=== PATIENT | female | born 1985 | race Caucasian/White ===

== ENCOUNTER → 2016-09-15 | Outpatient (REF) | payer OTHER ==
[~2016-09-15] MED LIST: ADV250INH INH; ALBU17IN2 INH; AMIT10TA2 PO; CARB20TAXR PO; DIVA50TAEC PO; MEDR4PAK PO; MIREIUD IU; PERCOCET PO; SENO8.6T2 PO; TYLE325T5 PO; VIMP100T PO
== END ==
LOC: M LAB REF 09:57
PROVIDERS: ATTEND Physician Assistant
DX: J02.9 Acute pharyngitis, unspecified (principal)

== ENCOUNTER 2016-10-26 18:26 | Emergency (ER) | payer OTHER ==
[2016-10-26] MEDS ORDERED: ALPRAZolam 0.25 MG TAB As Ordered ONE (19:56)
--- NOTE | 2016-10-26 20:10 | EDDOCDS ---
Physician Documentation [facility] Name: Leigh Candelaria Age: 30 yrs Sex: Female : 1985 Arrival Date: 10/26/2016 Time: 18:26 Bed 30 Private MD: Emerson Dow Abdul Disposition: 10/26/16 19:11 Discharged to Home/Self Care. Impression: Encounter for issue of repeat prescription. - Condition is Stable. - Prescriptions for Amitriptyline 50 mg Oral Tablet - take 1 tablet by ORAL route At bedtime As needed; 10 tablet. Xanax 0.5 mg Oral Tablet - take 1 tablet by ORAL route 1-2 times daily As needed MDD: 3 tabs; 10 tablet. - Medication Reconciliation, Local Pharmacy Hours form. - Follow up: Emerson Dow; When: Call to arrange an appointment; Reason: Recheck today's complaints, Continuance of care. - Problem is new. - Symptoms are unchanged. Historical: - Allergies: Blue Dye (Hives, itching); Depakote (Pancreatitis); Keppra (Vomit, Rash); Lamictal (Anaphylaxis); Morphine (Anaphylaxis); Paxil (chest pain, rash and dyspnea); - Home Meds: 1. amitriptyline 50 mg Oral tab PRN at HS needs refill 2. Xanax 0.5 mg Oral tab 1 tab twice a day ran out last week- need refill 3. Benadryl 50 mg Oral cap 2 cap as needed 4. Depo-Provera IM Q-3 months 5. gabapentin 300 mg Oral cap 1 cap twice a day 6. carbamazepine 200 mg Oral tab every 12 hours - PMHx: Anxiety; Pancreatitis; Seizure Disorder; - PSHx: Cholecystectomy; - Social history: Smoking status: Patient states was never smoker of tobacco. No barriers to communication noted, The patient speaks fluent Comoran, Speaks appropriately for age. - Family history: Not pertinent. - : The pt / caregiver states he / she is not on anticoagulants. Home medication list is obtained from the patient. - Exposure Risk Screening:: None identified. COMMUNITY HEALTH NAVIGATOR: 10/26 18:47 LMP N/A - control method srm Vital Signs: 18:28 BP 178 / 95; Pulse 100; Resp 18 S; Temp 98.8(O); Pulse Ox 99% on R/A; Weight 68.04 kg / gr2 150 lbs (R); Height 5 ft. 3 in. (160.02 cm) (R); Pain 4/10; 20:07 BP 142 / 99; Pulse 89; Resp 16; Temp 99.1(O); Pulse Ox 99% on R/A; Pain 0/10; rw1 18:28 Body Mass Index 26.57 (68.04 kg, 160.02 cm) gr2 MDM: 19:29 Financial registration complete. gjb 19:55 ALPRAZolam Tablet 0.5 mg PO once ordered. cs11 Administered Medications: 20:01 Drug: ALPRAZolam 0.5 mg [alprazolam 0.25 mg tablet (2 tabs)] Route: PO; rw1 20:02 Follow up: Response: Pt left department before re-evaluation is appropriate rw1 Signatures: Gabriela Ho, RN RN Davi Cote LPN LPN rw1 Pramod Burciaga DO DO cs11 Nehal Roblero isabel LACHO
--- NOTE | 2016-10-26 20:10 | EDDOCDS ---
Nurse's Notes [facility] Name: Leigh Candelaria Age: 30 yrs Sex: Female : 1985 Arrival Date: 10/26/2016 Time: 18:26 Bed 30 Private MD: Emerson Dow Abdul Diagnosis: Encounter for issue of repeat prescription Presentation: 10/26 18:44 Presenting complaint: Patient states: last week my doctor was suppsoed to renew my [facility] anxiety meds and called and cancelled appt and is now out of town. asiya been having the worse anxiety attacks. Asiya had 10 today. Adult Sepsis Screening: The patient does not have new or worsening altered mentation. Patient's respiratory rate is less than 22. Systolic blood pressure is greater than 100. Patient has a qSOFA score of 0- Negative Sepsis Screen. Suicide/Homicide risk assessment- Patient denies SI and HI but presents with another emotional, behavioral or other mental health complaint. The patient reports that he/she has not been admitted to an inpatient mental health facility in the last 30 days. 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 Transition of care: patient was not received from another setting of care. 18:44 Acuity: DAVID Level 3 srm 18:44 Method Of Arrival: Walkin/Carried/Asstd [facility] Triage Assessment: 18:47 General: Appears in no apparent distress, Behavior is appropriate for age, cooperative. srm Pain: Location: headache Pain currently is 4 out of 10 on a pain scale. HIV screening NA for this visit Offered previously. TESTS SUPERINTENDENT: 18:47 LMP N/A - control method srm Historical: - Allergies: Blue Dye (Hives, itching); Depakote (Pancreatitis); Keppra (Vomit, Rash); Lamictal (Anaphylaxis); Morphine (Anaphylaxis); Paxil (chest pain, rash and dyspnea); - Home Meds: 1. amitriptyline 50 mg Oral tab PRN at HS needs refill 2. Xanax 0.5 mg Oral tab 1 tab twice a day ran out last week- need refill 3. Benadryl 50 mg Oral cap 2 cap as needed 4. Depo-Provera IM Q-3 months 5. gabapentin 300 mg Oral cap 1 cap twice a day 6. carbamazepine 200 mg Oral tab every 12 hours - PMHx: Anxiety; Pancreatitis; Seizure Disorder; - PSHx: Cholecystectomy; - Social history: Smoking status: Patient states was never smoker of tobacco. No barriers to communication noted, The patient speaks fluent Hebrew, Speaks appropriately for age. - Family history: Not pertinent. - : The pt / caregiver states he / she is not on anticoagulants. Home medication list is obtained from the patient. - Exposure Risk Screening:: None identified. Screenin:07 Screening information is obtained from the patient. Fall risk: No risks identified. rw1 Assistance ADL's: requires no assistance with activities of daily living. Abuse/DV Screen: The patient / caregiver reports he/she is: not in a situation that causes fear, pain or injury. Nutritional screening: No deficits noted. Advance Directives: Currently, there is no health care proxy. home support is adequate. Assessment: 20:03 Reassessment: Patient appears in no apparent distress at this time. Patient denies pain rw1 at this time. Patient states feeling better. Vital Signs: 18:28 BP 178 / 95; Pulse 100; Resp 18 S; Temp 98.8(O); Pulse Ox 99% on R/A; Weight 68.04 kg gr2 (R); Height 5 ft. 3 in. (160.02 cm) (R); Pain 4/10; 20:07 BP 142 / 99; Pulse 89; Resp 16; Temp 99.1(O); Pulse Ox 99% on R/A; Pain 0/10; rw1 18:28 Body Mass Index 26.57 (68.04 kg, 160.02 cm) gr2 Vitals: 18:28 Log In Time: October 26, 2016 at 18:28. gr2 ED Course: 18:28 Patient visited by Mamadou Vogel. gr2 18:28 Emerson Dow is Private Physician. gr2 18:28 Patient moved to Waiting gr2 18:29 Patient visited by Mamadou Vogel. gr2 18:29 Patient moved to Pre RCE gr2 18:45 Triage Initiated srm 18:57 Patient moved to 30 ar3 18:59 Pramod Burciaga DO is Attending Physician. cs11 18:59 Patient visited by Pramod Burciaga DO. cs11 19:10 Emersno Dow is Referral Physician. cs11 20:07 The patient / caregiver is instructed regarding the plan of care and ED course. rw1 20:07 No IV's were initiated during this patient's visit. No procedures done that require rw1 assistance. Administered Medications: 20:01 Drug: ALPRAZolam 0.5 mg [alprazolam 0.25 mg tablet (2 tabs)] Route: PO; rw1 20:02 Follow up: Response: Pt left department before re-evaluation is appropriate rw1 Order Results: There are currently no results for this order. Outcome: 19:11 Discharge ordered by Provider. cs11 20:07 Discharge Assessment: Patient awake, alert and oriented x 3. No cognitive and/or rw1 functional deficits noted. Patient verbalized understanding of disposition instructions. patient administered narcotics - yes. Pt provided with safe discharge. The following High Risk Discharge criteria are identified: None. Discharged to home ambulatory, in cab. Condition: stable. Discharge instructions given to patient, Instructed on discharge instructions, follow up and referral plans. medication usage, no driving heavy equipment, Demonstrated understanding of instructions, medications, Pt was receptive of discharge instructions/ teaching. Prescriptions given X 2. No special radiology studies were completed. Property sent home with patient. 20:09 Patient left the ED. rw1 Signatures: Gabriela Ho, RN RN Davi Cote,ALBER ENVIRONMENTAL EMERGENCIES ASSISTANT rw1 Germaine Ferreira, LETTY LOOPER FIXER ar3 Pramod Burciaga DO DO 11 Mamadou Vogel gr2 Corrections: (The following items were deleted from the chart) 20:03 20:03 General: Appears rw1 rw1 MTDD
--- NOTE | 2016-10-28 21:10 | EDDOCDS ---
Physician Documentation [facility] Name: Leigh Candelaria Age: 30 yrs Sex: Female : 1985 Arrival Date: 10/26/2016 Time: 18:26 Bed 30 Private MD: Emerson Dow Abdul Disposition: 10/26/16 19:11 Discharged to Home/Self Care. Impression: Encounter for issue of repeat prescription. - Condition is Stable. - Prescriptions for Amitriptyline 50 mg Oral Tablet - take 1 tablet by ORAL route At bedtime As needed; 10 tablet. Xanax 0.5 mg Oral Tablet - take 1 tablet by ORAL route 1-2 times daily As needed MDD: 3 tabs; 10 tablet. - Medication Reconciliation, Local Pharmacy Hours form. - Follow up: Emerson Dow; When: Call to arrange an appointment; Reason: Recheck today's complaints, Continuance of care. - Problem is new. - Symptoms are unchanged. Historical: - Allergies: Blue Dye (Hives, itching); Depakote (Pancreatitis); Keppra (Vomit, Rash); Lamictal (Anaphylaxis); Morphine (Anaphylaxis); Paxil (chest pain, rash and dyspnea); - Home Meds: 1. amitriptyline 50 mg Oral tab PRN at HS needs refill 2. Xanax 0.5 mg Oral tab 1 tab twice a day ran out last week- need refill 3. Benadryl 50 mg Oral cap 2 cap as needed 4. Depo-Provera IM Q-3 months 5. gabapentin 300 mg Oral cap 1 cap twice a day 6. carbamazepine 200 mg Oral tab every 12 hours - PMHx: Anxiety; Pancreatitis; Seizure Disorder; - PSHx: Cholecystectomy; - Social history: Smoking status: Patient states was never smoker of tobacco. No barriers to communication noted, The patient speaks fluent Maldivian, Speaks appropriately for age. - Family history: Not pertinent. - : The pt / caregiver states he / she is not on anticoagulants. Home medication list is obtained from the patient. - Exposure Risk Screening:: None identified. 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 3 in. (160.02 cm) (R); Pain 4/10; 20:07 BP 142 / 99; Pulse 89; Resp 16; Temp 99.1(O); Pulse Ox 99% on R/A; Pain 0/10; rw1 18:28 Body Mass Index 26.57 (68.04 kg, 160.02 cm) gr2 MDM: 19:29 Financial registration complete. gjb 19:55 ALPRAZolam Tablet 0.5 mg PO once ordered. cs11 20:30 [facility] Payment Agreement was scanned into [employer] and attached to record. b 10/27 11:04 T-Sheet-- Draft Copy was scanned into [employer] and attached to record. gb Administered Medications: 10/26 20:01 Drug: ALPRAZolam 0.5 mg [alprazolam 0.25 mg tablet (2 tabs)] Route: PO; rw1 20:02 Follow up: Response: Pt left department before re-evaluation is appropriate rw1 Signatures: Gabriela Ho, RN RN srm Betsy, Shaila, Reg Reg gb Davi Braxton,COMMUNICATION ELECTRONIC TECHNICIAN COMMUNICATION ELECTRONIC TECHNICIAN rw1 Pramod Burciaga DO DO [facility] Nehal Roblero [facility] The chart was reviewed and I authenticate all verbal orders and agree with the evaluation and treatment provided.Attachments: 20:30 [facility] Payment Agreement [facility] 10/27 11:04 T-Sheet-- Draft Copy Chart Complete MTDD
--- NOTE | 2016-10-28 21:10 | EDDOCDS ---
Physician Documentation [facility] Name: Leigh Candelaria Age: 30 yrs Sex: Female : 1985 Arrival Date: 10/26/2016 Time: 18:26 Bed 30 Private MD: Emerson Dow Abdul Disposition: 10/26/16 19:11 Discharged to Home/Self Care. Impression: Encounter for issue of repeat prescription. - Condition is Stable. - Prescriptions for Amitriptyline 50 mg Oral Tablet - take 1 tablet by ORAL route At bedtime As needed; 10 tablet. Xanax 0.5 mg Oral Tablet - take 1 tablet by ORAL route 1-2 times daily As needed MDD: 3 tabs; 10 tablet. - Medication Reconciliation, Local Pharmacy Hours form. - Follow up: Emerson Dow; When: Call to arrange an appointment; Reason: Recheck today's complaints, Continuance of care. - Problem is new. - Symptoms are unchanged. Historical: - Allergies: Blue Dye (Hives, itching); Depakote (Pancreatitis); Keppra (Vomit, Rash); Lamictal (Anaphylaxis); Morphine (Anaphylaxis); Paxil (chest pain, rash and dyspnea); - Home Meds: 1. amitriptyline 50 mg Oral tab PRN at HS needs refill 2. Xanax 0.5 mg Oral tab 1 tab twice a day ran out last week- need refill 3. Benadryl 50 mg Oral cap 2 cap as needed 4. Depo-Provera IM Q-3 months 5. gabapentin 300 mg Oral cap 1 cap twice a day 6. carbamazepine 200 mg Oral tab every 12 hours - PMHx: Anxiety; Pancreatitis; Seizure Disorder; - PSHx: Cholecystectomy; - Social history: Smoking status: Patient states was never smoker of tobacco. No barriers to communication noted, The patient speaks fluent Burkinan, Speaks appropriately for age. - Family history: Not pertinent. - : The pt / caregiver states he / she is not on anticoagulants. Home medication list is obtained from the patient. - Exposure Risk Screening:: None identified. 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 3 in. (160.02 cm) (R); Pain 4/10; 20:07 BP 142 / 99; Pulse 89; Resp 16; Temp 99.1(O); Pulse Ox 99% on R/A; Pain 0/10; rw1 18:28 Body Mass Index 26.57 (68.04 kg, 160.02 cm) gr2 MDM: 19:29 Financial registration complete. gjb 19:55 ALPRAZolam Tablet 0.5 mg PO once ordered. cs11 20:30 [facility] [place] Agreement was scanned into [employer] and attached to record. b 10/27 11:04 T-Sheet-- Draft Copy was scanned into [employer] and attached to record. gb Administered Medications: 10/26 20:01 Drug: ALPRAZolam 0.5 mg [alprazolam 0.25 mg tablet (2 tabs)] Route: PO; rw1 20:02 Follow up: Response: Pt left department before re-evaluation is appropriate rw1 Signatures: Gabriela Ho, RN RN srm Betsy, Shaila, Reg Reg gb Davi Braxton,TOPSTITCHER ZIGZAG TOPSTITCHER ZIGZAG rw1 Pramod Burciaga DO DO [facility] Nehal Roblero [facility] The chart was reviewed and I authenticate all verbal orders and agree with the evaluation and treatment provided.Attachments: 20:30 [facility] Payment Agreement [facility] 10/27 11:04 T-Sheet-- Draft Copy Chart Complete MTDD
--- NOTE | 2016-10-28 21:10 | EDDOCDS ---
Nurse's Notes [facility] Name: Leigh Candelaria Age: 30 yrs Sex: Female : 1985 Arrival Date: 10/26/2016 Time: 18:26 Bed 30 Private MD: Emerson Dow Abdul Diagnosis: Encounter for issue of repeat prescription Presentation: 10/26 18:44 Presenting complaint: Patient states: last week my doctor was suppsoed to renew my [facility] anxiety meds and called and cancelled appt and is now out of town. asiya been having the worse anxiety attacks. Asiya had 10 today. Adult Sepsis Screening: The patient does not have new or worsening altered mentation. Patient's respiratory rate is less than 22. Systolic blood pressure is greater than 100. Patient has a qSOFA score of 0- Negative Sepsis Screen. Suicide/Homicide risk assessment- Patient denies SI and HI but presents with another emotional, behavioral or other mental health complaint. The patient reports that he/she has not been admitted to an inpatient mental health facility in the last 30 days. 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 Transition of care: patient was not received from another setting of care. 18:44 Acuity: DAVID Level 3 srm 18:44 Method Of Arrival: Walkin/Carried/Asstd [facility] Triage Assessment: 18:47 General: Appears in no apparent distress, Behavior is appropriate for age, cooperative. srm Pain: Location: headache Pain currently is 4 out of 10 on a pain scale. HIV screening NA for this visit Offered previously. ATTENUATOR: 18:47 LMP N/A - control method srm Historical: - Allergies: Blue Dye (Hives, itching); Depakote (Pancreatitis); Keppra (Vomit, Rash); Lamictal (Anaphylaxis); Morphine (Anaphylaxis); Paxil (chest pain, rash and dyspnea); - Home Meds: 1. amitriptyline 50 mg Oral tab PRN at HS needs refill 2. Xanax 0.5 mg Oral tab 1 tab twice a day ran out last week- need refill 3. Benadryl 50 mg Oral cap 2 cap as needed 4. Depo-Provera IM Q-3 months 5. gabapentin 300 mg Oral cap 1 cap twice a day 6. carbamazepine 200 mg Oral tab every 12 hours - PMHx: Anxiety; Pancreatitis; Seizure Disorder; - PSHx: Cholecystectomy; - Social history: Smoking status: Patient states was never smoker of tobacco. No barriers to communication noted, The patient speaks fluent Spanish, Speaks appropriately for age. - Family history: Not pertinent. - : The pt / caregiver states he / she is not on anticoagulants. Home medication list is obtained from the patient. - Exposure Risk Screening:: None identified. Screenin:07 Screening information is obtained from the patient. Fall risk: No risks identified. rw1 Assistance ADL's: requires no assistance with activities of daily living. Abuse/DV Screen: The patient / caregiver reports he/she is: not in a situation that causes fear, pain or injury. Nutritional screening: No deficits noted. Advance Directives: Currently, there is no health care proxy. home support is adequate. Assessment: 20:03 Reassessment: Patient appears in no apparent distress at this time. Patient denies pain rw1 at this time. Patient states feeling better. Vital Signs: 18:28 BP 178 / 95; Pulse 100; Resp 18 S; Temp 98.8(O); Pulse Ox 99% on R/A; Weight 68.04 kg gr2 (R); Height 5 ft. 3 in. (160.02 cm) (R); Pain 4/10; 20:07 BP 142 / 99; Pulse 89; Resp 16; Temp 99.1(O); Pulse Ox 99% on R/A; Pain 0/10; rw1 18:28 Body Mass Index 26.57 (68.04 kg, 160.02 cm) gr2 Vitals: 18:28 Log In Time: October 26, 2016 at 18:28. gr2 ED Course: 18:28 Patient visited by Mamadou Vogel. gr2 18:28 Emerson Dow is Private Physician. gr2 18:28 Patient moved to Waiting gr2 18:29 Patient visited by Mamadou Vogel. gr2 18:29 Patient moved to Pre RCE gr2 18:45 Triage Initiated srm 18:57 Patient moved to 30 ar3 18:59 Pramod Burciaga DO is Attending Physician. cs11 18:59 Patient visited by Pramod Burciaga DO. cs11 19:10 Emerson Dow is Referral Physician. cs11 20:07 The patient / caregiver is instructed regarding the plan of care and ED course. rw1 20:07 No IV's were initiated during this patient's visit. No procedures done that require rw1 assistance. 20:30 [facility] Payment Agreement was scanned into [employer] and attached to record. torey 10/27 11:04 T-Sheet-- Draft Copy was scanned into [email or web address] and attached to record. gb Administered Medications: 10/26 20:01 Drug: ALPRAZolam 0.5 mg [alprazolam 0.25 mg tablet (2 tabs)] Route: PO; rw1 20:02 Follow up: Response: Pt left department before re-evaluation is appropriate rw1 Order Results: There are currently no results for this order. Outcome: 19:11 Discharge ordered by Provider. cs11 20:07 Discharge Assessment: Patient awake, alert and oriented x 3. No cognitive and/or rw1 functional deficits noted. Patient verbalized understanding of disposition instructions. patient administered narcotics - yes. Pt provided with safe discharge. The following High Risk Discharge criteria are identified: None. Discharged to home ambulatory, in cab. Condition: stable. Discharge instructions given to patient, Instructed on discharge instructions, follow up and referral plans. medication usage, no driving heavy equipment, Demonstrated understanding of instructions, medications, Pt was receptive of discharge instructions/ teaching. Prescriptions given X 2. No special radiology studies were completed. Property sent home with patient. 20:09 Patient left the ED. rw1 Signatures: Gabriela Ho, RN RN [facility] Betsy, Shaila, Reg Reg gb Davi Braxton,ALBER CAMPO rw1 Germaine Ferreira, LETTY DIVINE HEALER ar3 Pramod Burciaga DO DO cs11 Mamadou Vogel 2 Nehal Roblero Corrections: (The following items were deleted from the chart) 20:03 20:03 General: Appears rw1 rw1 Chart Complete MTDD
== END 2016-10-26 20:09 | disposition home or self-care (01) ==
LOC: M ED 18:26
DX: Z76.0 Encounter for issue of repeat prescription (principal); F41.9 Anxiety disorder, unspecified; G40.909 Epilepsy, unspecified, not intractable, without status epilepticus; Z79.899 Other long term (current) drug therapy; Z88.8 Allergy status to other drugs, medicaments and biological substances; Z88.5 Allergy status to narcotic agent; Z91.02 Food additives allergy status

== ENCOUNTER → 2017-03-19 | Outpatient (CLI) | payer OTHER ==
[~2017-03-19] MED LIST changes: +AMIT50TA PO; +FLUO20CA8 PO; +GABA-282 PO; +KLON0.5T PO; +MEDR1VL IM; -SENO8.6T2 PO; +SENO8.6T5 PO; +XANA0.5T PO; +ZOFR4TAB3 PO
--- NOTE | 2017-03-19 14:59 | REP ---
Clinical: Epigastric and abdominal pain. Technique: Upright view of the chest with supine and upright views of the abdomen and pelvis. Findings: Frontal upright view of the chest demonstrates no acute cardiopulmonary process or free air below the diaphragm to suspect pneumoperitoneum. Supine and upright views of the abdomen and pelvis demonstrate nonspecific bowel gas pattern without obstruction or perforation. No organomegaly. No abnormal calcifications. Skeletal structures normal for age. Evidence of prior cholecystectomy and IUD placement. Impression: Nonspecific bowel gas pattern. Signed by Albert Heard MD 03/19/2017 02:50 P
[2017-03-19 18:27] LABS: BASO % 0.3 % (0.0-1.0); EOS # 0.1 K/mm3 (0.0-0.50); EOS % 0.7 % (0.0-3.0); LARGE UNSTAINED CELL # 0.1 K/mm3 (0.0-0.4); LARGE UNSTAINED CELL % 0.8 % (0.0-4.0); LYMPH % 24.2 % (24.0-44.0); MEAN CORPUSCULAR HEMOGLOBIN 31.3 pg (27.0-33.0); MEAN CORPUSCULAR HGB CONC 34.1 g/dl (32.0-36.5); MEAN CORPUSCULAR VOLUME 91.7 fl (80.0-96.0); MONO # 0.7 K/mm3 (0.0-0.8); MONO % 5.5 % (0.0-5.0); NEUTROPHILS # 8.2 K/mm3 (1.8-7.7); NEUTROPHILS % 68.4 % (36.0-66.0); PLATELET COUNT, AUTOMATED 325 k/mm3 (150-450); RED CELL DISTRIBUTION WIDTH 12.1 % (11.5-14.5)
[2017-03-19 18:43] LABS: ANION GAP 8 MEQ/L (8-16); BLOOD UREA NITROGEN 16 MG/DL (7-18); CALCIUM LEVEL 9.4 MG/DL (8.5-10.1); CARBON DIOXIDE LEVEL 30 MEQ/L (21-32); CHLORIDE LEVEL 102 MEQ/L (98-107); CREATININE FOR GFR 0.72 MG/DL (0.55-1.02); GLOMERULAR FILTRATION RATE > 60.0 (>60); GLUCOSE, FASTING 74 MG/DL (70-105); POTASSIUM SERUM 3.9 MEQ/L (3.5-5.1); SODIUM LEVEL 140 MEQ/L (136-145)
== END ==
LOC: M WUC 14:21
PROVIDERS: ATTEND Physician Assistant
DX: R10.816 Epigastric abdominal tenderness (principal)

== ENCOUNTER 2017-03-20 00:02 | Emergency (ER) | payer OTHER ==
[~2017-03-20] VITALS: Ht 160 cm; Wt 72.7 kg
[~2017-03-20 00:02] MED LIST changes: -AMIT50TA PO; -FLUO20CA8 PO; -GABA-282 PO; -KLON0.5T PO; -MEDR1VL IM; -XANA0.5T PO; -ZOFR4TAB3 PO
[2017-03-20] MEDS ORDERED: GABA-282 PO (00:20)
[2017-03-20] MEDS ORDERED: AMIT50TA PO (00:20)
[2017-03-20] MEDS ORDERED: XANA0.5T PO (00:20)
[2017-03-20] MEDS ORDERED: LORazepam 1 MG TAB PO STA (00:59)
[2017-03-20 02:39] VITALS: BP 138/64
== END 2017-03-20 02:42 | disposition home or self-care (01) ==
LOC: EDBD 00:02 → M ED 00:02
DX: F41.9 Anxiety disorder, unspecified (principal); F13.20 Sedative, hypnotic or anxiolytic dependence, uncomplicated

== ENCOUNTER 2017-05-07 19:22 | Emergency (ER) | payer OTHER ==
[~2017-05-07] VITALS: Ht 160 cm; Wt 63.6 kg
[~2017-05-07 19:22] MED LIST changes: +AMIT50TA PO; +GABA-282 PO; +XANA0.5T PO
[2017-05-07] MEDS ORDERED: FLUO20CA8 PO (19:38)
[2017-05-07] MEDS ORDERED: KLON0.5T PO (20:41)
[2017-05-07] MEDS ORDERED: clonazePAM 0.5 MG TAB PO ONE (20:45)
[2017-05-07 21:04] VITALS: BP 132/84
== END 2017-05-07 21:07 | disposition home or self-care (01) ==
LOC: M ED 19:22 → EDBD 19:22 → M ED 21:07
DX: F13.20 Sedative, hypnotic or anxiolytic dependence, uncomplicated (principal); F41.9 Anxiety disorder, unspecified

== ENCOUNTER 2017-05-08 05:46 | Emergency (ER) | payer OTHER ==
[~2017-05-08 05:46] MED LIST changes: +FLUO20CA8 PO; +KLON0.5T PO
[2017-05-08 07:14] LABS: MEAN CORPUSCULAR HEMOGLOBIN 31.8 pg (27.0-33.0); MEAN CORPUSCULAR HGB CONC 34.9 g/dl (32.0-36.5); MEAN CORPUSCULAR VOLUME 91.1 fl (80.0-96.0); RED CELL DISTRIBUTION WIDTH 11.9 % (11.5-14.5); WHITE BLOOD COUNT 9.2 K/mm3 (4.0-10.0)
[2017-05-08] MEDS ORDERED: ALPRAZolam 0.25 MG TAB PO ONE ×2 (07:45→08:15)
[2017-05-08 07:58] LABS: ALBUMIN 4.1 GM/DL (3.2-5.2); ALBUMIN/GLOBULIN RATIO 1.17 (1.00-1.93); ALKALINE PHOSPHATASE 66 U/L (45-117); ALT/SGPT 16 U/L (12-78); ANION GAP 10 MEQ/L (8-16); AST/SGOT 13 U/L (15-37); BILIRUBIN,DIRECT < 0.1 MG/DL (0.0-0.2); BILIRUBIN,TOTAL 0.3 MG/DL (0.2-1.0); BLOOD UREA NITROGEN 9 MG/DL (7-18); CALCIUM LEVEL 8.7 MG/DL (8.5-10.1); CARBAMAZEPINE (TEGRETOL) LEVEL 9.3 UG/ML (4.0-10.0); CARBON DIOXIDE LEVEL 27 MEQ/L (21-32); CHLORIDE LEVEL 107 MEQ/L (98-107); CREATININE FOR GFR 0.73 MG/DL (0.55-1.02); GLOMERULAR FILTRATION RATE > 60.0 (>60); GLUCOSE, FASTING 98 MG/DL (70-105); POTASSIUM SERUM 4.2 MEQ/L (3.5-5.1); SODIUM LEVEL 144 MEQ/L (136-145); TOTAL PROTEIN 7.6 GM/DL (6.4-8.2)
[2017-05-08 08:20] VITALS: BP 141/72
[2017-05-08 08:41] LABS: METHADONE URINE NEGATIVE (NEGATIVE)
== END 2017-05-08 08:28 | disposition home or self-care (01) ==
LOC: EDBD 05:46 → M ED 05:46 → EDSEX 05:46 → M ED 08:28
DX: F41.9 Anxiety disorder, unspecified (principal); F13.10 Sedative, hypnotic or anxiolytic abuse, uncomplicated

== ENCOUNTER 2017-06-04 19:48 | Emergency (ER) | payer OTHER ==
[~2017-06-04] VITALS: Ht 160 cm; Wt 61.4 kg
[2017-06-04 20:40] LABS: MEAN CORPUSCULAR HEMOGLOBIN 31.9 pg (27.0-33.0); MEAN CORPUSCULAR HGB CONC 35.5 g/dl (32.0-36.5); MEAN CORPUSCULAR VOLUME 89.8 fl (80.0-96.0); RED CELL DISTRIBUTION WIDTH 11.8 % (11.5-14.5)
[2017-06-04 21:14] LABS: ALBUMIN 4.2 GM/DL (3.2-5.2); ALBUMIN/GLOBULIN RATIO 1.27 (1.00-1.93); ALKALINE PHOSPHATASE 70 U/L (45-117); ALT/SGPT 26 U/L (12-78); ANION GAP 8 MEQ/L (8-16); AST/SGOT 15 U/L (15-37); BILIRUBIN,DIRECT 0.1 MG/DL (0.0-0.2); BILIRUBIN,TOTAL 0.3 MG/DL (0.2-1.0); BLOOD UREA NITROGEN 13 MG/DL (7-18); CALCIUM LEVEL 8.4 MG/DL (8.5-10.1); CARBON DIOXIDE LEVEL 25 MEQ/L (21-32); CHLORIDE LEVEL 108 MEQ/L (98-107); CREATININE FOR GFR 0.64 MG/DL (0.55-1.02); GLOMERULAR FILTRATION RATE > 60.0 (>60); GLUCOSE, FASTING 95 MG/DL (70-105); POTASSIUM SERUM 3.7 MEQ/L (3.5-5.1); SODIUM LEVEL 141 MEQ/L (136-145); TOTAL PROTEIN 7.5 GM/DL (6.4-8.2)
[2017-06-04] MEDS ORDERED: ZOFR4TAB3 PO (21:31)
[2017-06-04 21:47] VITALS: BP 139/80
[2017-06-04 21:51] LABS: METHADONE URINE NEGATIVE (NEGATIVE)
[2017-06-05] MEDS ORDERED: MEDR1VL IM (14:19)
== END 2017-06-04 22:09 | disposition home or self-care (01) ==
LOC: M ED 19:48 → EDBD 19:48 → M ED 22:09
DX: F43.9 Reaction to severe stress, unspecified (principal); F15.20 Other stimulant dependence, uncomplicated

== ENCOUNTER 2017-06-05 14:09 | Emergency (ER) | payer OTHER ==
[~2017-06-05] VITALS: Ht 160 cm; Wt 65.9 kg
[~2017-06-05 14:09] MED LIST changes: +ZOFR4TAB3 PO
[2017-06-05] MEDS ORDERED: MEDR1VL IM (14:19)
[2017-06-05 16:41] VITALS: BP 138/80
== END 2017-06-05 16:42 | disposition home or self-care (01) ==
LOC: M ED 14:09
DX: F41.9 Anxiety disorder, unspecified (principal); G40.909 Epilepsy, unspecified, not intractable, without status epilepticus; Z79.899 Other long term (current) drug therapy; Z88.5 Allergy status to narcotic agent; Z88.8 Allergy status to other drugs, medicaments and biological substances; J30.0 Vasomotor rhinitis; J30.81 Allergic rhinitis due to animal (cat) (dog) hair and dander; L23.1 Allergic contact dermatitis due to adhesives

== ENCOUNTER → 2017-07-26 | Outpatient (CLI) | payer OTHER ==
[~2017-07-26] MED LIST changes: +MEDR1VL IM
[2017-07-26 18:45] LABS: ALBUMIN 4.2 GM/DL (3.2-5.2); ALBUMIN/GLOBULIN RATIO 1.31 (1.00-1.93); ALKALINE PHOSPHATASE 72 U/L (45-117); ALT/SGPT 23 U/L (12-78); ANION GAP 5 MEQ/L (8-16); AST/SGOT 15 U/L (7-37); BILIRUBIN,TOTAL 0.3 MG/DL (0.2-1.0); BLOOD UREA NITROGEN 16 MG/DL (7-18); CARBON DIOXIDE LEVEL 29 MEQ/L (21-32); CHLORIDE LEVEL 104 MEQ/L (98-107); CHOLESTEROL LEVEL 211 MG/DL (<200); CREATININE FOR GFR 0.69 MG/DL (0.55-1.02); FERRITIN 65 NG/ML (8-252); GLOMERULAR FILTRATION RATE > 60.0 (>60); GLUCOSE, FASTING 110 MG/DL (70-105); PERCENT SATURATION 37.5 % (13.2-45.0); POTASSIUM SERUM 4.3 MEQ/L (3.5-5.1); SODIUM LEVEL 138 MEQ/L (136-145); TOTAL IRON BINDING CAPACITY 333 UG/DL (250-450); TOTAL PROTEIN 7.4 GM/DL (6.4-8.2); TRIGLYCERIDES LEVEL 102 MG/DL (<150)
[2017-07-26 19:05] LABS: BASO % 0.4 % (0.0-1.0); EOS # 0.3 10^3/uL (0.0-0.50); EOS % 3.9 % (0.0-3.0); IMMATURE GRANULOCYTE % 0.3 % (0-0); LYMPH # 2.4 10^3/uL (1.5-4.5); LYMPH % 33.5 % (24.0-44.0); MEAN CORPUSCULAR HEMOGLOBIN 31.3 pg (27.0-33.0); MEAN CORPUSCULAR HGB CONC 33.7 g/dl (32.0-36.5); MEAN CORPUSCULAR VOLUME 92.9 fl (80.0-96.0); MONO # 0.5 10^3/uL (0.0-0.8); MONO % 6.9 % (0.0-5.0); PLATELET COUNT, AUTOMATED 287 10^3/uL (150-450); RED CELL DISTRIBUTION WIDTH 11.7 % (11.5-14.5); RETIC HEMOGLOBIN EQUIVALENT 37.9 pg (24-36); RETICULOCYTE % 1.5 % (0.5-1.5); WHITE BLOOD COUNT 7.2 10^3/uL (4.0-10.0)
== END ==
LOC: M LRY 11:19
PROVIDERS: ATTEND Family Medicine
DX: G40.919 Epilepsy, unspecified, intractable, without status epilepticus (principal)

== ENCOUNTER → 2017-07-26 | Outpatient (REF) | payer OTHER | LOC: M SFHCLERA 10:45 | PROVIDERS: ATTEND Family Medicine | DX: G40.919 Epilepsy, unspecified, intractable, without status epilepticus (principal); Z53.9 Procedure and treatment not carried out, unspecified reason ==

== ENCOUNTER → 2017-09-26 | Outpatient (REF) | payer OTHER ==
[2017-09-26 17:53] LABS: AMPHETAMINES URINE REFLEX NEGATIVE (NEGATIVE); BARBITURATES URINE REFLEX NEGATIVE (NEGATIVE); BENZODIAZEPINES URINE REFLEX NEGATIVE (NEGATIVE); COCAINE METABOLITE URINE REFLE NEGATIVE (NEGATIVE); METHADONE URINE REFLEX NEGATIVE (NEGATIVE); OPIATES URINE REFLEX NEGATIVE (NEGATIVE); PHENCYCLIDINE URINE REFLEX NEGATIVE (NEGATIVE)
[2017-09-26 17:56] LABS: CANNABINOIDS URINE REFLEX POSITIVE (NEGATIVE)
[2017-09-26 18:06] LABS: CARBAMAZEPINE (TEGRETOL) LEVEL 8.9 UG/ML (4.0-10.0)
[2017-09-30 10:14] LABS: Cannabinoid Negative (Cutoff=10)
== END ==
LOC: M SFHCLERA 11:55
DX: G40.919 Epilepsy, unspecified, intractable, without status epilepticus (principal); Z79.899 Other long term (current) drug therapy

== ENCOUNTER → 2018-05-25 | Outpatient (REF) | payer OTHER | LOC: M LAB REF 16:21 | DX: H66.91 Otitis media, unspecified, right ear (principal); J02.9 Acute pharyngitis, unspecified ==

== ENCOUNTER → 2018-07-21 | Outpatient (REF) | payer OTHER | LOC: M LAB REF 16:12 | DX: N39.0 Urinary tract infection, site not specified (principal) ==

== ENCOUNTER → 2018-07-26 | Outpatient (REF) | payer OTHER | LOC: M LAB REF 16:25 | DX: N39.0 Urinary tract infection, site not specified (principal) ==

== ENCOUNTER 2018-08-30 20:36 | Emergency (ER) | payer OTHER ==
[~2018-08-30] VITALS: Ht 160 cm; Wt 72.7 kg
[~2018-08-30 20:36] MED LIST changes: -GABA-282 PO; +GABA-843 PO; +MIRE1IUD IU; -MIREIUD IU; +ZOFR4TAB14 PO; -ZOFR4TAB3 PO
[2018-08-30] MEDS ORDERED: AMIT50TA PO (20:50)
[2018-08-30] MEDS ORDERED: ATIV2TAB PO (20:50)
[2018-08-30 21:02] LABS: URINE PREG TEST NEGATIVE (NEGATIVE)
[2018-08-30] MEDS ORDERED: KETOROLAC 30 MG/ML VIAL (J1885) IV ONE (21:45)
[2018-08-30 21:47] LABS: BASO % 0.4 % (0.0-1.0); EOS # 0.3 10^3/uL (0.0-0.50); EOS % 3.6 % (0.0-3.0); HEMATOCRIT 39.4 % (36.0-47.0); HEMOGLOBIN 13.8 g/dl (12.0-15.5); LYMPH # 3.1 10^3/uL (1.5-4.5); LYMPH % 37.3 % (24.0-44.0); MEAN CORPUSCULAR HEMOGLOBIN 31.8 pg (27.0-33.0); MEAN CORPUSCULAR VOLUME 90.8 fl (80.0-96.0); MONO # 0.6 10^3/uL (0.0-0.8); MONO % 7.4 % (0.0-5.0); NEUTROPHILS # 4.2 10^3/uL (1.8-7.7); NEUTROPHILS % 51.1 % (36.0-66.0); PLATELET COUNT, AUTOMATED 274 10^3/uL (150-450); RED BLOOD COUNT 4.34 10^6/uL (4.00-5.40); WHITE BLOOD COUNT 8.2 10^3/uL (4.0-10.0)
[2018-08-30 21:59] LABS: BLOOD UREA NITROGEN 17 MG/DL (7-18); CALCIUM LEVEL 9.1 MG/DL (8.5-10.1); CARBON DIOXIDE LEVEL 30 MEQ/L (21-32); CHLORIDE LEVEL 105 MEQ/L (98-107); GLOMERULAR FILTRATION RATE > 60.0 (>60); GLUCOSE, FASTING 88 MG/DL (70-100); POTASSIUM SERUM 3.6 MEQ/L (3.5-5.1); SODIUM LEVEL 140 MEQ/L (136-145)
--- NOTE | 2018-08-30 23:14 | REPVR ---
EXAM: CT Abdomen and Pelvis Without Contrast EXAM DATE/TIME: 08/30/2018 10:20 PM CLINICAL HISTORY: 32 years old, female; Pain; Abdominal pain; Generalized; Additional info: Pelvic pain w/ urinary symptoms TECHNIQUE: Axial computed tomography images of the abdomen and pelvis without contrast. All CT scans at this facility use at least one of these dose optimization techniques: automated exposure control; mA and/or kV adjustment per patient size (includes targeted exams where dose is matched to clinical indication); or iterative reconstruction. Coronal and sagittal reformatted images were created and reviewed. COMPARISON: CT ABD PELVIS W/O CONTRAST 05/01/2014 9:44 AM FINDINGS: Lower thorax: No acute findings. ABDOMEN: Liver: Normal. No mass. Gallbladder and bile ducts: There has been a cholecystectomy. Pancreas: Normal. No ductal dilation. Spleen: Normal. No splenomegaly. Adrenals: Normal. No mass. Kidneys and ureters: Multiple bilateral non obstructing renal calculi are demonstrated.There is increased feces throughout the colon consistent with constipation. Stomach and bowel: Normal. No obstruction. No mucosal thickening. Appendix: Normal appendix. PELVIS: Bladder: Bladder wall minimally thickened although the bladder not fully distended. Clinical correlation to exclude cystitis suggested. Reproductive: Unremarkable as visualized. ABDOMEN and PELVIS: Intraperitoneal space: Normal. No free air. No significant fluid collection. Bones/joints: No acute fracture. No dislocation. Soft tissues: Unremarkable. Vasculature: Normal. No abdominal aortic aneurysm. Lymph nodes: Normal. No enlarged lymph nodes. IMPRESSION: 1. There has been a cholecystectomy. 2. Multiple bilateral non obstructing renal calculi are demonstrated.There is increased feces throughout the colon consistent with constipation. 3. Bladder wall minimally thickened although the bladder not fully distended. Clinical correlation to exclude cystitis suggested. Electronically signed by: Juan M Fiore On 08/30/2018 23:13:37 PM
[2018-08-30] MEDS ORDERED: HYDROMORPHONE HCL 0.5 MG/ 0.5 ML SYRINGE (J1170 PER 1) IV ONE (23:15)
[2018-08-30] MEDS ORDERED: DICYCLOMINE 10 MG CAP PO ONE (23:15)
[2018-08-30] MEDS ORDERED: ONDANSETRON 4MG/2ML VIAL (J2405) IV ONE (23:15)
[2018-08-31] MEDS ORDERED: DICY20TA PO
[2018-08-31 00:21] VITALS: BP 138/76
[2018-08-31] MEDS ORDERED: ONDANSETRON 4 MG ORAL DISINTEGRATING TAB (Q0162 PER 1MG) PO ONE (00:30)
== END 2018-08-31 00:31 | disposition home or self-care (01) ==
LOC: M ED 20:36
DX: N20.0 Calculus of kidney (principal); K59.00 Constipation, unspecified; R30.0 Dysuria; J45.909 Unspecified asthma, uncomplicated; F98.8 Other specified behavioral and emotional disorders with onset usually occurring in childhood and adolescence; F41.9 Anxiety disorder, unspecified; Z87.19 Personal history of other diseases of the digestive system; G40.409 Other generalized epilepsy and epileptic syndromes, not intractable, without status epilepticus; Z88.5 Allergy status to narcotic agent; Z88.8 Allergy status to other drugs, medicaments and biological substances; Z91.048 Other nonmedicinal substance allergy status; Z79.899 Other long term (current) drug therapy; Z79.3 Long term (current) use of hormonal contraceptives
CPT/HCPCS: 36415; 74176; 80048; 81001; 84703; 85025; 96374; 96375; 99284; J1170; J1885; J2405; Q0162

== ENCOUNTER → 2019-05-15 | Outpatient (REF) | payer OTHER ==
[~2019-05-15] MED LIST changes: +ATIV2TAB PO; +DICY20TA PO
== END ==
LOC: M LAB REF 16:34
PROVIDERS: ATTEND Nurse Practitioner Family
DX: R30.0 Dysuria (principal)

== ENCOUNTER 2020-01-25 11:06 | Emergency (ER) | payer OTHER ==
[~2020-01-25] VITALS: Ht 160 cm; Wt 75.0 kg
[~2020-01-25 11:06] MED LIST changes: +FLUO20CA20 PO; -FLUO20CA8 PO
[2020-01-25] MEDS ORDERED: NS 1,000 ML IV ONE (11:30)
[2020-01-25] MEDS ORDERED: SERT50TA29 PO (11:38)
[2020-01-25] MEDS ORDERED: PROMETHAZINE INJ 25 MG/ML VIAL (J2550) IV ONE (12:00)
[2020-01-25 12:11] LABS: BASO % 0.4 % (0.0-1.0); EOS % 0.4 % (0.0-3.0); HEMATOCRIT 39.1 % (36.0-47.0); HEMOGLOBIN 13.3 g/dl (12.0-15.5); LYMPH # 1.5 10^3/uL (1.5-5.0); LYMPH % 18.8 % (24.0-44.0); MEAN CORPUSCULAR HEMOGLOBIN 30.7 pg (27.0-33.0); MEAN CORPUSCULAR VOLUME 90.3 fl (80.0-96.0); MONO # 0.4 10^3/uL (0.0-0.8); MONO % 5.6 % (0.0-5.0); NEUTROPHILS # 5.8 10^3/uL (1.5-8.5); NEUTROPHILS % 74.3 % (36.0-66.0); PLATELET COUNT, AUTOMATED 276 10^3/uL (150-450); RED BLOOD COUNT 4.33 10^6/uL (4.00-5.40); WHITE BLOOD COUNT 7.9 10^3/uL (4.0-10.0)
[2020-01-25 12:30] LABS: ALBUMIN 3.8 GM/DL (3.2-5.2); ALT/SGPT 50 U/L (12-78); BILIRUBIN,DIRECT 0.1 MG/DL (0.0-0.2); BILIRUBIN,TOTAL 0.3 MG/DL (0.2-1.0); LIPASE 162 U/L (73-393); TOTAL PROTEIN 7.3 GM/DL (6.4-8.2)
[2020-01-25 12:31] LABS: HCG, SERUM QUALITATIVE NEGATIVE (NEGATIVE)
[2020-01-25] MEDS ORDERED: GI COCKTAIL 50ML BTL(HYOSCYAMINE/MAALOX/LIDOCAINE VISCOUS)(1:3:1) PO ONE (13:15)
[2020-01-25] MEDS ORDERED: SUCR1SS PO (13:22)
[2020-01-25] MEDS ORDERED: PEPC1TAB5 PO (13:23)
[2020-01-25] MEDS ORDERED: SUCRALFATE SUSP 1GM/10ML UD PO ONE (13:30)
[2020-01-25] MEDS ORDERED: ONDANSETRON 4MG/2ML VIAL IV ONE (14:00)
[2020-01-25] MEDS ORDERED: ONDA4TAB6 PO (14:48)
[2020-01-25 15:09] VITALS: BP 151/79
== END 2020-01-25 15:22 | disposition home or self-care (01) ==
LOC: M ED 11:06
DX: R11.2 Nausea with vomiting, unspecified (principal); R19.7 Diarrhea, unspecified; F41.9 Anxiety disorder, unspecified; R56.9 Unspecified convulsions; Z88.5 Allergy status to narcotic agent; Z88.8 Allergy status to other drugs, medicaments and biological substances; Z91.048 Other nonmedicinal substance allergy status; J30.89 Other allergic rhinitis; Z79.899 Other long term (current) drug therapy; Z79.3 Long term (current) use of hormonal contraceptives
CPT/HCPCS: 80047; 80076; 83690; 84703; 85025; 96361; 96374; 96375; 99284; J2405

== ENCOUNTER → 2020-09-30 | Outpatient (CLI) | payer OTHER ==
[~2020-09-30] MED LIST changes: -DICY20TA PO; +DICY20TA3 PO; +GABA-282 PO; -GABA-843 PO; +ONDA4TAB6 PO; +PEPC1TAB5 PO; +SERT50TA29 PO; +SUCR1SS PO
== END ==
LOC: M LAB 11:28
PROVIDERS: ATTEND Family Medicine
DX: Z51.81 Encounter for therapeutic drug level monitoring (principal); Z79.899 Other long term (current) drug therapy

== ENCOUNTER → 2020-10-30 | Outpatient (CLI) | payer OTHER ==
[~2020-10-30] MED LIST changes: +ATIV1TAB7 PO; +HYDR50CA2 PO
[2020-10-30 14:59] LABS: HEMATOCRIT 44.6 % (36.0-47.0); HEMOGLOBIN 14.9 g/dl (12.0-15.5); MEAN CORPUSCULAR HEMOGLOBIN 30.7 pg (27.0-33.0); MEAN CORPUSCULAR HGB CONC 33.4 g/dl (32.0-36.5); PLATELET COUNT, AUTOMATED 318 10^3/uL (150-450); RED BLOOD COUNT 4.85 10^6/uL (4.00-5.40); WHITE BLOOD COUNT 8.7 10^3/uL (4.0-10.0)
[2020-10-30 15:16] LABS: HEMOGLOBIN A1c 5.1 %
[2020-10-30 15:22] LABS: ALBUMIN 4.7 GM/DL (3.2-5.2); ALT/SGPT 21 U/L (12-78); BILIRUBIN,TOTAL 0.3 MG/DL (0.2-1.0); BLOOD UREA NITROGEN 11 MG/DL (7-18); CALCIUM LEVEL 10.1 MG/DL (8.5-10.1); CARBON DIOXIDE LEVEL 24 MEQ/L (21-32); CHLORIDE LEVEL 104 MEQ/L (98-107); CREATININE FOR GFR 0.89 MG/DL (0.55-1.30); GLOMERULAR FILTRATION RATE > 60.0 (>60); GLUCOSE, FASTING 110 MG/DL (70-100); POTASSIUM SERUM 3.7 MEQ/L (3.5-5.1); SODIUM LEVEL 140 MEQ/L (136-145); TOTAL PROTEIN 8.6 GM/DL (6.4-8.2)
[2020-10-30 16:34] LABS: TOTAL 25(OH) VITAMIN D 10.4 NG/ML (30.0-100.0)
== END ==
LOC: M LAB 14:27
PROVIDERS: ATTEND Family Medicine
DX: E03.9 Hypothyroidism, unspecified (principal); D64.9 Anemia, unspecified; R53.83 Other fatigue

== ENCOUNTER 2020-10-31 10:01 | Emergency (ER) | payer OTHER ==
[~2020-10-31] VITALS: Ht 160 cm; Wt 75.0 kg
[~2020-10-31 10:01] MED LIST changes: -ATIV1TAB7 PO; -HYDR50CA2 PO
[2020-10-31] MEDS ORDERED: HYDR50CA2 PO (10:30)
[2020-10-31] MEDS ORDERED: NS 1,000 ML IV ONE (10:30)
[2020-10-31] MEDS ORDERED: ONDANSETRON 4MG/2ML VIAL IV ONE (10:30)
--- OUTSIDE RECORDS SUMMARY | 2020-10-31 10:54 | CCD | Continuity of Care Document ---
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 Name Role Phone Dwello Harriet IRWIN Unavailable Unavailable Allergies, Adverse Reactions, Alerts Substance Reaction Status Criticality POTASSIUM CLAVULANATE Active No Informa tion AMOXICILLIN TRIHYDRATE Active No Inform ation Penicillins Active No Information PAROXETINE HCL Active No Information divalproex sodium Active No Information morphine Active No Information blue dye (severe) Active No Information lamotrigine Anaphylaxis (severe) Active No Information Medications Medication Instructions Dosage Effective Dates (start - stop) Sta tus Comments medroxyprogesterone 150 mg/mL intramuscular suspension IM every 10-13 weeks - Active gabapentin 300 mg capsule take 3 capsule by oral route 4 times e very day 900 MG - Active Ativan 1 mg tablet take 1 tablet by oral route 3 times every day as needed 1 MG - Active AMITRIPTYLINE HCL (unknown strength) Not Available - Active Tegretol 200 mg tablet - Active Problems Condition Effective Dates (start - stop) Clinical Status C omments Body mass index (BMI) 30.0-30.9, adult - Body mass index (BMI) 29.0-29.9, adult - Body mass index (BMI) 29.0-29.9, adult - Encounter for surveillance of injectable contraceptive Encounter for test, result negative Human immunodeficiency virus [HIV] counseling Encounter for test, result negative Other sex counseling Encounter for initial prescription of injectable contracep 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 Encounter for oth general cnsl and advice on contraception Encounter for surveillance of injectable contraceptive Herpesviral vulvovaginitis Human immunodeficiency virus [HIV] counseling Other sex counseling Encounter for oth general cnsl and advice on contraception Encounter for initial prescription of injectable contracep Encounter for test, result negative Encounter for test, result negative Other sex counseling Encounter for oth general cnsl and advice on contraception Encounter for initial prescription of injectable contracep Encounter for prescription of emergency contraception Encounter for test, result negative Other sex counseling Encounter for ot general cnsl and advice on contraception Encounter for initial prescription of injectable contracep Encounter for test, result negative Other sex counseling Encounter for oth general cnsl and advice on contraception Encounter for initial prescription of injectable contracep High risk heterosexual behavior Human immunodeficiency virus [HIV] counseling Encounter for test, result negative 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 Other sex counseling Encounter for ot general cnsl and advice on contraception Encounter for initial prescription of injectable contracep 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 vulvovaginitis Encounter for test, result negative Encounter for ot general cnsl and advice on contraception Encounter for initial prescription of injectable contracep Encounter for surveillance of injectable contraceptive Encounter for surveillance of injectable contraceptive Other specified noninflammatory disorders of vagina Acute vaginitis Encntr screen for infections w sexl mode of transmiss High risk heterosexual behavior Acute vaginitis Abscess of vulva Pelvic and perineal pain Herpesviral vulvovaginitis Encounter for ot general cnsl and advice on contraception Encounter for surveillance of injectable contraceptive High risk heterosexual behavior Ulceration of vulva Moderate cervical dysplasia Carcinoma in situ of exocervix Encounter for test, result negative Encntr screen for infections w sexl mode of transmiss High risk heterosexual behavior Encounter for ot general cnsl and advice on contraception Encounter for surveillance of injectable contraceptive Candidiasis of vulva and vagina Encounter for test, result negative Atyp squam cell not excl hi grd intrepith lesn cyto smr crvx Encounter for surveillance of injectable contraceptive 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 Encounter for screening for malignant neoplasm of cervix Encounter for ot general cnsl and advice on contraception Encounter for initial prescription of injectable contracep High risk heterosexual behavior Encounter for ot screening for malignant neoplasm of breast Encounter for test, result negative Human immunodeficiency virus [HIV] counseling Inappropriate diet and eating habits Overweight Lack of physical exercise Encounter for surveillance of injectable contraceptive Encounter for test, result negative Encounter for surveillance of injectable contraceptive Human immunodeficiency virus [HIV] counseling Encounter for test, result negative Encounter for removal of intrauterine contraceptive device Encntr screen for infections w sexl mode of transmiss High risk heterosexual behavior Encounter for initial prescription of injectable contracep 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 3 MOS Depo/Medroxyprogesterone Inj. 150 Mg Nurse/CA 021 NURSE ONLY DEPO INJ. RN/SUBSTATION OPERATOR AUTOMATIC Only URINE TEST CVR Blood Pressure CVR Med.Svc. Height/Weight CVR Mobile Sales Expert.Svc. Contraceptive CVR Mobile Sales Expert.Svc. Nutrition CVR Mobile Sales Expert.Svc. Other Results Test Name Date and Time Measure Units Reference Range Abnormal Flag St atus Comments Panel Description: High Sensitivity Urine Test Fi nal High Sensitivity Urine Test 13:07:14 N egativeLot: [id number]: 05/12/2022 Final Advance Directives Directive Yes / No Effective Date File Name No Information Encounters Encounter Description Practice Location Reason(s) For Visit Diagnose s Date Provider Providers Copied on Encounter [facility], [address] [place] [address], [id number], tel:[phone] [facility] Encounter for surve illance of injectable contraceptiveEncounter for test, result negative Sena Larios. [address] [place] [address], [id number], [place]. tel:[phone] Referring Provider: Harriet Abraham, [address] [place] [address], [id number]. tel:[phone] [facility] [address], [id number], [place] tel:[phone] [facility] Human immunodeficie ncy virus [HIV] counselingEncounter for test, result negativeOther sex counselingEncounter for initial prescription of injectable contracep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Body mass index (BMI) 30.0-30.9, adult Donna Myles. [address] [place], [place], [id number], [place]. tel:[phone] Referring Provider: Shameka Thompson, [address] [place], [place], [id number]. tel:[phone] [facility], [address] [place] [address], [id number], [place] tel:[phone] ALIA Chen Encounter for oth g eneral cnsl and advice on contraceptionEncounter for surveillance of injectable contraceptiveHerpesviral vulvovaginitis Chacorta Hernandez. [address] [place], [place], [id number], [place]. tel:[phone] Referring Provider: Mary Whatley, [address] [place] [address], [id number]. tel:[phone] [facility], [address] [place] [address], [id number], [place] tel:[phone] [facility] Human immunodeficie ncy virus [HIV] counselingOther sex counselingEncounter for oth general cnsl and advice on contraceptionEncounter for initial prescription of injectable contracepEncounter for test, result negative Donna Myles. [address], [place], [id number], [place]. tel:[phone] Referring Provider: Shameka Thompson, [address] [place] [address], [id number]. tel:[phone] [facility], [address] [place] [address], [id number], [place] tel:[phone] PPSHANICE [facility] Encounter for pregn deedee test, result negativeOther sex counselingEncounter for oth general cnsl and advice on contraceptionEncounter for initial prescription of injectable contracepEncounter for prescription of emergency contraception Donna black. [address] [place] [address], [id number], [place]. tel:[phone] Referring Provider: Shameka Thompson, [address] [place] [address], [id number]. tel:[phone] [facility], [address] [place] [address], [id number], [place] tel:[phone] [facility] Encounter for pregn deedee test, result negativeOther sex counselingEncounter for oth general cnsl and advice on contraceptionEncounter for initial prescription of injectable contracep Rene García. [address] [place] [address], [id number], [place]. tel:[phone] Referring Provider: Raquel López, [address] [place] [address], [id number]. tel:[phone] [facility], [address] [place] [address], [id number], [place] tel:[phone] [facility] Encounter for pregn deedee test, result negativeOther sex counselingEncounter for oth general cnsl and advice on contraceptionEncounter for initial prescription of injectable contracepHigh risk heterosexual behavior [facility]. [address] [place] [address], [id number], [place]. tel:[phone] Referring Provider: Bowen Eola, [address] [place] [address], [id number]. tel:[phone] [facility], [address] [place] [address], [id number], [place] tel:[phone] [facility] Human immunodeficie ncy virus [HIV] counselingEncounter for test, result negativeBody mass index (BMI) 29.0-29.9, adult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Other sex counselingEncounter for oth general cnsl and advice on contraceptionEncounter for initial prescription of injectable contracepCarcinoma in situ of exocervix Alireza Hernandez. [address] [place], [place], [id number]. tel:[phone] Referring Provider: Mary Lay, [address], [place], [id number]. tel:[phone] [facility], [address] [place] [address], [id number], [place] tel:[phone] [facility] Herpesviral vulvovaginitis No v Geetha Rowland. [address] [place] [address], [id number]. tel:[phone] [facility], [address] [place] [address], [id number], [place] tel:[phone] [facility] Herpesviral vulvovaginitis Oc Geetha Rowland. [address] [place] [address], [id number]. tel:[phone] [facility], [address] [place] [address], [id number], [place] tel:[phone] [facility] Encounter for pregn deedee test, result negativeEncounter for oth general cnsl and advice on contraceptionEncounter for initial prescription of injectable contracep Geetha Schererl. [address] [place] [address], [id number]. tel:[phone] Referring Provider: Janett Iniguez, [address] [place] [address], [id number]. tel:[phone] [facility], [address] [place] [address], [id number], [place] tel:[phone] [facility] Encounter for surve illance of injectable contraceptive Tobi Leone. [address] [place] [address], [id number], [place]. tel:[phone] Referring Provider: Sulema Goss , [address] [place] [address], [id number]. tel:[phone] [facility], [address] [place] [address], [id number], [place] tel:[phone] [facility] Encounter for surve illance of injectable contraceptiveOther specified noninflammatory disorders of vaginaAcute vaginitisEncntr screen for infections w sexl mode of transmissHigh risk heterosexual behavior Geetha Rowland. [address] [place], [place], [id number]. tel:[phone] Referring Provider: Janett Iniguez, [address] [place], [place], [id number]. tel:[phone] [facility], [address] [place] [address], [id number], [place] tel:[phone] [facility] Acute vaginitisAbsc ess of vulvaPelvic and perineal pain King Belinda. [address] [place], [place], [id number]. tel:[phone] Referring Provider: Belinda Aleman, [address] [place], [place], [id number]. tel:[phone] [facility], [address] [place] [address], [id number], [place] tel:[phone] [facility] Herpesviral vulvovaginitis Jul Bianca Wright. [address] [place] [address], [id number], [place]. tel:[phone] [facility], [address] [place] [address], [id number], [place] tel:[phone] [facility] Encounter for oth g eneral cnsl and advice on contraceptionEncounter for surveillance of injectable contraceptiveHigh risk heterosexual behaviorUlceration of vulva Bianca Wright. [address] [place] [address], [id number], [place]. tel:[phone] Referring Provider: Adriana Valenzuela, [address] [place] [address], [id number]. tel:[phone] [facility], [address] [place] [address], [id number], [place] tel:[phone] [facility] Moderate cervical dysplasia [facility] Watson. [address] [place] [address], [id number]. tel:[phone] Referring Provider: Shirley Narayan, [address] [place] [address], [id number]. tel:[phone] [facility], [address] [place] [address], [id number], [place] tel:[phone] [facility] Carcinoma in situ o f exocervixEncounter for test, result negative Sylvain Watson. [address] [place] [address], [id number]. tel:[phone] Referring Provider: Shirley Narayan, [address] [place] [address], [id number]. tel:[phone] [facility], [address] [place] [address], [id number], [place] tel:[phone] [facility] Encntr screen for i nfections w sexl mode of transmissHigh risk heterosexual behaviorEncounter for oth general cnsl and advice on contraceptionEncounter for surveillance of injectable contraceptiveCan didiasis of vulva and vaginaEncounter for test, result negative Bianca Wright. [address] [place] [address], [id number], [place]. tel:[phone] Referring Provider: Adriana Valenzuela, [address] [place] [address], [id number]. tel:[phone] [facility], [address] [place] [address], [id number], [place] tel:[phone] [facility] Atyp squam cell not excl hi grd intrepith lesn cyto smr crvxEncounter for surveillance of injectable contraceptive Timmons. [address] [place] [address], [id number], [place]. tel:[phone] Referring Provider: Neelam BenjaminSarai T, [address] [place] [address], [id number]. tel:[phone] [facility], [address] [place] [address], [id number], [place] tel:[phone] [facility] 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Encounter for screening for malignant neoplasm of cervixEncounter for oth general cnsl and advice on contraceptionEncounter for initial prescription of injectable contracepHigh risk heterosexual behaviorEncounter for oth screening for malignant neoplasm of breastEncounter for test, result negativeHuman immunodeficiency virus [HIV] counselingBody mass index (BMI) 29.0-29.9, adultInappropriate diet and eating habitsOverweightLack of physical exerciseEncounter for surveillance of injectable contraceptive King Belinda. [address] [place] [address], [id number]. tel:[phone] Referring Provider: Belinda Aleman, [address] [place], [place], [id number]. tel:[phone] [facility], [address] [place] [address], [id number], [place] tel:[phone] [facility] Encounter for pregn deedee test, result negativeEncounter for surveillance of injectable contraceptive Jase Ledezma. [address] [place] [address], [id number]. tel:[phone] Referring Provider: Brisa Laguna, [address] [place] [address], [id number]. tel:[phone] [facility], [address] [place], [place], [id number], tel:[phone] [facility] Human immunodeficie ncy virus [HIV] counselingEncounter for test, result negativeEncounter for removal of intrauterine contraceptive deviceEncntr screen for infections w sexl mode of transmissHigh risk heterosexual behaviorEncounter for initial prescription of injectable contracep Jase Ledezma. [address] [place], [place], [id number]. tel:[phone] Referring Provider: Brisa Laguna, [address] [place] [address], [id number]. tel:[phone] Family History Family Member Diagnosis Age At Onset Mother No history of Stroke Brother No history of Myocardial infarction Family history of ADD/ADHD Father No history of Stroke Family history of Seizure disorder Mother No history of Myocardial infarction Family history of Depression Family history of Autism 1st degree relative No hx of coronary heart disease (female <65, male <55) Brother No history of Stroke Sister No history of Stroke Father No history of Myocardial infarction Sister No history of Myocardial infarction 1st degree relative No hx of venous thromboembolism 1st degree relative No hx of osteoporosis 1st degree relative No hx of cancer of breast, colon, endome trium or ovary Immunizations Vaccine Date Status Comments varicella virus vaccine administered Source: Parents Written Record tetanus toxoid, adsorbed administered Source: Parents Written Record measles, mumps and rubella virus vaccine adminis tered Source: Parents Written Record human papilloma virus vaccine administered So urce: Parents Written Record hepatitis A and hepatitis B vaccine administered Source: Parents Written Record Payers Payer name Insurance type Covered constitution party ID Authorization(s ) [facility] CI [id number] Social History Type Description Quantity Date Captured Comments Alcohol Use Details Unknown Caffeine Use Details Unknown Tobacco Use Status Never smoked tobacco Smoking Status Never smoker Non-Smoking Tobacco Use Details : No Details Available : No Details Available Sex Female Vital Signs Date / Time: Height Weight BMI Pulse Rate Blood Pressure Temperatu re Respiratory Rate Body Surface Area Head Circumference BMI percentile Pulse Ox In haled Ox 1:03 PM 63.00 in 177.00 lbs 31.35 kg/meter(2) 100/60 m m[Hg] Chief Complaint And Reason For Visit No Information Reason For Referral Reason For Referral No Information Plan Of Treatment Date Type Action Status Goal Dietary management education, gu idance, and counseling completed Goal Dietary management education, gu idance, and counseling completed Goal Lifestyle education regarding di et completed Appointment Leigh Candelaria BOOKED History Of Present Illness Encounter Date Complaint History Of Present I llness No Information Functional Status Date Functional Assessment No Information Medications Administered Medication Instructions Dosage Effective Dates (start - stop) Sta tus Comments No Information Instructions Date Instruction Additional Informati on Dietary management education, guidance, and counseling Related to Body mass index (BMI) 30.0-30.9, adult Dietary management education, guidance, and counseling Related to Body mass index (BMI) 29.0-29.9, adult Giving encouragement to exercise Related to Body mass index (BMI) 29.0-29.9, adult Lifestyle education regarding diet Relat ed to Body mass index (BMI) 29.0-29.9, adult Assessments Type Assessment Date assessment Encounter for surveillance of injectable contraceptive assessment Encounter for test, result neg ative Goals Health Concern Goal Type Priority Status Date No Information Medical Equipment Description Device [place] Device Identifier Effective Matt es (start - stop) Status No Information Mental Status Date Cognitive Assessment No Information Health Concerns Observation Date No Information Concern Status Date No Information Physical Examination Exam Findings Details No Information
--- OUTSIDE RECORDS SUMMARY | 2020-10-31 10:55 | CCD ---
Author Author [facility] Organization [facility] Address Unknown Phone Unavailable Care Team Providers Care Dressing Room Attendant Name Role Phone Andrés Whyte MD Unavailable Unavailable Andrés Whyte MD Unavailable Unavailable Andrés Whyte MD Unavailable Unavailable Andrés Whyte MD Unavailable Unavailable Andrés Whyte MD Unavailable Unavailable Andrés Whyte MD Unavailable Unavailable Andrés Whyte MD Unavailable Unavailable Andrés Whyte MD Unavailable Unavailable Andrés Whyte MD Unavailable Unavailable Andrés Whyte MD Unavailable Unavailable Andrés Whyte MD Unavailable Unavailable Andrés Whyte MD Unavailable Unavailable Andrés Whyte MD Unavailable Unavailable Andrés Whyte MD Unavailable Unavailable Andrés Whyte MD Unavailable Unavailable Andrés Whyte MD Unavailable Unavailable Andrés Whyte MD Unavailable Unavailable Andrés Whyte MD Unavailable Unavailable Pato, A Anneliese ACUNA Unavailable Unavailable Pato, Andrés Coy MD Unavailable Unavailable Pato, A Anneliese ACUNA Unavailable Unavailable Pato, A Anneliese ACUNA Unavailable Unavailable Pato, A Anneliese ACUNA Unavailable Unavailable Pato, A Anneliese ACUNA Unavailable Unavailable Pato, A Anneliese ACUNA Unavailable Unavailable Pato, A Anneliese ACUNA Unavailable Unavailable Pato, A Anneliese ACUNA Unavailable Unavailable Pato, Andrés Coy MD Unavailable Unavailable Pato, A Anneliese ACUNA Unavailable Unavailable Pato, A Anneliese ACUNA Unavailable Unavailable Pato, A Anneliese ACUNA Unavailable Unavailable Pato, A Anneliese ACUNA Unavailable Unavailable Pato, A Anneliese ACUNA Unavailable Unavailable Pato, A Anneliese ACUNA Unavailable Unavailable Pato, A Anneliese ACUNA Unavailable Unavailable Pato, A Anneliese ACUNA Unavailable Unavailable Pato, A Anneliese ACUNA Unavailable Unavailable Pato, A Anneliese ACUNA Unavailable Unavailable Pato, A Anneliese ACUNA Unavailable Unavailable Pato, A Anneliese ACUNA Unavailable Unavailable Pato, A Anneliese ACUNA Unavailable Unavailable Pato, A Anneliese ACUNA Unavailable Unavailable Pato, A Anneliese ACUNA Unavailable Unavailable Pato, A Anneliese ACUNA Unavailable Unavailable Pato, A Anneliese ACUNA Unavailable Unavailable Pato, A Anneliese ACUNA Unavailable Unavailable Pato, A Anneliese ACUNA Unavailable Unavailable Pato, A Anneliese ACUNA Unavailable Unavailable Pato, A Anneliese ACUNA Unavailable Unavailable Pato, A Anneliese ACUNA Unavailable Unavailable Pato, A Anneliese ACUNA Unavailable Unavailable Pato, A Anneliese ACUNA Unavailable Unavailable Pato, A Anneliese ACUNA Unavailable Unavailable Pato, A Anneliese ACUNA Unavailable Unavailable Pato, A Anneliese ACUNA Unavailable Unavailable Pato, A Anneliese ACUNA Unavailable Unavailable Pato, A Anneliese ACUNA Unavailable Unavailable Pato, A Anneliese ACUNA Unavailable Unavailable Pato, Andrés Coy MD Unavailable Unavailable Pato, Andrés Coy MD Unavailable Unavailable Pato, Andrés Coy MD Unavailable Unavailable Pato, A Anneliese ACUNA Unavailable Unavailable Pato, A Anneliese ACUNA Unavailable Unavailable Pato, Andrés Coy MD Unavailable Unavailable Pato, Andrés Coy MD Unavailable Unavailable Pato, Andrés Coy MD Unavailable Unavailable Pato, Andrés Coy MD Unavailable Unavailable Pato, Andrés Coy MD Unavailable Unavailable Pato, A Anneliese ACUNA Unavailable Unavailable Pato, A Anneliese ACUNA Unavailable Unavailable Pato, A Anneliese ACUNA Unavailable Unavailable Pato, A Anneliese ACUNA Unavailable Unavailable Pato, A Anneliese ACUNA Unavailable Unavailable Pato, Andrés Coy MD Unavailable Unavailable Pato, Andrés Coy MD Unavailable Unavailable TAB, E VALERY THERAPY SITE COORDINATOR Unavailable Unavailable TAB, E VALERY THERAPY SITE COORDINATOR Unavailable Unavailable TAB, E VALERY THERAPY SITE COORDINATOR Unavailable Unavailable TAB, E VALERY THERAPY SITE COORDINATOR Unavailable Unavailable TAB, E VALERY THERAPY SITE COORDINATOR Unavailable Unavailable TAB, E VALERY THERAPY SITE COORDINATOR Unavailable Unavailable TAB, E VALERY THERAPY SITE COORDINATOR Unavailable Unavailable TAB, E VALERY THERAPY SITE COORDINATOR Unavailable Unavailable TAB, E VALERY THERAPY SITE COORDINATOR Unavailable Unavailable TAB, E VALERY THERAPY SITE COORDINATOR Unavailable Unavailable TAB, E VALERY THERAPY SITE COORDINATOR Unavailable Unavailable TAB, E VALERY THERAPY SITE COORDINATOR Unavailable Unavailable TAB, E VALERY THERAPY SITE COORDINATOR Unavailable Unavailable [place], KRISTOFER PA Unavailable Unavailable [place], KRISTOFER PA Unavailable Unavailable [place], KRISTOFER PA Unavailable Unavailable [place], KRISTOFER PA Unavailable Unavailable [place], KRISTOFER PA Unavailable Unavailable [place], KRISTOFER PA Unavailable Unavailable [place], KRISTOFER PA Unavailable Unavailable [place], KRISTOFER PA Unavailable Unavailable [place], KRISTOFER PA Unavailable Unavailable [place], KRISTOFER PA Unavailable Unavailable CHINA, KRISTOFER PA Unavailable Unavailable CHINA, KRISTOFER PA Unavailable Unavailable CHINA, KRISTOFER PA Unavailable Unavailable CHINA, KRISTOFER PA Unavailable Unavailable CHINA, KRISTOFER PA Unavailable Unavailable CHINA, KRISTOFER PA Unavailable Unavailable CHINA, KRISTOFER PA Unavailable Unavailable CHINA, KRISTOFER PA Unavailable Unavailable CHINA, KRISTOFER PA Unavailable Unavailable CHINA, KRISTOFER PA Unavailable Unavailable CHINA, KRISTOFER PA Unavailable Unavailable CHINA, KRISTOFER PA Unavailable Unavailable CHINA, KRISTOFER PA Unavailable Unavailable CHINA, KRISTOFER PA Unavailable Unavailable [place]INA, KRISTOFER PA Unavailable Unavailable CHINA, KRISTOFER PA Unavailable Unavailable [place]INA, KRISTOFER PA Unavailable Unavailable [place], KRISTOFER PA Unavailable Unavailable [place], KRISTOFER PA Unavailable Unavailable [place], KRISTOFER PA Unavailable Unavailable [place], KRISTOFER PA Unavailable Unavailable [place]INA, KRISTOFER PA Unavailable Unavailable [place]INA, KRISTOFER PA Unavailable Unavailable [place], KRISTOFER PA Unavailable Unavailable [place], KRISTOFER PA Unavailable Unavailable [place], KRISTOFER PA Unavailable Unavailable [place], KRISTOFER PA Unavailable Unavailable [place], KRISTOFER PA Unavailable Unavailable [place], KRISTOFER PA Unavailable Unavailable Whatley, Mary Unavailable Unavailable Whatley, Mary Unavailable Unavailable Whatley, Mary Unavailable Unavailable Patel, Deb THERAPY SITE COORDINATOR Unavailable Unavailable Patel, Deb THERAPY SITE COORDINATOR Unavailable Unavailable Patel, Deb THERAPY SITE COORDINATOR Unavailable Unavailable Patel, Deb THERAPY SITE COORDINATOR Unavailable Unavailable Patel, Deb THERAPY SITE COORDINATOR Unavailable Unavailable Patel, Deb THERAPY SITE COORDINATOR Unavailable Unavailable Patel, Deb THERAPY SITE COORDINATOR Unavailable Unavailable Patel, Deb THERAPY SITE COORDINATOR Unavailable Unavailable Patel, Deb THERAPY SITE COORDINATOR Unavailable Unavailable Patel, Deb THERAPY SITE COORDINATOR Unavailable Unavailable Patel, Deb THERAPY SITE COORDINATOR Unavailable Unavailable [place], J Shameka PA Unavailable Unavailable [place], J Shameka PA Unavailable Unavailable [place], J Shameka PA Unavailable Unavailable [place], J Shameka PA Unavailable Unavailable [place], J Shameka PA Unavailable Unavailable [place], J Shameka PA Unavailable Unavailable [place], J Shameka PA Unavailable Unavailable [place], J Shameka PA Unavailable Unavailable [place], J Shameka PA Unavailable Unavailable [place], J Shameka PA Unavailable Unavailable [place], J Shameka PA Unavailable Unavailable [place], J Shameka PA Unavailable Unavailable [place], J Shameka PA Unavailable Unavailable [place], J Shameka PA Unavailable Unavailable [place], J Shameka PA Unavailable Unavailable [place], J Shameka PA Unavailable Unavailable [place], J Shameka PA Unavailable Unavailable [place], J Shameka PA Unavailable Unavailable [place], J Shameka PA Unavailable Unavailable [place], J Shameka PA Unavailable Unavailable [place], J Shameka PA Unavailable Unavailable [place], J Shameka PA Unavailable Unavailable Talavera, Shani Josselin PA Unavailable Unavailable [place], Shani Josselin PA Unavailable Unavailable [place], Shani Josselin PA Unavailable Unavailable [place], Shani Josselin PA Unavailable Unavailable [place], Shani Josselin PA Unavailable Unavailable Tala[place]a, Shani Josselin PA Unavailable Unavailable Talavera, Shani Josselin PA Unavailable Unavailable [place], Shani Josselin PA Unavailable Unavailable [place], Shani Josselin PA Unavailable Unavailable [place], Shani Josselin PA Unavailable Unavailable Dwello PA PA, Harriet Unavailable Unavailable Dwello PA PA, Harriet Unavailable Unavailable LETTIERE, A LOGAN PA Unavailable Unavailable LETTIERE, A LOGAN PA Unavailable Unavailable LETTIERE, A LOGAN PA Unavailable Unavailable LETTIERE, A LOGAN PA Unavailable Unavailable LETTIERE, A LOGAN PA Unavailable Unavailable LETTIERE, A LOGAN PA Unavailable Unavailable LETTIERE, A LOGAN PA Unavailable Unavailable LETTIERE, A LOGAN PA Unavailable Unavailable LETTIERE, A LOGAN PA Unavailable Unavailable LETTIERE, A LOGAN PA Unavailable Unavailable LETTIERE, A LOGAN PA Unavailable Unavailable LETTIERE, A LOGAN PA Unavailable Unavailable LETTIERE, A LOGAN PA Unavailable Unavailable LETTIERE, A LOGAN PA Unavailable Unavailable LETTIERE, A LOGAN PA Unavailable Unavailable LETTIERE, A LOGAN PA Unavailable Unavailable LETTIERE, A LOGAN PA Unavailable Unavailable LETTIERE, A LOGAN PA Unavailable Unavailable LETTIERE, A LOGAN PA Unavailable Unavailable LETTIERE, A LOGAN PA Unavailable Unavailable LETTIERE, A LOGAN PA Unavailable Unavailable LETTIERE, A LOGAN PA Unavailable Unavailable LETTIERE, A LOGAN PA Unavailable Unavailable LETTIERE, A LOGAN PA Unavailable Unavailable LETTIERE, A LOGAN PA Unavailable Unavailable LETTIERE, A LOGAN PA Unavailable Unavailable LETTIERE, A LOGAN PA Unavailable Unavailable LETTIERE, A LOGAN PA Unavailable Unavailable LETTIERE, A LOGAN PA Unavailable Unavailable Re-disclosure Warning The records that you are about to access may contain information from federally-assisted alcohol or drug abuse programs. If such information is present, then the following federally mandated warning applies: This information has been disclosed to you from records protected by federal confidentiality rules (42 CFR part 2). The federal rules prohibit you from making any further disclosure of this information unless further disclosure is expressly permitted by the written consent of the person to whom it pertains or as otherwise permitted by 42 CFR part 2. A general authorization for the release of medical or other information is NOT sufficient for this purpose. The Federal rules restrict any use of the information to criminally investigate or prosecute any alcohol or drug abuse patient.The records that you are about to access may contain highly sensitive health information, the redisclosure of which is protected by Article 27-F of the [facility] Public Health law. If you continue you may have access to information: Regarding HIV / AIDS; Provided by facilities licensed or operated by the [facility] Office of Mental Health; or Provided by the [facility] Office for People With Developmental Disabilities. If such information is present, then the following [facility] mandated warning applies: This information has been disclosed to you from confidential records which are protected by state law. State law prohibits you from making any further disclosure of this information without the specific written consent of the person to whom it pertains, or as otherwise permitted by law. Any unauthorized further disclosure in violation of state law may result in a fine or care home sentence or both. A general authorization for the release of medical or other information is NOT sufficient authorization for further disc losure. Family History Family Member Name Family Member Gender Family Member Status Date o f Status Description Data Source(s) Unknown Female Diagnosis 02/23/2016 12:00:00 AM EDT [facility] ([facility]) Unknown Female Diagnosis 02/23/2016 12:00:00 AM EDT [facility] ([facility]) Unknown Unknown Problem [facility] ([facility]) Unknown Unknown Problem [facility] ([facility]) Encounters Encounter Providers Location Date Indications Data Source(s ) Attender: Harriet ROJO [place] 01:10:00 PM EST - 10/28/2020 01:10:00 PM EST Encounter for test, result negativeEncounter for surveillance of injectable contraceptive [facility] ([facility]) Encounter for test, result neg ative Encounter for surveillance of injectable contraceptive Unknown [address] [facility] [place] [address] 10/20/2020 12:00:[address] [facility] ([facility]) OutpatientPREV VISIT, EST, AGE 18-39 Attender: Shameka ROJO [place] 07/19/2020 08:45:00 AM EST - 07/19/2020 08:45:00 AM ES T Body mass index (BMI) 30.0-30.9, adultEncntr for rehab manager exam (general) (routine) w/o abn findingsEncounter for initial prescription of injectable contracepOther sex counselingEncounter for test, result negativeHuman immunodeficiency virus [HIV] counseling [facility] ([facility]) Body mass index (BMI) 30.0-30.9, adult Encntr for rehab manager exam (general) (routine) w/o abn findings Encounter for initial prescription of in jectable contracep Other sex counseling Encounter for test, result neg ative Human immunodeficiency virus [HIV] couns eling Outpatient Attender: KRISTOFER aragon 07/06/2020 04:25:00 PM EDT [facility] ([facility]) Attender: Anneliese ROJO [place] 11:10:00 AM EDT - 06/10/2020 11:10:00 AM EDT [facility] ([facility]) Outpatient Attender: Deb harper 06/03/2020 02:15:00 PM EDT [facility] ([facility]) OutpatientOFFICE VISIT, EST Attender: Mary ROJO [facility] 06/02/2020 10:20:00 AM EDT - 06/02/2020 10:20:00 AM EDT Herpesviral vulvovaginitisEncounter for surveillance of injectable contraceptiveEncounter for oth general cnsl and advice on contraception [facility] ([facility]) Herpesviral vulvovaginitis Encounter for surveillance of injectable contraceptive Encounter for oth general cnsl and advic e on contraception Attender: VALERY ROJO [place] 05/21 12:09:00 PM EDT - 05/21/2020 12:09:00 PM EDT [facility] ([facility]) Outpatient Attender: Josselin remy 03/08/2020 02:30:00 PM EDT [facility] OutpatientOFFICE VISIT, EST Attender: Shameka rainey 02/22/2020 01:30:00 PM EDT - 02/22/2020 01:30:00 PM EDT Encounter for test, result negativeEncounter for initial prescription of injectable contracepEncounter for oth general cnsl and advice on contraceptionOther sex counselingHuman immunodeficiency virus [HIV] counseling [facility] ([facility]) Encounter for test, result neg ative Encounter for initial prescription of in jectable contracep Encounter for oth general cnsl and advic e on contraception Other sex counseling Human immunodeficiency virus [HIV] couns naif [facility] [place] [address] [facility] [place] [address] 01/21/2020 12:00:00 AM EDT eCW1 ([facility]) [facility] [place] [address] [facility] [place] [address] 11/29/2019 12:00:00 AM EDT eCW1 ([facility]) [facility] [address] [place] [phone] 11/28/2019 12:00:00 AM EDT eCW1 ([facility]) [facility] [address] [place] [phone] 11/23/2019 12:00:00 AM EDT eCW1 ([facility]) [facility] [address] [place] [phone] 10/23/2019 12:00:00 AM EST eCW1 ([facility]) Outpatient Attender: LOGAN remy 10/16/2019 02:00:00 PM EST [facility] ([facility]) [facility] [address] [place] [phone] 09/27/2019 12:00:00 AM EST eCW1 ([facility]) [address] [address] 09/19/2019 12:00:00 AM EST eCW1 ([facility]) Medications Medication Brand Name Start Date Product Form Dose Route Admi nistrative Instructions Pharmacy Instructions Status Indications Reaction Description Data Source(s) medroxyprogesterone acetate 150 MG/ML In jectable Suspension medroxyprogesterone 150 mg/mL intramuscular suspension medroxyprogesterone 150 mg/mL intramuscu lar suspension 07/19/2020 12:00:00 AM EST active IM every 10-13 weeks [facility] ([facility]) Ibuprofen 800 MG Oral Tablet Ibuprofen 07/06/2020 12:00:00 AM EDT ORAL active [facility] ([facility]) Fluconazole 150 MG Oral Tablet Fluconazole 06/10/2020 12:00:00 AM EDT completed [facility] ([facility]) Mupirocin 0.02 MG/MG Topical Ointment Mupirocin 06/03/2020 12:00:00 AM EDT completed [facility] ([facility]) Doxycycline Monohydrate 100 MG Oral Tablet Doxycycline Monoh ydrate 06/03/2020 12:00:00 AM EDT ORAL completed [facility] ([facility], [facility]) Acyclovir 400 MG Oral Tablet acyclovir 400 mg tablet acyclov ir 400 mg tablet 06/02/2020 12:00:00 AM EDT active 1 po BID for viral suppression (#180) [facility] Acyclovir 400 MG Oral Tablet acyclovir 400 mg tablet acyclov ir 400 mg tablet 05/21/2020 12:00:00 AM EDT completed 1 po tid x 5d prn outbreak (#45) [facility] Fluconazole 150 MG Oral Tablet [Diflucan] Diflucan 03/08/2020 1 2:00:00 AM EDT completed [facility] ([facility]) Oseltamivir 75 MG Oral Capsule Oseltamivir Phosphate 10/16/2019 12:00:00 AM EST ORAL completed [facility] ([facility], [facility]) medroxyprogesterone acetate 150 MG/ML In jectable Suspension medroxyprogesterone 150 mg/mL intramuscular suspension medroxyprogesterone 150 mg/mL intramuscu lar suspension 08/23/2019 12:00:00 AM EST complet ed IM every 10-13 weeks [facility] ([facility]) Loperamide Hydrochloride 2 MG Oral Capsule Loperamide HCL 05/15/2019 12:00:00 AM EDT completed [facility] ([facility], [facility]) NITROFURANTOIN, MACROCRYSTALS 25 MG / Ni trofurantoin, Monohydrate 75 MG Oral Capsule [Macrobid] Macrobid 05/15/2019 12:00:00 AM EDT ORAL completed [facility] ([facility]) Phenazopyridine hydrochloride 200 MG Oral Tablet Phenazopyri dine HCL 05/15/2019 12:00:00 AM EDT ORAL completed [facility] ([facility], [facility]) Ondansetron 4 MG Oral Tablet [Zofran] Zofran 05/15/2019 12:00:00 AM EDT ORAL completed [facility] ([facility], [facility]) Ibuprofen 800 MG Oral Tablet Ibuprofen 05/04/2019 12:00:00 AM EDT completed [facility] ([facility]) medroxyprogesterone acetate 150 MG/ML In jectable Suspension medroxyprogesterone 150 mg/mL intramuscular suspension medroxyprogesterone 150 mg/mL intramuscu lar suspension 12/12/2018 12:00:00 AM EDT complet ed IM every 10-13 weeks [facility] ([facility]) GABAPENTIN (unknown strength) gabapentin comp leted [facility] ([facility]) Lorazepam 0.5 MG Oral Tablet [Ativan] ATIVAN (unknown strength) ATIVAN (unknown strength) completed lorazepam 0. 5 MG Oral Tablet [Ativan] [facility] ([facility]) Insurance Providers Payer name Policy type / Coverage type Policy ID Covered green party ID Covered green party's relationship to [place] Policy [place] Plan Information [facility] COMMUNITY PLAN MCDO [id number] SP [id number] [facility] NYCDP self [facility] COMMUN[facility] PLAN [facility] [id number] SP [id number] [facility] Health Maintenance Organization (HMO) [id number] Self [id number] [facility] Health Maintenance Organization (HMO) [id number] Self [id number] [facility] Health Maintenance Organization (HMO) [id number] Self [id number] ANSI-Medicaid [id number] [facility] Health Maintenance Organization (HMO) [id number] Self [id number] [facility] O [id number] S [id number] ANSI-Medicaid [id number] [facility] Health Maintenance Organization (HMO) [id number] Self [id number] [facility] Health Maintenance Organization (HMO) [id number] Self [id number] ANSI-Medicaid [id number] [facility] Health Maintenance Organization (HMO) [id number] Self [id number] [facility] Health Maintenance Organization (HMO) [id number] Self [id number] [facility] Health Maintenance Organization (HMO) [id number] Self [id number] [facility] Health Maintenance Organization (HMO) [id number] Self [id number] [facility] Health Maintenance Organization (HMO) [id number] Self [id number] [facility] Health Maintenance Organization (HMO) [id number] Self [id number] [facility] Health Maintenance Organization (HMO) [id number] Self [id number] [facility] Health Maintenance Organization (HMO) [id number] Self [id number] [facility] Health Maintenance Organization (HMO) [id number] Self [id number] [facility] Health Maintenance Organization (HMO) Self MEDICAID [id number] SP [id number] SELF PAY UNAVAILABLE SP UNAVAILA BLE BLUE CROSS NIÑO PLAN [id number] SP [id number] [facility] [id number] [facility] [id number] Surgeries/Procedures Procedure Description Date Indications Data Source(s) CVR Local Area Network Administrator.Svc. Other 10/28/2020 12:00:00 AM EST - 2020 12:00:00 AM EST [facility] ([facility]) CVR Local Area Network Administrator.Svc. Nutrition 10/28/2020 12:00: 00 AM EST - 10/28/2020 12:00:00 AM EST [facility] ([facility]) CVR Local Area Network Administrator.Svc. Contraceptive 10/28/2020 12 :00:00 AM EST - 10/28/2020 12:00:00 AM EST [facility] ([facility]) CVR Med.Svc. Height/Weight 10/28/2020 12 :00:00 AM EST - 10/28/2020 12:00:00 AM EST [facility] ([facility]) CVR Blood Pressure 10/28/2020 12:00:00 AM EST - 2020 12:00:00 AM EST [facility] ([facility] [place] [facility]) URINE TEST 10/28/2020 12:00:00 AM EST - 10/28/2020 12:00:00 AM EST [facility] ([facility]) NURSE ONLY DEPO INJ. RN/NAILING MACHINE OPERATOR Only 021 12:00:00 AM EST - 10/28/2020 12:00:00 AM EST [facility] ([facility]) Depo/Medroxyprogesterone Inj. 150 Mg Nurse/CA 10/28/2020 12:00:00 AM EST - 10/28/2020 12:00:00 AM EST [facility] ([facility]) CVR BC Ending Method HORM.INJ. 3 MOS 12:00:00 AM EST - 10/28/2020 12:00:00 AM EST [facility] ([facility]) MED SERV, EUSEBIO/WKEND/HOLIDAY 07/19/2020 1 2:00:00 AM EST - 07/19/2020 12:00:00 AM EST [facility] ([facility]) THER/PROPH/DIAG INJ, SC/IM 07/19/2020 12 :00:00 AM EST - 07/19/2020 12:00:00 AM EST [facility] ([facility]) Male Condom Polyurethane 07/19/2020 12:0 0:00 AM EST - 07/19/2020 12:00:00 AM EST [facility] ([facility]) CVR Local Area Network Administrator.Svc. STI / H 07/19/2020 12:00:00 AM EST - 07/19/2020 12:00:00 AM EST [facility] ([facility]) CVR Local Area Network Administrator.Svc. Contraceptive 07/19/2020 12 :00:00 AM EST - 07/19/2020 12:00:00 AM EST [facility] ([facility]) CVR Med.Svc. Breast Exam 07/19/2020 12:0 0:00 AM EST - 07/19/2020 12:00:00 AM EST [facility] ([facility]) CVR Med.Svc. Height/Weight 07/19/2020 12 :00:00 AM EST - 07/19/2020 12:00:00 AM EST [facility] ([facility]) CVR Blood Pressure 07/19/2020 12:00:00 AM EST - 2019 12:00:00 AM EST [facility] ([facility]) CVR Med.Svc. Other 07/19/2020 12:00:00 AM EST - 2019 12:00:00 AM EST [facility] ([facility]) HCS Without Test 07/19/2020 12:00:00 AM EST - 07/19/20 20 12:00:00 AM EST [facility] ([facility]) Depo/Medroxyprogesterone Inj. 150 Mg Nurse/CA 07/19/2020 12:00:00 AM EST - 07/19/2020 12:00:00 AM EST [facility] ([facility]) CVR BC Ending Method HORM.INJ. 3 MOS 03/2020 12:00:00 AM EST - 07/19/2020 12:00:00 AM EST [facility] ([facility]) CYTOPATH, C/V, THIN LAYER 07/19/2020 12: 00:00 AM EST - 07/19/2020 12:00:00 AM EST [facility] ([facility]) PREV VISIT, EST, AGE 18-39 07/19/2020 12 :00:00 AM EST - 07/19/2020 12:00:00 AM EST [facility] ([facility]) URINE TEST 07/19/2020 12:00:00 AM EST - 07/19/2020 12:00:00 AM EST [facility] ([facility]) CVR STI TX Herpes 06/02/2020 12:00:00 AM EDT - 020 12:00:00 AM EDT [facility] ([facility]) CVR Local Area Network Administrator.Svc. STI / H 06/02/2020 12:00:00 AM EDT - 06/02/2020 12:00:00 AM EDT [facility] ([facility]) CVR Local Area Network Administrator.Svc. Other 06/02/2020 12:00:00 AM EDT - 2019 12:00:00 AM EDT [facility] ([facility]) CVR Local Area Network Administrator.Svc. Contraceptive 06/02/2020 12 :00:00 AM EDT - 06/02/2020 12:00:00 AM EDT [facility] ([facility]) OFFICE VISIT, EST 06/02/2020 12:00:00 AM EDT - 020 12:00:00 AM EDT [facility] ([facility]) CVR Local Area Network Administrator.Svc. STI / H 02/22/2020 12:00:00 AM EDT - 02/22/2020 12:00:00 AM EDT [facility] ([facility]) CVR Local Area Network Administrator.Svc. Other 02/22/2020 12:00:00 AM EDT - 2019 12:00:00 AM EDT [facility] ([facility]) CVR Local Area Network Administrator.Svc. Nutrition 02/22/2020 12:00: 00 AM EDT - 02/22/2020 12:00:00 AM EDT [facility] ([facility]) CVR Local Area Network Administrator.Svc. Contraceptive 02/22/2020 12 :00:00 AM EDT - 02/22/2020 12:00:00 AM EDT [facility] ([facility]) CVR Med.Svc. Method Initiation 0 12:00:00 AM EDT - 02/22/2020 12:00:00 AM EDT [facility] ([facility]) CVR Med.Svc. Height/Weight 02/22/2020 12 :00:00 AM EDT - 02/22/2020 12:00:00 AM EDT [facility] ([facility]) CVR Blood Pressure 02/22/2020 12:00:00 AM EDT - 2019 12:00:00 AM EDT [facility] ([facility]) HCS Without Test 02/22/2020 12:00:00 AM EDT - 02/22/20 20 12:00:00 AM EDT [facility] ([facility]) OFFICE VISIT, EST 02/22/2020 12:00:00 AM EDT - 020 12:00:00 AM EDT [facility] ([facility]) Male Condom Polyurethane 02/22/2020 12:0 0:00 AM EDT - 02/22/2020 12:00:00 AM EDT [facility] ([facility]) URINE TEST 02/22/2020 12:00:00 AM EDT - 02/22/2020 12:00:00 AM EDT [facility] ([facility]) Results ID Date Data Source [id number] 10/28/2020 01:07:14 PM EST [facility] ([facility]) Name Value Range Interpretation Code Description Data Krystle rce(s) Supporting Document(s) NegativeLot: [id number]: 05/12/2022 High Sensitivity Urine Test [facility] ([facility]) ID Date Data Source [id number] 07/19/2020 09:05:36 AM EST [facility] ([facility]) Name Value Range Interpretation Code Description Data Krystle rce(s) Supporting Document(s) NegativeLot: [id number]: 09/11/2021 High Sensitivity Urine Test [facility] ([facility]) ID Date Data Source [id number] 02/22/2020 01:37:31 PM EDT [facility] ([facility]) Name Value Range Interpretation Code Description Data Krystle rce(s) Supporting Document(s) NegativeLot: [id number]: 07/12/2021 High Sensitivity Urine Test [facility] ([facility]) Procedure Social History Code Duration Value Status Description Data Source(s ) Smoking 10/28/2020 12:00:00 AM EST Never smoker completed Never s moker [facility] ([facility]) Smoking 07/06/2020 12:00:00 AM EDT Patient has never smoked co mpleted Patient has never smoked [facility] ([facility]) Vital Signs ID Date Data Source UNK Name Value Range Interpretation Code Description Data Source(s) Body mass index (BMI) [Ratio] 31.35 kg/m2 Overweight 31.35 kg/m2 [facility] ([facility]) Diastolic blood pressure 60 mm[Hg] 60 mm[Hg] [facility] ([facility]) Systolic blood pressure 100 mm[Hg] 100 mm[Hg] N [facility] ([facility]) Body weight 80.286 kg 80.286 kg [facility] ([facility]) Body height 160.02 cm 160.02 cm [facility] Body mass index (BMI) [Ratio] 30.89 kg/m2 Overweight 30.89 kg/m2 [facility] ([facility]) Diastolic blood pressure 85 mm[Hg] 85 mm[Hg] [facility] ([facility]) Systolic blood pressure 126 mm[Hg] 126 mm[Hg] N [facility] ([facility]) Body weight 79.107 kg 79.107 kg [facility] ([facility]) Body height 160.02 cm 160.02 cm [facility] ([facility]) Body mass index (BMI) [Ratio] 29.3 kg/m2 29.3 k g/m2 [facility] ([facility], [facility]) Body height 62 [in_i] 62 [in_i] [facility] ([facility]) 5'2" Body weight 160.00 [lb_av] 160.00 [lb_av] [facility] ([facility], [facility]) Body temperature 98.3 [degF] 98.3 [degF] [facility] ([facility], [facility]) Oxygen saturation in Arterial blood by Pulse oximetry 99 % 99 % [facility] ([facility], [facility]) Respiratory rate 16 /min 16 /min [facility] ( [facility], [facility]) Heart rate 108 /min 108 /min [facility] ([facility], [facility]) Diastolic blood pressure 89 mm[Hg] 89 mm[Hg] [facility] ([facility], [facility]) Systolic blood pressure 134 mm[Hg] 134 mm[Hg] M EDENT ([facility], [facility]) Body mass index (BMI) [Ratio] 29.2 kg/m2 29.2 k g/m2 [facility] ([facility], [facility]) Body height 63 [in_i] 63 [in_i] [facility] ([facility]) 5'3" Body weight 165.00 [lb_av] 165.00 [lb_av] [facility] ([facility], [facility]) Body temperature 98.3 [degF] 98.3 [degF] [facility] ([facility], [facility]) Oxygen saturation in Arterial blood by Pulse oximetry 98 % 98 % [facility] ([facility], [facility]) Heart rate 103 /min 103 /min [facility] ([facility], [facility]) Diastolic blood pressure 91 mm[Hg] 91 mm[Hg] [facility] ([facility], [facility]) Systolic blood pressure 130 mm[Hg] 130 mm[Hg] [facility] ([facility], [facility]) Body mass index (BMI) [Ratio] 28.3 kg/m2 28.3 k g/m2 [facility] ([facility], [facility]) Body height 63 [in_i] 63 [in_i] [facility] ([facility]) 5'3" Body weight 160.00 [lb_av] 160.00 [lb_av] [facility] ([facility], [facility]) Body temperature 98.6 [degF] 98.6 [degF] [facility] ([facility], [facility]) Oxygen saturation in Arterial blood by Pulse oximetry 98 % 98 % [facility] ([facility], [facility]) Respiratory rate 17 /min 17 /min [facility] ( [facility], [facility]) Heart rate 93 /min 93 /min [facility] ([facility], [facility]) Diastolic blood pressure 87 mm[Hg] 87 mm[Hg] [facility] ([facility], [facility]) Systolic blood pressure 119 mm[Hg] 119 mm[Hg] [facility] ([facility], [facility]) Body mass index (BMI) [Ratio] 30.47 kg/m2 Overweight 30.47 kg/m2 [facility] ([facility]) Body weight 78.018 kg 78.018 kg [facility] ([facility]) Body height 160.02 cm 160.02 cm [facility] ([facility]) Body mass index (BMI) [Ratio] 29.2 kg/m2 29.2 k g/m2 [facility] ([facility], [facility]) Body height 63 [in_i] 63 [in_i] [facility] ([facility], [facility]) 5'3" Body weight 165.00 [lb_av] 165.00 [lb_av] [facility] ([facility], [facility]) Body temperature 99.1 [degF] 99.1 [degF] [facility] ([facility], [facility]) Oxygen saturation in Arterial blood by Pulse oximetry 98 % 98 % [facility] ([facility], [facility]) Respiratory rate 17 /min 17 /min [facility] ( [facility], [facility]) Heart rate 135 /min 135 /min [facility] ([facility]) Diastolic blood pressure 89 mm[Hg] 89 mm[Hg] [facility] ([facility], [facility]) Systolic blood pressure 134 mm[Hg] 134 mm[Hg] [facility] Patient Treatment Plan of Care Planned Activity Planned Date Details Description Data Source (s) medroxyprogesterone acetate 150 MG/ML Injectable Suspe nsion 07/19/2020 12:00:00 AM EST [facility] Acyclovir 400 MG Oral Tablet 06/02/2020 12:00:00 AM EDT [facility] ([facility]) Acyclovir 400 MG Oral Tablet 05/21/2020 12:00:00 AM EDT [facility] ([facility]) medroxyprogesterone acetate 150 MG/ML Injectable Suspe nsion 08/23/2019 12:00:00 AM EST [facility] medroxyprogesterone acetate 150 MG/ML Injectable Suspe nsion 12/12/2018 12:00:00 AM EDT [facility] GABAPENTIN (unknown strength) [facility] ([facility]) Lorazepam 0.5 MG Oral Tablet [Ativan] [facility] ([facility])
--- OUTSIDE RECORDS SUMMARY | 2020-10-31 10:55 | CCD ---
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 Active confirmed 636876386 Problem Nephrolithiasis N20.0 Active confirmed 9557 0007 Problem Anxiety F41.9 Active confirmed [id number] ALLERGIES Allergen (clinical drug ingredient) Drug/Non Drug Allergy do cumented on EMR Reaction Allergy Type Onset Date Status clonazepam Klonopin([facility] Code:[address]-56) Hives Drug Allergy Active paxil feels like she is having a seizure Non Drug All ergy Active lamotrigine Lamictal([facility] Code:[address]-01) Anaphylaxis, [facility] Akhil Drug Allergy Active antihistamines feels like seizure will happen Non Drug All ergy Active blue dye skin turns red, fever Non Drug Allergy Active ENCOUNTERS from 1985 to 2020-10-20 Encounter Location Date Provider Diagnosis [facility] [address] [place] [address], Arden Akers Anxiety F41.9 IMMUNIZATIONS Vaccine Route Administration Date Status Influenza (6mo & up) Fluzone IM 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 November 13, 2018 Ad ministered Influenza (6mo & up) Fluzone IM 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 Jul 07, 2017 Ad ministered Influenza (6mo & up) Fluzone Unknown Jul 22, 2016 Oth ers SOCIAL HISTORY Tobacco Use: Social History Observation Description Date Details (start date - stop date) Never Smoker Sex Assigned At : Social History Observation Description Sex Assigned At Unknown Education: Question Answer Notes Level of Education: High School Audit Question Answer Notes Total Score: 0 Interpretation: Alcohol Education Language: Question Answer Notes Languages spoken: Lithuanian Muslim: Question Answer Notes Muslim [employer] Drug and Alcohol Question Answer Notes Total Score: 0 Interpretation: No problems reported Alcohol Screening: Question Answer Notes Did you have a drink containing alcohol in the past year? 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 Gabapentin 300 MG 1 capsule Orally Three times a day for 90 days Active Tegretol 100 MG 2 tablets Orally Twice a day Active Amitriptyline HCl 50 MG 1 tablet Orally Once a day at bedtime for 3 0 day(s) Active Ativan 1 mg 1 tablet at bedtime as needed Orally Daily Active PROCEDURES No Information RESULTS No Results REASON FOR VISIT refill MEDICAL (GENERAL) HISTORY Type Description Date Surgical History gallbladder removed Hospitalization History above Goals Section No Information Health Concerns No Information MEDICAL EQUIPMENT No Information MENTAL STATUS No Information FUNCTIONAL STATUS No Information ASSESSMENTS Encounter Date Diagnosis Assessment Notes Treatment Notes Treatm ent Clinical Notes Oct, Anxiety (ICD-10 - F41.9) PLAN OF TREATMENT Medication Medication Name Sig Start Date Stop Date Sertraline HCl 50 MG 1.5 tablet Orally Once a day for 90 days Sep, Next Appt Details Provider Name:Arden Akers, 2020-11-03 11:30:00 AM, [address] [place], [address], Insurance Providers Payer Name Payer Address Payer Phone Insured Name Patient Relati onship to Insured Coverage Start Date Coverage End Date [facility] [facility] [address] [facility] [phone] VALERY AMES self
[2020-10-31] MEDS ORDERED: PROMETHAZINE INJ 25 MG/ML VIAL (J2550) IV ONE (12:45)
[2020-10-31] MEDS ORDERED: ACETAMINOPHEN 500 MG TAB PO ONE (14:15)
[2020-10-31 14:29] VITALS: BP 159/98
[2020-10-31] MEDS ORDERED: ONDA4TAB6 PO (15:14)
== END 2020-10-31 15:25 | disposition home or self-care (01) ==
LOC: EDBD 10:01 → M ED 10:01
DX: R11.2 Nausea with vomiting, unspecified (principal); R19.7 Diarrhea, unspecified; J45.909 Unspecified asthma, uncomplicated; F41.9 Anxiety disorder, unspecified; R56.9 Unspecified convulsions; Z79.899 Other long term (current) drug therapy; Z88.5 Allergy status to narcotic agent; Z88.8 Allergy status to other drugs, medicaments and biological substances; Z91.048 Other nonmedicinal substance allergy status
CPT/HCPCS: 80047; 84702; 96361; 96374; 96375; 99285; J2405

== ENCOUNTER 2020-11-02 16:40 | Emergency (ER) | payer OTHER ==
[~2020-11-02] VITALS: Ht 160 cm; Wt 75.0 kg
[~2020-11-02 16:40] MED LIST changes: +HYDR50CA2 PO
[2020-11-02 17:14] LABS: BASO % 0.4 % (0.0-1.0); EOS # 0.1 10^3/uL (0.0-0.5); EOS % 1.1 % (0.0-3.0); HEMATOCRIT 43.5 % (36.0-47.0); HEMOGLOBIN 14.8 g/dl (12.0-15.5); LYMPH # 1.8 10^3/uL (1.5-5.0); LYMPH % 22.9 % (24.0-44.0); MEAN CORPUSCULAR HEMOGLOBIN 30.8 pg (27.0-33.0); MEAN CORPUSCULAR VOLUME 90.4 fl (80.0-96.0); MONO # 0.5 10^3/uL (0.0-0.8); MONO % 6.6 % (2.0-8.0); NEUTROPHILS # 5.4 10^3/uL (1.5-8.5); NEUTROPHILS % 68.6 % (36.0-66.0); PLATELET COUNT, AUTOMATED 322 10^3/uL (150-450); RED BLOOD COUNT 4.81 10^6/uL (4.00-5.40); WHITE BLOOD COUNT 7.9 10^3/uL (4.0-10.0)
[2020-11-02] MEDS ORDERED: LORazepam 1 MG TAB PO STA (17:31)
[2020-11-02] MEDS ORDERED: NS 500 ML IV ONE (17:45)
[2020-11-02] MEDS ORDERED: ONDANSETRON 4MG/2ML VIAL IV ONE (17:45)
[2020-11-02] MEDS ORDERED: ATIV1TAB7 PO (18:57)
[2020-11-02] MEDS ORDERED: LORazepam 1 MG TAB PO ONE (19:15)
[2020-11-02 19:26] VITALS: BP 152/94
--- OUTSIDE RECORDS SUMMARY | 2020-11-02 19:30 | CCD ---
Author Author [facility] Organization [facility] Address Unknown Phone Unavailable Care Team Providers Care Cap Coverer Name Role Phone Andrés Whyte MD Unavailable [...] Unavailable Pato, A Anneliese ACUNA Unavailable Unavailable Ptao, A Anneliese ACUNA Unavailable Unavailable Pato, A [...] A Anneliese ACUNA Unavailable Unavailable Pato, A Anneleise ACUNA Unavailable Unavailable Pato, A Anneliese ACUNA [...] Coy MD Unavailable Unavailable TAB, E VALERY BINDERY LEADPERSON Unavailable Unavailable TAB, E VALERY BINDERY LEADPERSON Unavailable Unavailable TAB, E VALERY BINDERY LEADPERSON Unavailable Unavailable TAB, E VALERY BINDERY LEADPERSON Unavailable Unavailable TAB, E VALERY BINDERY LEADPERSON Unavailable Unavailable TAB, E VALERY BINDERY LEADPERSON Unavailable Unavailable TAB, E VALERY BINDERY LEADPERSON Unavailable Unavailable TAB, E VALERY BINDERY LEADPERSON Unavailable Unavailable TAB, E VALERY BINDERY LEADPERSON Unavailable Unavailable TAB, E VALERY BINDERY LEADPERSON Unavailable Unavailable TAB, E VALERY BINDERY LEADPERSON Unavailable Unavailable TAB, E VALERY BINDERY LEADPERSON Unavailable Unavailable TAB, E VALERY BINDERY LEADPERSON Unavailable Unavailable CHINA, KRISTOFER PA Unavailable Unavailable [...] Unavailable [place], KRISTOFER PA Unavailable Unavailable [place], KIRSTOFER PA Unavailable Unavailable [place], KRISTOFER PA Unavailable [...] Unavailable Whatley, Mary Unavailable Unavailable Patel, Deb BINDERY LEADPERSON Unavailable Unavailable Patel, Deb BINDERY LEADPERSON Unavailable Unavailable Patel, Deb BINDERY LEADPERSON Unavailable Unavailable Patel, Deb BINDERY LEADPERSON Unavailable Unavailable Patel, Deb BINDERY LEADPERSON Unavailable Unavailable Patel, Deb BINDERY LEADPERSON Unavailable Unavailable Patel, Deb BINDERY LEADPERSON Unavailable Unavailable Patel, Deb BINDERY LEADPERSON Unavailable Unavailable Patel, Deb BINDERY LEADPERSON Unavailable Unavailable Patel, Deb BINDERY LEADPERSON Unavailable Unavailable Patel, Deb BINDERY LEADPERSON Unavailable Unavailable Montgomery, J Shameka PA Unavailable Unavailable Montgomery, J Shameka PA Unavailable Unavailable Montgomery, J Shameka PA Unavailable Unavailable Montgomery, J Shameka PA Unavailable Unavailable Montgomery, J Shameka PA Unavailable Unavailable Montgomery, J Shameka PA Unavailable Unavailable Montgomery, J Shameka PA Unavailable Unavailable Montgomery, J Shameka PA Unavailable Unavailable Montgomery, J Shameka PA Unavailable Unavailable Montgomery, J Shameka PA Unavailable Unavailable Montgomery, J Shameka PA Unavailable Unavailable Montgomery, J Shameka PA Unavailable Unavailable Montgomery, J Shameka PA Unavailable Unavailable Montgomery, J Shameka PA Unavailable Unavailable Montgomery, J Shameka PA Unavailable Unavailable Montgomery, J Shameka PA Unavailable Unavailable Montgomery, J Shameka PA Unavailable Unavailable Montgomery, J Shameka PA Unavailable Unavailable Montgomery, J Shameka PA Unavailable Unavailable Montgomery, J Shameka PA Unavailable Unavailable Montgomery, J Shameka PA Unavailable Unavailable Montgomery, J Shameka PA Unavailable Unavailable Talavera, Shani [...] is protected by Article 27-F of the [facility] Public Health law. If you continue you may have access to information: Regarding HIV / AIDS; Provided by facilities licensed or operated by the [facility] Office of Mental Health; or Provided by the [facility] Office for People With Developmental Disabilities. If such information is present, then the following [facility] mandated warning applies: This information has been [...] law may result in a fine or prison sentence or both. A general authorization for [...] 12:00:00 AM EDT [facility] ([facility]) Unknown Unknown Problem [facility] ([facility]) Unknown Unknown Problem [facility] ([facility]) Encounters Encounter Providers Location Date Indications Data Source(s ) Attender: Harriet ROJO Dix 01:10:00 PM EST - 10/28/2020 01:10:00 PM EST Encounter for test, result negativeEncounter for surveillance of injectable contraceptive [facility] ([facility]) Encounter for test, result neg ative Encounter for surveillance of injectable contraceptive [place] [address] [facility] [address] 10/20/2020 12:00:00 AM EST [facility] ([facility]) OutpatientPREV VISIT, EST, AGE 18-39 Attender: Shameka ROJO Dix 07/19/2020 08:45:00 AM EST - 07/19/2020 08:45:00 AM ES T Body mass index (BMI) 30.0-30.9, adultEncntr for senior technical writer exam (general) (routine) w/o abn findingsEncounter for initial prescription of injectable contracepOther sex counselingEncounter for test, result negativeHuman immunodeficiency virus [HIV] counseling [facility] ([facility]) Body mass index (BMI) 30.0-30.9, adult Encntr for senior technical writer exam (general) (routine) w/o abn findings Encounter for initial prescription of in jectable contracep Other sex counseling Encounter for test, result neg ative Human immunodeficiency virus [HIV] couns eling Outpatient Attender: KRISTOFER aragon 07/06/2020 04:25:00 PM EDT [facility] ([facility]) Attender: Anneliese ROJO Dix 11:10:00 AM EDT - 06/10/2020 11:10:00 AM EDT [facility] ([facility]) Outpatient Attender: Deb harper 06/03/2020 02:15:00 PM EDT [facility] ([facility]) OutpatientOFFICE VISIT, EST Attender: Mary ROJO Lynette [facility] 06/02/2020 10:20:00 AM EDT - 06/02/2020 10:20:00 AM EDT Herpesviral vulvovaginitisEncounter for surveillance of injectable contraceptiveEncounter for oth general cnsl and advice on contraception [facility] ([facility]) Herpesviral vulvovaginitis Encounter for surveillance of injectable contraceptive Encounter for oth general cnsl and advic e on contraception Attender: VALERY ROJO Dix 05/21 12:09:00 PM EDT - 05/21/2020 12:09:00 PM EDT [facility] ([facility]) Outpatient Attender: Josselin remy 03/08/2020 02:30:00 PM EDT [facility] OutpatientOFFICE VISIT, EST Attender: Shameka rainey [...] counseling Human immunodeficiency virus [HIV] couns naif [facility] Morena [address] [facility] [facility] [address] 01/21/2020 12:00:00 AM EDT eCW1 ([facility]) [facility] Amol [address] [facility] [address] 11/29/2019 12:00:00 AM EDT eCW1 ([facility]) [facility] [address] [place] [phone] 11/28/2019 12:00:00 AM EDT eCW1 ([facility]) [facility] [address] [place] [phone] 11/23/2019 12:00:00 AM EDT eCW1 ([facility]) [facility] [address] [place] [phone] 10/23/2019 12:00:00 AM EST eCW1 ([facility]) Outpatient Attender: LOGAN remy 10/16/2019 02:00:00 PM EST MED[facility] ([facility]) [facility] [address] [place] [phone] 09/27/2019 12:00:00 AM EST eCW1 ([facility]) [address] [address] 09/19/2019 12:00:00 AM EST eCW1 ([facility]) Medications Medication Brand Name Start Date [...] 07/06/2020 12:00:00 AM EDT ORAL active [facility] ([facility], [facility]) Fluconazole 150 MG Oral Tablet Fluconazole 06/10/2020 12:00:00 AM EDT completed [facility] ([facility]) Mupirocin 0.02 MG/MG Topical Ointment Mupirocin 06/03/2020 12:00:00 AM EDT completed MED[facility] ([facility], [facility]) Doxycycline Monohydrate 100 MG Oral Tablet Doxycycline Monoh ydrate 06/03/2020 12:00:00 AM EDT ORAL completed [facility] ([facility], [facility]) Acyclovir 400 MG Oral Tablet acyclovir 400 mg tablet acyclov ir 400 mg tablet 06/02/2020 12:00:00 AM EDT active 1 po BID for viral suppression (#180) [facility] ([facility]) Acyclovir 400 MG Oral Tablet acyclovir 400 mg tablet acyclov ir 400 mg tablet 05/21/2020 12:00:00 AM EDT completed 1 po tid x 5d prn outbreak (#45) [facility] Fluconazole 150 MG Oral Tablet [Diflucan] Diflucan 03/08/2020 1 2:00:00 AM EDT completed MED[facility] ([facility], [facility]) Oseltamivir 75 MG Oral Capsule Oseltamivir Phosphate 10/16/2019 12:00:00 AM EST ORAL completed [facility] ([facility], [facility]) medroxyprogesterone acetate 150 MG/ML In jectable Suspension medroxyprogesterone 150 mg/mL intramuscular suspension medroxyprogesterone 150 mg/mL intramuscu lar suspension 08/23/2019 12:00:00 AM EST complet ed IM every 10-13 weeks Next[facility] ([facility]) Loperamide Hydrochloride 2 MG Oral Capsule Loperamide HCL 05/15/2019 12:00:00 AM EDT completed [facility] ([facility], [facility]) NITROFURANTOIN, MACROCRYSTALS 25 MG / Ni trofurantoin, Monohydrate 75 MG Oral Capsule [Macrobid] Macrobid 05/15/2019 12:00:00 AM EDT ORAL completed [facility] ([facility], [facility]) Phenazopyridine hydrochloride 200 MG Oral Tablet Phenazopyri dine HCL 05/15/2019 12:00:00 AM EDT ORAL completed [facility] ([facility], [facility]) Ondansetron 4 MG Oral Tablet [Zofran] Zofran 05/15/2019 12:00:00 AM EDT ORAL completed [facility] ([facility], [facility]) Ibuprofen 800 MG Oral Tablet Ibuprofen 05/04/2019 12:00:00 AM EDT completed MED[facility] ([facility], [facility]) medroxyprogesterone acetate 150 MG/ML In jectable Suspension [...] type / Coverage type Policy ID Covered republican ID Covered republican's relationship to villela Policy Villela Plan Information [facility] COMMUN[facility] PLAN MCDO [id number] SP [id number] [facility] NYCDP self [id number] COMMUNITY PLAN [facility] [id number] SP [id number] [facility] Health Maintenance Organization (HMO) [id number] [facility] Health Maintenance Organization (HMO) [id number] [facility] Health Maintenance Organization (HMO) [id number] Self [id number] ANSI-Medicaid [id number] [facility] Health Maintenance Organization (HMO) [id number] Self [id number] [facility] O [id number] S [id number] ANSI-Medicaid [id number] [facility] Health Maintenance Organization (HMO) [id number] [facility] Health Maintenance Organization (HMO) [id number] Self [id number] ANSI-Medicaid [id number] [facility] Health Maintenance Organization (HMO) [id number] [facility] Health Maintenance Organization (HMO) [id number] [facility] Health Maintenance Organization (HMO) [id number] [facility] Health Maintenance Organization (HMO) [id number] [facility] Health Maintenance Organization (HMO) [id number] [facility] Health Maintenance Organization (HMO) [id number] [facility] Health Maintenance Organization (HMO) [id number] [facility] Health Maintenance Organization (HMO) [id number] [facility] Health Maintenance Organization (HMO) [id number] [facility] Health Maintenance Organization (HMO) Self MEDICAID [id number] SP [id number] SELF PAY UNAVAILABLE SP UNAVAILA BLE BLUE CROSS NIÑO PLAN [id number] SP [id number] [facility] [id number] [facility] [id number] Surgeries/Procedures Procedure Description Date Indications Data Source(s) CVR It Programmer.Svc. Other 10/28/2020 12:00:00 AM EST - 2020 12:00:00 AM EST [facility] ([facility]) CVR It Programmer.Svc. Nutrition 10/28/2020 12:00: 00 AM EST - 10/28/2020 12:00:00 AM EST [facility] ([facility]) CVR It Programmer.Svc. Contraceptive 10/28/2020 12 :00:00 AM EST - 10/28/2020 12:00:00 AM EST [facility] ([facility]) CVR Med.Svc. Height/Weight 10/28/2020 12 :00:00 AM EST - 10/28/2020 12:00:00 AM EST [facility] ([facility]) CVR Blood Pressure 10/28/2020 12:00:00 AM EST - 2020 12:00:00 AM EST [facility] ([facility]) URINE TEST 10/28/2020 12:00:00 AM EST - 10/28/2020 12:00:00 AM EST [facility] ([facility]) NURSE ONLY DEPO INJ. RN/TELEVISION INSTALLER HELPER Only 021 12:00:00 AM EST - 10/28/2020 12:00:00 AM EST [facility] ([facility]) Depo/Medroxyprogesterone Inj. 150 Mg Nurse/CA 10/28/2020 12:00:00 AM EST - 10/28/2020 12:00:00 AM EST [facility] ([facility]) CVR BC Ending Method HORM.INJ. 3 MOS 12:00:00 AM EST - 10/28/2020 12:00:00 AM EST [facility] ([facility]) MED SERV, EUSEBIO/WKEND/HOLIDAY 07/19/2020 1 2:00:00 AM EST - 07/19/2020 12:00:00 AM EST [facility] ([facility]) THER/PROPH/DIAG INJ, SC/IM 07/19/2020 12 :00:00 AM EST - 07/19/2020 12:00:00 AM EST [facility] ([facility]) Male Condom Polyurethane 07/19/2020 12:0 0:00 AM EST - 07/19/2020 12:00:00 AM EST [facility] ([facility]) CVR It Programmer.Svc. STI / H 07/19/2020 12:00:00 AM EST - 07/19/2020 12:00:00 AM EST [facility] ([facility]) CVR It Programmer.Svc. Contraceptive 07/19/2020 12 :00:00 AM EST - 07/19/2020 12:00:00 AM EST [facility] ([facility]) CVR Med.Svc. Breast Exam 07/19/2020 12:0 0:00 AM EST - 07/19/2020 12:00:00 AM EST [facility] ([facility]) CVR Med.Svc. Height/Weight 07/19/2020 12 :00:00 AM EST - 07/19/2020 12:00:00 AM EST [facility] ([facility]) CVR Blood Pressure 07/19/2020 12:00:00 AM EST - 2019 12:00:00 AM EST [facility] ([facility]) CVR Med.Svc. Other 07/19/2020 12:00:00 AM EST - 2019 12:00:00 AM EST [facility] ([facility]) HCS Without Test 07/19/2020 12:00:00 AM [...] [facility]) CVR It Programmer.Svc. STI / H 06/02/2020 12:00:00 AM EDT - 06/02/2020 12:00:00 AM EDT [facility] ([facility]) CVR It Programmer.Svc. Other 06/02/2020 12:00:00 AM EDT - 2019 12:00:00 AM EDT [facility] ([facility]) CVR It Programmer.Svc. Contraceptive 06/02/2020 12 :00:00 AM EDT - 06/02/2020 12:00:00 AM EDT [facility] ([facility]) OFFICE VISIT, EST 06/02/2020 12:00:00 AM EDT - 020 12:00:00 AM EDT [facility] ([facility]) CVR It Programmer.Svc. STI / H 02/22/2020 12:00:00 AM EDT - 02/22/2020 12:00:00 AM EDT [facility] ([facility]) CVR It Programmer.Svc. Other 02/22/2020 12:00:00 AM EDT - 2019 12:00:00 AM EDT [facility] ([facility]) CVR It Programmer.Svc. Nutrition 02/22/2020 12:00: 00 AM EDT - 02/22/2020 12:00:00 AM EDT [facility] ([facility]) CVR It Programmer.Svc. Contraceptive 02/22/2020 12 :00:00 AM EDT - [...] [facility]) Results ID Date Data Source [id number] 10/28/2020 01:07:14 PM EST [facility] ([facility]) Name Value Range Interpretation Code Description Data Krystle rce(s) Supporting Document(s) NegativeLot: [id number]: 05/12/2022 High Sensitivity Urine Test [facility] ([facility]) ID Date Data Source [id number] 07/19/2020 09:05:36 AM EST [facility] ([facility]) Name Value Range Interpretation Code Description Data Krystle rce(s) Supporting Document(s) NegativeLot: [id number]: 09/11/2021 High Sensitivity Urine Test [facility] ([facility]) ID Date Data Source [id number] 02/22/2020 01:37:31 PM EDT [facility] ([facility]) Name Value Range Interpretation Code Description Data Krystle rce(s) Supporting Document(s) NegativeLot: [id number]: 07/12/2021 High Sensitivity Urine Test [facility] ([facility]) Procedure Social History Code Duration Value Status Description Data Source(s ) Smoking 10/28/2020 12:00:00 AM EST Never smoker completed Never s moker [facility] ([facility]) Smoking 07/06/2020 12:00:00 AM EDT Patient has never smoked co mpleted Patient has never smoked [facility] ([facility], [facility]) Vital Signs ID Date Data Source UNK Name Value Range Interpretation Code Description Data Source(s) Body mass index (BMI) [Ratio] 31.35 kg/m2 Overweight 31.35 kg/m2 [facility] ([facility]) Diastolic blood pressure 60 mm[Hg] 60 mm[Hg] [facility] ([facility]) Systolic blood pressure 100 mm[Hg] 100 mm[Hg] N extGen ([facility]) Body weight 80.286 kg 80.286 kg [facility] ([facility]) Body height 160.02 cm 160.02 cm [facility] Body mass index (BMI) [Ratio] 30.89 kg/m2 Overweight 30.89 kg/m2 [facility] ([facility]) Diastolic blood pressure 85 mm[Hg] 85 mm[Hg] [facility] ([facility]) Systolic blood pressure 126 mm[Hg] 126 mm[Hg] N extGen ([facility]) Body weight 79.107 kg 79.107 kg [facility] ([facility]) Body height 160.02 cm 160.02 cm NextGen ([facility]) Body mass index (BMI) [Ratio] 29.3 kg/m2 29.3 k g/m2 [facility] ([facility]) Body height 62 [in_i] 62 [in_i] [facility] ([facility]) 5'2" Body weight 160.00 [lb_av] 160.00 [lb_av] MEDEN T ([facility], [facility]) Body temperature 98.3 [degF] 98.3 [degF] [facility] ([facility], [facility]) Oxygen saturation in Arterial blood by Pulse oximetry 99 % 99 % [facility] ([facility], [facility]) Respiratory rate 16 /min 16 /min [facility] ( [facility], [facility]) Heart rate 108 /min 108 /min [facility] ([facility], [facility]) Diastolic blood pressure 89 mm[Hg] 89 mm[Hg] [facility] ([facility], [facility]) Systolic blood pressure 134 mm[Hg] 134 mm[Hg] M EDENT ([facility], [facility]) Body mass index (BMI) [Ratio] 29.2 kg/m2 29.2 k g/m2 [facility] ([facility], [facility]) Body height 63 [in_i] 63 [in_i] [facility] ([facility]) 5'3" Body weight 165.00 [lb_av] 165.00 [lb_av] MEDEN T ([facility], [facility]) Body temperature 98.3 [degF] 98.3 [degF] MEDENT ([facility], [facility]) Oxygen saturation in Arterial blood by Pulse oximetry 98 % 98 % [facility] ([facility], [facility]) Heart rate 103 /min 103 /min [facility] ([facility], [facility]) Diastolic blood pressure 91 mm[Hg] 91 mm[Hg] [facility] ([facility], [facility]) Systolic blood pressure 130 mm[Hg] 130 mm[Hg] [facility] ([facility], [facility]) Body mass index (BMI) [Ratio] 28.3 kg/m2 28.3 k g/m2 [facility] ([facility], [facility]) Body height 63 [in_i] 63 [in_i] [facility] ([facility]) 5'3" Body weight 160.00 [lb_av] 160.00 [lb_av] MEDEN T ([facility], [facility]) Body temperature 98.6 [degF] 98.6 [degF] [facility] ([facility], [facility]) Oxygen saturation in Arterial blood by Pulse oximetry 98 % 98 % [facility] ([facility], [facility]) Respiratory rate 17 /min 17 /min [facility] ( [facility]) Heart rate 93 /min 93 /min [facility] ([facility], [facility]) Diastolic blood pressure 87 mm[Hg] 87 mm[Hg] [facility] ([facility], [facility]) Systolic blood pressure 119 mm[Hg] 119 mm[Hg] [facility] ([facility], [facility]) Body mass index (BMI) [Ratio] 30.47 kg/m2 Overweight 30.47 kg/m2 [facility] ([facility]) Body weight 78.018 kg 78.018 kg [facility] ([facility]) Body height 160.02 cm 160.02 cm [facility] ([facility]) Body mass index (BMI) [Ratio] 29.2 kg/m2 29.2 k g/m2 [facility] ([facility], [facility]) Body height 63 [in_i] 63 [in_i] MED[facility] ([facility], [facility]) 5'3" Body weight 165.00 [lb_av] 165.00 [lb_av] MEDEN T ([facility], [facility]) Body temperature 99.1 [degF] 99.1 [degF] [facility] ([facility], [facility]) Oxygen saturation in Arterial blood by Pulse oximetry 98 % 98 % [facility] ([facility], [facility]) Respiratory rate 17 /min 17 /min [facility] [facility], [facility]) Heart rate 135 /min 135 /min [facility] ([facility], [facility]) Diastolic blood pressure 89 mm[Hg] 89 mm[Hg] [facility] ([facility], [facility]) Systolic blood pressure 134 mm[Hg] 134 mm[Hg] [facility] ([facility], [facility]) Patient Treatment Plan of Care Planned Activity [...] AM EDT [facility] ([facility] GABAPENTIN (unknown strength) [facility] ([facility]) Lorazepam 0.5 MG Oral Tablet [Ativan] [facility] ([facility])
== END 2020-11-02 20:15 | disposition home or self-care (01) ==
LOC: M ED 16:40 → EDBD 16:40 → M ED 20:15
DX: R09.89 Other specified symptoms and signs involving the circulatory and respiratory systems (principal); F15.20 Other stimulant dependence, uncomplicated; Z79.899 Other long term (current) drug therapy; Z88.5 Allergy status to narcotic agent; Z88.8 Allergy status to other drugs, medicaments and biological substances; J30.89 Other allergic rhinitis
CPT/HCPCS: 80047; 85025; 96374; 99284; J2405

== ENCOUNTER → 2020-12-01 | Outpatient (REF) | payer OTHER ==
[~2020-12-01] MED LIST changes: +ATIV1TAB7 PO
[2020-12-01 16:13] LABS: ALBUMIN 4.1 GM/DL (3.2-5.2); ALT/SGPT 20 U/L (12-78); BILIRUBIN,TOTAL < 0.1 MG/DL (0.2-1.0); BLOOD UREA NITROGEN 9 MG/DL (7-18); CALCIUM LEVEL 8.9 MG/DL (8.5-10.1); CARBAMAZEPINE (TEGRETOL) LEVEL 7.1 UG/ML (4.0-10.0); CARBON DIOXIDE LEVEL 28 MEQ/L (21-32); CHLORIDE LEVEL 108 MEQ/L (98-107); CREATININE FOR GFR 0.63 MG/DL (0.55-1.30); GLOMERULAR FILTRATION RATE > 60.0 (>60); GLUCOSE, FASTING 107 MG/DL (70-100); POTASSIUM SERUM 3.6 MEQ/L (3.5-5.1); SODIUM LEVEL 142 MEQ/L (136-145); TOTAL PROTEIN 7.8 GM/DL (6.4-8.2)
== END ==
LOC: M SFHCPLAZ 10:39
PROVIDERS: ATTEND Nurse Practitioner Adult Health
DX: Z13.29 Encounter for screening for other suspected endocrine disorder (principal); Z13.1 Encounter for screening for diabetes mellitus; G40.919 Epilepsy, unspecified, intractable, without status epilepticus

== ENCOUNTER → 2021-01-03 | Outpatient (REF) | payer OTHER | LOC: M LAB REF 17:24 | PROVIDERS: ATTEND Physician Assistant | DX: J02.9 Acute pharyngitis, unspecified (principal) ==

== ENCOUNTER 2021-07-27 22:45 | Emergency (ER) | payer OTHER ==
[~2021-07-27] VITALS: Ht 160 cm; Wt 75.0 kg
--- OUTSIDE RECORDS SUMMARY | 2021-07-27 22:51 | CCD | Continuity of Care Document ---
Author Author Leigh PETIT Organization Unknown Address [address] [place] [address] [place] [address] Phone [phone] Care Team Providers Care Car Dispatcher Name Role Phone Viktor Dow MD [facility] [phone] Problems Description No Information Available Social History Type Date Description Comments Sex Unknown ETOH Use Denies alcohol use Tobacco Use Start: Unknown Patient has never smoked Smoking Status Reviewed: 07/06/20 Patient has never smoked Allergies and adverse reactions Active Allergies Criticality Reaction | Severity Comments Date Lamictal Unable to assess criticality 01/04/2013 Morphine Unable to assess criticality 12/26/2014 Augmentin Unable to assess criticality Contact dermatitis 07/10/2015 Paxil Unable to assess criticality near syncope 08/17/2017 Medications Active Medications SIG Qnty Indications Ordering Provide r Date Tegretol 200mg Tablets bid Unknown Depo-Subq Provera 104 104mg/0.65ML Suspension 01/29 Unknown Ativan 1mg Tablets hs Unknown Amitriptyline HCL Unknown 000 Zoloft Unknown Xopenex HFA 45mcg/Act Aerosol 2 puffs q4-6 Unknown Immunizations CPT Code Status Date Vaccine Reaction Lot # [id number] Given 03/30/2017 PPD- TB Intradermal Test ppd read on -0-mm induration negative results, Read by DC Villegas [id number] Given 01/04/2013 PPD- TB Intradermal Test neg ative 0 mm of induration CassidymonRLuc 01/06/13 [id number] Vital Signs Date Vital Result Comment 07/17/2021 12:14pm BP Systolic 111 mmHg BP Diastolic 79 mmHg Heart Rate 95 /min Respiratory Rate 16 /min O2 % BldC Oximetry 99 % Body Temperature 97.8 F Weight 160.00 lb Height 63 inches 5'3" BMI (Body Mass Index) 28.3 kg/m2 Pain Level 9 01/03/2021 10:08am BP Systolic 150 mmHg BP Diastolic 99 mmHg Heart Rate 125 /min Respiratory Rate 15 /min O2 % BldC Oximetry 98 % Body Temperature 97.5 F Weight 160.00 lb Height 63 inches 5'3" BMI (Body Mass Index) 28.3 kg/m2 Pain Level 9 Results Description No Information Available Procedures Date Code Description Status 07/17/2021 92626 Office/Outpatient Established Lo w MDM 20-29 Min Completed 07/17/2021 45341 Repair Superfic Wound < 2.6CM Sc alp/Neck/Axil/Genit/Trunk/Extr Completed Medical Devices Description No Information Available Encounters Type Date Location Provider Dx Diagnosis Office Visit 07/17/2021 10:30a Main Office DC Fernandez S61 .200A Unsp open wound of r idx fngr w/o damage to nail, init Assessments Date Code Description Provider 07/17/2021 S61.200A Unspecified open wou nd of right index finger without damage to nail, initial encounter DC Fernandez Plan of Treatment No Information Available Functional Status Description No Information Available Mental Status Description No Information Available Referrals Description No Information Available
--- OUTSIDE RECORDS SUMMARY | 2021-07-27 22:51 | CCD | Continuity of Care Document ---
Author Author Leigh PETIT Organization Unknown Address [address] [place] [address] [place] [address] Phone [phone] Care Team Providers Care Blade Aligner Name Role Phone Viktor Dow MD [facility] [phone] Problems Description No Information Available Social History [...] Code Status Date Vaccine Reaction Lot # [id number] Given 03/30/2017 PPD- TB Intradermal Test ppd read on -0-mm induration negative results, Read by DC Villegas [id number] Given 01/04/2013 PPD- TB Intradermal Test neg ative 0 mm of induration CassidymonRLuc 01/06/13 [id number] Vital Signs Date Vital Result Comment 07/17/2021 [...] Available Procedures Date Code Description Status 07/17/2021 11422 Office/Outpatient Established Lo w MDM 20-29 Min Completed 07/17/2021 82407 Repair Superfic Wound < 2.6CM Sc alp/Neck/Axil/Genit/Trunk/Extr [...]
--- OUTSIDE RECORDS SUMMARY | 2021-07-27 22:51 | CCD ---
Author Author [facility] Organization [facility] Address Unknown Phone Unavailable Care Team Providers Care Scoop Driver Name Role Phone Ruchi Bruce Unavailable PROBLEMS Type Condition ICD9-CM Code [id number] Code Onset Dates Condition S tatus W/U Status Risk SNOMED Code Notes Problem Anxiety F41.9 Active confirmed 14008407 Problem Mild intermittent asthma without complication J45. 20 Active confirmed 333946401 Problem Essential hypertension I10 Active confirmed 98145670 Problem Intractable epilepsy without status epilepticus, unspecified epilepsy type G40.919 Active confirmed 762977053 Problem Nephrolithiasis N20.0 Active confirmed 9557 0007 Problem Vitamin D deficiency E55.9 Active confirmed 15985772 Problem Irritable bowel syndrome with diarrhea K58.0 A ctive confirmed 253434913 ALLERGIES Allergen (clinical drug ingredient) Drug/Non Drug Allergy do cumented on EMR Reaction Allergy Type Onset Date Status arielil feels like she is having a seizure Non Drug All ergy Active valproate Depakote pancreatitis Drug Allergy Active lamotrigine Lamictal(ND Code:[address]-90) Anaphylaxis, [facility] Akhil Drug Allergy Active hydroxyzine HydrOXYzine HCl(ND Code:[address]-92) vomit Drug A llergy Active clonazepam Klonopin(ND Code:[address]-63) Hives Drug Allergy Active phenytoin Dilantin Rash Drug Allergy Active levetiracetam Keppra(ND Code:[address]-39) Rash Drug Allergy Active antihistamines feels like seizure will happen Non Drug All ergy Active blue dye skin turns red, fever Non Drug Allergy Active ENCOUNTERS from 1985 to 2021-06-24 Encounter Location Date Provider Diagnosis [address] [phone] [place] [address] Jun, Ruchi Vargasage Intractable epilepsy without status epilepticus, unspecified epilepsy type G40.919 ; Mild intermittent asthma without complication J45.20 ; Anxiety F41.9 ; Essential hypertension I10 ; Irritable bowel syndrome with diarrhea K58.0 ; History of headache Z87.898 ; Vitamin D deficiency E55.9 ; Encounter for immunization Z23 ; History of COVID-19 Z86.16 and Costochondritis M94.0 IMMUNIZATIONS Vaccine Route Administration Date Status Influenza 18 yrs & older Flublok IM 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 Jun 23, 2021 Administered Influenza 18 yrs & older Flublok IM 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 December 01, 2020 Administered Influenza 6mo & up Fluzone IM 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 November 13, 2018 Admi nistered Influenza 6mo & up Fluzone IM 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 Jul 07, 2017 Admi nistered Influenza 6mo & up Fluzone Unknown Jul 22, 2016 Other s SOCIAL HISTORY Tobacco Use: Social History Observation Description Date Details (start date - stop date) Never Smoker Sex Assigned At : Social History Observation Description Sex Assigned At Unknown Education: Question Answer Notes Level of Education: General Brown Audit Question Answer Notes Total Score: 0 Interpretation: Alcohol Education Language: Question Answer Notes Languages spoken: Danish Moravian: Question Answer Notes Moravian 21 Druze Sexual Hx: Question Answer Notes Had sex in the last 12 months (vaginal, oral, or anal)? No LMP: depo Have you ever had an STD? No Drug and Alcohol Question Answer Notes Total Score: 0 Interpretation: No problems reported Alcohol Screening: Question Answer Notes Did you have a drink containing alcohol in the past year? No Points 0 Interpretation Negative BMI Care Goal Follow-Up Question Answer Notes Above Normal BMI Follow-Up Dietary management educatio n, guidance, and counseling Tobacco Use: Question Answer Notes Are you a: never smoker never smoker REASON FOR REFERRAL No Information VITAL SIGNS Weight 177 lbs Jun, Weight-kg 80.29 kg Jun, Height 63 in Jun, BMI 31.35 kg/m2 Jun, Heart Rate 114 /min Jun, Respiratory Rate 18 /min Jun, Temperature 97.8 degrees Fahrenheit Jun, Oximetry 98 Jun, Blood pressure systolic 136 mm Hg Jun, Blood pressure diastolic 78 mm Hg Jun, MEDICATIONS Medication SIG (Take, Route, Frequency, Duration) Notes Start Da te End Date Status Depo-Provera 150 MG/ML 1 ml 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-passenger service agent every 3 months Active Epitol 200 MG 1 tablet Orally Twice a day takes with no issues Active busPIRone HCl 10 MG 1 tablet Orally three times per day prn anxiety for 30 days Active Lisinopril 10 MG 1 tab orally Daily for 30 days Active Sertraline HCl 50 MG 1.5 tablet Orally Once a day Active Albuterol Sulfate 1.25 MG/3ML 3 ml as needed Inhalation ever y 8 hrs for 30 days May, Active busPIRone HCl 10 MG TAKE 1 TABLET BY MOUTH THREE TIMES DAILY NEEDED FOR ANXIETY for 20 Active Nebulizer/Tubing/Mouthpiece - as directed J45.20 Daily for 99 da ys May, Not-Taking Xopenex HFA 45 MCG/ACT 1 puff as needed Inhalation every 4 hrs for 30 days Active Vitamin D (Ergocalciferol) 1.25 MG (41647 UT) 1 capsul e Orally weekly for 30 day(s) Active Albuterol Sulfate (2.5 MG/3ML) 0.083% 1.5 ml Inhalatio n J45.20 every 8 hrs as needed for all for 30 days May, Activ e Amitriptyline HCl 50 MG 1 tablet Orally Once a day at bedtime Active Gabapentin 300 MG 1 capsule Orally Three times a day for 30 days Active PROCEDURES from 1985 to 2021-06-24 Procedure Date Ordered Result Body Site Imm: Flublok Quadrivalent 18 years & older 0.5mL IM Influenza 20 02-07-12 N/A RESULTS No Results REASON FOR VISIT 3 Months follow up medical issues MEDICAL (GENERAL) HISTORY Type Description Date Medical History Intractable epilepsy Medical History Anxiety Medical History Nephrolithiasis- passed stones Medical History Asthma as a Child Medical History Covid April 2021 Surgical History Cholecystectomy Hospitalization History above Goals Section No Information Health Concerns No Information MEDICAL EQUIPMENT No Information MENTAL STATUS No Information FUNCTIONAL STATUS No Information ASSESSMENTS Encounter Date Diagnosis Assessment Notes Treatment Notes Treatm ent Clinical Notes Jun, Mild intermittent asthma without complication (I CD-10 - J45.20) has had albuteral before, causes increased heart rate and shakes, this makes her anxiety worse, so does not use it, requeating xopenex to address asthma symptoms and increase compliance of pt 03/02/21 states asthma is under control 06/23/21 controlled today Jun, Intractable epilepsy without status epilepticus, unspecified epilepsy type (ICD-10 - G40.919) currently on epitol states she has been on it for years, cannot take any other seizure medications- had reactions to them will check level and refer to JUAN LUIS Andrews states she has enough epitol 01/30 gabapentin renewed, refaxed referral to [place] 03/02/21 received paper work from [place] encouraged to fill out. 06/23/21 suppose to have appt in [place] 07/02/21 Jun, Anxiety (ICD-10 - F41.9) Dr. Akers just ordered Zoloft October for 90 days will continue this have referred to [facility] Choe medical record specialist to work with patient regarding issues of her long-standing anxiety needs to Counseling and proper medications to address underlying issues not resolved. aware she will not reveive lorazepam script. will order prn maddy discussed with pt how to use medication 03/02/21 farhadpar working using prn does not always need 3 pills per day. wants to continue with it. 06/23/21 states she feels does not need to see Davie Choe. Jun, Essential hypertension (ICD-10 - I10) Bp in the ER [id number]/64,-154/74 ? if it is reactive to anxiety called for records from [facility] have not received, will start low dose lisinopril. will start 1 week after buspar to avoid any issues 03/02/21 tolerating lisinopril 10 mg po q day, bp acceptable today, will continue medication 07/02 meets goal today Jun, Irritable bowel syndrome with diarrhea (ICD-10 - K58.0) no issues today Jun, History of headache (ICD-10 - Z87.898) will monitor, 03/02/21 improved today ? related to bp 07/02denies headaches Jun, Vitamin D deficiency (ICD-10 - E55.9) history of 10.4 10/30/20 will discuss when she returns, ? if she was started on anything by prior provider 03/02/21 never started on vitamin D will order weekly vitamin d 07/02 taking weekly vitamin d Jun, Encounter for immunization (ICD-10 - Z23) flu vaccine today Jun, History of COVID-19 (ICD-10 - Z86.16) may 2021 no complaints today Jun, Costochondritis (ICD-10 - M94.0) suggested tylenol prn Jun, Other sp burn left fo rarm suggest benadryl ointment PLAN OF TREATMENT Medication Medication Name Sig Start Date Stop Date Sertraline HCl 50 MG 1.5 tablet Orally Once a day Amitriptyline HCl 50 MG 1 tablet Orally Once a day at bedtime Lisinopril 10 MG 1 tab orally Daily for 30 days busPIRone HCl 10 MG 1 tablet Orally three times per day prn anxiety for 30 days Gabapentin 300 MG 1 capsule Orally Three times a day for 30 days Epitol 200 MG 1 tablet Orally Twice a day Xopenex HFA 45 MCG/ACT 1 puff as needed Inhalation every 4 hrs f or 30 days Vitamin D (Ergocalciferol) 1.25 MG (96639 UT) 1 capsul e Orally weekly for 30 day(s) Treatment Notes Assessment Notes Clinical Notes Mild intermittent asthma without complication has had albuteral before, causes increased heart rate and shakes, this makes her anxiety worse, so does not use it, requeating xopenex to address asthma symptoms and increase compliance of pt03/02/21 states asthma is under dijvjkw92/12/21 controlled today Intractable epilepsy without status epilepticus, unspecified epilepsy type currently on epitol states she has been on it for years, cannot take any other seizure medications- had reactions to them will check level and refer to JUAN LUIS Andrews states she has enough epitol01/30 gabapentin renewed, refaxed referral to [place]03/02/21 received paper work from [facility] encouraged to fill out.06/23/21 suppose to have appt in [place] 07/02/[address] Delphine huffman or yenni Carey October for 90 dayswill continue this have referred to [facility]ie Choe medical record specialist to work with patient regarding issues of her long-standing anxiety needs to Counseling and proper medications to address underlying issues not resolved.aware she will not reveive lorazepam script.will order prn maddy discussed with pt how to use medication03/02/21 buspar working using prn does not always need 3 pills per day. wants to continue with it.06/23/21 states she feels does not need to see Davie Choe. Essential hypertension Bp in the ER revi eghb370/64,-154/74 ? if it is reactive to anxietycalled for records from [facility] have not received,will start low dose lisinopril. will start 1 week after buspar to avoid any issues03/02/21 tolerating lisinopril 10 mg po q day, bp acceptable today, will continue ymwpekkfmq17/21 meets goal today Irritable bowel syndrome with diarrhea n o issues today History of headache will monitor,03/02/21 improved today ? related to bp1denies headaches Vitamin D deficiency history of 10.4 10/13 05/02 will discuss when she returns, ? if she was started on anything by prior provider03/02/21 never started on vitamin D will order weekly vitamin d1 taking weekly vitamin d Encounter for immunization flu vaccine t oneal History of COVID-31 may 2021 no co mplaints today Costochondritis suggested tylenol pr n Next Appt Details October follow up Reason: Provider Name:Ruchi Bruce, 10:30:00 AM, [address] [facility], , [place], [address], Insurance Providers Payer Name Payer Address Payer Phone Insured Name Patient Relati onship to Insured Coverage Start Date Coverage End Date [facility] [employer] [facility] [address] [facility] [id number] VALERY AMES self
--- OUTSIDE RECORDS SUMMARY | 2021-07-27 22:52 | CCD ---
Author Author [facility] Organization [facility] Address Unknown Phone Unavailable Care Team Providers Care Senior Sas Developer Name Role Phone Ruchi Bruce Unavailable PROBLEMS Type Condition ICD9-CM Code QJG29-FX Code Onset Dates Condition S tatus W/U Status Risk SNOMED Code Notes Problem Anxiety F41.9 Active confirmed 70762429 Problem Mild intermittent asthma without complication J45. 20 Active confirmed 642698516 Problem Essential hypertension I10 Active confirmed 74812933 Problem Intractable epilepsy without status epilepticus, unspecified epilepsy type G40.919 Active confirmed 618428616 Problem Nephrolithiasis N20.0 Active confirmed 9557 0007 Problem Vitamin D deficiency E55.9 Active confirmed 13168940 Problem Irritable bowel syndrome with diarrhea K58.0 A ctive confirmed 331140539 ALLERGIES Allergen (clinical drug ingredient) Drug/Non Drug Allergy do cumented on EMR Reaction Allergy Type Onset Date Status arielil feels like she is having a seizure Non Drug All ergy Active valproate Depakote pancreatitis Drug Allergy Active lamotrigine Lamictal(ND Code:[address]-70) Anaphylaxis, [facility] Akhil Drug Allergy Active hydroxyzine HydrOXYzine HCl(NDC Code:[address]-65) vomit Drug A llergy Active clonazepam Klonopin(NDC Code:[address]-70) Hives Drug Allergy Active phenytoin Dilantin Rash Drug Allergy Active levetiracetam Keppra(ND Code:[address]-59) Rash Drug Allergy Active antihistamines feels like seizure will happen Non Drug All ergy Active blue dye skin turns red, fever Non Drug Allergy Active ENCOUNTERS from 1985 to 2021-06-14 Encounter Location Date Provider Diagnosis [address] [phone] [place] [address] May, Ruchi Aliciaage IMMUNIZATIONS Vaccine Route Administration Date Status Influenza [...] Education Language: Question Answer Notes Languages spoken: Yoruba Catholic: Question Answer Notes Catholic 21 Methodist Sexual Hx: Question Answer Notes Had sex [...] Notes Start Da te End Date Status Xopenex HFA 45 MCG/ACT 1 puff as needed Inhalation every 4 hrs for 30 days Active Epitol 200 MG 1 tablet Orally Twice a day for 90 Active Vitamin D (Ergocalciferol) 1.25 MG (66005 UT) 1 capsul e Orally weekly for 30 day(s) Feb, Active Gabapentin 300 MG 1 capsule Orally Three times a day for 30 days Active predniSONE 10 MG 1 tablet Orally as directed 3 tabs x 3 days 2 tabs x 3 days 1 tab x 3 days for 9 days Feb, Active Albuterol Sulfate 1.25 MG/3ML 3 ml as needed Inhalation ever y 8 hrs for 30 days May, Active Depo-Provera 150 MG/ML 1 ml 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-scheduling analyst every 3 months Active Sertraline HCl 50 MG 1.5 tablet Orally Once a day for 30 Active Nebulizer/Tubing/Mouthpiece - as directed J45.20 Daily for 99 da ys May, Active Amitriptyline HCl 50 MG 1 tablet Orally Once a day at bedtime for 9 0 day(s) Active Lisinopril 10 MG Take 1 tablet by mouth once daily for 30 Active Diflucan 150 MG 1 tablet Orally take now; re peat in 72 hours if your symptoms persist for 4 days Mar, Active Albuterol Sulfate (2.5 MG/3ML) 0.083% 1.5 ml Inhalatio n J45.20 every 8 hrs as needed for all for 30 days May, Activ e busPIRone HCl 10 MG TAKE 1 TABLET BY MOUTH THREE TIMES DAILY NEEDED FOR ANXIETY for 20 Active PROCEDURES No Information RESULTS No Results REASON FOR VISIT lisinopril MEDICAL (GENERAL) HISTORY Type Description Date Medical History Intractable epilepsy Medical History Anxiety Medical History Nephrolithiasis- passed stones Medical History Asthma as a Child Surgical History Cholecystectomy Hospitalization History above Goals Section No Information Health Concerns No Information MEDICAL EQUIPMENT No Information MENTAL STATUS No Information FUNCTIONAL STATUS No Information ASSESSMENTS No Information PLAN OF TREATMENT Medication Medication Name Sig Start Date Stop Date Albuterol Sulfate (2.5 MG/3ML) 0.083% 1.5 ml Inhalatio n J45.20 every 8 hrs as needed for all for 30 days May, Diflucan 150 MG 1 tablet Orally take now; re peat in 72 hours if your symptoms persist for 4 days Mar, Albuterol Sulfate 1.25 MG/3ML 3 ml as needed Inhalation ever y 8 hrs for 30 days May, Amitriptyline HCl 50 MG 1 tablet Orally Once a day at bedtime fo r 90 day(s) Nebulizer/Tubing/Mouthpiece - as directed J45.20 Daily for 99 da ys May, Lisinopril 10 MG Take 1 tablet by mouth once daily for 30 busPIRone HCl 10 MG TAKE 1 TABLET BY MOUTH THREE TIMES DAILY NEEDED FOR ANXIETY for 20 Next Appt Details Provider Name:Ruchi Bruce, 01:00:00 PM, [address] [facility], , [place], [address], Insurance Providers Payer Name Payer Address Payer Phone Insured Name Patient Relati onship to Insured Coverage Start Date Coverage End Date [facility] [employer] [facility] [address] [facility] [phone] VALERY AMES self
--- OUTSIDE RECORDS SUMMARY | 2021-07-27 22:52 | CCD | Continuity of Care Document ---
Author Author [facility] Organization [facility] Address [address] [place] [address] Phone Care Team Providers Care Admission Discharge Rn Name Role Phone Dwello Harriet IRWIN Unavailable [...] Dates (start - stop) Sta tus Comments acyclovir 400 mg tablet 1 po tid x 5d prn outbreak (#15) - Active lidocaine 4 % topical cream apply to affected area q2-4 hrs prn - Active medroxyprogesterone 150 mg/mL intramuscular suspension IM every 10-13 weeks - Active medroxyprogesterone 150 mg/mL intramuscular suspension IM every [...] Body mass index (BMI) 29.0-29.9, adult - Other sex counseling Encounter for ot general cnsl and advice on contraception Encounter for initial prescription of injectable contracep Herpesviral vulvovaginitis Encounter for test, result negative Encounter for surveillance of injectable contraceptive Encounter for test, result negative Human immunodeficiency virus [HIV] counseling Encounter for test, result negative Other sex counseling Encounter for initial prescription of injectable contracep Encntr for early childhood services coordinator exam (general) (routine) w/o abn findings Encounter [...] Encounter for test, result negative Encntr for early childhood services coordinator exam (general) (routine) w/o abn findings Other [...] for surveillance of injectable contraceptive Encntr for early childhood services coordinator exam (general) (routine) w/o abn findings Encounter for screening for malignant neoplasm of cervix Encounter for oth general cnsl and advice on contraception Encounter for initial prescription of injectable contracep High risk heterosexual behavior Encounter for oth screening for malignant neoplasm of breast Encounter [...] Active HPV pos itive Procedures Procedure Date No Information Results Test Name Date and Time Measure Units Reference Range Abnormal Flag St atus Comments No Information Advance Directives Directive Yes / No Effective Date File Name No Information Encounters Encounter Description Practice Location Reason(s) For Visit Diagnose s Date Provider Providers Copied on Encounter [facility], [address] [place] [address], [id number], tel:[phone] [facility] [place] No Information D dami Abraham. [address] [place] [address], [id number], [place]. tel:[phone] [facility], [address] [place] [address], [id number], tel:[phone] [facility] [place] No Information D dami Abraham. [address] [place] [address], [id number], [place]. tel:[phone] [facility], [address] [place] [address], [id number], [place] tel:[phone] ALIA Chen No Information Pato Coy. [address] [place] [address], [id number], [place]. tel:[phone] [facility], [address] [place] [address], [id number], [place] tel:[phone] [facility] [place] Other sex counselin gEncounter for oth general cnsl and advice on contraceptionEncounter for initial prescription of injectable contracepHerpesviral vulvovaginitisEncounter for test, result negative Sena Abraham. [address] [place] [address], [id number], [place]. tel:[phone] Referring Provider: Harriet Shetty, [address] [place] [address], [address] [place] [address]. tel:[phone] [facility], [address] [place] [address], [id number], [place] tel:[phone] [facility] [place] Encounter for surve illance of injectable contraceptiveEncounter for test, result negative Sena Abraham. [address] [place] [address], [id number], [place]. tel:[phone] Referring Provider: Harriet Shetty, [address] [place] [address], [id number]. tel:[phone] [facility], [address] [place] [address], [id number], [place] tel:[phone] ALIA [place] Human immunodeficie ncy virus [HIV] counselingEncounter for test, result negativeOther sex counselingEncounter for initial prescription of injectable contracepEncntr for early childhood services coordinator exam (general) (routine) w/o abn findingsBody mass index (BMI) 30.0-30.9, adult Donna Myles. [address] [place] [address], [id number], [place]. tel:[phone] Referring Provider: Shameka Thompson, [address] [place], [place], [id number]. tel:[phone] [facility], [address] [place] [address], [id number], [place] tel:[phone] [facility]JANDRON[facility] [place] Encounter for oth g eneral cnsl and advice on contraceptionEncounter for surveillance of injectable contraceptiveHerpesviral vulvovaginitis Chacorta Hernandez. [address] [place] [address], [id number], [place]. tel:[phone] Referring Provider: Mary Whatley, [address] [place] [address], [id number]. tel:[phone] [facility], [address] [place] [address], [id number], [place] tel:[phone] [facility] Human immunodeficie ncy virus [HIV] counselingOther sex counselingEncounter for oth general cnsl and advice on contraceptionEncounter for initial prescription of injectable contracepEncounter for test, result negative Donna Myles. [address] [place], [place], [id number], [place]. tel:[phone] Referring Provider: Shameka Thompson, [address] [place] [address], [id number]. tel:[phone] [facility], [address] [place] [address], [id number], [place] tel:[phone] [facility] [place] Encounter for pregn deedee test, result negativeOther sex counselingEncounter for oth general cnsl and advice on contraceptionEncounter for initial prescription of injectable contracepEncounter for prescription of emergency contraception Donna black. [address] [place] [address], [id number], [place]. tel:[phone] Referring Provider: Shameka Thompson, [address] [place] [address], [id number]. tel:[phone] [facility], [address] [place] [address], [id number], [place] tel:[phone] [facility] Encounter for pregn deedee test, result negativeOther sex counselingEncounter for oth general cnsl and advice on contraceptionEncounter for initial prescription of injectable contracep Rene García. [address] [place] [address], [id number], [place]. tel:[phone] Referring Provider: Raquel López, [address] [place] [address], [id number]. tel:[phone] [facility], [address] [place] [address], [id number], [place] tel:[phone] [facility] Encounter for pregn deedee test, result negativeOther sex counselingEncounter for oth general cnsl and advice on contraceptionEncounter for initial prescription of injectable contracepHigh risk heterosexual behavior Austin Bowen. [address] [place], [place], [id number], [place]. tel:[phone] Referring Provider: Bowen Austin, [address] [place] [address], [id number]. tel:[phone] [facility], [address] [place] [address], [id number], [place] tel:[phone] [facility] Human immunodeficie ncy virus [HIV] counselingEncounter for test, result negativeBody mass index (BMI) 29.0-29.9, adultEncntr for early childhood services coordinator exam (general) (routine) w/o abn findingsOther sex counselingEncounter for oth general cnsl and advice on contraceptionEncounter for initial prescription of injectable contracepCarcinoma in situ of exocervix Alireza Hernandez. [address] [place], [place], [id number]. tel:[phone] Referring Provider: Mary Lay, [address] [place] [address], [id number]. tel:[phone] [facility], [address] [place] [address], [id number], [place] tel:[phone] [facility] Herpesviral vulvovaginitis No v Geetha Rowland. [address] [place] [address], [id number]. tel:[phone] [facility], [address] [place] [address], [id number], [place] tel:[phone] [facility] Herpesviral vulvovaginitis Oc t Geetha Rowland. [address] [place], [place], [id number]. tel:[phone] [facility], [address] [place] [address], [id number], [place] tel:[phone] [facility] Encounter for pregn deedee test, result negativeEncounter for oth general cnsl and advice on contraceptionEncounter for initial prescription of injectable contracep Geetha Toribio. [address] [place] [address], [id number]. tel:[phone] Referring Provider: Janett Iniguez, [address] [place] [address], [id number]. tel:[phone] [facility], [address] [place] [address], [id number], [place] tel:[phone] [facility] Encounter for surve illance of injectable contraceptive Tobi Leone. [address] [place] [address], [id number], [place]. tel:[phone] Referring Provider: Sulema Goss , [address] [place] [address], [id number]. tel:[phone] [facility], [address] [place] [address], [id number], [place] tel:[phone] [facility] Encounter for surve illance of injectable contraceptiveOther specified noninflammatory disorders of vaginaAcute vaginitisEncntr screen for infections w sexl mode of transmissHigh risk heterosexual behavior Geetha Rowland. [address] [place], [place], [id number]. tel:[phone] Referring Provider: Janett Iniguez, [address] [place], [place], [id number]. tel:[phone] [facility], [address] [place], [place], [id number], [place] tel:[phone] [facility] Acute vaginitisAbsc ess of vulvaPelvic and perineal pain King Belinda. [address] [place], [place], [id number]. tel:[phone] Referring Provider: Belinda Aleman, [address] [place], [place], [id number]. tel:[phone] [facility], [address] [place], [place], [id number], [place] tel:[phone] [facility]ENUB[facility] [place] Herpesviral vulvovaginitis Jul Bianca Wright. [address] [place] [address], [id number], [place]. tel:[phone] [facility], [address] [place], [place], [id number], [place] tel:[phone] [facility] [place] Encounter for oth g eneral cnsl and advice on contraceptionEncounter for surveillance of injectable contraceptiveHigh risk heterosexual behaviorUlceration of vulva Bianca Wright. [address] [place] [address], [id number], [place]. tel:[phone] Referring Provider: Adriana Valenzuela, [address] [place], [place], [id number]. tel:[phone] [facility], [address] [place], [place], [id number], [place] tel:[phone] PPNCNY [place] Moderate cervical dysplasia O ct- Jakobjermaine Shirley. [address] [place] [address], [id number]. tel:[phone] Referring Provider: Shirley Narayan, [address] [place] [address], [id number]. tel:[phone] [facility], [address] [place] [address], [id number], [place] tel:[phone] PPNCNY [place] Carcinoma in situ o f exocervixEncounter for test, result negative Jakobjermaine Shirley. [address] [place] [address], [id number]. tel:[phone] Referring Provider: Shirley Narayan, [address] [place] [address], [id number]. tel:[phone] [facility], [address] [place] [address], [id number], [place] tel:[phone] [facility]NC[facility] [place] Encntr screen for i nfections w sexl mode of transmissHigh risk heterosexual behaviorEncounter for oth general cnsl and advice on contraceptionEncounter for surveillance of injectable contraceptiveCan didiasis of vulva and vaginaEncounter for test, result negative Bianca Wright. [address] [place] [address], [id number], [place]. tel:[phone] Referring Provider: Adriana Valenzuela, [address] [place], [place], [id number]. tel:[phone] [facility], [address] [place] [address], [id number], [place] tel:[phone] [facility] [place] Atyp squam cell not excl hi grd intrepith lesn cyto smr crvxEncounter for surveillance of injectable contraceptive Saraiaddie Richter. [address] [place] [address], [id number], [place]. tel:[phone] Referring Provider: Neelam Rodriguez, [address] [place] [address], [id number]. tel:[phone] [facility], [address] [place] [address], [id number], tel:[phone] [facility] Encntr for early childhood services coordinator exam (general) (routine) w/o abn findingsEncounter for [...] for surveillance of injectable contraceptive King Belinda. [address] [place] [address], [id number]. tel:[phone] Referring Provider: Belinda Aleman, [address] [place] [address], [id number]. tel:[phone] [facility], [address] [place] [address], [id number], tel:[phone] [facility] Encounter for pregn deedee test, result negativeEncounter for surveillance of injectable contraceptive Jase Ledezma. [address] [place] [address], [id number]. tel:[phone] Referring Provider: Brisa Laguna, [address] [place] [address], [id number]. tel:[phone] [facility], [address] [place] [address], [id number], tel:[phone] [facility] Human immunodeficie ncy virus [HIV] counselingEncounter for test, result negativeEncounter for removal of intrauterine contraceptive deviceEncntr screen for infections w sexl mode of transmissHigh risk heterosexual behaviorEncounter for initial prescription of injectable contracep Jase Ledezma. [address] [place], [place], [id number]. tel:[phone] Referring Provider: Brisa Laguna, [address] [place], [place], [id number]. tel:[phone] Family History Family Member Diagnosis Age At [...] type Covered constitution party ID Authorization(s ) [facility] CI [id number] Social History Type Description Quantity Date Captured Comments Sex Female Smoking Status No Information Vital Signs Date / Time: Height Weight BMI Pulse Rate Blood Pressure Temperatu re Respiratory Rate Body Surface Area Head Circumference BMI percentile Pulse Ox In haled Ox No Information Chief Complaint And Reason For Visit No [...] (BMI) 29.0-29.9, adult Assessments Type Assessment Date No Information Goals Health Concern Goal Type Priority Status Date No Information Medical Equipment Description Device [place] Device Identifier Effective Matt es (start - stop) Status No Information Mental Status Date Cognitive Assessment No Information Health Concerns Observation Date No Information Concern Status Date No Information Physical Examination Exam Findings Details No Information
--- OUTSIDE RECORDS SUMMARY | 2021-07-27 22:52 | CCD ---
Author Author [facility] Organization [facility] Address Unknown Phone Unavailable Care Team Providers Care Lens Gauger Name Role Phone Ruchi Bruce Unavailable PROBLEMS Type Condition ICD9-CM Code UWV52-CE Code Onset Dates Condition S tatus W/U Status Risk SNOMED Code Notes Problem Anxiety F41.9 Active confirmed 33440452 Problem Mild intermittent asthma without complication J45. 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 Active confirmed 999280189 Problem Nephrolithiasis N20.0 Active confirmed 9557 0007 Problem Vitamin D deficiency E55.9 Active confirmed 74470207 Problem Irritable bowel syndrome with diarrhea K58.0 A ctive confirmed 933134711 ALLERGIES Allergen (clinical drug ingredient) Drug/Non Drug Allergy do cumented on EMR Reaction Allergy Type Onset Date Status chris feels like she is having a seizure Non Drug All ergy Active valproate Depakote pancreatitis Drug Allergy Active lamotrigine Lamictal(ND Code:[address]-89) Anaphylaxis, [facility] Drug Allergy Active hydroxyzine HydrOXYzine HCl(NDC Code:[address]-53) vomit Drug A llergy Active clonazepam Klonopin(NDC Code:[address]-00) Hives Drug Allergy Active phenytoin Dilantin Rash Drug Allergy Active levetiracetam Keppra(ND Code:[address]-68) Rash Drug Allergy Active antihistamines feels like seizure will happen Non Drug All ergy Active blue dye skin turns red, fever Non Drug Allergy Active ENCOUNTERS from 1985 to 2021-06-11 Encounter Location Date Provider Diagnosis [address] [phone] [place] [address] 29 May, [facility] Vaccine Route Administration Date Status Influenza [...] Education Language: Question Answer Notes Languages spoken: Korean Yazidism: Question Answer Notes Yazidism 21 Muslim Sexual Hx: Question Answer Notes Had sex [...] 90 Active Vitamin D (Ergocalciferol) 1.25 MG (42438 UT) 1 capsul e Orally weekly for 30 day(s) Feb, Active Gabapentin 300 MG 1 capsule Orally Three times a day for 30 days Active predniSONE 10 MG 1 tablet Orally as directed 3 tabs x 3 days 2 tabs x 3 days 1 tab x 3 days for 9 days Feb, Active Lisinopril 10 MG 1 tablet Orally Once a day for 30 day(s) Active Depo-Provera 150 MG/ML 1 ml 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-sanitation associate every 3 months Active Sertraline HCl 50 MG 1.5 tablet Orally Once a day for 30 Active Nebulizer/Tubing/Mouthpiece - as directed J45.20 Daily for 99 da ys May, Active Amitriptyline HCl 50 MG 1 tablet Orally Once a day at bedtime for 9 0 day(s) Active Albuterol Sulfate 1.25 MG/3ML 3 ml as needed Inhalation ever y 8 hrs for 30 days May, Active Diflucan 150 MG 1 tablet Orally [...] refill MEDICAL (GENERAL) HISTORY Type Description Date Medical [...] your symptoms persist for 4 days Mar, Lisinopril 10 MG 1 tablet Orally Once a day for 30 day(s) Amitriptyline HCl 50 MG 1 tablet Orally Once a day at bedtime fo r 90 day(s) Nebulizer/Tubing/Mouthpiece - as directed J45.20 Daily for 99 da ys May, Albuterol Sulfate 1.25 MG/3ML 3 ml as needed Inhalation ever y 8 hrs for 30 days May, busPIRone HCl 10 MG TAKE 1 TABLET BY MOUTH THREE TIMES DAILY NEEDED FOR ANXIETY for 20 Next Appt Details Provider Name:Ruchi Andreia Bruce, 2021-06- 01:00:00 PM, [address] [facility], , [place], [address], Insurance Providers Payer Name Payer Address Payer Phone Insured Name Patient Relati onship to Insured Coverage Start Date Coverage End Date [facility] [employer] [facility] [address] [facility] [id number] VALERY AMES self
--- OUTSIDE RECORDS SUMMARY | 2021-07-27 22:52 | CCD | Continuity of Care Document ---
Author Author [facility] Organization [facility] Address Unknown Phone Unavailable Care Team Providers Care White Kid Buffer Name Role Phone Anneliese Whyte MD Unavailable Unavailable Allergies, Adverse Reactions, Alerts Substance [...] Active Tegretol 200 mg tablet - Active acyclovir 400 mg tablet 1 po tid x 5d prn outbreak (#15) - No Longer Active Problems Condition Effective Dates (start - stop) Clinical Status C omments Body mass index (BMI) 30.0-30.9, adult - Body mass index (BMI) 29.0-29.9, adult - Body mass index (BMI) 29.0-29.9, adult - Other sex counseling Encounter for oth general cnsl and advice on contraception Encounter for initial prescription of injectable contracep Herpesviral vulvovaginitis Encounter for test, result negative Encounter for surveillance of injectable contraceptive Encounter for test, result negative Human immunodeficiency virus [HIV] counseling Encounter for test, result negative Other sex counseling Encounter for initial prescription of injectable contracep 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 Encounter [...] Encounter for test, result negative 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 Other [...] transmiss High risk heterosexual behavior Encounter for oth general cnsl and advice on contraception Encounter for surveillance of injectable contraceptive Candidiasis of vulva and vagina Encounter for test, result negative Atyp squam cell not excl hi grd intrepith lesn cyto smr crvx Encounter for surveillance of injectable contraceptive 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 [address] [place] [address], [id number], [place]. tel:[phone] [facility], [address] [place] [address], [id number], [place] tel:[phone] [facility] [place] No Information D dami Abraham. [address] [place] [address], [id number], [place]. tel:[phone] [facility], [address] [place] [address], [id number], [place] tel:[phone] ALIA Chen No Information Pato Coy. [address] [place], [place], [id number], . tel:[phone] [facility], [address] [place] [address], [id number], [place] tel:[phone] [facility] [place] Other sex counselin gEncounter for oth general cnsl and advice on contraceptionEncounter for initial prescription of injectable contracepHerpesviral vulvovaginitisEncounter for test, result negative Sena Abraham. [address] [place], [place], [id number], [place]. tel:[phone] Referring Provider: Harriet Shetty, [address] [place] [address], [address] [place] [address]. tel:[phone] [facility], [address] [place] [address], [id number], [place] tel:[phone] [facility] [place] Encounter for surve illance of injectable contraceptiveEncounter for test, result negative Sena Abraham. [address] [place] [address], [id number], . tel:[phone] Referring Provider: Harriet Shetty, [address] [place] [address], [id number]. tel:[phone] [facility], [address] [place] [address], [id number], [place] tel:[phone] [facility] [place] Human immunodeficie ncy virus [HIV] counselingEncounter for test, result negativeOther sex counselingEncounter for initial prescription of injectable contracep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Body mass index (BMI) 30.0-30.9, adult Donna Myles. [address] [place], [place], [id number], [place]. tel:[phone] Referring Provider: Shameka Thompson, [address] [place], [place], [id number]. tel:[phone] [facility], [address] [place] [address], [id number], [place] tel:[phone] [facility] [place] Encounter for oth g eneral cnsl and advice on contraceptionEncounter for surveillance of injectable contraceptiveHerpesviral vulvovaginitis Chacorta Hernandez. [address] [place] [address], [id number], [place]. tel:[phone] Referring Provider: Mary Whatley, [address] [place] [address], [id number]. tel:[phone] [facility], [address] [place] [address], [id number], [place] tel:[phone] [facility] Human immunodeficie ncy virus [HIV] counselingOther sex counselingEncounter for oth general cnsl and advice on contraceptionEncounter for initial prescription of injectable contracepEncounter for test, result negative Donna Myles. [address], [place], [id number], [place]. tel:[phone] Referring Provider: Shameka Thompson, [address] [place] [address], [id number]. tel:[phone] [facility], [address] [place] [address], [id number], [place] tel:[phone] [facility] [place] Encounter for pregn deedee test, result negativeOther sex counselingEncounter for oth general cnsl and advice on contraceptionEncounter for initial prescription of injectable contracepEncounter for prescription of emergency contraception Donna black. [address] [place] [address], [id number], [place]. tel:[phone] Referring Provider: Shameka Thompson, [address] [place] [address], [id number]. tel:[phone] [facility], [address] [place] [address], [id number], [place] tel:[phone] [facility] Encounter for pregn deedee test, result negativeOther sex counselingEncounter for oth general cnsl and advice on contraceptionEncounter for initial prescription of injectable contracep Rene García. [address] [place], [place], [id number], [place]. tel:[phone] Referring Provider: Raquel López, [address] [place] [address], [id number]. tel:[phone] [facility], [address] [place] [address], [id number], [place] tel:[phone] [facility] Encounter for pregn deedee test, result negativeOther sex counselingEncounter for oth general cnsl and advice on contraceptionEncounter for initial prescription of injectable contracepHigh risk heterosexual behavior Babbitt Bowen. [address] [place], [place], [id number], [place]. tel:[phone] Referring Provider: Bowen Babbitt, [address] [place] [address], [id number]. tel:[phone] [facility], [address] [place] [address], [id number], [place] tel:[phone] [facility] Human immunodeficie ncy virus [HIV] counselingEncounter for test, result negativeBody mass index (BMI) 29.0-29.9, adult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Other sex counselingEncounter for oth general cnsl and advice on contraceptionEncounter for initial prescription of injectable contracepCarcinoma in situ of exocervix Alireza Hernandez. [address] [place], [place], [id number]. tel:[phone] Referring Provider: Mary Lay, [address] [place], [place], [id number]. tel:[phone] [facility], [address] [place] [address], [id number], [place] tel:[phone] [facility] [place] Herpesviral vulvovaginitis No v Geetha Rowland. [address] [place] [address], [id number]. tel:[phone] [facility], [address] [place] [address], [id number], [place] tel:[phone] [facility] [place] Herpesviral vulvovaginitis Oc t Geetha Rowland. [address] [place] [address], [id number]. tel:[phone] [facility], [address] [place] [address], [address] [place] [address], [place] tel:[phone] [facility] [place] Encounter for pregn deedee test, result negativeEncounter for oth general cnsl and advice on contraceptionEncounter for initial prescription of injectable contracep Geetha Toribio. [address] [place] [address], [id number]. tel:[phone] Referring Provider: Janett Iniguez, [address] [place] [address], [id number]. tel:[phone] [facility], [address] [place] [address], [id number], [place] tel:[phone] [facility] [place] Encounter for surve illance of injectable contraceptive Tobi Leone. [address] [place] [address], [id number], [place]. tel:[phone] Referring Provider: Sulema Goss , [address] [place] [address], [id number]. tel:[phone] [facility], [address] [place] [address], [id number], [place] tel:[phone] [facility] [place] Encounter for surve illance of injectable contraceptiveOther specified noninflammatory disorders of vaginaAcute vaginitisEncntr screen for infections w sexl mode of transmissHigh risk heterosexual behavior Geetha Rowland. [address] [place], [place], [id number]. tel:[phone] Referring Provider: Janett Iniguez, [address] [place], [place], [id number]. tel:[phone] [facility], [address] [place], [place], [id number], [place] tel:[phone] [facility] [place] Acute vaginitisAbsc ess of vulvaPelvic and perineal pain King Belinda. [address] [place], [place], [id number]. tel:[phone] Referring Provider: Belinda Aleman, [address] [place], [place], [id number]. tel:[phone] [facility], [address] [place], [place], [id number], [place] tel:[phone] PP[facility] [place] Herpesviral vulvovaginitis Jul Bianca Wright. [address] [place] [address], [id number], [place]. tel:[phone] [facility], [address] [place], [place], [id number], [place] tel:[phone] [facility] [place] Encounter for oth g eneral cnsl and advice on contraceptionEncounter for surveillance of injectable contraceptiveHigh risk heterosexual behaviorUlceration of vulva Bianca Wright. [address] [place] [address], [id number], [place]. tel:[phone] Referring Provider: Adriana Valenzuela, [address] [place], [place], [id number]. tel:[phone] [facility], [address] [place] [address], [id number], [place] tel:[phone] [facility] [place] Moderate cervical dysplasia O ct- Sylvain Watson. [address] [place] [address], [id number]. tel:[phone] Referring Provider: Shirley Narayan, [address] [place] [address], [id number]. tel:[phone] [facility], [address] [place] [address], [id number], [place] tel:[phone] [facility] [place] Carcinoma in situ o f exocervixEncounter for test, result negative Sylvain Watson. [address] [place] [address], [id number]. tel:[phone] Referring Provider: Shirley Narayan, [address] [place] [address], [id number]. tel:[phone] [facility], [address] [place] [address], [id number], [place] tel:[phone] [facility] [place] Encntr screen for i nfections w sexl mode of transmissHigh risk heterosexual behaviorEncounter for oth general cnsl and advice on contraceptionEncounter for surveillance of injectable contraceptiveCan didiasis of vulva and vaginaEncounter for test, result negative Bianca Wright. [address] [place] [address], [id number], [place]. tel:[phone] Referring Provider: Adriana Valenzuela, [address] [place] [address], [id number]. tel:[phone] [facility], [address] [place] [address], [id number], [place] tel:[phone] [facility] [place] Atyp squam cell not excl hi grd intrepith lesn cyto smr crvxEncounter for surveillance of injectable contraceptive Saraiaddie Richter. [address] [place] [address], [id number], . tel:[phone] Referring Provider: Neelam Rodriguez, [address] [place] [address], [id number]. tel:[phone] [facility], [address] [place] [address], [id number], [place] tel:[phone] [facility] 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Encounter for [...] for surveillance of injectable contraceptive King Belinda. [address] [place] [address], [id number]. tel:[phone] Referring Provider: Belinda Aleman, [address] [place] [address], [id number]. tel:[phone] [facility], [address] [place] [address], [id number], [place] tel:[phone] [facility] Encounter for pregn deedee test, result negativeEncounter for surveillance of injectable contraceptive Jase Ledezma. [address] [place] [address], [id number]. tel:[phone] Referring Provider: Brisa Laguna, [address] [place] [address], [id number]. tel:[phone] [facility], [address] [place] [address], [id number], [place] tel:[phone] [facility] Human immunodeficie ncy virus [HIV] counselingEncounter for test, result negativeEncounter for removal of intrauterine contraceptive deviceEncntr screen for infections w sexl mode of transmissHigh risk heterosexual behaviorEncounter for initial prescription of injectable contracep Jase Ledezma. [address] [place], [place], [id number]. tel:[phone] Referring Provider: Brisa Laguna, [address] [place], [place], [id number]. tel:[phone] Family History Family Member Diagnosis Age At [...] Record Payers Payer name Insurance type Covered alliance party ID Authorization(s ) [facility] CI [id number] Social History Type Description Quantity Date Captured Comments Alcohol Use Details Unknown Caffeine Use Details Unknown Tobacco Use Status No Information Smoking Status Never smoker Sex Female Vital Signs Date / Time: [...] regarding di et completed Appointment Leigh Candelaria Suppression Ther apy BOOKED Appointment Leigh Candelaria -Depo BOOKED Appointment Leigh Candelaria BOOKED History Of Present [...] Date No Information Medical Equipment Description Device [place] Device Identifier Effective Matt es (start - stop) Status No Information Mental Status Date Cognitive Assessment No Information Health Concerns Observation Date No Information Concern Status Date No Information Physical Examination Exam Findings Details No Information
--- OUTSIDE RECORDS SUMMARY | 2021-07-27 22:52 | CCD | Continuity of Care Document ---
Author Author [facility] Organization [facility] Address [address] [place] [address] Phone Care Team Providers Care Helminthologist Name Role Phone Dwello Harriet IRWIN Unavailable [...] initial prescription of injectable contracep Encntr for obstetrics gyn exam (general) (routine) w/o abn findings Encounter [...] Encounter for test, result negative Encntr for obstetrics gyn exam (general) (routine) w/o abn findings Other [...] for surveillance of injectable contraceptive Encntr for obstetrics gyn exam (general) (routine) w/o abn findings Encounter [...] Provider Providers Copied on Encounter [facility], [address] [place] [address], [id number], tel:[phone] [employer] [place] No Information D dami Abraham. [address] [place] [address], [id number], [place]. tel:[phone] [facility], [address] [place] [address], [id number], tel:[phone] [facility] No Information D dami Abraham. [address] [place] [address], [id number], [place]. tel:[phone] [facility], [address] [place] [address], [id number], [place] tel:[phone] ALIA Chen No Information Pato Coy. [address] [place] [address], [id number], [place]. tel:[phone] [facility], [address] [place] [address], [id number], [place] tel:[phone] PPSHANICE Ewing Other sex counselin gEncounter for oth general cnsl and advice on contraceptionEncounter for initial prescription of injectable contracepHerpesviral vulvovaginitisEncounter for test, result negative Sena Abraham. [address] [place] [address], [id number], [place]. tel:[phone] Referring Provider: Harriet Shetty, [address] [place] [address], [address] [place] [address]. tel:[phone] [facility], [address] [place] [address], [id number], [place] tel:[phone] ALIA Ewing Encounter for surve illance of injectable contraceptiveEncounter for test, result negative Sena Abraham. [address] [place] [address], [id number], [place]. tel:[phone] Referring Provider: Harriet Shetty, [address] [place] [address], [id number]. tel:[phone] [facility], [address] [place] [address], [id number], [place] tel:[phone] ALIA [place] Human immunodeficie ncy virus [HIV] counselingEncounter for test, result negativeOther sex counselingEncounter for initial prescription of injectable contracepEncntr for obstetrics gyn exam (general) (routine) w/o abn findingsBody mass index (BMI) 30.0-30.9, adult Donna Myles. [address] [place] [address], [id number], [place]. tel:[phone] Referring Provider: Shameka Thompson, [address] [place], [place], [id number]. tel:[phone] [facility], [address] [place] [address], [id number], [place] tel:[phone] PPALEJANDRONY [place] Encounter for oth g eneral cnsl and advice on contraceptionEncounter for surveillance of injectable contraceptiveHerpesviral vulvovaginitis Chacorta Hernandez. [address] [place] [address], [id number], [place]. tel:[phone] Referring Provider: Mary Whatley, [address] [place] [address], [id number]. tel:[phone] [facility], [address] [place] [address], [id number], [place] tel:[phone] [facility] Human immunodeficie ncy virus [HIV] counselingOther sex counselingEncounter for oth general cnsl and advice on contraceptionEncounter for initial prescription of injectable contracepEncounter for test, result negative Donna Myles. [address] [place], [place], [id number], [place]. tel:[phone] Referring Provider: Shameka Thompson, [address] [place] [address], [id number]. tel:[phone] [facility], [address] [place] [address], [id number], [place] tel:[phone] [facility] Encounter for pregn deedee test, result negativeOther sex counselingEncounter for oth general cnsl and advice on contraceptionEncounter for initial prescription of injectable contracepEncounter for prescription of emergency contraception Donna black. [address] [place] [address], [id number], [place]. tel:[phone] Referring Provider: Shameka Thompson, [address] [place] [address], [id number]. tel:[phone] [facility], [address] [place] [address], [id number], [place] tel:[phone] [facility] Encounter for pregn deedee test, result negativeOther sex counselingEncounter for oth general cnsl and advice on contraceptionEncounter for initial prescription of injectable contracep Rene García. [address] [place] [address], [id number], [place]. tel:[phone] Referring Provider: Raquel López, [address] [place] [address], [id number]. tel:[phone] [facility], [address] [place] [address], [id number], [place] tel:[phone] [facility] Encounter for pregn deedee test, result negativeOther sex counselingEncounter for oth general cnsl and advice on contraceptionEncounter for initial prescription of injectable contracepHigh risk heterosexual behavior [place] Bowen. [address] [place], [place], [id number], [place]. tel:[phone] Referring Provider: Bowen [place], [address] [place] [address], [id number]. tel:[phone] [facility], [address] [place] [address], [id number], [place] tel:[phone] [facility] Human immunodeficie ncy virus [HIV] counselingEncounter for test, result negativeBody mass index (BMI) 29.0-29.9, adultEncntr for obstetrics gyn exam (general) (routine) w/o abn findingsOther sex counselingEncounter for oth general cnsl and advice on contraceptionEncounter for initial prescription of injectable contracepCarcinoma in situ of exocervix Alireza Hernandez. [address] [place], [place], [id number]. tel:[phone] Referring Provider: Mary Lay, [address] [place] [address], [id number]. tel:[phone] [facility], [address] [place] [address], [id number], [place] tel:[phone] [facility] Herpesviral vulvovaginitis No v Geetha Rowland. [address] [place] [address], [id number]. tel:[phone] [facility], [address] [place] [address], [id number], [place] tel:[phone] [facility] Herpesviral vulvovaginitis Oc t Geetha Rowland. [address] [place], [place], [id number]. tel:[phone] [facility], [address] [place] [address], [id number], [place] tel:[phone] [facility] Encounter for pregn deedee test, result negativeEncounter for oth general cnsl and advice on contraceptionEncounter for initial prescription of injectable contracep Geetha Toribio. [address] [place] [address], [id number]. tel:[phone] Referring Provider: Janett Iniguez, [address] [place] [address], [id number]. tel:[phone] [facility], [address] [place] [address], [id number], [place] tel:[phone] [facility] Encounter for surve illance of injectable contraceptive Tobi Leone. [address] [place] [address], [id number], [place]. tel:[phone] Referring Provider: Sulema Goss , [address] [place] [address], [id number]. tel:[phone] [facility], [address] [place] [address], [id number], [place] tel:[phone] [facility] Encounter for surve illance of injectable contraceptiveOther specified noninflammatory disorders of vaginaAcute vaginitisEncntr screen for infections w sexl mode of transmissHigh risk heterosexual behavior Geetha Rowland. [address] [place], [place], [id number]. tel:[phone] Referring Provider: Janett Iniguez, [address] [place], [place], [id number]. tel:[phone] [facility], [address] [place], [place], [id number], [place] tel:[phone] [facility] Acute vaginitisAbsc ess of vulvaPelvic and perineal pain King Belinda. [address] [place], [place], [id number]. tel:[phone] Referring Provider: Belinda Aleman, [address] [place], [place], [id number]. tel:[phone] [facility], [address] [place], [place], [id number], [place] tel:[phone] CHANDNIMSNUBIA [place] Herpesviral vulvovaginitis Jul Bianca Wright. [address] [place] [address], [id number], [place]. tel:[phone] [facility], [address] [place], [place], [id number], [place] tel:[phone] [facility] [place] Encounter for oth g eneral cnsl and advice on contraceptionEncounter for surveillance of injectable contraceptiveHigh risk heterosexual behaviorUlceration of vulva Bianca Wright. [address] [place] [address], [id number], [place]. tel:[phone] Referring Provider: Adriana Valenzuela, [address] [place], [place], [id number]. tel:[phone] [facility], [address] [place], [place], [id number], [place] tel:[phone] PPNC[facility] [place] Moderate cervical dysplasia O ct- Jakobjermaine Shirley. [address] [place] [address], [id number]. tel:[phone] Referring Provider: Shirley Narayan, [address] [place] [address], [id number]. tel:[phone] [facility], [address] [place] [address], [id number], [place] tel:[phone] [facility] Carcinoma in situ o f exocervixEncounter for test, result negative Jakobjermaine Shirley. [address] [place] [address], [id number]. tel:[phone] Referring Provider: Shirley Narayan, [address] [place] [address], [id number]. tel:[phone] [facility], [address] [place] [address], [id number], [place] tel:[phone] PPNCNY [place] Encntr screen for i nfections w sexl mode of transmissHigh risk heterosexual behaviorEncounter for oth general cnsl and advice on contraceptionEncounter for surveillance of injectable contraceptiveCan didiasis of vulva and vaginaEncounter for test, result negative Bianca Wright. [address] [place] [address], [id number], [place]. tel:[phone] Referring Provider: Adriana Valenzuela, [address] [place], [place], [id number]. tel:[phone] [facility], [address] [place] [address], [id number], [place] tel:[phone] [facility] Atyp squam cell not excl hi grd intrepith lesn cyto smr crvxEncounter for surveillance of injectable contraceptive Saraiaddie Richter. [address] [place] [address], [id number], [place]. tel:[phone] Referring Provider: Neelam Rodriguez, [address] [place] [address], [id number]. tel:[phone] [facility], [address] [place] [address], [id number], tel:[phone] [facility] Encntr for obstetrics gyn exam (general) (routine) w/o abn findingsEncounter for [...] for surveillance of injectable contraceptive King Belinda. [address] [place] [address], [id number]. tel:[phone] Referring Provider: Belinda Aleman, [address] [place] [address], [id number]. tel:[phone] [facility], [address] [place] [address], [id number], tel:[phone] [facility] Encounter for pregn deedee test, result negativeEncounter for surveillance of injectable contraceptive Jase Ledezma. [address] [place] [address], [id number]. tel:[phone] Referring Provider: Brisa Laguna, [address] [place] [address], [id number]. tel:[phone] [facility], [address] [place] [address], [id number], tel:[phone] [facility] Human immunodeficie ncy virus [HIV] counselingEncounter for test, result negativeEncounter for removal of intrauterine contraceptive deviceEncntr screen for infections w sexl mode of transmissHigh risk heterosexual behaviorEncounter for initial prescription of injectable contracep Jase Ledezma. [address] [place], [place], [id number]. tel:[phone] Referring Provider: Brisa Laguna, [address], [place], [id number]. tel:[phone] Family History Family Member Diagnosis Age At [...] Record Payers Payer name Insurance type Covered green party ID Authorization(s ) [facility] CI [id number] Social History Type Description Quantity Date Captured [...] Lifestyle education regarding di et completed Appointment Kudlack, Leigh -Depo BOOKED History Of Present Illness Encounter Date [...] Date No Information Medical Equipment Description Device Huntington Device Identifier Effective Matt es (start - stop) Status No Information Mental Status Date Cognitive Assessment No Information Health Concerns Observation Date No Information Concern Status Date No Information Physical Examination Exam Findings Details No Information
--- OUTSIDE RECORDS SUMMARY | 2021-07-27 22:52 | CCD ---
Author Author [facility] Organization [facility] Address Unknown Phone Unavailable Care Team Providers Care Air Conditioning Manager Name Role Phone Ruchi Bruce Unavailable PROBLEMS Type Condition ICD9-CM Code [id number] Code Onset Dates Condition S tatus W/U Status Risk SNOMED Code Notes Problem Anxiety F41.9 Active confirmed 80839789 Problem Mild intermittent asthma without complication J45. 20 Active confirmed 686724767 Problem Essential hypertension I10 Active confirmed 35038561 Problem Intractable epilepsy without status epilepticus, unspecified epilepsy type G40.919 Active confirmed 428918114 Problem Nephrolithiasis N20.0 Active confirmed 9557 0007 Problem Vitamin D deficiency E55.9 Active confirmed 53473146 Problem Irritable bowel syndrome with diarrhea K58.0 A ctive confirmed 647718736 ALLERGIES Allergen (clinical drug ingredient) Drug/Non Drug Allergy do cumented on EMR Reaction Allergy Type Onset Date Status chris feels like she is having a seizure Non Drug All ergy Active valproate Depakote pancreatitis Drug Allergy Active lamotrigine Lamictal(ND Code:[address]-90) Anaphylaxis, [facility]hil Drug Allergy Active hydroxyzine HydrOXYzine HCl(NDC Code:[address]-46) vomit Drug A llergy Active clonazepam Klonopin(NDC Code:[address]-34) Hives Drug Allergy Active phenytoin Dilantin Rash Drug Allergy Active levetiracetam Keppra(ND Code:[address]-13) Rash Drug Allergy Active antihistamines feels like seizure will happen Non Drug All ergy Active blue dye skin turns red, fever Non Drug Allergy Active ENCOUNTERS from 1985 to 2021-05-15 Encounter Location Date Provider Diagnosis [address] [phone] [place] [address] [facility] Vaccine Route Administration Date Status [...] Education Language: Question Answer Notes Languages spoken: Chinese Confucianism: Question Answer Notes Confucianism 21 Hindu Sexual Hx: Question Answer Notes Had sex [...] Notes Start Da te End Date Status predniSONE 10 MG 1 tablet Orally as directed 3 tabs x 3 days 2 tabs x 3 days 1 tab x 3 days for 9 days Feb, Active busPIRone HCl 10 MG 1 tablet Orally three times per day prn anxiety for 30 days Active Xopenex HFA 45 MCG/ACT 1 puff as needed Inhalation every 4 hrs for 30 days Active Nebulizer/Tubing/Mouthpiece - as directed J45.20 Daily for 99 da ys May, Active Amitriptyline HCl 50 MG 1 tablet Orally Once a day at bedtime for 9 0 day(s) Active Gabapentin 300 MG 1 capsule Orally Three times a day for 30 days Active Sertraline HCl 50 MG 1.5 tablet Orally Once a day for 30 Active Vitamin D (Ergocalciferol) 1.25 MG (58655 UT) 1 capsul e Orally weekly for 30 day(s) Feb, Active Depo-Provera 150 MG/ML 1 ml 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-product safety coordinator every 3 months Active Diflucan 150 MG 1 tablet Orally take now; re peat in 72 hours if your symptoms persist for 4 days Mar, Active Lisinopril 10 MG 1 tablet Orally Once a day for 30 day(s) Active Epitol 200 MG 1 tablet Orally Twice a day for 90 Active PROCEDURES No Information RESULTS No Results REASON FOR VISIT Tubing for nebulizer MEDICAL (GENERAL) HISTORY Type Description Date Medical [...] Medication Name Sig Start Date Stop Date Nebulizer/Tubing/Mouthpiece - as directed J45.20 Daily for 99 da ys May, Diflucan 150 MG 1 tablet Orally take now; re peat in 72 hours if your symptoms persist for 4 days Mar, Next Appt Details Provider Name:Ruchi Bruce, 10:30:00 AM, [address] [facility], , [place], [address], Insurance Providers Payer Name Payer Address Payer Phone Insured Name Patient Relati onship to Insured Coverage Start Date Coverage End Date [facility] [address] [facility] [phone] VALERY AMES self
--- OUTSIDE RECORDS SUMMARY | 2021-07-27 22:52 | CCD ---
Author Author [facility] Organization [facility] Address Unknown Phone Unavailable Care Team Providers Care Compliance Investigator Name Role Phone Ruchi Bruce Unavailable PROBLEMS Type Condition ICD9-CM Code [id number] Code Onset Dates Condition S tatus W/U Status Risk SNOMED Code Notes Problem Anxiety F41.9 Active confirmed 53561059 Problem Mild intermittent asthma without complication J45. 20 Active confirmed 668471900 Problem Essential hypertension I10 Active confirmed 08104154 Problem Intractable epilepsy without status epilepticus, unspecified epilepsy type G40.919 Active confirmed 573262282 Problem Nephrolithiasis N20.0 Active confirmed 9557 0007 Problem Vitamin D deficiency E55.9 Active confirmed 96652652 Problem Irritable bowel syndrome with diarrhea K58.0 A ctive confirmed 582294509 ALLERGIES Allergen (clinical drug ingredient) Drug/Non Drug Allergy do cumented on EMR Reaction Allergy Type Onset Date Status chris feels like she is having a seizure Non Drug All ergy Active valproate Depakote pancreatitis Drug Allergy Active lamotrigine Lamictal(ND Code:[address]-17) Anaphylaxis, [facility] Akhil Drug Allergy Active hydroxyzine HydrOXYzine HCl(NDC Code:[address]-20) vomit Drug A llergy Active clonazepam Klonopin(NDC Code:[address]-00) Hives Drug Allergy Active phenytoin Dilantin Rash Drug Allergy Active levetiracetam Keppra(ND Code:[address]-75) Rash Drug Allergy Active antihistamines feels like seizure will happen Non Drug All ergy Active blue dye skin turns red, fever Non Drug Allergy Active ENCOUNTERS from 1985 to 2021-05-27 Encounter Location Date Provider Diagnosis [address] [phone] [place] [address] 15 May, 2021 Ruchi Bruce Mild intermittent asthma wit hout complication J45.20 IMMUNIZATIONS Vaccine Route Administration Date Status Influenza [...] Education Language: Question Answer Notes Languages spoken: Somali Samaritan: Question Answer Notes Samaritan 21 Islam Sexual Hx: Question Answer Notes Had sex [...] Notes Start Da te End Date Status busPIRone HCl 10 MG 1 tablet Orally three times per day prn anxiety for 30 days Active Gabapentin 300 MG 1 capsule Orally Three times a day for 30 days Active Vitamin D (Ergocalciferol) 1.25 MG (95697 UT) 1 capsul e Orally weekly for 30 day(s) Feb, Active Lisinopril 10 MG 1 tablet Orally Once a day for 30 day(s) Active predniSONE 10 MG 1 tablet Orally as directed 3 tabs x 3 days 2 tabs x 3 days 1 tab x 3 days for 9 days Feb, Active Xopenex HFA 45 MCG/ACT 1 puff as needed Inhalation every 4 hrs for 30 days Active Albuterol Sulfate (2.5 MG/3ML) 0.083% 1.5 ml Inhalatio n J45.20 every 8 hrs as needed for all for 30 days May, Activ e Amitriptyline HCl 50 MG 1 tablet Orally Once a day at bedtime for 9 0 day(s) Active Albuterol Sulfate 1.25 MG/3ML 3 ml as needed Inhalation ever y 8 hrs for 30 days May, Active Sertraline HCl 50 MG 1.5 tablet Orally Once a day for 30 Active Depo-Provera 150 MG/ML 1 ml 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-ob/gyn every 3 months Active Diflucan 150 MG 1 tablet Orally take now; re peat in 72 hours if your symptoms persist for 4 days Mar, Active Epitol 200 MG 1 tablet Orally Twice a day for 90 Active Nebulizer/Tubing/Mouthpiece - as directed J45.20 Daily for 99 da ys May, Active PROCEDURES No Information RESULTS No Results REASON FOR VISIT PA albuterol sulfate 1.25mg/3mL neb rico MEDICAL (GENERAL) HISTORY Type Description Date Medical History Intractable epilepsy Medical History Anxiety Medical History Nephrolithiasis- passed stones Medical History Asthma as a Child Surgical History Cholecystectomy Hospitalization History above Goals Section No Information Health Concerns No Information MEDICAL EQUIPMENT No Information MENTAL STATUS No Information FUNCTIONAL STATUS No Information ASSESSMENTS Encounter Date Diagnosis Assessment Notes Treatment Notes Treatm ent Clinical Notes May, Mild intermittent asthma without complication (I CD-10 - J45.20) PLAN OF TREATMENT Medication Medication Name Sig Start Date Stop Date Albuterol Sulfate (2.5 MG/3ML) 0.083% 1.5 ml Inhalatio n J45.20 every 8 hrs as needed for all for 30 days May, Diflucan 150 MG 1 tablet Orally take now; re peat in 72 hours if your symptoms persist for 4 days Mar, Nebulizer/Tubing/Mouthpiece - as directed J45.20 Daily for 99 da ys May, Albuterol Sulfate 1.25 MG/3ML 3 ml as needed Inhalation ever y 8 hrs for 30 days May, Next Appt Details Provider Name:Ruchi Bruce, 2021-06- 01:00:00 PM, [address] [facility], , [place], [address], Insurance Providers Payer Name Payer Address Payer Phone Insured Name Patient Relati onship to Insured Coverage Start Date Coverage End Date [facility] [place] [facility] [address] [facility] [phone] VALERY AMES self
--- OUTSIDE RECORDS SUMMARY | 2021-07-27 22:52 | CCD ---
Author Author [facility] Organization [facility] Address Unknown Phone Unavailable Care Team Providers Care Architecture Manager Name Role Phone Ruchi Bruce Unavailable PROBLEMS Type Condition ICD9-CM Code OPA77-SS Code Onset Dates Condition S tatus W/U Status Risk SNOMED Code Notes Problem Anxiety F41.9 Active confirmed 31253596 Problem Mild intermittent asthma without complication J45. 20 Active confirmed 312205638 Problem Essential hypertension I10 Active confirmed 60182936 Problem Intractable epilepsy without status epilepticus, unspecified epilepsy type G40.919 Active confirmed 621480305 Problem Nephrolithiasis N20.0 Active confirmed 9557 0007 Problem Vitamin D deficiency E55.9 Active confirmed 02908851 Problem Irritable bowel syndrome with diarrhea K58.0 A ctive confirmed 263118558 ALLERGIES Allergen (clinical drug ingredient) Drug/Non Drug Allergy do cumented on EMR Reaction Allergy Type Onset Date Status arielil feels like she is having a seizure Non Drug All ergy Active valproate Depakote pancreatitis Drug Allergy Active lamotrigine Lamictal(ND Code:[address]-14) Anaphylaxis, [facility] Drug Allergy Active hydroxyzine HydrOXYzine HCl(NDC Code:[address]-62) vomit Drug A llergy Active clonazepam Klonopin(NDC Code:[address]-56) Hives Drug Allergy Active phenytoin Dilantin Rash Drug Allergy Active levetiracetam Keppra(ND Code:[address]-45) Rash Drug Allergy Active antihistamines feels like seizure will happen Non Drug All ergy Active blue dye skin turns red, fever Non Drug Allergy Active ENCOUNTERS from 1985 to 2021-06-14 Encounter Location Date Provider Diagnosis [address] [phone] [place] [address] May, Ruchi Bruce Anxiety F41.9 IMMUNIZATIONS Vaccine Route Administration Date [...] Education Language: Question Answer Notes Languages spoken: Azeri Mormon: Question Answer Notes Mormon 21 Zoroastrianism Sexual Hx: Question Answer Notes Had sex [...] 90 Active Vitamin D (Ergocalciferol) 1.25 MG (81646 UT) 1 capsul e Orally weekly for [...] May, Active Depo-Provera 150 MG/ML 1 ml 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-fuel buyer every 3 months Active Sertraline HCl 50 [...] Treatment Notes Treatm ent Clinical Notes May, Anxiety (ICD-10 - F41.9) PLAN OF TREATMENT [...] 20 Next Appt Details Provider Name:Ruchi Bruce, 2020-10- 12 01:00:00 PM, [address] [facility], , [place], [address], Insurance Providers Payer Name Payer Address Payer Phone Insured Name Patient Relati onship to Insured Coverage Start Date Coverage End Date [facility] COMMUNITY PLAN [facility] [address] [facility] [address] VALERY AMES self
--- OUTSIDE RECORDS SUMMARY | 2021-07-27 22:52 | CCD | Continuity of Care Document ---
Author Author [facility] Organization [facility] Address [address] [place] [address] Phone Care Team Providers Care Electrical Prospector Name Role Phone Dwello Harriet IRWIN Unavailable [...] initial prescription of injectable contracep Encntr for sole stitcher hand exam (general) (routine) w/o abn findings Encounter [...] Encounter for test, result negative Encntr for sole stitcher hand exam (general) (routine) w/o abn findings Other [...] for surveillance of injectable contraceptive Encntr for sole stitcher hand exam (general) (routine) w/o abn findings Encounter [...] Provider Providers Copied on Encounter [facility], [address] [place] [address], [id number], tel:[phone] PPALEJANDRONY Mchen[place] No Information Jermaine Abraham. [address] [place] [address], [id number], [place]. tel:[phone] [facility], [address] [place] [address], [id number], [place] tel:[phone] PPSHANICE [place] No Information Pato Coy. [address] [place], [place], [id number], [place]. tel:[phone] [facility], [address] [place] [address], [id number], [place] tel:[phone] PPNCNY Mchenry Other sex counselin gEncounter for oth general cnsl and advice on contraceptionEncounter for initial prescription of injectable contracepHerpesviral vulvovaginitisEncounter for test, result negative Dwello Harrietyeyo Abraham. [address] [place], [place], [id number], [place]. tel:[phone] Referring Provider: Harriet Shetty, [address] [place] [address], [id number]. tel:[phone] [facility], [address] [place] [address], [id number], [place] tel:[phone] PPNCNY Mchenry Encounter for surve illance of injectable contraceptiveEncounter for test, result negative Dwello Harriet Abraham. [address] [place] [address], [id number], [place]. tel:[phone] Referring Provider: Harriet Shetty, [address] [place] [address], [id number]. tel:[phone] [facility], [address] [place] [address], [id number], [place] tel:[phone] PPNCNY Mchenry Human immunodeficie ncy virus [HIV] counselingEncounter for test, result negativeOther sex counselingEncounter for initial prescription of injectable contracepEncntr for sole stitcher hand exam (general) (routine) w/o abn findingsBody mass index (BMI) 30.0-30.9, adult Donna Myles. [address] [place], [place], [id number], [place]. tel:[phone] Referring Provider: Shameka Thompson, [address] [place], [place], [id number]. tel:[phone] [facility], [address] [place] [address], [id number], [place] tel:[phone] [facility] Encounter for oth g eneral cnsl and advice on contraceptionEncounter for surveillance of injectable contraceptiveHerpesviral vulvovaginitis Chacorta Hernandez. [address] [place] [address], [id number], . tel:[phone] Referring Provider: Mary Whatley, [address] [place] [address], [id number]. tel:[phone] [facility], [address] [place] [address], [id number], [place] tel:[phone] [facility] Human immunodeficie ncy virus [HIV] counselingOther sex counselingEncounter for oth general cnsl and advice on contraceptionEncounter for initial prescription of injectable contracepEncounter for test, result negative Donna Myles. [address] [place], [place], [id number], [place]. tel:[phone] Referring Provider: Shameka Thompson, [address] [place] [address], [id number]. tel:[phone] [facility], [address] [place] [address], [id number], [place] tel:[phone] [facility] Encounter for pregn deedee test, result negativeOther sex counselingEncounter for oth general cnsl and advice on contraceptionEncounter for initial prescription of injectable contracepEncounter for prescription of emergency contraception Donna black. [address] [place] [address], [id number], [place]. tel:[phone] Referring Provider: Shameka Thompson, [address] [place] [address], [id number]. tel:[phone] [facility], [address] [place] [address], [id number], [place] tel:[phone] [facility] Encounter for pregn deedee test, result negativeOther sex counselingEncounter for oth general cnsl and advice on contraceptionEncounter for initial prescription of injectable contracep Apr-02-2019 Rene García. [address] [place], [place], [id number], [place]. tel:[phone] Referring Provider: Raquel López, [address] [place], [place], [id number]. tel:[phone] [facility], [address] [place] [address], [id number], [place] tel:[phone] [facility] Encounter for pregn deedee test, result negativeOther sex counselingEncounter for oth general cnsl and advice on contraceptionEncounter for initial prescription of injectable contracepHigh risk heterosexual behavior [facility]. [address] [place], [place], [id number], [place]. tel:[phone] Referring Provider: Bowen [place]ka [place], [address] [place] [address], [id number]. tel:[phone] [facility], [address] [place] [address], [id number], [place] tel:[phone] [facility] Human immunodeficie ncy virus [HIV] counselingEncounter for test, result negativeBody mass index (BMI) 29.0-29.9, adultEncntr for sole stitcher hand exam (general) (routine) w/o abn findingsOther sex counselingEncounter for oth general cnsl and advice on contraceptionEncounter for initial prescription of injectable contracepCarcinoma in situ of exocervix Alireza Hernandez. [address] [place], [place], [id number]. tel:[phone] Referring Provider: Mary Lay, [address] [place], [place], [id number]. tel:[phone] [facility], [address] [place] [address], [id number], [place] tel:[phone] [facility] Herpesviral vulvovaginitis No v- Geetha Rowlnad. [address] [place], [place], [id number]. tel:[phone] [facility], [address] [place] [address], [id number], [place] tel:[phone] [facility] Herpesviral vulvovaginitis Oc Geetha Rowland. [address] [place] [address], [id number]. tel:[phone] [facility], [address] [place] [address], [id number], [place] tel:[phone] [facility] Encounter for pregn deedee test, result negativeEncounter for oth general cnsl and advice on contraceptionEncounter for initial prescription of injectable contracep Geetha Toribio. [address] [place] [address], [id number]. tel:[phone] Referring Provider: Janett Iniguez, [address] [place] [address], [id number]. tel:[phone] [facility], [address] [place] [address], [id number], [place] tel:[phone] [facility] Encounter for surve illance of injectable contraceptive Tobi Leone. [address] [place] [address], [id number], [place]. tel:[phone] Referring Provider: Sulema Goss , [address] [place] [address], [id number]. tel:[phone] [facility], [address] [place] [address], [id number], [place] tel:[phone] [facility] Encounter for surve illance of injectable contraceptiveOther specified noninflammatory disorders of vaginaAcute vaginitisEncntr screen for infections w sexl mode of transmissHigh risk heterosexual behavior Geetha Rowland. [address] [place], [place], [id number]. tel:[phone] Referring Provider: Janett Iniguez, [address] [place], [place], [id number]. tel:[phone] [facility], [address] [place], [place], [id number], [place] tel:[phone] ALIA Mchenry Acute vaginitisAbsc ess of vulvaPelvic and perineal pain King Belinda. [address] [place], [place], [id number]. tel:[phone] Referring Provider: Belinda Aleman, [address] [place], [place], [id number]. tel:[phone] [facility], [address] [place] [address], [id number], [place] tel:[phone] CH[facility]INCN[facility] [place] Herpesviral vulvovaginitis Jul Bianca Wright. [address] [place] [address], [id number], [place]. tel:[phone] [facility], [address] [place] [address], [id number], [place] tel:[phone] ALIA Mchenry Encounter for oth g eneral cnsl and advice on contraceptionEncounter for surveillance of injectable contraceptiveHigh risk heterosexual behaviorUlceration of vulva Bianca Wright. [address] [place] [address], [id number], [place]. tel:[phone] Referring Provider: Adriana Valenzuela, [address] [place], [place], [id number]. tel:[phone] [facility], [address] [place] [address], [id number], [place] tel:[phone] ALIA Mchenry Moderate cervical dysplasia O Sylvain Watson. [address] [place] [address], [id number]. tel:[phone] Referring Provider: Shirley Narayan, [address] [place] [address], [id number]. tel:[phone] [facility], [address] [place] [address], [id number], [place] tel:[phone] PPNCNY Mchenry Carcinoma in situ o f exocervixEncounter for test, result negative Sylvain Watson. [address] [place] [address], [id number]. tel:[phone] Referring Provider: Shirley Jakobjermaine, [address] [place] [address], [id number]. tel:[phone] [facility], [address] [place] [address], [id number], [place] tel:[phone] PPMINY Mchenry Encntr screen for i nfections w sexl mode of transmissHigh risk heterosexual behaviorEncounter for oth general cnsl and advice on contraceptionEncounter for surveillance of injectable contraceptiveCan didiasis of vulva and vaginaEncounter for test, result negative Bianca Wright. [address] [place] [address], [id number], [place]. tel:[phone] Referring Provider: Adriana Valenzuela, [address] [place] [address], [id number]. tel:[phone] [facility], [address] [place] [address], [id number], [place] tel:[phone] PPNCNY Mchenry Atyp squam cell not excl hi grd intrepith lesn cyto smr crvxEncounter for surveillance of injectable contraceptive Timmons. [address] [place] [address], [id number], [place]. tel:[phone] Referring Provider: Neelam Rodriguez, [address] [place] [address], [id number]. tel:[phone] [facility], [address] [place] [address], [id number], [place] tel:[phone] [facility] Encntr for sole stitcher hand exam (general) (routine) w/o abn findingsEncounter for [...] for surveillance of injectable contraceptive King Belinda. [address] [place] [address], [id number]. tel:[phone] Referring Provider: Belinda Aleman, [address] [place] [address], [id number]. tel:[phone] [facility], [address] [place] [address], [id number], tel:[phone] [facility] Encounter for pregn deedee test, result negativeEncounter for surveillance of injectable contraceptive Jase Ledezma. [address] [place] [address], [id number]. tel:[phone] Referring Provider: Brisa Laguna, [address] [place] [address], [id number]. tel:[phone] [facility], [address] [place] [address], [id number], tel:[phone] [facility] Human immunodeficie ncy virus [HIV] counselingEncounter for test, result negativeEncounter for removal of intrauterine contraceptive deviceEncntr screen for infections w sexl mode of transmissHigh risk heterosexual behaviorEncounter for initial prescription of injectable contracep Jase Ledezma. [address] [place] [address], [id number]. tel:[phone] Referring Provider: Brisa Laguna, [address] [place] [address], [id number]. tel:[phone] Family History Family Member Diagnosis Age At [...] Record Payers Payer name Insurance type Covered libertarian ID Authorization(s ) [facility] CI [id number] Social History Type Description Quantity Date Captured [...] regarding di et completed Appointment Leigh Candelaria -[place] BOOKED History Of Present Illness Encounter Date Complaint History Of Present I llness No Information Functional Status Date Functional Assessment No Information Medications Administered Medication Instructions Dosage Effective Dates (start - stop) Sta tus Comments No Information Instructions Date Instruction Additional Informati on Dietary management education, guidance, and counseling Related to Body mass index (BMI) 30.0-30.9, adult Apr-17-2018 Dietary management education, guidance, and counseling Related to Body mass index (BMI) 29.0-29.9, adult Giving encouragement to exercise Related to Body mass index (BMI) 29.0-29.9, adult Lifestyle education regarding diet Relat ed to Body mass index (BMI) 29.0-29.9, adult Assessments Type Assessment Date No Information Goals Health Concern Goal Type Priority Status Date No Information Medical Equipment Description Device [place] Device Identifier Effective Matt es (start - stop) Status No Information Mental Status Date Cognitive Assessment No Information Health Concerns Observation Date No Information Concern Status Date No Information Physical Examination Exam Findings Details No Information
--- OUTSIDE RECORDS SUMMARY | 2021-07-27 22:52 | CCD ---
Author Author [facility] Organization [facility] Address Unknown Phone Unavailable Care Team Providers Care Endless Bed Drum Sander Name Role Phone Ruchi Bruce Unavailable PROBLEMS Type Condition ICD9-CM Code [id number] Code Onset Dates Condition S tatus W/U Status Risk SNOMED Code Notes Problem Anxiety F41.9 Active confirmed 75720083 Problem Mild intermittent asthma without complication J45. 20 Active confirmed 095743371 Problem Essential hypertension I10 Active confirmed 88056685 Problem Intractable epilepsy without status epilepticus, unspecified epilepsy type G40.919 Active confirmed 666303417 Problem Nephrolithiasis N20.0 Active confirmed 9557 0007 Problem Vitamin D deficiency E55.9 Active confirmed 80166710 Problem Irritable bowel syndrome with diarrhea K58.0 A ctive confirmed 141754460 ALLERGIES Allergen (clinical drug ingredient) Drug/Non Drug Allergy do cumented on EMR Reaction Allergy Type Onset Date Status chris feels like she is having a seizure Non Drug All ergy Active valproate Depakote pancreatitis Drug Allergy Active lamotrigine Lamictal(ND Code:[address]-29) Anaphylaxis, [facility] Drug Allergy Active hydroxyzine HydrOXYzine HCl(NDC Code:[address]-83) vomit Drug A llergy Active clonazepam Klonopin(NDC Code:[address]-55) Hives Drug Allergy Active phenytoin Dilantin Rash Drug Allergy Active levetiracetam Keppra(ND Code:[address]-16) Rash Drug Allergy Active antihistamines feels like seizure will happen Non Drug All ergy Active blue dye skin turns red, fever Non Drug Allergy Active ENCOUNTERS from 1985 to 2021-06-02 Encounter Location Date Provider Diagnosis [address] [phone] [place] [address] May, Ruchi Bruce Anxiety F41.9 IMMUNIZATIONS Vaccine [...] Education Language: Question Answer Notes Languages spoken: Greenlandic Catholic: Question Answer Notes Catholic 21 Yazidism Sexual Hx: Question Answer Notes Had sex [...] Notes Start Da te End Date Status Albuterol Sulfate (2.5 MG/3ML) 0.083% 1.5 ml Inhalatio n J45.20 every 8 hrs as needed for all for 30 days May, Activ e Gabapentin 300 MG 1 capsule Orally Three times a day for 30 days Active Vitamin D (Ergocalciferol) 1.25 MG (03970 UT) 1 capsul e Orally weekly for 30 day(s) Feb, Active Lisinopril 10 MG 1 tablet Orally Once a day for 30 day(s) Active predniSONE 10 MG 1 tablet Orally as directed 3 tabs x 3 days 2 tabs x 3 days 1 tab x 3 days for 9 days Feb, Active Depo-Provera 150 MG/ML 1 ml 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-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 rubbing 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 every 3 months Active Xopenex HFA 45 MCG/ACT 1 puff as needed Inhalation every 4 hrs for 30 days Active Amitriptyline HCl 50 MG 1 tablet Orally Once a day at bedtime for 9 0 day(s) Active Nebulizer/Tubing/Mouthpiece - as directed J45.20 Daily for 99 da ys May, Active Sertraline HCl 50 MG 1.5 tablet Orally Once a day for 30 Active Albuterol Sulfate 1.25 MG/3ML 3 ml as needed Inhalation ever y 8 hrs for 30 days May, Active Diflucan 150 MG 1 tablet Orally take now; re peat in 72 hours if your symptoms persist for 4 days Mar, Active Epitol 200 MG 1 tablet Orally Twice a day for 90 Active busPIRone HCl 10 MG 1 tablet Orally three times per day prn anxiety for 30 days Active PROCEDURES No Information RESULTS No Results [...] 30 days May, busPIRone HCl 10 MG 1 tablet Orally three times per day prn anxiety for 30 days Next Appt Details Provider Name:Ruchi Bruce, 01:00:00 PM, [address] [facility], , [place], [address], Insurance Providers Payer Name Payer Address Payer Phone Insured Name Patient Relati onship to Insured Coverage Start Date Coverage End Date [facility] COMMUNITY PLAN [facility] [address] [facility] [address] [phone] VALERY AMES self
--- OUTSIDE RECORDS SUMMARY | 2021-07-27 22:52 | CCD ---
Author Author [facility] Organization [facility] Address Unknown Phone Unavailable Care Team Providers Care Senior Strategy Manager Name Role Phone Ruchi Bruce Unavailable PROBLEMS Type Condition ICD9-CM Code [id number] Code Onset Dates Condition S tatus W/U Status Risk SNOMED Code Notes Problem Anxiety F41.9 Active confirmed 98657046 Problem Mild intermittent asthma without complication J45. 20 Active confirmed 224939605 Problem Essential hypertension I10 Active confirmed 86354089 Problem Intractable epilepsy without status epilepticus, unspecified epilepsy type G40.919 Active confirmed 029469829 Problem Nephrolithiasis N20.0 Active confirmed 9557 0007 Problem Vitamin D deficiency E55.9 Active confirmed 49208833 Problem Irritable bowel syndrome with diarrhea K58.0 A ctive confirmed 785427531 ALLERGIES Allergen (clinical drug ingredient) Drug/Non Drug Allergy do cumented on EMR Reaction Allergy Type Onset Date Status chris feels like she is having a seizure Non Drug All ergy Active valproate Depakote pancreatitis Drug Allergy Active lamotrigine Lamictal(ND Code:[address]-54) Anaphylaxis, [facility]il Drug Allergy Active hydroxyzine HydrOXYzine HCl(NDC Code:[address]-42) vomit Drug A llergy Active clonazepam Klonopin(NDC Code:[address]-20) Hives Drug Allergy Active phenytoin Dilantin Rash Drug Allergy Active levetiracetam Keppra(ND Code:[address]-51) Rash Drug Allergy Active antihistamines feels like seizure will happen Non Drug All ergy Active blue dye skin turns red, fever Non Drug Allergy Active ENCOUNTERS from 1985 to 2021-05-27 Encounter Location Date Provider Diagnosis [address] [phone] [place] [address] 14 May, 2021 Ruchi Aliciaage IMMUNIZATIONS Vaccine Route Administration Date [...] Education Language: Question Answer Notes Languages spoken: Mongolian Restoration: Question Answer Notes Restoration 21 Advent Sexual Hx: Question Answer Notes Had sex [...] days Active Vitamin D (Ergocalciferol) 1.25 MG (76290 UT) 1 capsul e Orally weekly for 30 day(s) Feb, Active Lisinopril 10 MG 1 tablet Orally Once a day for 30 day(s) Active predniSONE 10 MG 1 tablet Orally as directed 3 tabs x 3 days 2 tabs x 3 days 1 tab x 3 days for 9 days Feb, Active Depo-Provera 150 MG/ML 1 ml 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-package dyer every 3 months Active Xopenex HFA 45 [...] Information RESULTS No Results REASON FOR VISIT COVID- nebulizer solution MEDICAL (GENERAL) HISTORY Type Description Date Medical [...] Sig Start Date Stop Date Albuterol Sulfate 1.25 MG/3ML 3 ml as needed Inhalation ever y 8 hrs for 30 days May, Diflucan 150 MG 1 tablet Orally take now; re peat in 72 hours if your symptoms persist for 4 days Mar, Nebulizer/Tubing/Mouthpiece - as directed J45.20 Daily for 99 da ys May, Next Appt Details Provider Name:Ruchi Bruce, 01:00:00 PM, [address] [facility], , [place], [address], Insurance Providers Payer Name Payer Address Payer Phone Insured Name Patient Relati onship to Insured Coverage Start Date Coverage End Date [facility] COMMUNITY PLAN [facility] [address] [facility] [phone] VALERY AMES
--- OUTSIDE RECORDS SUMMARY | 2021-07-27 22:53 | CCD ---
Author Author [facility] Organization [facility] Address Unknown Phone Unavailable Care Team Providers Care Energy And Sustainability Manager Name Role Phone Rocky Thompson Unavailable Unavailable Rocky Thompson Unavailable Unavailable Rocky Thompson Unavailable Unavailable Rocky Thompson Unavailable Unavailable Rocky Thompson Unavailable Unavailable Rocky Thompson Unavailable Unavailable Rocky Thompson Unavailable Unavailable Rocky Thompson Unavailable Unavailable Rocyk Thompson Unavailable Unavailable Rocky Thompson Unavailable Unavailable Rocky Thompson Unavailable Unavailable Rocky Thompson Unavailable Unavailable Rocky Thompson Unavailable Unavailable Walkerton, J Shameka PA Unavailable Unavailable Walkerton, J Shameka PA Unavailable Unavailable Walkerton, J Shameka PA Unavailable Unavailable Walkerton, J Shameka PA Unavailable Unavailable Walkerton, J Shameka PA Unavailable Unavailable Walkerton, J Shameka PA Unavailable Unavailable Walkerton, J Shameka PA Unavailable Unavailable Walkerton, J Shameka PA Unavailable Unavailable Walkerton, J Shameka PA Unavailable Unavailable Whatley, Mary Unavailable Unavailable Whatley, Mary Unavailable Unavailable Whatley, Mary Unavailable Unavailable Whatley, Mary Unavailable Unavailable Whatley, Mary Unavailable Unavailable Whatley, Mary Unavailable Unavailable Pato, A Anneliese ACUNA Unavailable [...] Coy MD Unavailable Unavailable Pato, A Anneliese MD Unavailable Unavailable Pato, A Anneliese ACUNA [...] Unavailable Pato, A Anneliese ACUNA Unavailable Unavailable CHINA, KRISTOFER PA Unavailable Unavailable [...] Unavailable Unavailable CHINA, KRISTOFER PA Unavailable Unavailable RING, K JULIA PA Unavailable Unavailable RING, K JULIA PA Unavailable Unavailable RING, K JULIA PA Unavailable Unavailable RING, K JULIA PA Unavailable Unavailable RING, K JULIA PA Unavailable Unavailable RING, K JULIA PA Unavailable Unavailable RING, K JULIA PA Unavailable Unavailable RING, K JULIA PA Unavailable Unavailable RING, K JULIA PA Unavailable Unavailable RING, K JULIA PA Unavailable Unavailable RING, K JULIA PA Unavailable Unavailable RING, K JULIA PA Unavailable Unavailable RING, K JULIA PA Unavailable Unavailable RING, K JULIA PA Unavailable Unavailable RING, K JULIA PA Unavailable Unavailable RING, K JULIA PA Unavailable Unavailable RING, K JULIA PA Unavailable Unavailable RING, K JULIA PA Unavailable Unavailable RING, K JULIA PA Unavailable Unavailable RING, K JULIA PA Unavailable Unavailable RING, K JULIA PA Unavailable Unavailable Patel, Deb MULTIPLE PRESSURE RIVETER OPERATOR Unavailable Unavailable Patel, Deb MULTIPLE PRESSURE RIVETER OPERATOR Unavailable Unavailable Patel, Deb MULTIPLE PRESSURE RIVETER OPERATOR Unavailable Unavailable Patel, Deb MULTIPLE PRESSURE RIVETER OPERATOR Unavailable Unavailable Paetl, Deb MULTIPLE PRESSURE RIVETER OPERATOR Unavailable Unavailable Patel, Deb MULTIPLE PRESSURE RIVETER OPERATOR Unavailable Unavailable Patel, Deb MULTIPLE PRESSURE RIVETER OPERATOR Unavailable Unavailable Patel, Deb MULTIPLE PRESSURE RIVETER OPERATOR Unavailable Unavailable Patel, Deb MULTIPLE PRESSURE RIVETER OPERATOR Unavailable Unavailable Patel, Deb MULTIPLE PRESSURE RIVETER OPERATOR Unavailable Unavailable Patel, Deb MULTIPLE PRESSURE RIVETER OPERATOR Unavailable Unavailable Patel, Deb MULTIPLE PRESSURE RIVETER OPERATOR Unavailable Unavailable Patel, Deb MULTIPLE PRESSURE RIVETER OPERATOR Unavailable Unavailable Cynthia Hernandez PA Unavailable Unavailable LETTIERE, A LOGAN PA [...] Unavailable LETTIERE, A LOGAN PA Unavailable Unavailable Thabet, Nagib RPA-C Unavailable Unavailable Thabet, Nagib RPA-C Unavailable Unavailable Thabet, Nagib RPA-C Unavailable Unavailable Thabet, Nagib RPA-C Unavailable Unavailable Thabet, Nagib RPA-C Unavailable Unavailable Thabet, Nagib RPA-C Unavailable Unavailable Thabet, Nagib RPA-C Unavailable Unavailable Thabet, Nagib RPA-C Unavailable Unavailable Thabet, Nagib RPA-C Unavailable Unavailable Thabet, Nagib RPA-C Unavailable Unavailable Thabet, Nagib RPA-C Unavailable Unavailable Thabet, Nagib RPA-C Unavailable Unavailable Thabet, Nagib RPA-C Unavailable Unavailable Thabet, Nagib RPA-C Unavailable Unavailable Thabet, Nagib RPA-C Unavailable Unavailable Thabet, Nagib RPA-C Unavailable Unavailable Thabet, Nagib RPA-C Unavailable Unavailable Thabet, Nagib RPA-C Unavailable Unavailable Thabet, Nagib RPA-C Unavailable Unavailable Thabet, Nagib RPA-C Unavailable Unavailable Thabet, Nagib RPA-C Unavailable Unavailable Thabet, Nagib RPA-C Unavailable Unavailable Thabet, Nagib RPA-C Unavailable Unavailable Thabet, Nagib RPA-C Unavailable Unavailable Thabet, Nagib RPA-C Unavailable Unavailable Thabet, Nagib RPA-C Unavailable Unavailable Thabet, Nagib RPA-C Unavailable Unavailable Feola, T Isi PA Unavailable Unavailable Feola, T Isi PA Unavailable Unavailable Feola, T Isi PA Unavailable Unavailable Feola, T Isi PA Unavailable Unavailable Feola, T Isi PA Unavailable Unavailable Feola, T Isi PA Unavailable Unavailable Feola, T Isi PA Unavailable Unavailable Feola, T Isi PA Unavailable Unavailable Feola, T Iis PA Unavailable Unavailable Feola, T Isi PA Unavailable Unavailable Feola, T Isi PA Unavailable Unavailable Feola, T Isi PA Unavailable Unavailable Feola, T Isi PA Unavailable Unavailable Feola, T Isi PA Unavailable Unavailable Feola, T Isi PA Unavailable Unavailable Feola, T Isi PA Unavailable Unavailable Feola, T Isi PA Unavailable Unavailable Feola, T Isi PA Unavailable Unavailable Feola, T Isi PA Unavailable Unavailable Feola, T Isi PA Unavailable Unavailable Feola, T Isi PA Unavailable Unavailable Feola, T Isi PA Unavailable Unavailable Feola, T Isi PA Unavailable Unavailable Feola, T Isi PA Unavailable Unavailable Feola, T Isi PA Unavailable Unavailable Feola, T Isi PA Unavailable Unavailable Feola, T Isi PA Unavailable Unavailable Feola, T Isi PA Unavailable Unavailable Feola, T Isi PA Unavailable Unavailable Feola, T Isi PA Unavailable Unavailable Feola, T Isi PA Unavailable Unavailable Feola, T Isi PA Unavailable Unavailable Feola, T Isi PA Unavailable Unavailable Feola, T Isi PA Unavailable Unavailable Feola, T Isi PA Unavailable Unavailable Feola, T Isi PA Unavailable Unavailable Feola, T Isi PA Unavailable Unavailable Feola, T Isi PA Unavailable Unavailable Feola, T Isi PA Unavailable Unavailable Feola, T Isi PA Unavailable Unavailable Feola, T Isi PA Unavailable Unavailable Dwello PA PA, Harriet Unavailable Unavailable Dwello PA PA, Harriet Unavailable Unavailable Dwello PA PA, Harriet Unavailable Unavailable Dwello PA PA, Harriet Unavailable Unavailable Dwello PA PA, Harriet Unavailable Unavailable Dwello PA PA, Harriet Unavailable Unavailable Dwello PA PA, Harriet Unavailable Unavailable CHUNG, G EDWARD RPA Unavailable Unavailable CHUNG, G EDWARD RPA Unavailable Unavailable CHUNG, G EDWARD RPA Unavailable Unavailable CHUNG, G EDWARD RPA Unavailable Unavailable CHUNG, G EDWARD RPA Unavailable Unavailable CHUNG, G EDWARD RPA Unavailable Unavailable CHUNG, G EDWARD RPA Unavailable Unavailable CHUNG, G EDWARD RPA Unavailable Unavailable CHUNG, G EDWARD RPA Unavailable Unavailable CHUNG, G EDWARD RPA Unavailable Unavailable CHUNG, G EDWARD RPA Unavailable Unavailable CHUNG, G EDWARD RPA Unavailable Unavailable CHUNG, G EDWARD RPA Unavailable Unavailable CHUNG, G EDWARD RPA Unavailable Unavailable CHUNG, G EDWARD RPA Unavailable Unavailable CHUNG, G EDWARD RPA Unavailable Unavailable CHUNG, G EDWARD RPA Unavailable Unavailable CHUNG, G EDWARD RPA Unavailable Unavailable CHUNG, G EDWARD RPA Unavailable Unavailable CHUNG, G EDWARD RPA Unavailable Unavailable CHUNG, G EDWARD RPA Unavailable Unavailable CHUNG, G EDWARD RPA Unavailable Unavailable CHUNG, G EDWARD RPA Unavailable Unavailable CHUNG, G EDWARD RPA Unavailable Unavailable CHUNG, G EDWARD RPA Unavailable Unavailable CHUNG, G EDWARD RPA Unavailable Unavailable CHUNG, G EDWARD RPA Unavailable Unavailable CHUNG, G EDWARD RPA Unavailable Unavailable CHUNG, G EDWARD RPA Unavailable Unavailable CHUNG, G EDWARD RPA Unavailable Unavailable CHUNG, G EDWARD RPA Unavailable Unavailable CHUNG, G EDWARD RPA Unavailable Unavailable CHUNG, G EDWARD RPA Unavailable Unavailable CHUNG, G EDWARD RPA Unavailable Unavailable CHUNG, G EDWARD RPA Unavailable Unavailable CHUNG, G EDWARD RPA Unavailable Unavailable CHUNG, G EDWARD RPA Unavailable Unavailable Sienkiewycz, L Germaine MULTIPLE PRESSURE RIVETER OPERATOR Unavailable Unavailable Sienkiewycz, L Germaine MULTIPLE PRESSURE RIVETER OPERATOR Unavailable Unavailable Sienkiewycz, L Germaine MULTIPLE PRESSURE RIVETER OPERATOR Unavailable Unavailable Sienkiewycz, L Germaine MULTIPLE PRESSURE RIVETER OPERATOR Unavailable Unavailable Sienkiewycz, L Germaine MULTIPLE PRESSURE RIVETER OPERATOR Unavailable Unavailable Sienkiewycz, L Germaine MULTIPLE PRESSURE RIVETER OPERATOR Unavailable Unavailable Sienkiewycz, L Germaine MULTIPLE PRESSURE RIVETER OPERATOR Unavailable Unavailable Re-disclosure Warning The records that [...] is protected by Article 27-F of the [facility] Public Health law. If you continue you may have access to information: Regarding HIV / AIDS; Provided by facilities licensed or operated by the [facility] Office of Mental Health; or Provided by the [facility] Office for People With Developmental Disabilities. If such information is present, then the following [facility] mandated warning applies: This information has been [...] law may result in a fine or alf sentence or both. A general authorization for the release of medical or other information is NOT sufficient authorization for further disc losure. Family History Family Member Name Family Member Gender Family Member Status Date o f Status Description Data Source(s) Unknown Female Diagnosis 02/23/2016 12:00:00 AM EDT [facility] ([facility]) Unknown Female Diagnosis 02/23/2016 12:00:00 AM EDT NextGen ([facility]) Unknown Unknown Problem [facility] ([facility]) Unknown Unknown Problem [facility] Encounters Encounter Providers Location Date Indications Data Source(s ) Outpatient Attender: LOGAN remy 07/17/2021 10:30:00 AM EDT [facility] ([facility]) Outpatient [address] [place] [address] 06/23/2021 12:00:00 AM EDT eCW1 ([facility]) Attender: Anneliese Whyte MD [facility] 12/2020 09:35:00 AM EDT - 06/15/2021 09:35:00 AM EDT [facility] ([facility]) Unknown [address] [place] [address] 06/10/2021 12:00:00 AM EDT [facility] Unknown [address] [place] [address] 06/08/2021 12:00:00 AM EDT [facility]CW1 ([facility]) Unknown [address] [place] [address] 06/08/2021 12:00:00 AM EDT eCW1 ([facility]) Unknown [address] [place] [address] 06/01/2021 12:00:00 AM EDT eCW1 ([facility]) Unknown [address] [place] [address] 05/27/2021 12:00:00 AM EDT eCW1 ([facility]) Unknown [address] [place] [address] 05/26/2021 12:00:00 AM EDT eCW1 ([facility]) Outpatient Attender: Isi Alvarezender: Cynthia IRWIN 05/25/2021 03:20:21 PM EDT - 05/25/2021 04:11:07 PM EDT DocuTap ( [facility]) Attender: Harriet IRWIN [facility] 11/2020 12:13:00 PM EDT - 05/15/2021 12:13:00 PM EDT [facility] ([facility]) Attender: Harriet RJOO [place] 11/2020 09:12:00 AM EDT - 05/15/2021 09:12:00 AM EDT [facility] ([facility]) Unknown [address] [place] [address] 05/15/2021 12:00:00 AM EDT eCW1 ([facility]) Outpatient Attender: Radha STEINERC 10/2020 02:43:58 PM EDT - 05/14/2021 03:11:03 PM EDT [facility] ([facility]) Attender: Harriet ROJO [place] 12:38:00 PM EDT - 05/07/2021 12:38:00 PM EDT [facility] ([facility]) Attender: Anneliese ROJO [place] 0 04/09/2021 09:13:00 AM EDT - 04/09/2021 09:13:00 AM EDT [facility] ([facility]) OutpatientOFFICE VISIT, EST Attender: Harriet ROJO [place] 04/08/2021 12:30:00 PM EDT - 04/08/2021 12:30:00 PM EDT Encounter for test, result negativeHerpesviral vulvovaginitisEncounter for initial prescription of injectable contracepEncounter for oth general cnsl and advice on contraceptionOther sex counseling NextGen ([facility]) Encounter for test, result neg ative Herpesviral vulvovaginitis Encounter for initial prescription of in jectable contracep Encounter for oth general cnsl and advic e on contraception Other sex counseling Outpatient [address] [place] [address] 04/07/2021 12:00:00 AM EDT eCW1 ([facility]) Unknown [address] [place] [address] 04/07/2021 12:00:00 AM EDT eCW1 ([facility]) Unknown [address] [place] [address] 04/07/2021 12:00:00 AM EDT eCW1 ([facility]) Unknown [address] [place] [address] 04/03/2021 12:00:00 AM EDT eCW1 ([facility]) Unknown [address] [place] [address] 03/11/2021 12:00:00 AM EDT eCW1 ([facility]) Outpatient [address] [place] [address] 03/02/2021 12:00:00 AM EDT [facility] Unknown [address] [place] [address] 02/19/2021 12:00:00 AM EDT eCW1 ([facility]) Outpatient Attender: Germaine Ricks MULTIPLE PRESSURE RIVETER OPERATOR SURG-NPLAB 02/12/2021 01:14:00 AM EDT [facility]. Unknown [address] [place] [address] 02/06/2021 12:00:00 AM EDT eCW1 ([facility]) Outpatient [address], [place] [address] 01/26/2021 12:00:00 AM EDT eCW1 ([facility]) Unknown [address] [place] [address] 01/15/2021 12:00:00 AM EDT eCW1 ([facility]) Unknown [address] [place] [address] 01/13/2021 12:00:00 AM EDT eCW1 ([facility]) Outpatient Attender: JENSEN CHUNG RPA 01/10 01:07:42 PM EDT - 01/10/2021 02:09:40 PM EDT [facility] ([facility] ) [place] [address] [facility] [place] [address] 01/08/2021 12:00:00 AM EDT [facility]CW1 [facility]) Outpatient Attender: JULIA Avila Primary 01/03/2021 10:00:00 AM EDT [facility] ([facility]) Unknown [address] [place] [address] 12/11/2020 12:00:00 AM EDT [facility]CW1 ([facility]) Unknown [address] [place] [address] 12/03/2020 12:00:00 AM EDT eCW1 ([facility]) Outpatient [address] [place] [address] 12/01/2020 12:00:00 AM EDT eCW1 ([facility]) Unknown [address] [place] [address] 12/01/2020 12:00:00 AM EDT eCW1 ([facility]) Unknown [address] [place] [address] 11/03/2020 12:00:00 AM EST eCW1 ([facility]) [facility]: [facility] [place] 01:10:00 PM EST - 10/28/2020 01:10:00 PM EST Encounter for test, result negativeEncounter for surveillance of injectable contraceptive NextGen ([facility]) Encounter for test, result neg ative Encounter for surveillance of injectable contraceptive Unknown [address] [place] [address] 10/20/2020 12:00:00 AM EST eCW1 ([facility]) OutpatientPREV VISIT, EST, AGE 18-39 Attender: Shameka [facility]WIN [facility] [place] 07/19/2020 08:45:00 AM EST - 07/19/2020 08:45:00 AM ES T Body mass index (BMI) 30.0-30.9, adultEncntr for card cleaner exam (general) (routine) w/o abn findingsEncounter for initial prescription of injectable contracepOther sex counselingEncounter for test, result negativeHuman immunodeficiency virus [HIV] counseling NextGen ([facility]) Body mass index (BMI) 30.0-30.9, adult Encntr for card cleaner exam (general) (routine) w/o abn findings Encounter for initial prescription of in jectable contracep Other sex counseling Encounter for test, result neg ative Human immunodeficiency virus [HIV] couns eling Outpatient Attender: KRISTOFER [place] ry 07/06/2020 04:25:00 PM EDT [facility] ([facility]) Attender: Anneliese ROJO [place] 11:10:00 AM EDT - 06/10/2020 11:10:00 AM EDT [facility] ([facility]) Outpatient Attender: Deb harper 06/03/2020 02:15:00 PM EDT [facility] ([facility]) OFFICE VISIT, ESTOutpatient Attender: Mary ROJO Lynette urg 06/02/2020 10:20:00 AM EDT - 06/02/2020 10:20:00 AM EDT Herpesviral vulvovaginitisEncounter for surveillance of injectable contraceptiveEncounter for oth general cnsl and advice on contraception NextGen ([facility]) Herpesviral vulvovaginitis Encounter for surveillance of injectable contraceptive Encounter for oth general cnsl and advic e on contraception Immunizations Vaccine Date Status Description Data Source(s) COVID-19 VACCINE Moderna 07/05/2021 12:00:00 AM EDT completed [facility] Vaccine Series Complete: NOThis Data was Submitted to [facility] Via [employer]. influenza, recombinant, quadrIvalent,injectable, prese rvative free 06/23/2021 01:06:00 PM EDT completed eCW1 ([facility]) influenza, recombinant, quadrIvalent,injectable, prese rvative free 12/01/2020 10:44:00 AM EDT completed eCW1 ([facility]) influenza, recombinant, quadrIvalent,injectable, prese rvative free 12/01/2020 10:44:00 AM EDT completed eCW1 ([facility]) influenza, recombinant, quadrIvalent,injectable, prese rvative free 12/01/2020 10:44:00 AM EDT completed eCW1 ([facility]) influenza, recombinant, quadrIvalent,injectable, prese rvative free 12/01/2020 10:44:00 AM EDT completed eCW1 ([facility]) influenza, recombinant, quadrIvalent,injectable, prese rvative free 12/01/2020 10:44:00 AM EDT completed eCW1 ([facility]) influenza, recombinant, quadrIvalent,injectable, prese rvative free 12/01/2020 10:44:00 AM EDT completed eCW1 ([facility]) influenza, recombinant, quadrIvalent,injectable, prese rvative free 12/01/2020 10:44:00 AM EDT completed eCW1 ([facility]) influenza, recombinant, quadrIvalent,injectable, prese rvative free 12/01/2020 10:44:00 AM EDT completed eCW1 ([facility]) influenza, recombinant, quadrIvalent,injectable, prese rvative free 12/01/2020 10:44:00 AM EDT completed eCW1 ([facility]) influenza, recombinant, quadrIvalent,injectable, prese rvative free 12/01/2020 10:44:00 AM EDT completed eCW1 ([facility]) influenza, recombinant, quadrIvalent,injectable, prese rvative free 12/01/2020 10:44:00 AM EDT completed eCW1 ([facility]) influenza, recombinant, quadrIvalent,injectable, prese rvative free 12/01/2020 10:44:00 AM EDT completed eCW1 ([facility]) influenza, recombinant, quadrIvalent,injectable, prese rvative free 12/01/2020 10:44:00 AM EDT completed eCW1 ([facility]) influenza, recombinant, quadrIvalent,injectable, prese rvative free 12/01/2020 10:44:00 AM EDT completed eCW1 ([facility]) influenza, recombinant, quadrIvalent,injectable, prese rvative free 12/01/2020 10:44:00 AM EDT completed eCW1 ([facility]) influenza, recombinant, quadrIvalent,injectable, prese rvative free 12/01/2020 10:44:00 AM EDT completed eCW1 ([facility]) influenza, recombinant, quadrIvalent,injectable, prese rvative free 12/01/2020 10:44:00 AM EDT completed eCW1 ([facility]) influenza, recombinant, quadrIvalent,injectable, prese rvative free 12/01/2020 10:44:00 AM EDT completed eCW1 ([facility]) influenza, recombinant, quadrIvalent,injectable, prese rvative free 12/01/2020 10:44:00 AM EDT completed eCW1 ([facility]) influenza, recombinant, quadrIvalent,injectable, prese rvative free 12/01/2020 10:44:00 AM EDT completed eCW1 ([facility]) influenza, recombinant, quadrIvalent,injectable, prese rvative free 12/01/2020 10:44:00 AM EDT completed eCW1 ([facility]) influenza, recombinant, quadrIvalent,injectable, prese rvative free 12/01/2020 10:44:00 AM EDT completed eCW1 ([facility]) influenza, recombinant, quadrIvalent,injectable, prese rvative free 12/01/2020 10:44:00 AM EDT completed eCW1 ([facility]) influenza, recombinant, quadrIvalent,injectable, prese rvative free 12/01/2020 10:44:00 AM EDT completed eCW1 ([facility]) Medications Medication Brand Name Start Date Product Form Dose Route Admi nistrative Instructions Pharmacy Instructions Status Indications Reaction Description Data Source(s) Acyclovir 400 MG Oral Tablet acyclovir 400 mg tablet acyclov ir 400 mg tablet 06/15/2021 12:00:00 AM EDT active 1 po tid x 5d prn outbreak (#15) NextGen ([facility]) Albuterol 0.83 MG/ML Inhalant Solution Albuterol Sulfa te (2.5 MG/3ML) 0.083% Albuterol Sulfate (2.5 MG/3ML) 0.083% 05/27/2021 12:00:00 AM EDT 1.5 {ml} active Albuterol Sulfate (2.5 MG/3M L) 0.083% eCW1 ([facility]) Albuterol 0.83 MG/ML Inhalant Solution Albuterol Sulfa te (2.5 MG/3ML) 0.083% Albuterol Sulfate (2.5 MG/3ML) 0.083% 05/27/2021 12:00:00 AM EDT 1.5 {ml} active Albuterol Sulfate (2.5 MG/3M L) 0.083% eCW1 ([facility]) Albuterol 0.83 MG/ML Inhalant Solution Albuterol Sulfa te (2.5 MG/3ML) 0.083% Albuterol Sulfate (2.5 MG/3ML) 0.083% 05/27/2021 12:00:00 AM EDT 1.5 {ml} active Albuterol Sulfate (2.5 MG/3M L) 0.083% eCW1 ([facility]) Albuterol 0.83 MG/ML Inhalant Solution Albuterol Sulfa te (2.5 MG/3ML) 0.083% Albuterol Sulfate (2.5 MG/3ML) 0.083% 05/27/2021 12:00:00 AM EDT 1.5 {ml} active Albuterol Sulfate (2.5 MG/3M L) 0.083% eCW1 ([facility]) Albuterol 0.83 MG/ML Inhalant Solution Albuterol Sulfa te (2.5 MG/3ML) 0.083% Albuterol Sulfate (2.5 MG/3ML) 0.083% 05/27/2021 12:00:00 AM EDT 1.5 {ml} active Albuterol Sulfate (2.5 MG/3M L) 0.083% eCW1 ([facility]) Albuterol 0.83 MG/ML Inhalant Solution Albuterol Sulfa te (2.5 MG/3ML) 0.083% Albuterol Sulfate (2.5 MG/3ML) 0.083% 05/27/2021 12:00:00 AM EDT 1.5 {ml} active Albuterol Sulfate (2.5 MG/3M L) 0.083% eCW1 ([facility]) Albuterol 0.417 MG/ML Inhalant Solution Albuterol Sulf ate 1.25 MG/3ML Albuterol Sulfate 1.25 MG/3ML 05/26/2021 12:00:00 AM EDT 3.0 {ml_as_needed} active Albuterol Sulfate 1.25 MG/3ML eC W1 ([facility]) Albuterol 0.417 MG/ML Inhalant Solution Albuterol Sulf ate 1.25 MG/3ML Albuterol Sulfate 1.25 MG/3ML 05/26/2021 12:00:00 AM EDT 3.0 {ml_as_needed} active Albuterol Sulfate 1.25 MG/3ML eC W1 ([facility]) Albuterol 0.417 MG/ML Inhalant Solution Albuterol Sulf ate 1.25 MG/3ML Albuterol Sulfate 1.25 MG/3ML 05/26/2021 12:00:00 AM EDT 3.0 {ml_as_needed} active Albuterol Sulfate 1.25 MG/3ML eC W1 ([facility]) Albuterol 0.417 MG/ML Inhalant Solution Albuterol Sulf ate 1.25 MG/3ML Albuterol Sulfate 1.25 MG/3ML 05/26/2021 12:00:00 AM EDT 3.0 {ml_as_needed} active Albuterol Sulfate 1.25 MG/3ML eC W1 ([facility]) Albuterol 0.417 MG/ML Inhalant Solution Albuterol Sulf ate 1.25 MG/3ML Albuterol Sulfate 1.25 MG/3ML 05/26/2021 12:00:00 AM EDT 3.0 {ml_as_needed} active Albuterol Sulfate 1.25 MG/3ML eC W1 ([facility]) Albuterol 0.417 MG/ML Inhalant Solution Albuterol Sulf ate 1.25 MG/3ML Albuterol Sulfate 1.25 MG/3ML 05/26/2021 12:00:00 AM EDT 3.0 {ml_as_needed} active Albuterol Sulfate 1.25 MG/3ML eC W1 ([facility]) Albuterol 0.417 MG/ML Inhalant Solution Albuterol Sulf ate 1.25 MG/3ML Albuterol Sulfate 1.25 MG/3ML 05/26/2021 12:00:00 AM EDT 3.0 {ml_as_needed} active Albuterol Sulfate 1.25 MG/3ML eC W1 ([facility]) Nebulizer/Tubing/Mouthpiece - Nebulizer/Tubing/Mouthpiece - 05/15/2021 12:00:00 AM EDT active Nebulizer/Tubing/ Mouthpiece - eCW1 ([facility]) Nebulizer/Tubing/Mouthpiece - Nebulizer/Tubing/Mouthpiece - 05/15/2021 12:00:00 AM EDT active Nebulizer/Tubing/ Mouthpiece - eCW1 ([facility]) Nebulizer/Tubing/Mouthpiece - Nebulizer/Tubing/Mouthpiece - 05/15/2021 12:00:00 AM EDT active Nebulizer/Tubing/ Mouthpiece - eCW1 ([facility]) Nebulizer/Tubing/Mouthpiece - Nebulizer/Tubing/Mouthpiece - 05/15/2021 12:00:00 AM EDT active Nebulizer/Tubing/ Mouthpiece - eCW1 ([facility]) Nebulizer/Tubing/Mouthpiece - Nebulizer/Tubing/Mouthpiece - 05/15/2021 12:00:00 AM EDT active Nebulizer/Tubing/ Mouthpiece - eCW1 ([facility]) Nebulizer/Tubing/Mouthpiece - Nebulizer/Tubing/Mouthpiece - 05/15/2021 12:00:00 AM EDT suspended Nebulizer/Tubi ng/Mouthpiece - eCW1 ([facility]) Acyclovir 400 MG Oral Tablet acyclovir 400 mg tablet acyclov ir 400 mg tablet 05/15/2021 12:00:00 AM EDT completed 1 po tid x 5d prn outbreak (#15) NextGen ([facility]) NEBULIZER AND COMPRESSOR 05/15/2021 12:00:00 AM EDT device 1 USE DIRECTED USE DIRECTED SOLD: 05/16/2021 [facility] Nebulizer/Tubing/Mouthpiece - Nebulizer/Tubing/Mouthpiece - 05/15/2021 12:00:00 AM EDT active Nebulizer/Tubing/ Mouthpiece - eCW1 ([facility]) Nebulizer/Tubing/Mouthpiece - Nebulizer/Tubing/Mouthpiece - 05/15/2021 12:00:00 AM EDT active Nebulizer/Tubing/ Mouthpiece - eCW1 ([facility]) Lidocaine 40 MG/ML Topical Cream lidocaine 4 % topical cream lidocaine 4 % topical cream 04/09/2021 12:00:00 AM EDT acti ve apply to affected area q2-4 hrs prn NextGen ([facility]) Lidocaine 0.05 MG/MG Topical Ointment lidocaine 5 % to pical ointment lidocaine 5 % topical ointment 04/08/2021 12:00:00 AM EDT completed apply ointment to lesions q 2 hrs prn discomfort NextGen ([facility]) medroxyprogesterone acetate 150 MG/ML In jectable Suspension medroxyprogesterone 150 mg/mL intramuscular suspension medroxyprogesterone 150 mg/mL intramuscu lar suspension 04/08/2021 12:00:00 AM EDT active IM every 10-13 weeks NextGen ([facility]) Acyclovir 400 MG Oral Tablet acyclovir 400 mg tablet acyclov ir 400 mg tablet 04/08/2021 12:00:00 AM EDT active 1 po tid x 5d prn outbreak (#15) NextGen ([facility]) Fluconazole 150 MG Oral Tablet [Diflucan] Diflucan 150 MG Di flucan 150 MG 04/07/2021 12:00:00 AM EDT 1.0 {tablet} active eCW1 ([facility]) Fluconazole 150 MG Oral Tablet [Diflucan] Diflucan 150 MG Di flucan 150 MG 04/07/2021 12:00:00 AM EDT 1.0 {tablet} active Diflucan 150 MG eCW1 ([facility]) Fluconazole 150 MG Oral Tablet [Diflucan] Diflucan 150 MG Di flucan 150 MG 04/07/2021 12:00:00 AM EDT 1.0 {tablet} active Diflucan 150 MG eCW1 ([facility]) Fluconazole 150 MG Oral Tablet [Diflucan] Diflucan 150 MG Di flucan 150 MG 04/07/2021 12:00:00 AM EDT 1.0 {tablet} active Diflucan 150 MG eCW1 ([facility]) Fluconazole 150 MG Oral Tablet [Diflucan] Diflucan 150 MG Di flucan 150 MG 04/07/2021 12:00:00 AM EDT 1.0 {tablet} active Diflucan 150 MG eCW1 ([facility]) Fluconazole 150 MG Oral Tablet [Diflucan] Diflucan 150 MG Di flucan 150 MG 04/07/2021 12:00:00 AM EDT 1.0 {tablet} active Diflucan 150 MG eCW1 ([facility]) Fluconazole 150 MG Oral Tablet [Diflucan] Diflucan 150 MG Di flucan 150 MG 04/07/2021 12:00:00 AM EDT 1.0 {tablet} active Diflucan 150 MG eCW1 ([facility]) Fluconazole 150 MG Oral Tablet [Diflucan] Diflucan 150 MG Di flucan 150 MG 04/07/2021 12:00:00 AM EDT 1.0 {tablet} active Diflucan 150 MG eCW1 ([facility]) Fluconazole 150 MG Oral Tablet [Diflucan] Diflucan 150 MG Di flucan 150 MG 04/07/2021 12:00:00 AM EDT 1.0 {tablet} active Diflucan 150 MG eCW1 ([facility]) Fluconazole 150 MG Oral Tablet [Diflucan] Diflucan 150 MG Di flucan 150 MG 04/07/2021 12:00:00 AM EDT 1.0 {tablet} active Diflucan 150 MG eCW1 ([facility]) Prednisone 10 MG Oral Tablet predniSONE 10 MG predniSONE 10 MG 03/02/2021 12:00:00 AM EDT 1.0 {tablet} active pr edniSONE 10 MG eCW1 ([facility]) Ergocalciferol 19943 UNT Oral Capsule Vi tamin D (Ergocalciferol) 1.25 MG (39142 UT) Vitamin D (Ergocalciferol) 1.25 MG (27843 UT) 03/02/2021 12:00:0 0 AM EDT 1.0 {capsule} active Vitamin D (Ergocal ciferol) 1.25 MG (68726 UT) eCW1 ([facility]) Prednisone 10 MG Oral Tablet predniSONE 10 MG predniSONE 10 MG 03/02/2021 12:00:00 AM EDT 1.0 {tablet} active pr edniSONE 10 MG eCW1 ([facility]) Ergocalciferol 32784 UNT Oral Capsule Vi tamin D (Ergocalciferol) 1.25 MG (71695 UT) Vitamin D (Ergocalciferol) 1.25 MG (26406 UT) 03/02/2021 12:00:0 0 AM EDT 1.0 {capsule} active Vitamin D (Ergocal ciferol) 1.25 MG (96889 UT) [facility] ([facility]) Ergocalciferol 04962 UNT Oral Capsule Vi tamin D (Ergocalciferol) 1.25 MG (76132 UT) Vitamin D (Ergocalciferol) 1.25 MG (90982 UT) 03/02/2021 12:00:0 0 AM EDT 1.0 {capsule} active Vitamin D (Ergocal ciferol) 1.25 MG (18230 UT) [facility] ([facility]) Prednisone 10 MG Oral Tablet predniSONE 10 MG predniSONE 10 MG 03/02/2021 12:00:00 AM EDT 1.0 {tablet} active pr edniSONE 10 MG eCW1 ([facility]) Prednisone 10 MG Oral Tablet predniSONE 10 MG predniSONE 10 MG 03/02/2021 12:00:00 AM EDT 1.0 {tablet} active pr edniSONE 10 MG eCW1 ([facility]) Ergocalciferol 88150 UNT Oral Capsule Vi tamin D (Ergocalciferol) 1.25 MG (99666 UT) Vitamin D (Ergocalciferol) 1.25 MG (00406 UT) 03/02/2021 12:00:0 0 AM EDT 1.0 {capsule} active Vitamin D (Ergocal ciferol) 1.25 MG (90880 UT) W1 ([facility]) Ergocalciferol 13572 UNT Oral Capsule Vi tamin D (Ergocalciferol) 1.25 MG (67675 UT) Vitamin D (Ergocalciferol) 1.25 MG (60270 UT) 03/02/2021 12:00:0 0 AM EDT 1.0 {capsule} active Vitamin D (Ergocal ciferol) 1.25 MG (28870 UT) [facility] ([facility]) Ergocalciferol 41299 UNT Oral Capsule Vi tamin D (Ergocalciferol) 1.25 MG (26384 UT) Vitamin D (Ergocalciferol) 1.25 MG (90811 UT) 03/02/2021 12:00:0 0 AM EDT 1.0 {capsule} active Vitamin D (Ergocal ciferol) 1.25 MG (14223 UT) [facility] ([facility]) Prednisone 10 MG Oral Tablet predniSONE 10 MG predniSONE 10 MG 03/02/2021 12:00:00 AM EDT 1.0 {tablet} active pr edniSONE 10 MG [facility] ([facility]) Ergocalciferol 62387 UNT Oral Capsule Vi tamin D (Ergocalciferol) 1.25 MG (38638 UT) Vitamin D (Ergocalciferol) 1.25 MG (92837 UT) 03/02/2021 12:00:0 0 AM EDT 1.0 {capsule} active Vitamin D (Ergocal ciferol) 1.25 MG (51598 UT) [facility] ([facility]) Prednisone 10 MG Oral Tablet predniSONE 10 MG predniSONE 10 MG 03/02/2021 12:00:00 AM EDT 1.0 {tablet} active [facility] ([facility]) Ergocalciferol 29733 UNT Oral Capsule Vi tamin D (Ergocalciferol) 1.25 MG (00083 UT) Vitamin D (Ergocalciferol) 1.25 MG (75795 UT) 03/02/2021 12:00:0 0 AM EDT 1.0 {capsule} active Vitamin D (Ergocal ciferol) 1.25 MG (17686 UT) [facility] ([facility]) Ergocalciferol 09841 UNT Oral Capsule Vi tamin D (Ergocalciferol) 1.25 MG (21362 UT) Vitamin D (Ergocalciferol) 1.25 MG (55921 UT) 03/02/2021 12:00:0 0 AM EDT 1.0 {capsule} active Vitamin D (Ergocal ciferol) 1.25 MG (24254 UT) eCW1 ([facility]) Ergocalciferol 05041 UNT Oral Capsule Vi tamin D (Ergocalciferol) 1.25 MG (58515 UT) Vitamin D (Ergocalciferol) 1.25 MG (19032 UT) 03/02/2021 12:00:0 0 AM EDT 1.0 {capsule} active eCW1 ([facility]) Prednisone 10 MG Oral Tablet predniSONE 10 MG predniSONE 10 MG 03/02/2021 12:00:00 AM EDT 1.0 {tablet} active pr edniSONE 10 MG eCW1 ([facility]) Ergocalciferol 48582 UNT Oral Capsule Vi tamin D (Ergocalciferol) 1.25 MG (13438 UT) Vitamin D (Ergocalciferol) 1.25 MG (02127 UT) 03/02/2021 12:00:0 0 AM EDT 1.0 {capsule} active Vitamin D (Ergocal ciferol) 1.25 MG (92645 UT) eCW1 ([facility]) Prednisone 10 MG Oral Tablet predniSONE 10 MG predniSONE 10 MG 03/02/2021 12:00:00 AM EDT 1.0 {tablet} active pr edniSONE 10 MG eCW1 ([facility]) Prednisone 10 MG Oral Tablet predniSONE 10 MG predniSONE 10 MG 03/02/2021 12:00:00 AM EDT 1.0 {tablet} active pr edniSONE 10 MG eCW1 ([facility]) Prednisone 10 MG Oral Tablet predniSONE 10 MG predniSONE 10 MG 03/02/2021 12:00:00 AM EDT 1.0 {tablet} active pr edniSONE 10 MG eCW1 ([facility]) Prednisone 10 MG Oral Tablet predniSONE 10 MG predniSONE 10 MG 03/02/2021 12:00:00 AM EDT 1.0 {tablet} active pr edniSONE 10 MG eCW1 ([facility]) Ergocalciferol 22924 UNT Oral Capsule Vi tamin D (Ergocalciferol) 1.25 MG (19690 UT) Vitamin D (Ergocalciferol) 1.25 MG (61253 UT) 03/02/2021 12:00:0 0 AM EDT 1.0 {capsule} active Vitamin D (Ergocal ciferol) 1.25 MG (44808 UT) eCW1 ([facility]) Ergocalciferol 05049 UNT Oral Capsule Vi tamin D (Ergocalciferol) 1.25 MG (85293 UT) Vitamin D (Ergocalciferol) 1.25 MG (21278 UT) 03/02/2021 12:00:0 0 AM EDT 1.0 {capsule} active Vitamin D (Ergocal ciferol) 1.25 MG (30973 UT) eCW1 ([facility]) Prednisone 10 MG Oral Tablet predniSONE 10 MG predniSONE 10 MG 03/02/2021 12:00:00 AM EDT 1.0 {tablet} active pr edniSONE 10 MG eCW1 ([facility]) Prednisone 10 MG Oral Tablet predniSONE 10 MG predniSONE 10 MG 03/02/2021 12:00:00 AM EDT 1.0 {tablet} active pr edniSONE 10 MG eCW1 ([facility]) Lisinopril 10 MG Oral Tablet Lisinopril 10 MG 01/26/2021 12:00:00 A M EDT 1.0 {tablet} active Lisinopril 10 MG eCW1 ( [facility]) buspirone hydrochloride 10 MG Oral Tablet BusPIRone HC l 10 MG BusPIRone HCl 10 MG 01/26/2021 12:00:00 AM EDT 1.0 {tablet} active eCW1 ([facility]) buspirone hydrochloride 10 MG Oral Tablet BusPIRone HC l 10 MG BusPIRone HCl 10 MG 01/26/2021 12:00:00 AM EDT 1.0 {tablet} activ e BusPIRone HCl 10 MG eCW1 ([facility]) buspirone hydrochloride 10 MG Oral Tablet BusPIRone HC l 10 MG BusPIRone HCl 10 MG 01/26/2021 12:00:00 AM EDT 1.0 {tablet} activ e BusPIRone HCl 10 MG eCW1 ([facility]) Lisinopril 10 MG Oral Tablet Lisinopril 10 MG 01/26/2021 12:00:00 A M EDT 1.0 {tablet} active Lisinopril 10 MG eCW1 ( [facility]) buspirone hydrochloride 10 MG Oral Tablet busPIRone HC l 10 MG busPIRone HCl 10 MG 01/26/2021 12:00:00 AM EDT 1.0 {tablet} activ e busPIRone HCl 10 MG eCW1 ([facility]) Lisinopril 10 MG Oral Tablet Lisinopril 10 MG 01/26/2021 12:00:00 A M EDT 1.0 {tablet} active eCW1 ([facility]) Lisinopril 10 MG Oral Tablet Lisinopril 10 MG 01/26/2021 12:00:00 A M EDT 1.0 {tablet} active Lisinopril 10 MG eCW1 ( [facility]) Doxycycline Monohydrate 100 MG Oral Tablet Doxycycline Monoh ydrate 01/03/2021 12:00:00 AM EDT ORAL active M EDENT ([facility], [facility]) Prednisone 20 MG Oral Tablet Prednisone 01/03/2021 12:00:00 AM EDT ORAL active MEDENT ([facility] [place], [facility]) 200 ACTUAT Levalbuterol 0.045 MG/ACTUAT Metered Dose Inhaler [Xopenex] Xopenex HFA 45 MCG/ACT Xopenex HFA 45 MCG/ACT 12/01/2020 12:00:00 AM EDT 1.0 {puff_as_needed} active Xopenex HFA 45 MCG/ACT eCW1 ([facility]) 200 ACTUAT Levalbuterol 0.045 MG/ACTUAT Metered Dose Inhaler [Xopenex] Xopenex HFA 45 MCG/ACT Xopenex HFA 45 MCG/ACT 12/01/2020 12:00:00 AM EDT 1.0 {puff_as_needed} active Xopenex HFA 45 MCG/ACT eCW1 ([facility]) 200 ACTUAT Levalbuterol 0.045 MG/ACTUAT Metered Dose Inhaler [Xopenex] Xopenex HFA 45 MCG/ACT Xopenex HFA 45 MCG/ACT 12/01/2020 12:00:00 AM EDT 1.0 {puff_as_needed} active Xopenex HFA 45 MCG/ACT eCW1 ([facility]) 200 ACTUAT Levalbuterol 0.045 MG/ACTUAT Metered Dose Inhaler [Xopenex] Xopenex HFA 45 MCG/ACT Xopenex HFA 45 MCG/ACT 12/01/2020 12:00:00 AM EDT 1.0 {puff_as_needed} active Xopenex HFA 45 MCG/ACT eCW1 ([facility]) 200 ACTUAT Levalbuterol 0.045 MG/ACTUAT Metered Dose Inhaler [Xopenex] Xopenex HFA 45 MCG/ACT Xopenex HFA 45 MCG/ACT 12/01/2020 12:00:00 AM EDT 1.0 {puff_as_needed} active Xopenex HFA 45 MCG/ACT eCW1 ([facility]) 200 ACTUAT Levalbuterol 0.045 MG/ACTUAT Metered Dose Inhaler [Xopenex] Xopenex HFA 45 MCG/ACT Xopenex HFA 45 MCG/ACT 12/01/2020 12:00:00 AM EDT 1.0 {puff_as_needed} active Xopenex HFA 45 MCG/ACT eCW1 ([facility]) medroxyprogesterone acetate 150 MG/ML In jectable Suspension medroxyprogesterone 150 mg/mL intramuscular suspension medroxyprogesterone 150 mg/mL intramuscu lar suspension 07/19/2020 12:00:00 AM EST active IM every 10-13 weeks [facility] ([facility]) Ibuprofen 800 MG Oral Tablet Ibuprofen 07/06/2020 12:00:00 AM EDT ORAL completed MEDENT ([facility] [place], [facility]) Fluconazole 150 MG Oral Tablet Fluconazole 06/10/2020 12:00:00 AM EDT completed MEDENT ([facility], [facility]) Mupirocin 0.02 MG/MG Topical Ointment Mupirocin 06/03/2020 12:00:00 AM EDT completed MEDENT ([facility], [facility]) Doxycycline Monohydrate 100 MG Oral Tablet Doxycycline Monoh ydrate 06/03/2020 12:00:00 AM EDT ORAL completed MEDENT ([facility], [facility]) Acyclovir 400 MG Oral Tablet acyclovir 400 mg tablet acyclov ir 400 mg tablet 06/02/2020 12:00:00 AM EDT active 1 po BID for viral suppression (#180) [facility] ([facility]) Acyclovir 400 MG Oral Tablet acyclovir 400 mg tablet acyclov ir 400 mg tablet 05/21/2020 12:00:00 AM EDT completed 1 po tid x 5d prn outbreak (#45) [facility] ([facility]) GABAPENTIN (unknown strength) gabapentin comp leted [facility] ([facility]) Lorazepam 0.5 MG Oral Tablet [Ativan] ATIVAN (unknown strength) ATIVAN (unknown strength) completed lorazepam 0. 5 MG Oral Tablet [Ativan] [facility] ([facility]) Insurance Providers Payer name Policy type / Coverage type Policy ID Covered constitution party ID Covered constitution party's relationship to villela Policy [place] Plan Information [employer] [id number] Self [id number] [employer] [id number] Self [id number] [facility] [id number] self [facility] [id number] [facility] Health Maintenance Organization (HMO) [id number] [facility] Health Maintenance Organization (HMO) [id number] [facility] Health Maintenance Organization (HMO) [id number] Self [id number] ANSI-Medicaid [id number] [facility] Health Maintenance Organization ([facility]) [id number] Self [id number] [facility] [id number] S [id number] ANSI-Medicaid [id number] [facility] Health Maintenance Organization ([facility]) [id number] [facility] Health Maintenance Organization ([facility]) [id number] Self [id number] ANSI-Medicaid [id number] [facility] Health Maintenance Organization ([facility]) [id number] [facility] Health Maintenance Organization ([facility]) [id number] [facility] Health Maintenance Organization ([facility]) [id number] Self [id number] [facility] Health Maintenance Organization (O) [id number] Self [id number] [facility] Health Maintenance Organization (O) [id number] Self [id number] [facility] Health Maintenance Organization (O) [id number] Self [id number] [facility] Health Maintenance Organization (O) [id number] Self [id number] [facility] Health Maintenance Organization (O) [id number] Self [id number] [facility] Health Maintenance Organization (O) [id number] Self [id number] [facility] Health Maintenance Organization (O) [id number] Self MEDICAID [id number] SP [id number] SELF PAY UNAVAILABLE SP UNAVAILA BLE BLUE CROSS NIÑO PLAN [id number] SP [id number] [facility] [id number] [facility] [id number] [place] [id number] [place] [id number] [facility] [id number] SP [id number] Problems, Conditions, and Diagnoses Code Display Name Description Problem Type Effective Dates Data Source(s) I10 [id number] Essential hypertension Problem 03/02/2021 12 :00:00 AM EDT eCW1 ([facility]) K58.0 [id number] Irritable bowel syndrome with diarrhea Pr oblem 12/01/2020 12:00:00 AM EDT eCW1 ([facility]) E55.9 [id number] Vitamin D deficiency Problem 12/01/2020 12:0 0:00 AM EDT eCW1 ([facility]) J45.20 [id number] Mild intermittent asthma without complica tion Problem 12/01/2020 12:00:00 AM EDT eCW1 ([facility]) Surgeries/Procedures Procedure Description Date Indications Data Source(s) SIMPLE REPAIR SCALP/NECK/AX/GENIT/TRUNK 2.5CM/< 2020 12:00:00 AM EDT MEDENT ([facility]) OFFICE OUTPATIENT VISIT 15 MINUTES 07/17/2021 12:00:00 AM EDT MEDENT ([facility]) Imm: Flublok Quadrivalent 18 years & older 0.5mL IM Influenz a 06/23/2021 12:00:00 AM EDT eCW1 ([facility]) CVR Resource Manager Forester.Svc. STI / H 04/08/2021 12:00:00 AM EDT - 04/08/2021 12:00:00 AM EDT [facility] ([facility]) CVR Resource Manager Forester.Svc. Other 04/08/2021 12:00:00 AM EDT - 2020 12:00:00 AM EDT [facility] ([facility]) CVR Resource Manager Forester.Svc. Nutrition 04/08/2021 12:00: 00 AM EDT - 04/08/2021 12:00:00 AM EDT [facility] ([facility]) CVR Resource Manager Forester.Svc. Contraceptive 04/08/2021 12 :00:00 AM EDT - 04/08/2021 12:00:00 AM EDT [facility] ([facility]) CVR Med.Svc. Height/Weight 04/08/2021 12 :00:00 AM EDT - 04/08/2021 12:00:00 AM EDT [facility] ([facility]) CVR Blood Pressure 04/08/2021 12:00:00 AM EDT - 2020 12:00:00 AM EDT [facility] ([facility]) NURSE ONLY INJ. RN/STOCK FITTER Only 04/08/2021 1 2:00:00 AM EDT - 04/08/2021 12:00:00 AM EDT [facility] ([facility]) Depo/Medroxyprogesterone Inj. 150 Mg Nurse/CA 04/08/2021 12:00:00 AM EDT - 04/08/2021 12:00:00 AM EDT [facility] ([facility]) URINE TEST 04/08/2021 12:00:00 AM EDT - 04/08/2021 12:00:00 AM EDT [facility] ([facility]) OFFICE VISIT, EST 04/08/2021 12:00:00 AM EDT - 021 12:00:00 AM EDT [facility] ([facility]) Imm: Flublok Quadrivalent 18 years & older 0.5mL IM Influenz a 12/01/2020 12:00:00 AM EDT eC1 ([facility]) CVR Resource Manager Forester.Svc. Other 10/28/2020 12:00:00 AM EST - 2020 12:00:00 AM EST [facility] ([facility]) CVR Resource Manager Forester.Svc. Nutrition 10/28/2020 12:00: 00 AM EST - 10/28/2020 12:00:00 AM EST [facility] ([facility]) CVR Resource Manager Forester.Svc. Contraceptive 10/28/2020 12 :00:00 AM EST - 10/28/2020 12:00:00 AM EST [facility] ([facility]) CVR Med.Svc. Height/Weight 10/28/2020 12 :00:00 AM EST - 10/28/2020 12:00:00 AM EST [facility] ([facility]) CVR Blood Pressure 10/28/2020 12:00:00 AM EST - 2020 12:00:00 AM EST [facility] ([facility]) URINE TEST 10/28/2020 12:00:00 AM EST - 10/28/2020 12:00:00 AM EST [facility] ([facility]) NURSE ONLY DEPO INJ. RN/STOCK FITTER Only 021 12:00:00 AM EST - 10/28/2020 12:00:00 AM EST [facility] ([facility]) Depo/Medroxyprogesterone Inj. 150 Mg Nurse/CA 10/28/2020 12:00:00 AM EST - 10/28/2020 12:00:00 AM EST [facility] ([facility]) CVR BC Ending Method HORM.INJ. 3 MOS 12:00:00 AM EST - 10/28/2020 12:00:00 AM EST [facility] ([facility]) MED SERV, EUSEBIO/WKEND/HOLIDAY 07/19/2020 1 2:00:00 AM EST - 07/19/2020 12:00:00 AM EST [facility] ([facility]) THER/PROPH/DIAG INJ, SC/IM 07/19/2020 12 :00:00 AM EST - 07/19/2020 12:00:00 AM EST [facility] ([facility]) Male Condom Polyurethane 07/19/2020 12:0 0:00 AM EST - 07/19/2020 12:00:00 AM EST [facility] ([facility]) CVR Resource Manager Forester.Svc. STI / H 07/19/2020 12:00:00 AM EST - 07/19/2020 12:00:00 AM EST [facility] ([facility]) CVR Resource Manager Forester.Svc. Contraceptive 07/19/2020 12 :00:00 AM EST - 07/19/2020 12:00:00 AM EST [facility] ([facility]) CVR Med.Svc. Breast Exam 07/19/2020 12:0 0:00 AM EST - 07/19/2020 12:00:00 AM EST [facility] ([facility]) CVR Med.Svc. Height/Weight 07/19/2020 12 :00:00 AM EST - 07/19/2020 12:00:00 AM EST [facility] ([facility]) CVR Blood Pressure 07/19/2020 12:00:00 AM EST - 2019 12:00:00 AM EST [facility] ([facility]) CVR Med.Svc. Other 07/19/2020 12:00:00 AM EST - 2019 12:00:00 AM EST [facility] ([facility]) HCS Without Test 07/19/2020 12:00:00 AM EST - 07/19/20 20 12:00:00 AM EST [facility] ([facility]) Depo/Medroxyprogesterone Inj. 150 Mg Nurse/CA 07/19/2020 12:00:00 AM EST - 07/19/2020 12:00:00 AM EST [facility] ([facility]) CVR BC Ending Method HORM.INJ. 3 MOS 03/2020 12:00:00 AM EST - 07/19/2020 12:00:00 AM EST [facility] ([facility]) CYTOPATH, C/V, THIN LAYER 07/19/2020 12: 00:00 AM EST - 07/19/2020 12:00:00 AM EST [facility] ([facility]) PREV VISIT, EST, AGE 18-39 07/19/2020 12 :00:00 AM EST - 07/19/2020 12:00:00 AM EST [facility] ([facility]) URINE TEST 07/19/2020 12:00:00 AM EST - 07/19/2020 12:00:00 AM EST [facility] ([facility]) CVR STI TX Herpes 06/02/2020 12:00:00 AM EDT - 020 12:00:00 AM EDT [facility] ([facility]) CVR Resource Manager Forester.Svc. STI / H 06/02/2020 12:00:00 AM EDT - 06/02/2020 12:00:00 AM EDT [facility] ([facility]) CVR Resource Manager Forester.Svc. Other 06/02/2020 12:00:00 AM EDT - 2019 12:00:00 AM EDT [facility] ([facility]) CVR Resource Manager Forester.Svc. Contraceptive 06/02/2020 12 :00:00 AM EDT - 06/02/2020 12:00:00 AM EDT [facility] ([facility]) OFFICE VISIT, EST 06/02/2020 12:00:00 AM EDT - 020 12:00:00 AM EDT [facility] ([facility]) Results ID Date Data Source [id number] 05/25/2021 03:45:00 PM EDT [facility] Name Value Range Interpretation Code Description Data Krystle rce(s) Supporting Document(s) SARS-CoV-2 RNA Resp Ql DONTRELL+probe NOT DETECTED [facility] This lab was ordered by NUBIA girard and reported by NUBIA Gonzalez. ID Date Data Source [id number] 05/14/2021 03:00:00 PM EDT [facility] Name Value Range Interpretation Code Description Data Krystle rce(s) Supporting Document(s) SARS-CoV-2 RNA Resp Ql DONTRELL+probe DETECTED [facility] This lab was ordered by NUBIA girard and reported by NUBIA Gonzalez. ID Date Data Source [id number] 04/08/2021 12:18:14 PM EDT [facility] ([facility]) Name Value Range Interpretation Code Description Data Krystle rce(s) Supporting Document(s) NegativeLot: [id number]: 09/11/2022 High Sensitivity Urine Test [facility] ([facility]) ID Date Data Source [id number] 01/14/2021 08:30:00 AM EDT [facility] Name Value Range Interpretation Code Description Data Krystle rce(s) Supporting Document(s) COVID-19 RT-PCR NASAL SWAB Not Detected Not Detected [facility] A not detected (negative) test result fo r this test means that SARS-CoV-2 RNA was not present in the specimen above the limit ofdetection. Laboratory test results should always be considered in thecontext of clinical observations and epidemiological data in making afinal diagnosis and patient management decisions. Results will bereported to government agencies as required.This test has received Emergency Use Authorization (EUA). We will continue to follow federal and state requirements for COVID-19 reporting. This test has been authorized only for the detection of RNAfrom SARS-CoV-2 virus and diagnosis of SARS-CoV-2 virus infection, notfor any other viruses or pathogens. This test is only authorized for the duration of the declaration that circumstances exist justifying the authorization of the emergency use of in vitro diagnostic tests for detection of SARS-CoV-2 virus and/or diagnosis of SARS-CoV-2 virusinfection under section 564(b)(1) of the Act, 21 U.S.C. section 360bbb-3(b)(1), unless the authorization is terminated or revoked sooner. We will continue to follow federal and state requirements for both notification of results and any confirmatory testing that is required by another agency. This test was developed and its performance characteristics determined by [employer] and verified at [employer]. It has not been cleared or approved by the U.S. Food and Drug Administration for diagnostic use. This test has been authorized by FDA under an EUA for use by authorized laboratories. Results should be used in conjunction with clinical findings, and should not form the sole basis for a diagnosis or treatment decision. Methods: SARS-CoV-2 Multiplex RT-PCR Assay ID Date Data Source [id number] 01/10/2021 01:15:00 PM EDT [facility] Name Value Range Interpretation Code Description Data Krystle rce(s) Supporting Document(s) SARS-CoV-2 (COVID-19) N gene [Presence] in Respiratory specimen by DONTRELL with probe detection NEGATIVE [facility] This lab was ordered by [facility] and reported by Malinta [facility]. ID Date Data Source [id number] 01/10/2021 12:00:00 AM EDT [facility] Name Value Range Interpretation Code Description Data Krystle rce(s) Supporting Document(s) Carestart Rapid COVID Antigen Test Negative [facility] This lab was reported by [facility]. ID Date Data Source [id number] 01/03/2021 10:50:00 AM EDT [facility] ([facility]) Name Value Range Interpretation Code Description Data Krystle rce(s) Supporting Document(s) Group A Strep Culture Laboratory test result [facility] ([facility]) FULL REPORT IN LAB NOTES (eCW and [facility] ). NEGATIVE FOR STREP PYOGENES (GROUP A) ID Date Data Source [id number] 01/03/2021 12:00:00 AM EDT [facility] Name Value Range Interpretation Code Description Data Krystle rce(s) Supporting Document(s) SARS-CoV2 Rapid Antigen Negative [facility] This [facility] was [facility] by [facility]. ID Date Data Source TSH 12/01/2020 12:00:00 AM EDT eCW1 ([facility]) Name Value Range Interpretation Code Description Data Krystle rce(s) Supporting Document(s) TSH ULTRASENSITIVE eCW1 ([facility]) 1.730 0.358-3.740 THYROID STIMULATING HORM ONE eCW1 ([facility]) ID Date Data Source CARBAMAZEPINE (TEGRETOL) LEVEL 12/01/2020 12:00:00 AM EDT eC W1 ([facility]) Name Value Range Interpretation Code Description Data Krystle rce(s) Supporting Document(s) 7.1 4.0-10.0 CARBAMAZEPINE (TEGRETOL) LEVEL eCW1 ([facility]) ID Date Data Source [id number] 12/01/2020 12:00:00 AM EDT eCW1 ([facility]) Name Value Range Interpretation Code Description Data Krystle rce(s) Supporting Document(s) Hemoglobin A1c/Hemoglobin.total in Blood 5.0 HEMOGLOBIN A1c eCW1 ([facility]) ID Date Data Source Comprehensive Metabolic Profile (CMP) 12/01/2020 12:00:00 AM EDT eCW1 ([facility]) Name Value Range Interpretation Code Description Data Krystle rce(s) Supporting Document(s) ELECTROLYTE PROFILE eCW1 ([facility]) SODIUM eCW1 ([facility]) COMPREHENSIVE METABOLIC PROFIL E eCW1 ([facility]) BUN eCW1 ([facility]) CREATININE WITH GFR eCW1 ([facility]) CREATININE eCW1 ([facility], 1928–1983) GLUCOSE eCW1 ([facility]) ALK PHOS eCW1 ([facility]) POTASSIUM eCW1 ([facility]) CALCIUM eCW1 ([facility]) CHLORIDE eCW1 ([facility]) CARBON DIOXIDE eCW1 ([facility]) ALB/GLOB RATIO eCW1 ([facility]) 9 7-18 BLOOD UREA NITROGEN eCW1 ([facility]) 107 70-100 GLUCOSE, FASTING eCW1 ([facility]) 3.6 3.5-5.1 POTASSIUM SERUM eCW1 ([facility]) 142 136-145 SODIUM LEVEL eCW1 ([facility]) 0.63 0.55-1.30 CREATININE FOR GFR eCW1 ([facility]) > 60.0 >60 GLOMERULAR FILTRATION RATE eCW 1 ([facility]) 8.9 8.5-10.1 CALCIUM LEVEL eCW1 ([facility]) 28 21-32 CARBON DIOXIDE LEVEL eCW1 ([facility]) 108 98-107 CHLORIDE LEVEL eCW1 ([facility]) 10 7-37 AST/SGOT eCW1 ([facility]) 98 45-117 ALKALINE PHOSPHATASE eCW1 ([facility]) 20 12-78 ALT/SGPT eCW1 ([facility]) 7.8 6.4-8.2 TOTAL PROTEIN eCW1 ([facility]) < 0.1 0.2-1.0 BILIRUBIN,TOTAL eCW1 ([facility]) 1.1 1.2-2.2 ALBUMIN/GLOBULIN RATIO eCW1 ([facility]) 4.1 3.2-5.2 ALBUMIN eCW1 ([facility]) ID Date Data Source [id number] 10/28/2020 01:07:14 PM EST [facility] ([facility]) Name Value Range Interpretation Code Description Data Krystle rce(s) Supporting Document(s) NegativeLot: [id number]: 05/12/2022 High [facility] ID Date Data Source [id number] 07/19/2020 09:05:36 AM EST [facility] ([facility]) Name Value Range Interpretation Code Description Data Krystle rce(s) Supporting Document(s) NegativeLot: [id number]: 09/11/2021 High Sensitivity Urine Test [facility] ([facility]) Procedure Social History Code Duration Value Status Description Data Source(s ) Smoking 06/23/2021 12:00:00 AM EDT Never Smoker completed Never S moker eCW1 ([facility]) Smoking 06/15/2021 12:00:00 AM EDT Never smoker completed Never s moker [facility] ([facility]) Smoking 04/07/2021 12:00:00 AM EDT Never Smoker completed Never S moker eCW1 ([facility]) Smoking 04/07/2021 12:00:00 AM EDT Never Smoker completed Never S moker eCW1 ([facility]) Smoking 04/07/2021 12:00:00 AM EDT Never Smoker completed Never S moker eCW1 ([facility]) Smoking 04/07/2021 12:00:00 AM EDT Never Smoker completed Never S moker eCW1 ([facility]) Smoking 04/07/2021 12:00:00 AM EDT Never Smoker completed Never S moker eCW1 ([facility]) Smoking 04/07/2021 12:00:00 AM EDT Never Smoker completed Never S moker eCW1 ([facility]) Smoking 04/07/2021 12:00:00 AM EDT Never Smoker completed Never S moker eCW1 ([facility]) Smoking 04/07/2021 12:00:00 AM EDT Never Smoker completed Never S moker eCW1 ([facility]) Smoking 04/07/2021 12:00:00 AM EDT Never Smoker completed Never S moker eCW1 ([facility]) Smoking 04/07/2021 12:00:00 AM EDT Never Smoker completed Never S moker eCW1 ([facility]) Smoking 03/02/2021 12:00:00 AM EDT Never Smoker completed Never S moker eCW1 ([facility]) Smoking 03/02/2021 12:00:00 AM EDT Never Smoker completed Never S moker eCW1 ([facility]) Smoking 03/02/2021 12:00:00 AM EDT Never Smoker completed Never S moker eCW1 ([facility]) Smoking 02/17/2021 12:00:00 AM EDT Never Smoker completed Never S moker eCW1 ([facility]) Smoking 01/26/2021 12:00:00 AM EDT Never Smoker completed Never S moker eCW1 ([facility]) Smoking 01/26/2021 12:00:00 AM EDT Never Smoker completed Never S moker eCW1 ([facility]) Smoking 01/26/2021 12:00:00 AM EDT Never Smoker completed Never S moker eCW1 ([facility]) Smoking 12/01/2020 12:00:00 AM EDT Never Smoker completed Never S moker eCW1 ([facility]) Smoking 12/01/2020 12:00:00 AM EDT Never Smoker completed Never S moker eCW1 ([facility]) Smoking 12/01/2020 12:00:00 AM EDT Never Smoker completed Never S moker eCW1 ([facility]) Smoking 12/01/2020 12:00:00 AM EDT Never Smoker completed Never S moker eCW1 ([facility]) Smoking 12/01/2020 12:00:00 AM EDT Never Smoker completed Never S moker eCW1 ([facility]) Smoking 12/01/2020 12:00:00 AM EDT Never Smoker completed Never S moker eCW1 ([facility]) Smoking 07/06/2020 12:00:00 AM EDT Patient has never smoked co mpleted Patient has never smoked [facility] ([facility]) Vital Signs ID Date Data Source UNK Name Value Range Interpretation Code Description Data Source(s) Diastolic blood pressure 79 mm[Hg] 79 mm[Hg] [facility] ([facility]) Systolic blood pressure 111 mm[Hg] 111 mm[Hg] M EDENT ([facility]) Heart rate 95 /min 95 /min MED[facility] ([facility]) Respiratory rate 16 /min 16 /min [facility] ( [facility]) Oxygen saturation in Arterial blood by Pulse oximetry 99 % 99 % [facility] ([facility]) Body temperature 97.8 [degF] 97.8 [degF] [facility] Body weight 160.00 [lb_av] 160.00 [lb_av] MEDEN T ([facility]) Body height 63 [in_i] 63 [in_i] MEDENT ([facility]) 5'3" Body mass index (BMI) [Ratio] 28.3 kg/m2 28.3 k g/m2 [facility] Body weight 177 [lb_av] 177 [lb_av] W1 ([facility]) Body weight 80.29 kg 80.29 kg W1 ([facility]) Body height 63 [in_i] 63 [in_i] eCW1 ([facility]) Body mass index (BMI) [Ratio] 31.35 kg/m2 31.35 kg/m2 W1 ([facility]) Heart rate 114 /min 114 /min W1 ([facility]) Respiratory rate 18 /min 18 /min W1 ([facility]) Body temperature 97.8 [degF] 97.8 [degF] eCW1 ( [facility]) Systolic blood pressure 136 mm[Hg] 136 mm[Hg] e CW1 ([facility]) Diastolic blood pressure 78 mm[Hg] 78 mm[Hg] eCW1 ([facility]) Body height 160.02 cm 160.02 cm [facility] Body weight 79.651 kg 79.651 kg [facility] ([facility]) Systolic blood pressure 110 mm[Hg] 110 mm[Hg] N extGen ([facility]) Diastolic blood pressure 70 mm[Hg] 70 mm[Hg] Next[facility] ([facility]) Body mass index (BMI) [Ratio] 31.11 kg/m2 Overweight 31.11 kg/m2 [facility] ([facility]) Body weight 175.4 [lb_av] 175.4 [lb_av] eCW1 ([facility]) Body height 63 [in_i] 63 [in_i] eCW1 ([facility]) Body mass index (BMI) [Ratio] 31.07 kg/m2 31.07 kg/m2 eCW1 ([facility]) Heart rate 107 /min 107 /min eCW1 ([facility]) Respiratory rate 18 /min 18 /min eCW1 ([facility]) Body temperature 97.1 [degF] 97.1 [degF] eCW1 ( [facility]) Systolic blood pressure 118 mm[Hg] 118 mm[Hg] e CW1 ([facility]) Diastolic blood pressure 78 mm[Hg] 78 mm[Hg] eCW1 ([facility]) Body weight 169.0 [lb_av] 169.0 [lb_av] eCW1 ([facility]) Body height 63 [in_i] 63 [in_i] eCW1 ([facility]) Body mass index (BMI) [Ratio] 29.93 kg/m2 29.93 kg/m2 eCW1 ([facility]) Heart rate 92 /min 92 /min eCW1 ([facility]) Respiratory rate 16 /min 16 /min eCW1 ([facility]) Body temperature 96.7 [degF] 96.7 [degF] eCW1 ( [facility]) Systolic blood pressure 110 mm[Hg] 110 mm[Hg] e CW1 ([facility]) Diastolic blood pressure 80 mm[Hg] 80 mm[Hg] eCW1 ([facility]) Diastolic blood pressure 114 mm[Hg] 114 mm[Hg] eCW1 ([facility]) Body weight 174.8 [lb_av] 174.8 [lb_av] eCW1 ([facility]) Body height 63 [in_i] 63 [in_i] eCW1 ([facility]) Body mass index (BMI) [Ratio] 30.96 kg/m2 30.96 kg/m2 eCW1 ([facility]) Heart rate 88 /min 88 /min eCW1 ([facility]) Respiratory rate 18 /min 18 /min eCW1 ([facility]) Body temperature 98 [degF] 98 [degF] eCW1 ([facility]) Systolic blood pressure 166 mm[Hg] 166 mm[Hg] e CW1 ([facility]) Systolic blood pressure 150 mm[Hg] 150 mm[Hg] M EDENT ([facility]) Diastolic blood pressure 99 mm[Hg] 99 mm[Hg] MEDENT ([facility], [facility]) Heart rate 125 /min 125 /min MEDENT ([facility] [place], [facility]) Respiratory rate 15 /min 15 /min MEDENT ( [facility], [facility]) Oxygen saturation in Arterial blood by Pulse oximetry 98 % 98 % [facility] ([facility], [facility]) Body temperature 97.5 [degF] 97.5 [degF] MEDENT ([facility], [facility]) Body weight 160.00 [lb_av] 160.00 [lb_av] MEDEN T ([facility], [facility]) Body height 63 [in_i] 63 [in_i] MEDENT ([facility], [facility]) 5'3" Body mass index (BMI) [Ratio] 28.3 kg/m2 28.3 k g/m2 MED[facility] ([facility], [facility]) Body weight 173.2 [lb_av] 173.2 [lb_av] eCW1 ([facility]) Heart rate 96 /min 96 /min eCW1 ([facility]) Respiratory rate 18 /min 18 /min eCW1 ([facility]) Body height 63 [in_i] 63 [in_i] eCW1 ([facility]) Body temperature 98 [degF] 98 [degF] eCW1 ([facility]) Systolic blood pressure 172 mm[Hg] 172 mm[Hg] e CW1 ([facility]) Body mass index (BMI) [Ratio] 30.68 kg/m2 30.68 kg/m2 eCW1 ([facility]) Diastolic blood pressure 110 mm[Hg] 110 mm[Hg] eCW1 ([facility]) Body height 160.02 cm 160.02 cm [facility] ([facility]) Diastolic blood pressure 60 mm[Hg] 60 mm[Hg] NextGen ([facility]) Body mass index (BMI) [Ratio] 31.35 kg/m2 Overweight 31.35 kg/m2 NextGen ([facility]) Body weight 80.286 kg 80.286 kg [facility] ([facility]) Systolic blood pressure 100 mm[Hg] 100 mm[Hg] N extGen ([facility]) Body height 160.02 cm 160.02 cm Next[facility] ([facility]) Body weight 79.107 kg 79.107 kg Next[facility] ([facility]) Systolic blood pressure 126 mm[Hg] 126 mm[Hg] N extGen ([facility]) Diastolic blood pressure 85 mm[Hg] 85 mm[Hg] NextGen ([facility]) Body mass index (BMI) [Ratio] 30.89 kg/m2 Overweight 30.89 kg/m2 NextGen ([facility]) Systolic blood pressure 134 mm[Hg] 134 mm[Hg] M EDENT ([facility], [facility]) Diastolic blood pressure 89 mm[Hg] 89 mm[Hg] MEDENT ([facility], [facility]) Body mass index (BMI) [Ratio] 29.3 kg/m2 29.3 k g/m2 MEDENT ([facility]) Body temperature 98.3 [degF] 98.3 [degF] MEDENT ([facility], [facility]) Body weight 160.00 [lb_av] 160.00 [lb_av] MEDEN T ([facility], [facility]) Body height 62 [in_i] 62 [in_i] MEDENT ([facility] [place]) 5'2" Heart rate 108 /min 108 /min MEDENT ([facility] [place]) Respiratory rate 16 /min 16 /min [facility] Oxygen saturation in Arterial blood by Pulse oximetry 99 % 99 % [facility] Heart rate 103 /min 103 /min MEDENT ([facility], [facility]) Body weight 165.00 [lb_av] 165.00 [lb_av] MEDEN T ([facility]) Systolic blood pressure 130 mm[Hg] 130 mm[Hg] M EDENT ([facility], [facility]) Body height 63 [in_i] 63 [in_i] [facility] 5'3" Body mass index (BMI) [Ratio] 29.2 kg/m2 29.2 k g/m2 [facility]) Diastolic blood pressure 91 mm[Hg] 91 mm[Hg] [facility] Oxygen saturation in Arterial blood by Pulse oximetry 98 % 98 % [facility] ([facility], [facility]) Body temperature 98.3 [degF] 98.3 [degF] [facility] Patient Treatment Plan of Care Planned Activity Planned Date Details Description Data Source (s) Acyclovir 400 MG Oral Tablet 06/15/2021 12:00:00 AM EDT NextGen ([facility]) Albuterol 0.83 MG/ML Inhalant Solution 05/27/2021 12:00:00 AM EDT eCW ([facility]) Albuterol 0.83 MG/ML Inhalant Solution 05/27/2021 12:00:00 AM EDT [facility] [facility]) Albuterol 0.83 MG/ML Inhalant Solution 05/27/2021 12:00:00 AM EDT eCW1 ([facility]) Albuterol 0.83 MG/ML Inhalant Solution 05/27/2021 12:00:00 AM EDT eCW1 ([facility]) Albuterol 0.83 MG/ML Inhalant Solution 05/27/2021 12:00:00 AM EDT eCW1 ([facility]) Albuterol 0.417 MG/ML Inhalant Solution 05/26/2021 12:00:00 AM EDT eCW1 ([facility]) Albuterol 0.417 MG/ML Inhalant Solution 05/26/2021 12:00:00 AM EDT eCW1 ([facility]) Albuterol 0.417 MG/ML Inhalant Solution 05/26/2021 12:00:00 AM EDT eCW1 ([facility]) Albuterol 0.417 MG/ML Inhalant Solution 05/26/2021 12:00:00 AM EDT eCW1 ([facility]) Albuterol 0.417 MG/ML Inhalant Solution 05/26/2021 12:00:00 AM EDT eCW1 ([facility]) Albuterol 0.417 MG/ML Inhalant Solution 05/26/2021 12:00:00 AM EDT eCW1 ([facility]) Acyclovir 400 MG Oral Tablet 05/15/2021 12:00:00 AM EDT [facility] ([facility]) Nebulizer/Tubing/Mouthpiece - 05/15/2021 12:00:00 AM EDT eCW1 ([facility]) Nebulizer/Tubing/Mouthpiece - 05/15/2021 12:00:00 AM EDT eCW1 ([facility]) Nebulizer/Tubing/Mouthpiece - 05/15/2021 12:00:00 AM EDT eCW1 ([facility]) Nebulizer/Tubing/Mouthpiece - 05/15/2021 12:00:00 AM EDT eCW1 ([facility]) Nebulizer/Tubing/Mouthpiece - 05/15/2021 12:00:00 AM EDT eCW1 ([facility]) Nebulizer/Tubing/Mouthpiece - 05/15/2021 12:00:00 AM EDT eCW1 ([facility]) Nebulizer/Tubing/Mouthpiece - 05/15/2021 12:00:00 AM EDT eCW1 ([facility]) Lidocaine 40 MG/ML Topical Cream 04/09/2021 12:00:00 AM EDT [facility] ([facility]) medroxyprogesterone acetate 150 MG/ML Injectable Suspe nsion 04/08/2021 12:00:00 AM EDT [facility] Lidocaine 0.05 MG/MG Topical Ointment 04/08/2021 12:00:00 AM EDT [facility] ([facility]) Acyclovir 400 MG Oral Tablet 04/08/2021 12:00:00 AM EDT [facility] ([facility]) Fluconazole 150 MG Oral Tablet [Diflucan] 04/07/2021 12:00:00 AM ED T eCW1 ([facility]) Fluconazole 150 MG Oral Tablet [Diflucan] 04/07/2021 12:00:00 AM ED T eCW1 ([facility]) Fluconazole 150 MG Oral Tablet [Diflucan] 04/07/2021 12:00:00 AM ED T eCW1 ([facility]) Fluconazole 150 MG Oral Tablet [Diflucan] 04/07/2021 12:00:00 AM ED T eCW1 ([facility]) Fluconazole 150 MG Oral Tablet [Diflucan] 04/07/2021 12:00:00 AM ED T eCW1 ([facility]) Fluconazole 150 MG Oral Tablet [Diflucan] 04/07/2021 12:00:00 AM ED T eCW1 ([facility]) Fluconazole 150 MG Oral Tablet [Diflucan] 04/07/2021 12:00:00 AM ED T eCW1 ([facility]) Fluconazole 150 MG Oral Tablet [Diflucan] 04/07/2021 12:00:00 AM ED T eCW1 ([facility]) Fluconazole 150 MG Oral Tablet [Diflucan] 04/07/2021 12:00:00 AM ED T eCW1 ([facility]) Fluconazole 150 MG Oral Tablet [Diflucan] 04/07/2021 12:00:00 AM ED T eCW1 ([facility]) Ergocalciferol 70641 UNT Oral Capsule 03/02/2021 12:00:00 AM EDT eCW1 ([facility]) Prednisone 10 MG Oral Tablet 03/02/2021 12:00:00 AM EDT eCW1 ([facility]) Prednisone 10 MG Oral Tablet 03/02/2021 12:00:00 AM EDT eCW1 ([facility]) Ergocalciferol [id number] UNT Oral Capsule 03/02/2021 12:00:00 AM EDT eCW1 ([facility]) Prednisone 10 MG Oral Tablet 03/02/2021 12:00:00 AM EDT eCW1 ([facility]) Ergocalciferol 14669 UNT Oral Capsule 03/02/2021 12:00:00 AM EDT eCW1 ([facility]) buspirone hydrochloride 10 MG Oral Tablet 01/26/2021 12:00:00 AM ED T eCW1 ([facility]) buspirone hydrochloride 10 MG Oral Tablet 01/26/2021 12:00:00 AM ED T eCW1 ([facility]) Lisinopril 10 MG Oral Tablet 01/26/2021 12:00:00 AM EDT eCW1 ([facility]) buspirone hydrochloride 10 MG Oral Tablet 01/26/2021 12:00:00 AM ED T eCW1 ([facility]) Lisinopril 10 MG Oral Tablet 01/26/2021 12:00:00 AM EDT eCW1 ([facility]) buspirone hydrochloride 10 MG Oral Tablet 01/26/2021 12:00:00 AM ED T eCW1 ([facility]) Lisinopril 10 MG Oral Tablet 01/26/2021 12:00:00 AM EDT eCW1 ([facility]) 200 ACTUAT Levalbuterol 0.045 MG/ACTUAT Metered Dose I nhaler [Xopenex] 12/01/2020 12:00:00 AM EDT eCW1 ([facility]) 200 ACTUAT Levalbuterol 0.045 MG/ACTUAT Metered Dose I nhaler [Xopenex] 12/01/2020 12:00:00 AM EDT eCW1 ([facility]) 200 ACTUAT Levalbuterol 0.045 MG/ACTUAT Metered Dose I nhaler [Xopenex] 12/01/2020 12:00:00 AM EDT eCW1 ([facility]) 200 ACTUAT Levalbuterol 0.045 MG/ACTUAT Metered Dose I nhaler [Xopenex] 12/01/2020 12:00:00 AM EDT eCW1 ([facility]) 200 ACTUAT Levalbuterol 0.045 MG/ACTUAT Metered Dose I nhaler [Xopenex] 12/01/2020 12:00:00 AM EDT eCW1 ([facility]) 200 ACTUAT Levalbuterol 0.045 MG/ACTUAT Metered Dose I nhaler [Xopenex] 12/01/2020 12:00:00 AM EDT eCW1 ([facility]) medroxyprogesterone acetate 150 MG/ML Injectable Suspe nsion 07/19/2020 12:00:00 AM EST [facility] ([facility] Acyclovir 400 MG Oral Tablet 06/02/2020 12:00:00 AM EDT [facility] ([facility]) Acyclovir 400 MG Oral Tablet 05/21/2020 12:00:00 AM EDT [employer] ([facility]) GABAPENTIN (unknown strength) [facility] ([facility]) Lorazepam 0.5 MG Oral Tablet [Ativan] [facility] ([facility])
[2021-07-28] MEDS ORDERED: BUSP10TA PO (00:39)
[2021-07-28] MEDS ORDERED: ONDANSETRON 4 MG ORAL DISINTEGRATING TAB PO ONE (07:25)
[2021-07-28] MEDS ORDERED: ACETAMINOPHEN 325 MG TAB PO ONE (07:25)
[2021-07-28] MEDS ORDERED: ALBUTEROL 90 MCG/ACT 8GM HFA INHALER INH ONE (07:25)
--- OUTSIDE RECORDS SUMMARY | 2021-07-28 07:30 | CCD ---
Author Author [facility] Address Unknown Phone Unavailable Care Team Providers Care Cad Design Engineer Name Role Phone Rocky Thompson Unavailable Unavailable Rocky Thompson Unavailable Unavailable Rocky Thompson Unavailable Unavailable Rocky Thompson Unavailable Unavailable Rocky Thompson Unavailable Unavailable Rocky Thompson Unavailable Unavailable Rocky Thompson Unavailable Unavailable Rocky Thompson Unavailable Unavailable Rocky Thompson Unavailable Unavailable Rocky Thompson Unavailable Unavailable Rocky Thompson Unavailable Unavailable Rocky Thompson Unavailable Unavailable Rocky Thompson Unavailable Unavailable [place], J Shameka PA Unavailable Unavailable [place], J Shameka PA Unavailable Unavailable [place], J Shameka PA Unavailable Unavailable [place], J Shameka PA Unavailable Unavailable [place], J Shameka PA Unavailable Unavailable [place], J Shameka PA Unavailable Unavailable [place], J Shameka PA Unavailable Unavailable [place], J Shameka PA Unavailable Unavailable [place], J Shameka PA Unavailable Unavailable Whatley, Mary [...] K JULIA PA Unavailable Unavailable Patel, Deb SHELTER ADVOCATE Unavailable Unavailable Patel, Deb SHELTER ADVOCATE Unavailable Unavailable Patel, Deb SHELTER ADVOCATE Unavailable Unavailable Patel, Deb SHELTER ADVOCATE Unavailable Unavailable Patel, Deb SHELTER ADVOCATE Unavailable Unavailable Patel, Deb SHELTER ADVOCATE Unavailable Unavailable Patel, Deb SHELTER ADVOCATE Unavailable Unavailable Patel, Deb SHELTER ADVOCATE Unavailable Unavailable Patel, Deb SHELTER ADVOCATE Unavailable Unavailable Patel, Deb SHELTER ADVOCATE Unavailable Unavailable Patel, Deb SHELTER ADVOCATE Unavailable Unavailable Patel, Deb SHELTER ADVOCATE Unavailable Unavailable Patel, Deb SHELTER ADVOCATE Unavailable Unavailable Cynthia Hernandez PA Unavailable Unavailable [...] EDWARD RPA Unavailable Unavailable Sienkiewycz, L Germaine SHELTER ADVOCATE Unavailable Unavailable Sienkiewycz, L Germaine SHELTER ADVOCATE Unavailable Unavailable Sienkiewycz, L Germaine SHELTER ADVOCATE Unavailable Unavailable Sienkiewycz, L Germaine SHELTER ADVOCATE Unavailable Unavailable Sienkiewycz, L Germaine SHELTER ADVOCATE Unavailable Unavailable Sienkiewycz, L Germaine SHELTER ADVOCATE Unavailable Unavailable Sienkiewycz, L Germaine SHELTER ADVOCATE Unavailable Unavailable Re-disclosure Warning The records that [...] is protected by Article 27-F of the [facility] Public Health law. If you continue you may have access to information: Regarding HIV / AIDS; Provided by facilities licensed or operated by the [facility] Office of Mental Health; or Provided by the [facility] Office for People With Developmental Disabilities. If such information is present, then the following [facility] mandated warning applies: This information has [...] law may result in a fine or fdc sentence or both. A general authorization for the release of medical or other information is NOT sufficient authorization for further disc losure. Family History Family Member Name Family Member Gender Family Member Status Date o f Status Description Data Source(s) Unknown Female Diagnosis 02/23/2016 12:00:00 AM EDT [facility] ([facility]) Unknown Female Diagnosis 02/23/2016 12:00:00 AM EDT NextGen ([facility]) Unknown Unknown Problem MEDENT ([facility]) Unknown Unknown Problem MEDENT ([facility]) Encounters Encounter Providers Location Date Indications Data Source(s ) Outpatient Attender: LOGAN remy 07/17/2021 10:30:00 AM EDT [facility] ([facility] [place] [address] [facility] [address] 06/23/2021 12:00:00 AM EDT eCW1 ([facility]) Attender: Anneliese Whyte MD [facility] 12/2020 09:35:00 AM EDT - 06/15/2021 09:35:00 AM EDT [facility] ([facility]) Unknown [address] [facility] [address] 06/10/2021 12:00:00 AM EDT [facility] [place] [address] [facility] [address] 06/08/2021 12:00:00 AM EDT eCW1 ([facility]) Unknown [address] [facility] [address] 06/08/2021 12:00:00 AM EDT eCW1 ([facility]) Unknown [address] [facility] [address] 06/01/2021 12:00:00 AM EDT eCW1 ([facility]) Unknown [address] [facility] [address] 05/27/2021 12:00:00 AM EDT eCW1 ([facility]) Unknown [address] [facility] [address] 05/26/2021 12:00:00 AM EDT eCW1 ([facility]) Outpatient Attender: sIi Alvarezender: Cynthia IRWIN 05/25/2021 03:20:21 PM EDT - 05/25/2021 04:11:07 PM EDT DocuTap ( [facility]) Attender: Harriet ROJO [place] 11/2020 12:13:00 PM EDT - 05/15/2021 12:13:00 PM EDT [facility] ([facility]) Attender: Harriet ROJO [place] 11/2020 09:12:00 AM EDT - 05/15/2021 09:12:00 AM EDT [facility] ([facility]) Unknown [address] [facility] [address] 05/15/2021 12:00:00 AM EDT eCW1 ([facility]) Outpatient Attender: Radha Cunningham RPA-C 10/2020 02:43:58 PM EDT - 05/14/2021 03:11:03 PM EDT [facility] ([facility]) Attender: Harriet ROJO [place] 12:38:00 PM EDT - 05/07/2021 12:38:00 PM EDT [facility] ([facility]) Attender: Anneliese Whyte MD, PPNCNUBIA [place] 0 04/09/2021 09:13:00 AM EDT - 04/09/2021 09:13:00 AM EDT [facility]Gen ([facility]) OFFICE VISIT, ESTOutpatient Attender: Harriet ROJO [place] 04/08/2021 12:30:00 PM EDT - 04/08/2021 12:30:00 PM EDT Encounter for test, result negativeHerpesviral vulvovaginitisEncounter for initial prescription of injectable contracepEncounter for oth general cnsl and advice on contraceptionOther sex counseling NextGen ([facility]) Encounter for test, result neg ative Herpesviral vulvovaginitis Encounter for initial prescription of in jectable contracep Encounter for oth general cnsl and advic e on contraception Other sex counseling Outpatient [address] [facility] [address] 04/07/2021 12:00:00 AM EDT eCW1 ([facility]) Unknown [address] [facility] [address] 04/07/2021 12:00:00 AM EDT eCW1 ([facility]) Unknown [address] [facility] [address] 04/07/2021 12:00:00 AM EDT eCW1 ([facility]) Unknown [address] [facility] [address] 04/03/2021 12:00:00 AM EDT eCW1 ([facility]) Unknown [address] [facility] [address] 03/11/2021 12:00:00 AM EDT eCW1 ([facility]) Outpatient [address] [facility] [address] 03/02/2021 12:00:00 AM EDT [facility] Unknown [address] [facility] [address] 02/19/2021 12:00:00 AM EDT [facility]CW[facility]) Outpatient Attender: Germaine Ricks SHELTER ADVOCATE SURG-NPLAB 02/12/2021 01:14:00 AM EDT [facility] Unknown [address] [facility] [address] 02/06/2021 12:00:00 AM EDT eCW1 ([facility]) Outpatient [address] [facility] [address] 01/26/2021 12:00:00 AM EDT eCW1 ([facility]) [place] [address] [facility] [place] [address] 01/15/2021 12:00:00 AM EDT eCW1 ([facility]) Unknown [address] [facility] [address] 01/13/2021 12:00:00 AM EDT eCW1 [facility]) Outpatient Attender: JENSEN CHUNG RPA 01/10 01:07:42 PM EDT - 01/10/2021 02:09:40 PM EDT Doc[facility]Tap ([facility] ) Unknown [address] [facility] [address] 01/08/2021 12:00:00 AM EDT eCW1 ([facility]) Outpatient Attender: JULIA [facility] 01/03/2021 10:00:00 AM EDT MEDENT ([facility]) Unknown [address] [facility] [address] 12/11/2020 12:00:00 AM EDT [facility]CW1 [facility] Unknown [address] [facility] [address] 12/03/2020 12:00:00 AM EDT eCW1 ([facility]) Outpatient [address] [facility] [address] 12/01/2020 12:00:00 AM EDT eCW1 ([facility]) Unknown [address] [facility] [address] 12/01/2020 12:00:00 AM EDT eCW1 ([facility]) Unknown [address] [facility] [address] 11/03/2020 12:00:00 AM EST eCW1 ([facility]) Attender: Harriet ROJO [place] 01:10:00 PM EST - 10/28/2020 01:10:00 PM EST Encounter for test, result negativeEncounter for surveillance of injectable contraceptive [facility] ([facility]) Encounter for test, result neg ative Encounter for surveillance of injectable contraceptive Unknown [address] [facility] [address] 10/20/2020 12:00:00 AM EST eCW1 ([facility]) PREV VISIT, EST, AGE 18-39Outpatient Attender: Shameka ROJO [place] 07/19/2020 08:45:00 AM EST - 07/19/2020 08:45:00 AM ES T Body mass index (BMI) 30.0-30.9, adultEncntr for obgyn hospitalist physician exam (general) (routine) w/o abn findingsEncounter for initial prescription of injectable contracepOther sex counselingEncounter for test, result negativeHuman immunodeficiency virus [HIV] counseling NextGen ([facility]) Body mass index (BMI) 30.0-30.9, adult Encntr for obgyn hospitalist physician exam (general) (routine) w/o abn findings Encounter for initial prescription of in jectable contracep Other sex counseling Encounter for test, result neg ative Human immunodeficiency virus [HIV] couns eling Outpatient Attender: KRISTOFER Hinton ry 07/06/2020 04:25:00 PM EDT MEDENT ([facility]) Attender: Anneliese ROJO [place] 11:10:00 AM EDT - 06/10/2020 11:10:00 AM EDT [facility] ([facility]) Outpatient Attender: Deb harper 06/03/2020 02:15:00 PM EDT MEDENT ([facility]) OFFICE VISIT, ESTOutpatient Attender: Mary ROJO [facility] 06/02/2020 10:20:00 AM EDT - 06/02/2020 10:20:00 AM EDT Herpesviral vulvovaginitisEncounter for surveillance of injectable contraceptiveEncounter for oth general cnsl and advice on contraception [facility] ([facility]) Herpesviral vulvovaginitis Encounter for surveillance of injectable contraceptive Encounter for oth general cnsl and advic e on contraception Immunizations Vaccine Date Status Description Data Source(s) COVID-19 VACCINE Moderna 07/05/2021 12:00:00 AM EDT completed [facility]IS Vaccine Series Complete: NOThis Data was Submitted to [facility] Via [employer]. influenza, recombinant, quadrIvalent,injectable, prese rvative free 06/23/2021 01:06:00 PM EDT completed eCW1 ([facility]) influenza, recombinant, quadrIvalent,injectable, prese rvative free 12/01/2020 10:44:00 AM EDT completed eCW1 ([facility]) influenza, recombinant, quadrIvalent,injectable, prese rvative free 12/01/2020 10:44:00 AM EDT completed eCW1 ([facility]) influenza, recombinant, quadrIvalent,injectable, prese rvative free 12/01/2020 10:44:00 AM EDT completed eCW1 ([facility]) influenza, recombinant, quadrIvalent,injectable, prese rvative free 12/01/2020 10:44:00 AM EDT completed eCW1 ([facility]) influenza, recombinant, quadrIvalent,injectable, prese rvative free 12/01/2020 10:44:00 AM EDT completed eCW1 ([facility]) influenza, recombinant, quadrIvalent,injectable, prese rvative free 12/01/2020 10:44:00 AM EDT completed eCW1 ([facility]) influenza, recombinant, quadrIvalent,injectable, prese rvative free 12/01/2020 10:44:00 AM EDT completed eCW1 ([facility]) influenza, recombinant, quadrIvalent,injectable, prese rvative free 12/01/2020 10:44:00 AM EDT completed eCW1 ([facility]) influenza, recombinant, quadrIvalent,injectable, prese rvative free 12/01/2020 10:44:00 AM EDT completed eCW1 ([facility]) influenza, recombinant, quadrIvalent,injectable, prese rvative free 12/01/2020 10:44:00 AM EDT completed eCW1 ([facility]) influenza, recombinant, quadrIvalent,injectable, prese rvative free 12/01/2020 10:44:00 AM EDT completed eCW1 ([facility]) influenza, recombinant, quadrIvalent,injectable, prese rvative free 12/01/2020 10:44:00 AM EDT completed eCW1 ([facility]) influenza, recombinant, quadrIvalent,injectable, prese rvative free 12/01/2020 10:44:00 AM EDT completed eCW1 ([facility]) influenza, recombinant, quadrIvalent,injectable, prese rvative free 12/01/2020 10:44:00 AM EDT completed eCW1 ([facility]) influenza, recombinant, quadrIvalent,injectable, prese rvative free 12/01/2020 10:44:00 AM EDT completed eCW1 ([facility]) influenza, recombinant, quadrIvalent,injectable, prese rvative free 12/01/2020 10:44:00 AM EDT completed eCW1 ([facility]) influenza, recombinant, quadrIvalent,injectable, prese rvative free 12/01/2020 10:44:00 AM EDT completed eCW1 ([facility]) influenza, recombinant, quadrIvalent,injectable, prese rvative free 12/01/2020 10:44:00 AM EDT completed eCW1 ([facility]) influenza, recombinant, quadrIvalent,injectable, prese rvative free 12/01/2020 10:44:00 AM EDT completed eCW1 ([facility]) influenza, recombinant, quadrIvalent,injectable, prese rvative free 12/01/2020 10:44:00 AM EDT completed eCW1 ([facility]) influenza, recombinant, quadrIvalent,injectable, prese rvative free 12/01/2020 10:44:00 AM EDT completed eCW1 ([facility]) influenza, recombinant, quadrIvalent,injectable, prese rvative free 12/01/2020 10:44:00 AM EDT completed eCW1 ([facility]) influenza, recombinant, quadrIvalent,injectable, prese rvative free 12/01/2020 10:44:00 AM EDT completed eCW1 ([facility]) influenza, recombinant, quadrIvalent,injectable, prese rvative free 12/01/2020 10:44:00 AM EDT completed eCW1 ([facility]) Medications Medication Brand Name Start Date Product Form Dose Route Admi nistrative Instructions Pharmacy Instructions Status Indications Reaction Description Data Source(s) Acyclovir 400 MG Oral Tablet acyclovir 400 mg tablet acyclov ir 400 mg tablet 06/15/2021 12:00:00 AM EDT active 1 po tid x 5d prn outbreak (#15) NextGen ([facility]) Albuterol 0.83 MG/ML Inhalant Solution Albuterol Sulfa te (2.5 MG/3ML) 0.083% Albuterol Sulfate (2.5 MG/3ML) 0.083% 05/27/2021 12:00:00 AM EDT 1.5 {ml} active Albuterol Sulfate (2.5 MG/3M L) 0.083% eCW1 ([facility]) Albuterol 0.83 MG/ML Inhalant Solution Albuterol Sulfa te (2.5 MG/3ML) 0.083% Albuterol Sulfate (2.5 MG/3ML) 0.083% 05/27/2021 12:00:00 AM EDT 1.5 {ml} active Albuterol Sulfate (2.5 MG/3M L) 0.083% eCW1 ([facility]) Albuterol 0.83 MG/ML Inhalant Solution Albuterol Sulfa te (2.5 MG/3ML) 0.083% Albuterol Sulfate (2.5 MG/3ML) 0.083% 05/27/2021 12:00:00 AM EDT 1.5 {ml} active Albuterol Sulfate (2.5 MG/3M L) 0.083% eCW1 ([facility]) Albuterol 0.83 MG/ML Inhalant Solution Albuterol Sulfa te (2.5 MG/3ML) 0.083% Albuterol Sulfate (2.5 MG/3ML) 0.083% 05/27/2021 12:00:00 AM EDT 1.5 {ml} active Albuterol Sulfate (2.5 MG/3M L) 0.083% eCW1 ([facility]) Albuterol 0.83 MG/ML Inhalant Solution Albuterol Sulfa te (2.5 MG/3ML) 0.083% Albuterol Sulfate (2.5 MG/3ML) 0.083% 05/27/2021 12:00:00 AM EDT 1.5 {ml} active Albuterol Sulfate (2.5 MG/3M L) 0.083% eCW1 ([facility]) Albuterol 0.83 MG/ML Inhalant Solution Albuterol Sulfa te (2.5 MG/3ML) 0.083% Albuterol Sulfate (2.5 MG/3ML) 0.083% 05/27/2021 12:00:00 AM EDT 1.5 {ml} active Albuterol Sulfate (2.5 MG/3M L) 0.083% eCW1 ([facility]) Albuterol 0.417 MG/ML Inhalant Solution Albuterol Sulf ate 1.25 MG/3ML Albuterol Sulfate 1.25 MG/3ML 05/26/2021 12:00:00 AM EDT 3.0 {ml_as_needed} active Albuterol Sulfate 1.25 MG/3ML eC W1 ([facility]) Albuterol 0.417 MG/ML Inhalant Solution Albuterol Sulf ate 1.25 MG/3ML Albuterol Sulfate 1.25 MG/3ML 05/26/2021 12:00:00 AM EDT 3.0 {ml_as_needed} active Albuterol Sulfate 1.25 MG/3ML eC W1 ([facility]) Albuterol 0.417 MG/ML Inhalant Solution Albuterol Sulf ate 1.25 MG/3ML Albuterol Sulfate 1.25 MG/3ML 05/26/2021 12:00:00 AM EDT 3.0 {ml_as_needed} active Albuterol Sulfate 1.25 MG/3ML eC W1 ([facility]) Albuterol 0.417 MG/ML Inhalant Solution Albuterol Sulf ate 1.25 MG/3ML Albuterol Sulfate 1.25 MG/3ML 05/26/2021 12:00:00 AM EDT 3.0 {ml_as_needed} active Albuterol Sulfate 1.25 MG/3ML eC W1 ([facility]) Albuterol 0.417 MG/ML Inhalant Solution Albuterol Sulf ate 1.25 MG/3ML Albuterol Sulfate 1.25 MG/3ML 05/26/2021 12:00:00 AM EDT 3.0 {ml_as_needed} active Albuterol Sulfate 1.25 MG/3ML eC W1 ([facility]) Albuterol 0.417 MG/ML Inhalant Solution Albuterol Sulf ate 1.25 MG/3ML Albuterol Sulfate 1.25 MG/3ML 05/26/2021 12:00:00 AM EDT 3.0 {ml_as_needed} active Albuterol Sulfate 1.25 MG/3ML eC W1 ([facility]) Albuterol 0.417 MG/ML Inhalant Solution Albuterol Sulf ate 1.25 MG/3ML Albuterol Sulfate 1.25 MG/3ML 05/26/2021 12:00:00 AM EDT 3.0 {ml_as_needed} active Albuterol Sulfate 1.25 MG/3ML eC W1 ([facility]) Nebulizer/Tubing/Mouthpiece - Nebulizer/Tubing/Mouthpiece - 05/15/2021 12:00:00 AM EDT active Nebulizer/Tubing/ Mouthpiece - eCW1 ([facility]) Nebulizer/Tubing/Mouthpiece - Nebulizer/Tubing/Mouthpiece - 05/15/2021 12:00:00 AM EDT active Nebulizer/Tubing/ Mouthpiece - eCW1 ([facility]) Nebulizer/Tubing/Mouthpiece - Nebulizer/Tubing/Mouthpiece - 05/15/2021 12:00:00 AM EDT active Nebulizer/Tubing/ Mouthpiece - eCW1 ([facility]) Nebulizer/Tubing/Mouthpiece - Nebulizer/Tubing/Mouthpiece - 05/15/2021 12:00:00 AM EDT active Nebulizer/Tubing/ Mouthpiece - eCW1 ([facility]) Nebulizer/Tubing/Mouthpiece - Nebulizer/Tubing/Mouthpiece - 05/15/2021 12:00:00 AM EDT active Nebulizer/Tubing/ Mouthpiece - eCW1 ([facility]) Nebulizer/Tubing/Mouthpiece - Nebulizer/Tubing/Mouthpiece - 05/15/2021 12:00:00 AM EDT suspended Nebulizer/Tubi ng/Mouthpiece - eCW1 ([facility]) Acyclovir 400 MG Oral Tablet acyclovir 400 mg tablet acyclov ir 400 mg tablet 05/15/2021 12:00:00 AM EDT completed 1 po tid x 5d prn outbreak (#15) [facility] ([facility]) NEBULIZER AND COMPRESSOR 05/15/2021 12:00:00 AM EDT device 1 USE DIRECTED USE DIRECTED SOLD: 05/16/2021 [facility] Nebulizer/Tubing/Mouthpiece - Nebulizer/Tubing/Mouthpiece - 05/15/2021 12:00:00 AM EDT active Nebulizer/Tubing/ Mouthpiece - eCW1 ([facility]) Nebulizer/Tubing/Mouthpiece - Nebulizer/Tubing/Mouthpiece - 05/15/2021 12:00:00 AM EDT active Nebulizer/Tubing/ Mouthpiece - eCW1 ([facility]) Lidocaine 40 MG/ML Topical Cream lidocaine 4 % topical cream lidocaine 4 % topical cream 04/09/2021 12:00:00 AM EDT acti ve apply to affected area q2-4 hrs prn Next[facility] ([facility]) Lidocaine 0.05 MG/MG Topical Ointment lidocaine 5 % to pical ointment lidocaine 5 % topical ointment 04/08/2021 12:00:00 AM EDT completed apply ointment to lesions q 2 hrs prn discomfort [facility] ([facility]) medroxyprogesterone acetate 150 MG/ML In jectable Suspension medroxyprogesterone 150 mg/mL intramuscular suspension medroxyprogesterone 150 mg/mL intramuscu lar suspension 04/08/2021 12:00:00 AM EDT active IM every 10-13 weeks [facility] ([facility]) Acyclovir 400 MG Oral Tablet acyclovir 400 mg tablet acyclov ir 400 mg tablet 04/08/2021 12:00:00 AM EDT active 1 po tid x 5d prn outbreak (#15) [facility] ([facility]) Fluconazole 150 MG Oral Tablet [Diflucan] Diflucan 150 MG Di flucan 150 MG 04/07/2021 12:00:00 AM EDT 1.0 {tablet} active eCW1 ([facility]) Fluconazole 150 MG Oral Tablet [Diflucan] Diflucan 150 MG Di flucan 150 MG 04/07/2021 12:00:00 AM EDT 1.0 {tablet} active Diflucan 150 MG eCW1 ([facility]) Fluconazole 150 MG Oral Tablet [Diflucan] Diflucan 150 MG Di flucan 150 MG 04/07/2021 12:00:00 AM EDT 1.0 {tablet} active Diflucan 150 MG eCW1 ([facility]) Fluconazole 150 MG Oral Tablet [Diflucan] Diflucan 150 MG Di flucan 150 MG 04/07/2021 12:00:00 AM EDT 1.0 {tablet} active Diflucan 150 MG eCW1 ([facility]) Fluconazole 150 MG Oral Tablet [Diflucan] Diflucan 150 MG Di flucan 150 MG 04/07/2021 12:00:00 AM EDT 1.0 {tablet} active Diflucan 150 MG eCW1 ([facility]) Fluconazole 150 MG Oral Tablet [Diflucan] Diflucan 150 MG Di flucan 150 MG 04/07/2021 12:00:00 AM EDT 1.0 {tablet} active Diflucan 150 MG eCW1 ([facility]) Fluconazole 150 MG Oral Tablet [Diflucan] Diflucan 150 MG Di flucan 150 MG 04/07/2021 12:00:00 AM EDT 1.0 {tablet} active Diflucan 150 MG eCW1 ([facility]) Fluconazole 150 MG Oral Tablet [Diflucan] Diflucan 150 MG Di flucan 150 MG 04/07/2021 12:00:00 AM EDT 1.0 {tablet} active Diflucan 150 MG eCW1 ([facility]) Fluconazole 150 MG Oral Tablet [Diflucan] Diflucan 150 MG Di flucan 150 MG 04/07/2021 12:00:00 AM EDT 1.0 {tablet} active Diflucan 150 MG eCW1 ([facility]) Fluconazole 150 MG Oral Tablet [Diflucan] Diflucan 150 MG Di flucan 150 MG 04/07/2021 12:00:00 AM EDT 1.0 {tablet} active Diflucan 150 MG eCW1 ([facility]) Prednisone 10 MG Oral Tablet predniSONE 10 MG predniSONE 10 MG 03/02/2021 12:00:00 AM EDT 1.0 {tablet} active pr edniSONE 10 MG eCW1 ([facility]) Ergocalciferol 78030 UNT Oral Capsule Vi tamin D (Ergocalciferol) 1.25 MG (27427 UT) Vitamin D (Ergocalciferol) 1.25 MG (23908 UT) 03/02/2021 12:00:0 0 AM EDT 1.0 {capsule} active Vitamin D (Ergocal ciferol) 1.25 MG (02349 UT) eCW1 ([facility]) Prednisone 10 MG Oral Tablet predniSONE 10 MG predniSONE 10 MG 03/02/2021 12:00:00 AM EDT 1.0 {tablet} active pr edniSONE 10 MG eCW1 ([facility]) Ergocalciferol 37946 UNT Oral Capsule Vi tamin D (Ergocalciferol) 1.25 MG (06472 UT) Vitamin D (Ergocalciferol) 1.25 MG (56621 UT) 03/02/2021 12:00:0 0 AM EDT 1.0 {capsule} active Vitamin D (Ergocal ciferol) 1.25 MG (36016 UT) [facility] ([facility]) Ergocalciferol 91453 UNT Oral Capsule Vi tamin D (Ergocalciferol) 1.25 MG (87742 UT) Vitamin D (Ergocalciferol) 1.25 MG (43498 UT) 03/02/2021 12:00:0 0 AM EDT 1.0 {capsule} active Vitamin D (Ergocal ciferol) 1.25 MG (38882 UT) eC1 ([facility]) Prednisone 10 MG Oral Tablet predniSONE 10 MG predniSONE 10 MG 03/02/2021 12:00:00 AM EDT 1.0 {tablet} active pr edniSONE 10 MG eCW1 ([facility]) Prednisone 10 MG Oral Tablet predniSONE 10 MG predniSONE 10 MG 03/02/2021 12:00:00 AM EDT 1.0 {tablet} active pr edniSONE 10 MG eCW1 ([facility]) Ergocalciferol 10801 UNT Oral Capsule Vi tamin D (Ergocalciferol) 1.25 MG (16264 UT) Vitamin D (Ergocalciferol) 1.25 MG (00130 UT) 03/02/2021 12:00:0 0 AM EDT 1.0 {capsule} active Vitamin D (Ergocal ciferol) 1.25 MG (47105 UT) eCW1 ([facility]) Ergocalciferol 47220 UNT Oral Capsule Vi tamin D (Ergocalciferol) 1.25 MG (24449 UT) Vitamin D (Ergocalciferol) 1.25 MG (55015 UT) 03/02/2021 12:00:0 0 AM EDT 1.0 {capsule} active Vitamin D (Ergocal ciferol) 1.25 MG (92434 UT) [facility] ([facility]) Ergocalciferol 88536 UNT Oral Capsule Vi tamin D (Ergocalciferol) 1.25 MG (25540 UT) Vitamin D (Ergocalciferol) 1.25 MG (08710 UT) 03/02/2021 12:00:0 0 AM EDT 1.0 {capsule} active Vitamin D (Ergocal ciferol) 1.25 MG (23392 UT) [facility] ([facility]) Prednisone 10 MG Oral Tablet predniSONE 10 MG predniSONE 10 MG 03/02/2021 12:00:00 AM EDT 1.0 {tablet} active pr edniSONE 10 MG [facility] ([facility]) Ergocalciferol 61048 UNT Oral Capsule Vi tamin D (Ergocalciferol) 1.25 MG (00504 UT) Vitamin D (Ergocalciferol) 1.25 MG (31195 UT) 03/02/2021 12:00:0 0 AM EDT 1.0 {capsule} active Vitamin D (Ergocal ciferol) 1.25 MG (50629 UT) [facility] ([facility]) Prednisone 10 MG Oral Tablet predniSONE 10 MG predniSONE 10 MG 03/02/2021 12:00:00 AM EDT 1.0 {tablet} active [facility] ([facility]) Ergocalciferol 91261 UNT Oral Capsule Vi tamin D (Ergocalciferol) 1.25 MG (42671 UT) Vitamin D (Ergocalciferol) 1.25 MG (59690 UT) 03/02/2021 12:00:0 0 AM EDT 1.0 {capsule} active Vitamin D (Ergocal ciferol) 1.25 MG (66324 UT) [facility] ([facility]) Ergocalciferol 25722 UNT Oral Capsule Vi tamin D (Ergocalciferol) 1.25 MG (06933 UT) Vitamin D (Ergocalciferol) 1.25 MG (63420 UT) 03/02/2021 12:00:0 0 AM EDT 1.0 {capsule} active Vitamin D (Ergocal ciferol) 1.25 MG (10830 UT) eCW1 ([facility]) Ergocalciferol 06608 UNT Oral Capsule Vi tamin D (Ergocalciferol) 1.25 MG (92575 UT) Vitamin D (Ergocalciferol) 1.25 MG (57760 UT) 03/02/2021 12:00:0 0 AM EDT 1.0 {capsule} active eCW1 ([facility]) Prednisone 10 MG Oral Tablet predniSONE 10 MG predniSONE 10 MG 03/02/2021 12:00:00 AM EDT 1.0 {tablet} active pr edniSONE 10 MG eCW1 ([facility]) Ergocalciferol 29585 UNT Oral Capsule Vi tamin D (Ergocalciferol) 1.25 MG (50789 UT) Vitamin D (Ergocalciferol) 1.25 MG (53928 UT) 03/02/2021 12:00:0 0 AM EDT 1.0 {capsule} active Vitamin D (Ergocal ciferol) 1.25 MG (89184 UT) eCW1 ([facility]) Prednisone 10 MG Oral Tablet predniSONE 10 MG predniSONE 10 MG 03/02/2021 12:00:00 AM EDT 1.0 {tablet} active pr edniSONE 10 MG eCW1 ([facility]) Prednisone 10 MG Oral Tablet predniSONE 10 MG predniSONE 10 MG 03/02/2021 12:00:00 AM EDT 1.0 {tablet} active pr edniSONE 10 MG eCW1 ([facility]) Prednisone 10 MG Oral Tablet predniSONE 10 MG predniSONE 10 MG 03/02/2021 12:00:00 AM EDT 1.0 {tablet} active pr edniSONE 10 MG eCW1 ([facility]) Prednisone 10 MG Oral Tablet predniSONE 10 MG predniSONE 10 MG 03/02/2021 12:00:00 AM EDT 1.0 {tablet} active pr edniSONE 10 MG eCW1 ([facility]) Ergocalciferol 95271 UNT Oral Capsule Vi tamin D (Ergocalciferol) 1.25 MG (04994 UT) Vitamin D (Ergocalciferol) 1.25 MG (19324 UT) 03/02/2021 12:00:0 0 AM EDT 1.0 {capsule} active Vitamin D (Ergocal ciferol) 1.25 MG (02453 UT) eCW1 ([facility]) Ergocalciferol 50229 UNT Oral Capsule Vi tamin D (Ergocalciferol) 1.25 MG (22386 UT) Vitamin D (Ergocalciferol) 1.25 MG (27450 UT) 03/02/2021 12:00:0 0 AM EDT 1.0 {capsule} active Vitamin D (Ergocal ciferol) 1.25 MG (46444 UT) eCW1 ([facility]) Prednisone 10 MG Oral Tablet predniSONE 10 MG predniSONE 10 MG 03/02/2021 12:00:00 AM EDT 1.0 {tablet} active pr edniSONE 10 MG eCW1 ([facility]) Prednisone 10 MG Oral Tablet predniSONE 10 MG predniSONE 10 MG 03/02/2021 12:00:00 AM EDT 1.0 {tablet} active pr edniSONE 10 MG eCW1 ([facility]) Lisinopril 10 MG Oral Tablet Lisinopril 10 MG 01/26/2021 12:00:00 A M EDT 1.0 {tablet} active Lisinopril 10 MG eCW1 ( [facility]) buspirone hydrochloride 10 MG Oral Tablet BusPIRone HC l 10 MG BusPIRone HCl 10 MG 01/26/2021 12:00:00 AM EDT 1.0 {tablet} active eCW1 ([facility]) buspirone hydrochloride 10 MG Oral Tablet BusPIRone HC l 10 MG BusPIRone HCl 10 MG 01/26/2021 12:00:00 AM EDT 1.0 {tablet} activ e BusPIRone HCl 10 MG eCW1 ([facility]) buspirone hydrochloride 10 MG Oral Tablet BusPIRone HC l 10 MG BusPIRone HCl 10 MG 01/26/2021 12:00:00 AM EDT 1.0 {tablet} activ e BusPIRone HCl 10 MG eCW1 ([facility]) Lisinopril 10 MG Oral Tablet Lisinopril 10 MG 01/26/2021 12:00:00 A M EDT 1.0 {tablet} active Lisinopril 10 MG eCW1 ( [facility]) buspirone hydrochloride 10 MG Oral Tablet busPIRone HC l 10 MG busPIRone HCl 10 MG 01/26/2021 12:00:00 AM EDT 1.0 {tablet} activ e busPIRone HCl 10 MG eCW1 ([facility]) Lisinopril 10 MG Oral Tablet Lisinopril 10 MG 01/26/2021 12:00:00 A M EDT 1.0 {tablet} active eCW1 ([facility]) Lisinopril 10 MG Oral Tablet Lisinopril 10 MG 01/26/2021 12:00:00 A M EDT 1.0 {tablet} active Lisinopril 10 MG eCW1 ( [facility]) Doxycycline Monohydrate 100 MG Oral Tablet Doxycycline Monoh ydrate 01/03/2021 12:00:00 AM EDT ORAL active M EDENT ([facility], [facility]) Prednisone 20 MG Oral Tablet Prednisone 01/03/2021 12:00:00 AM EDT ORAL active MEDENT ([facility]) 200 ACTUAT Levalbuterol 0.045 MG/ACTUAT Metered Dose Inhaler [Xopenex] Xopenex HFA 45 MCG/ACT Xopenex HFA 45 MCG/ACT 12/01/2020 12:00:00 AM EDT 1.0 {puff_as_needed} active Xopenex HFA 45 MCG/ACT eCW1 ([facility]) 200 ACTUAT Levalbuterol 0.045 MG/ACTUAT Metered Dose Inhaler [Xopenex] Xopenex HFA 45 MCG/ACT Xopenex HFA 45 MCG/ACT 12/01/2020 12:00:00 AM EDT 1.0 {puff_as_needed} active Xopenex HFA 45 MCG/ACT eCW1 ([facility]) 200 ACTUAT Levalbuterol 0.045 MG/ACTUAT Metered Dose Inhaler [Xopenex] Xopenex HFA 45 MCG/ACT Xopenex HFA 45 MCG/ACT 12/01/2020 12:00:00 AM EDT 1.0 {puff_as_needed} active Xopenex HFA 45 MCG/ACT eCW1 ([facility]) 200 ACTUAT Levalbuterol 0.045 MG/ACTUAT Metered Dose Inhaler [Xopenex] Xopenex HFA 45 MCG/ACT Xopenex HFA 45 MCG/ACT 12/01/2020 12:00:00 AM EDT 1.0 {puff_as_needed} active Xopenex HFA 45 MCG/ACT eCW1 ([facility]) 200 ACTUAT Levalbuterol 0.045 MG/ACTUAT Metered Dose Inhaler [Xopenex] Xopenex HFA 45 MCG/ACT Xopenex HFA 45 MCG/ACT 12/01/2020 12:00:00 AM EDT 1.0 {puff_as_needed} active Xopenex HFA 45 MCG/ACT eCW1 ([facility]) 200 ACTUAT Levalbuterol 0.045 MG/ACTUAT Metered Dose Inhaler [Xopenex] Xopenex HFA 45 MCG/ACT Xopenex HFA 45 MCG/ACT 12/01/2020 12:00:00 AM EDT 1.0 {puff_as_needed} active Xopenex HFA 45 MCG/ACT eCW1 ([facility]) medroxyprogesterone acetate 150 MG/ML In jectable Suspension medroxyprogesterone 150 mg/mL intramuscular suspension medroxyprogesterone 150 mg/mL intramuscu lar suspension 07/19/2020 12:00:00 AM EST active IM every 10-13 weeks [facility] ([facility]) Ibuprofen 800 MG Oral Tablet Ibuprofen 07/06/2020 12:00:00 AM EDT ORAL completed MEDENT ([facility]) Fluconazole 150 MG Oral Tablet Fluconazole 06/10/2020 12:00:00 AM EDT completed MEDENT ([facility], [facility]) Mupirocin 0.02 MG/MG Topical Ointment Mupirocin 06/03/2020 12:00:00 AM EDT completed MEDENT ([facility], [facility]) Doxycycline Monohydrate 100 MG Oral Tablet Doxycycline Monoh ydrate 06/03/2020 12:00:00 AM EDT ORAL completed MEDENT ([facility], [facility]) Acyclovir 400 MG Oral Tablet acyclovir 400 mg tablet acyclov ir 400 mg tablet 06/02/2020 12:00:00 AM EDT active 1 po BID for viral suppression (#180) [facility] ([facility]) Acyclovir 400 MG Oral Tablet acyclovir 400 mg tablet acyclov ir 400 mg tablet 05/21/2020 12:00:00 AM EDT completed 1 po tid x 5d prn outbreak (#45) [facility] ([facility]) GABAPENTIN (unknown strength) gabapentin comp leted [facility] ([facility]) Lorazepam 0.5 MG Oral Tablet [Ativan] ATIVAN (unknown strength) ATIVAN (unknown strength) completed lorazepam 0. 5 MG Oral Tablet [Ativan] [facility] ([facility]) Insurance Providers Payer name Policy type / Coverage type Policy ID Covered green party ID Covered green party's relationship to villela Policy V[place]la Plan Information [place] [employer] [id number] Self [id number] [place] [id number] Self [id number] [facility] [id number] self [facility] Health Maintenance Organization (HMO) [id number] [facility] Health Maintenance Organization (HMO) [id number] [facility] Health Maintenance Organization (HMO) [id number] [facility]-Medicaid [id number] [facility] Maintenance Organization (O) [id number] Self [id number] [facility]) [id number] S [id number] ANSI-Medicaid [id number] [facility] [employer] Organization (O) [id number] Self [id number] [facility] Organization (O) [id number] Self [id number] ANSI-Medicaid [id number] [facility] [employer] Organization (O) [id number] Self [id number] [facility] [employer] Organization (HMO) [id number] Self [id number] [facility] [employer] Maintenance Organization (HMO) [id number] Self [id number] [facility] Health Maintenance Organization (HMO) [id number] Self [id number] [facility] [employer] Maintenance Organization (HMO) [id number] Self [id number] [facility] ([facility]) [id number] Self [id number] [facility] ([facility]) [id number] Self [id number] [facility] Maintenance [facility] ([facility]) [id number] Self [id number] [facility] ([facility]) [id number] Self [id number] [facility] ([facility]) [id number] Self MEDICAID [id number] SP [id number] SELF PAY UNAVAILABLE SP UNAVAILA BLE JUSTIN CROSS NIÑO PLAN [id number] SP [id number] [facility] [id number] [facility] [id number] UN COMM[facility] [id number] SP [id number] [place] [id number] [place] [id number] [employer] COMMUNITY PLAN [facility] [id number] SP [id number] Problems, Conditions, and Diagnoses Code Display Name Description Problem Type Effective Dates Data Source(s) I10 [id number] Essential hypertension Problem 03/02/2021 12 :00:00 AM EDT eCW1 ([facility]) K58.0 [id number] Irritable bowel syndrome with diarrhea Pr oblem 12/01/2020 12:00:00 AM EDT eCW1 ([facility]) E55.9 [id number] Vitamin D deficiency Problem 12/01/2020 12:0 0:00 AM EDT eCW1 ([facility]) J45.20 [id number] Mild intermittent asthma without complica tion Problem 12/01/2020 12:00:00 AM EDT eCW1 ([facility]) Surgeries/Procedures Procedure Description Date Indications Data Source(s) SIMPLE REPAIR SCALP/NECK/AX/GENIT/TRUNK 2.5CM/< 2020 12:00:00 AM EDT MEDENT ([facility]) OFFICE OUTPATIENT VISIT 15 MINUTES 07/17/2021 12:00:00 AM EDT MED[facility] ([facility], [facility]) Imm: Flublok Quadrivalent 18 years & older 0.5mL IM Influenz a 06/23/2021 12:00:00 AM EDT eCW1 ([facility]) CVR Occupational Medicine Physician.Svc. STI / H 04/08/2021 12:00:00 AM EDT - 04/08/2021 12:00:00 AM EDT [facility] ([facility]) CVR Occupational Medicine Physician.Svc. Other 04/08/2021 12:00:00 AM EDT - 2020 12:00:00 AM EDT [facility] ([facility]) CVR Occupational Medicine Physician.Svc. Nutrition 04/08/2021 12:00: 00 AM EDT - 04/08/2021 12:00:00 AM EDT [facility] ([facility]) CVR Occupational Medicine Physician.Svc. Contraceptive 04/08/2021 12 :00:00 AM EDT - 04/08/2021 12:00:00 AM EDT [facility] ([facility]) CVR Med.Svc. Height/Weight 04/08/2021 12 :00:00 AM EDT - 04/08/2021 12:00:00 AM EDT [facility] ([facility]) CVR Blood Pressure 04/08/2021 12:00:00 AM EDT - 2020 12:00:00 AM EDT [facility] ([facility]) NURSE ONLY INJ. RN/BLOOD TESTER FOWL Only 04/08/2021 1 2:00:00 AM EDT - 04/08/2021 12:00:00 AM EDT [facility] ([facility]) Depo/Medroxyprogesterone Inj. 150 Mg Nurse/CA 04/08/2021 12:00:00 AM EDT - 04/08/2021 12:00:00 AM EDT [facility] ([facility]) URINE TEST 04/08/2021 12:00:00 AM EDT - 04/08/2021 12:00:00 AM EDT [facility] ([facility]) OFFICE VISIT, EST 04/08/2021 12:00:00 AM EDT - 021 12:00:00 AM EDT [facility] ([facility]) Imm: Flublok Quadrivalent 18 years & older 0.5mL IM Influenz a 12/01/2020 12:00:00 AM EDT eC ([facility]) CVR Occupational Medicine Physician.Svc. Other 10/28/2020 12:00:00 AM EST - 2020 12:00:00 AM EST [facility] ([facility]) CVR Occupational Medicine Physician.Svc. Nutrition 10/28/2020 12:00: 00 AM EST - 10/28/2020 12:00:00 AM EST [facility] ([facility]) CVR Occupational Medicine Physician.Svc. Contraceptive 10/28/2020 12 :00:00 AM EST - 10/28/2020 12:00:00 AM EST [facility] ([facility]) CVR Med.Svc. Height/Weight 10/28/2020 12 :00:00 AM EST - 10/28/2020 12:00:00 AM EST [facility] ([facility]) CVR Blood Pressure 10/28/2020 12:00:00 AM EST - 2020 12:00:00 AM EST [facility] ([facility]) URINE TEST 10/28/2020 12:00:00 AM EST - 10/28/2020 12:00:00 AM EST [facility] ([facility]) NURSE ONLY DEPO INJ. RN/BLOOD TESTER FOWL Only 021 12:00:00 AM EST - 10/28/2020 12:00:00 AM EST [facility] ([facility]) Depo/Medroxyprogesterone Inj. 150 Mg Nurse/CA 10/28/2020 12:00:00 AM EST - 10/28/2020 12:00:00 AM EST [facility] ([facility]) CVR BC Ending Method HORM.INJ. 3 MOS 12:00:00 AM EST - 10/28/2020 12:00:00 AM EST [facility] ([facility]) MED SERV, EUSEBIO/WKEND/HOLIDAY 07/19/2020 1 2:00:00 AM EST - 07/19/2020 12:00:00 AM EST [facility] ([facility]) THER/PROPH/DIAG INJ, SC/IM 07/19/2020 12 :00:00 AM EST - 07/19/2020 12:00:00 AM EST [facility] ([facility]) Male Condom Polyurethane 07/19/2020 12:0 0:00 AM EST - 07/19/2020 12:00:00 AM EST [facility] ([facility]) CVR Occupational Medicine Physician.Svc. STI / H 07/19/2020 12:00:00 AM EST - 07/19/2020 12:00:00 AM EST [facility] ([facility]) CVR Occupational Medicine Physician.Svc. Contraceptive 07/19/2020 12 :00:00 AM EST - 07/19/2020 12:00:00 AM EST [facility] ([facility]) CVR Med.Svc. Breast Exam 07/19/2020 12:0 0:00 AM EST - 07/19/2020 12:00:00 AM EST [facility] ([facility]) CVR Med.Svc. Height/Weight 07/19/2020 12 :00:00 AM EST - 07/19/2020 12:00:00 AM EST [facility] ([facility]) CVR Blood Pressure 07/19/2020 12:00:00 AM EST - 2019 12:00:00 AM EST [facility] ([facility]) CVR Med.Svc. Other 07/19/2020 12:00:00 AM EST - 2019 12:00:00 AM EST [facility] ([facility]) HCS Without Test 07/19/2020 12:00:00 AM EST - 07/19/20 20 12:00:00 AM EST [facility] ([facility]) Depo/Medroxyprogesterone Inj. 150 Mg Nurse/CA 07/19/2020 12:00:00 AM EST - 07/19/2020 12:00:00 AM EST [facility] ([facility]) CVR BC Ending Method HORM.INJ. 3 MOS 03/2020 12:00:00 AM EST - 07/19/2020 12:00:00 AM EST [facility] ([facility]) CYTOPATH, C/V, THIN LAYER 07/19/2020 12: 00:00 AM EST - 07/19/2020 12:00:00 AM EST [facility] ([facility]) PREV VISIT, EST, AGE 18-39 07/19/2020 12 :00:00 AM EST - 07/19/2020 12:00:00 AM EST [facility] ([facility]) URINE TEST 07/19/2020 12:00:00 AM EST - 07/19/2020 12:00:00 AM EST [facility] ([facility]) CVR STI TX Herpes 06/02/2020 12:00:00 AM EDT - 020 12:00:00 AM EDT [facility] ([facility]) CVR Occupational Medicine Physician.Svc. STI / H 06/02/2020 12:00:00 AM EDT - 06/02/2020 12:00:00 AM EDT [facility] ([facility]) CVR Occupational Medicine Physician.Svc. Other 06/02/2020 12:00:00 AM EDT - 2019 12:00:00 AM EDT [facility] ([facility]) CVR Occupational Medicine Physician.Svc. Contraceptive 06/02/2020 12 :00:00 AM EDT - 06/02/2020 12:00:00 AM EDT [facility] ([facility]) OFFICE VISIT, EST 06/02/2020 12:00:00 AM EDT - 020 12:00:00 AM EDT [facility] ([facility]) Results ID Date Data Source [id number] 05/25/2021 03:45:00 PM EDT [facility] Name Value Range Interpretation Code Description Data Krystle rce(s) Supporting Document(s) SARS-CoV-2 RNA Resp Ql DONTRELL+probe NOT DETECTED [facility] This lab was ordered by NUBIA girard and reported by NUBIA Gonzalez. ID Date Data Source [id number] 05/14/2021 03:00:00 PM EDT [facility] Name Value Range Interpretation Code Description Data Krystle rce(s) Supporting Document(s) SARS-CoV-2 RNA Resp Ql DONTRELL+probe DETECTED [facility] This lab was ordered by NUBIA girard and reported by NUBIA Gonzalez. ID Date Data Source [id number] 04/08/2021 12:18:14 PM EDT [facility] ([facility]) Name Value Range Interpretation Code Description Data Krystle rce(s) Supporting Document(s) NegativeLot: [id number]: 09/11/2022 High Sensitivity [facility]) ID Date Data Source [id number] 01/14/2021 08:30:00 AM EDT [facility] Name Value Range Interpretation Code Description Data Krystle rce(s) Supporting Document(s) COVID-19 RT-PCR NASAL SWAB Not Detected Not Detected [facility] A not detected (negative) test [...] developed and its performance characteristics determined by [employer] [place] and verified at [employer]. It has not been cleared or approved by the U.S. Food and Drug Administration for diagnostic use. This test has been authorized by FDA under an EUA for use by authorized laboratories. Results should be used in conjunction with clinical findings, and should not form the sole basis for a diagnosis or treatment decision. Methods: SARS-CoV-2 Multiplex RT-PCR Assay ID Date Data Source [id number] 01/10/2021 01:15:00 PM EDT [facility] Name Value Range Interpretation Code Description Data Krystle rce(s) Supporting Document(s) SARS-CoV-2 (COVID-19) N gene [Presence] in Respiratory specimen by DONTRELL with probe detection NEGATIVE [facility] This lab was ordered by [facility] and reported by [facility]. ID Date Data Source [id number] 01/10/2021 12:00:00 AM EDT [facility] Name Value Range Interpretation Code Description Data Krystle rce(s) Supporting Document(s) Carestart Rapid COVID Antigen Test Negative [facility] This lab was reported by [facility]. ID Date Data Source [id number] 01/03/2021 10:50:00 AM EDT [facility] ([facility]) Name Value Range Interpretation Code Description Data Krystle rce(s) Supporting Document(s) Group A Strep Culture Laboratory test result MEDENT ([facility], [facility]) FULL REPORT IN LAB NOTES (eCW and [facility] ). NEGATIVE FOR STREP PYOGENES (GROUP A) ID Date Data Source [id number] 01/03/2021 12:00:00 AM EDT [facility] Name Value Range Interpretation Code Description Data Krystle rce(s) Supporting Document(s) SARS-CoV2 Rapid Antigen Negative [facility] This lab was reported by [facility]. ID Date Data Source TSH 12/01/2020 12:00:00 AM EDT eCW1 ([facility]) Name Value Range Interpretation Code Description Data Krystle rce(s) Supporting Document(s) TSH ULTRASENSITIVE eCW1 ([facility]) 1.730 0.358-3.740 THYROID STIMULATING HORM ONE eCW1 ([facility]) ID Date Data Source CARBAMAZEPINE (TEGRETOL) LEVEL 12/01/2020 12:00:00 AM EDT eC W1 ([facility]) Name Value Range Interpretation Code Description Data Krystle rce(s) Supporting Document(s) 7.1 4.0-10.0 CARBAMAZEPINE (TEGRETOL) LEVEL eCW1 ([facility]) ID Date Data Source [id number] 12/01/2020 12:00:00 AM EDT eCW1 ([facility]) Name Value Range Interpretation Code Description Data Krystle rce(s) Supporting Document(s) Hemoglobin A1c/Hemoglobin.total in Blood 5.0 HEMOGLOBIN A1c eCW1 ([facility]) ID Date Data Source Comprehensive Metabolic Profile (CMP) 12/01/2020 12:00:00 AM EDT eCW1 ([facility]) Name Value Range Interpretation Code Description Data Krystle rce(s) Supporting Document(s) ELECTROLYTE PROFILE eCW1 ([facility]) SODIUM eCW1 ([facility]) COMPREHENSIVE METABOLIC PROFIL E eCW1 ([facility]) BUN eCW1 ([facility]) CREATININE WITH GFR eCW1 ([facility]) CREATININE eCW1 ([facility]) GLUCOSE eCW1 ([facility]) ALK PHOS eCW1 ([facility]) POTASSIUM eCW1 ([facility]) CALCIUM eCW1 ([facility]) CHLORIDE eCW1 ([facility]) CARBON DIOXIDE eCW1 ([facility]) ALB/GLOB RATIO eCW1 ([facility]) 9 7-18 BLOOD UREA NITROGEN eCW1 ([facility]) 107 70-100 GLUCOSE, FASTING eCW1 ([facility]) 3.6 3.5-5.1 POTASSIUM SERUM eCW1 ([facility]) 142 136-145 SODIUM LEVEL eCW1 ([facility]) 0.63 0.55-1.30 CREATININE FOR GFR eCW1 ([facility]) > 60.0 >60 GLOMERULAR FILTRATION RATE eCW 1 ([facility]) 8.9 8.5-10.1 CALCIUM LEVEL eCW1 ([facility]) 28 21-32 CARBON DIOXIDE LEVEL eCW1 ([facility]) 108 98-107 CHLORIDE LEVEL eCW1 ([facility]) 10 7-37 AST/SGOT eCW1 ([facility]) 98 45-117 ALKALINE PHOSPHATASE eCW1 ([facility]) 20 12-78 ALT/SGPT eCW1 ([facility]) 7.8 6.4-8.2 TOTAL PROTEIN eCW1 ([facility]) < 0.1 0.2-1.0 BILIRUBIN,TOTAL eCW1 ([facility]) 1.1 1.2-2.2 ALBUMIN/GLOBULIN RATIO eCW1 ([facility]) 4.1 3.2-5.2 ALBUMIN eCW1 ([facility]) ID Date Data Source [id number] 10/28/2020 01:07:14 PM EST [employer] ([facility]) Name Value Range Interpretation Code Description Data Krystle rce(s) Supporting Document(s) NegativeLot: [id number]: 05/12/2022 [facility] ID Date Data Source [id number] 07/19/2020 09:05:36 AM EST [facility] ([facility]) Name Value Range Interpretation Code Description Data Krystle rce(s) Supporting Document(s) NegativeLot: [id number]: 09/11/2021 High Sensitivity Urine Test NextGen ([facility]) Procedure Social History Code Duration Value Status Description Data Source(s ) Smoking 06/23/2021 12:00:00 AM EDT Never Smoker completed Never S moker eCW1 ([facility]) Smoking 06/15/2021 12:00:00 AM EDT Never smoker completed Never s moker [facility] ([facility]) Smoking 04/07/2021 12:00:00 AM EDT Never Smoker completed Never S moker eCW1 ([facility]) Smoking 04/07/2021 12:00:00 AM EDT Never Smoker completed Never S moker eCW1 ([facility]) Smoking 04/07/2021 12:00:00 AM EDT Never Smoker completed Never S moker eCW1 ([facility]) Smoking 04/07/2021 12:00:00 AM EDT Never Smoker completed Never S moker eCW1 ([facility]) Smoking 04/07/2021 12:00:00 AM EDT Never Smoker completed Never S moker eCW1 ([facility]) Smoking 04/07/2021 12:00:00 AM EDT Never Smoker completed Never S moker eCW1 ([facility]) Smoking 04/07/2021 12:00:00 AM EDT Never Smoker completed Never S moker eCW1 ([facility]) Smoking 04/07/2021 12:00:00 AM EDT Never Smoker completed Never S moker eCW1 ([facility]) Smoking 04/07/2021 12:00:00 AM EDT Never Smoker completed Never S moker eCW1 ([facility]) Smoking 04/07/2021 12:00:00 AM EDT Never Smoker completed Never S moker eCW1 ([facility]) Smoking 03/02/2021 12:00:00 AM EDT Never Smoker completed Never S moker eCW1 ([facility]) Smoking 03/02/2021 12:00:00 AM EDT Never Smoker completed Never S moker eCW1 ([facility]) Smoking 03/02/2021 12:00:00 AM EDT Never Smoker completed Never S moker eCW1 ([facility]) Smoking 02/17/2021 12:00:00 AM EDT Never Smoker completed Never S moker eCW1 ([facility]) Smoking 01/26/2021 12:00:00 AM EDT Never Smoker completed Never S moker eCW1 ([facility]) Smoking 01/26/2021 12:00:00 AM EDT Never Smoker completed Never S moker eCW1 ([facility]) Smoking 01/26/2021 12:00:00 AM EDT Never Smoker completed Never S moker eCW1 ([facility]) Smoking 12/01/2020 12:00:00 AM EDT Never Smoker completed Never S moker eCW1 ([facility]) Smoking 12/01/2020 12:00:00 AM EDT Never Smoker completed Never S moker eCW1 ([facility]) Smoking 12/01/2020 12:00:00 AM EDT Never Smoker completed Never S moker eCW1 ([facility]) Smoking 12/01/2020 12:00:00 AM EDT Never Smoker completed Never S moker eCW1 ([facility]) Smoking 12/01/2020 12:00:00 AM EDT Never Smoker completed Never S moker eCW1 ([facility]) Smoking 12/01/2020 12:00:00 AM EDT Never Smoker completed Never S moker eCW1 ([facility]) Smoking 07/06/2020 12:00:00 AM EDT Patient has never smoked co mpleted Patient has never smoked MEDENT ([facility]) Vital Signs ID Date Data Source UNK Name Value Range Interpretation Code Description Data Source(s) Systolic blood pressure 111 mm[Hg] 111 mm[Hg] M EDENT ([facility]) Diastolic blood pressure 79 mm[Hg] 79 mm[Hg] [facility] ([facility]) Heart rate 95 /min 95 /min MEDENT ([facility]) Respiratory rate 16 /min 16 /min MED[facility] ( [facility]) Oxygen saturation in Arterial blood by Pulse oximetry 99 % 99 % [facility] ([facility]) Body temperature 97.8 [degF] 97.8 [degF] [facility] ([facility]) Body weight 160.00 [lb_av] 160.00 [lb_av] MEDEN T ([facility]) Body height 63 [in_i] 63 [in_i] MEDENT ([facility]) 5'3" Body mass index (BMI) [Ratio] 28.3 kg/m2 28.3 k g/m2 [facility] ([facility]) Body weight 177 [lb_av] 177 [lb_av] eCW1 ([facility]) Body weight 80.29 kg 80.29 kg W1 ([facility]) Body height 63 [in_i] 63 [in_i] eCW1 ([facility]) Body mass index (BMI) [Ratio] 31.35 kg/m2 31.35 kg/m2 W1 ([facility]) Heart rate 114 /min 114 /min W1 ([facility]) Respiratory rate 18 /min 18 /min W1 ([facility]) Body temperature 97.8 [degF] 97.8 [degF] eCW1 ( [facility]) Systolic blood pressure 136 mm[Hg] 136 mm[Hg] e CW1 ([facility]) Diastolic blood pressure 78 mm[Hg] 78 mm[Hg] eCW1 ([facility]) Body height 160.02 cm 160.02 cm [facility] ([facility] Body weight 79.651 kg 79.651 kg [facility] ([facility]) Systolic blood pressure 110 mm[Hg] 110 mm[Hg] N extGen ([facility]) Diastolic blood pressure 70 mm[Hg] 70 mm[Hg] [facility] ([facility]) Body mass index (BMI) [Ratio] 31.11 kg/m2 Overweight 31.11 kg/m2 Next[facility] ([facility]) Body weight 175.4 [lb_av] 175.4 [lb_av] eCW1 ([facility]) Body height 63 [in_i] 63 [in_i] eCW1 ([facility]) Body mass index (BMI) [Ratio] 31.07 kg/m2 31.07 kg/m2 eCW1 ([facility]) Heart rate 107 /min 107 /min eCW1 ([facility]) Respiratory rate 18 /min 18 /min eCW1 ([facility]) Body temperature 97.1 [degF] 97.1 [degF] eCW1 ( [facility]) Systolic blood pressure 118 mm[Hg] 118 mm[Hg] e CW1 ([facility]) Diastolic blood pressure 78 mm[Hg] 78 mm[Hg] eCW1 ([facility]) Body weight 169.0 [lb_av] 169.0 [lb_av] eCW1 ([facility]) Body height 63 [in_i] 63 [in_i] eCW1 ([facility]) Body mass index (BMI) [Ratio] 29.93 kg/m2 29.93 kg/m2 eCW1 ([facility]) Heart rate 92 /min 92 /min eCW1 ([facility]) Respiratory rate 16 /min 16 /min eCW1 ([facility]) Body temperature 96.7 [degF] 96.7 [degF] eCW1 ( [facility]) Systolic blood pressure 110 mm[Hg] 110 mm[Hg] e CW1 ([facility]) Diastolic blood pressure 80 mm[Hg] 80 mm[Hg] eCW1 ([facility]) Body weight 174.8 [lb_av] 174.8 [lb_av] eCW1 ([facility]) Body height 63 [in_i] 63 [in_i] eCW1 ([facility]) Body mass index (BMI) [Ratio] 30.96 kg/m2 30.96 kg/m2 eCW1 ([facility]) Heart rate 88 /min 88 /min eCW1 ([facility]) Respiratory rate 18 /min 18 /min eCW1 ([facility]) Body temperature 98 [degF] 98 [degF] eCW1 ([facility]) Systolic blood pressure 166 mm[Hg] 166 mm[Hg] e CW1 ([facility]) Diastolic blood pressure 114 mm[Hg] 114 mm[Hg] eCW1 ([facility]) Systolic blood pressure 150 mm[Hg] 150 mm[Hg] M EDENT ([facility]) Diastolic blood pressure 99 mm[Hg] 99 mm[Hg] MEDENT ([facility], [facility]) Heart rate 125 /min 125 /min MEDENT ([facility]) Respiratory rate 15 /min 15 /min MEDENT ( [facility]) Oxygen saturation in Arterial blood by Pulse oximetry 98 % 98 % MED[facility] ([facility]) Body temperature 97.5 [degF] 97.5 [degF] MEDENT ([facility]) Body weight 160.00 [lb_av] 160.00 [lb_av] MEDEN T ([facility], [facility]) Body height 63 [in_i] 63 [in_i] MEDENT ([facility]) 5'3" Body mass index (BMI) [Ratio] 28.3 kg/m2 28.3 k g/m2 MEDENT ([facility]) Body weight 173.2 [lb_av] 173.2 [lb_av] eCW1 ([facility]) Body height 63 [in_i] 63 [in_i] eCW1 ([facility]) Body mass index (BMI) [Ratio] 30.68 kg/m2 30.68 kg/m2 eCW1 ([facility]) Heart rate 96 /min 96 /min eCW1 ([facility]) Respiratory rate 18 /min 18 /min eCW1 ([facility]) Body temperature 98 [degF] 98 [degF] eCW1 ([facility]) Systolic blood pressure 172 mm[Hg] 172 mm[Hg] e CW1 ([facility]) Diastolic blood pressure 110 mm[Hg] 110 mm[Hg] eCW1 ([facility]) Body height 160.02 cm 160.02 cm [facility] ([facility]) Body weight 80.286 kg 80.286 kg [facility] ([facility]) Systolic blood pressure 100 mm[Hg] 100 mm[Hg] N extGen ([facility]) Diastolic blood pressure 60 mm[Hg] 60 mm[Hg] Next[facility] ([facility]) Body mass index (BMI) [Ratio] 31.35 kg/m2 Overweight 31.35 kg/m2 Next[facility] ([facility]) Body height 160.02 cm 160.02 cm Next[facility] ([facility]) Body weight 79.107 kg 79.107 kg Next[facility] ([facility]) Systolic blood pressure 126 mm[Hg] 126 mm[Hg] N extGen ([facility]) Diastolic blood pressure 85 mm[Hg] 85 mm[Hg] Next[facility] ([facility]) Body mass index (BMI) [Ratio] 30.89 kg/m2 Overweight 30.89 kg/m2 Next[facility] ([facility]) Systolic blood pressure 134 mm[Hg] 134 mm[Hg] M EDENT ([facility]) Diastolic blood pressure 89 mm[Hg] 89 mm[Hg] MEDENT ([facility]) Body temperature 98.3 [degF] 98.3 [degF] MEDENT ([facility]) Body weight 160.00 [lb_av] 160.00 [lb_av] MEDEN T ([facility], [facility]) Body height 62 [in_i] 62 [in_i] MEDENT ([facility]) 5'2" Body mass index (BMI) [Ratio] 29.3 kg/m2 29.3 k g/m2 MEDENT ([facility]) Heart rate 108 /min 108 /min MEDENT ([facility], [facility]) Respiratory rate 16 /min 16 /min [facility] ( [facility]) Oxygen saturation in Arterial blood by Pulse oximetry 99 % 99 % [facility] ([facility]) Systolic blood pressure 130 mm[Hg] 130 mm[Hg] [facility] Diastolic blood pressure 91 mm[Hg] 91 mm[Hg] [facility] ([facility]) Heart rate 103 /min 103 /min [facility] ([facility], [facility]) Oxygen saturation in Arterial blood by Pulse oximetry 98 % 98 % [facility] ([facility]) Body temperature 98.3 [degF] 98.3 [degF] [facility] ([facility]) Body weight 165.00 [lb_av] 165.00 [lb_av] [facility] Body height 63 [in_i] 63 [in_i] [facility] ([facility]) 5'3" Body mass index (BMI) [Ratio] 29.2 kg/m2 29.2 k g/m2 [facility] ([facility]) Patient Treatment Plan of Care Planned Activity Planned Date Details Description Data Source (s) Acyclovir 400 MG Oral Tablet 06/15/2021 12:00:00 AM EDT [facility] ([facility]) Albuterol 0.83 MG/ML Inhalant Solution 05/27/2021 12:00:00 AM EDT eCW1 ([facility]) Albuterol 0.83 MG/ML Inhalant Solution 05/27/2021 12:00:00 AM EDT eCW1 ([facility]) Albuterol 0.83 MG/ML Inhalant Solution 05/27/2021 12:00:00 AM EDT eCW1 ([facility]) Albuterol 0.83 MG/ML Inhalant Solution 05/27/2021 12:00:00 AM EDT eCW1 ([facility]) Albuterol 0.83 MG/ML Inhalant Solution 05/27/2021 12:00:00 AM EDT eCW1 ([facility]) Albuterol 0.417 MG/ML Inhalant Solution 05/26/2021 12:00:00 AM EDT eCW1 ([facility]) Albuterol 0.417 MG/ML Inhalant Solution 05/26/2021 12:00:00 AM EDT eCW1 ([facility]) Albuterol 0.417 MG/ML Inhalant Solution 05/26/2021 12:00:00 AM EDT eCW1 ([facility]) Albuterol 0.417 MG/ML Inhalant Solution 05/26/2021 12:00:00 AM EDT eCW1 ([facility]) Albuterol 0.417 MG/ML Inhalant Solution 05/26/2021 12:00:00 AM EDT eCW1 ([facility]) Albuterol 0.417 MG/ML Inhalant Solution 05/26/2021 12:00:00 AM EDT eCW1 ([facility]) Acyclovir 400 MG Oral Tablet 05/15/2021 12:00:00 AM EDT [facility] ([facility]) Nebulizer/Tubing/Mouthpiece - 05/15/2021 12:00:00 AM EDT eCW1 ([facility]) Nebulizer/Tubing/Mouthpiece - 05/15/2021 12:00:00 AM EDT eCW1 ([facility]) Nebulizer/Tubing/Mouthpiece - 05/15/2021 12:00:00 AM EDT eCW1 ([facility]) Nebulizer/Tubing/Mouthpiece - 05/15/2021 12:00:00 AM EDT eCW1 ([facility]) Nebulizer/Tubing/Mouthpiece - 05/15/2021 12:00:00 AM EDT eCW1 ([facility]) Nebulizer/Tubing/Mouthpiece - 05/15/2021 12:00:00 AM EDT eCW1 ([facility]) Nebulizer/Tubing/Mouthpiece - 05/15/2021 12:00:00 AM EDT eCW1 ([facility]) Lidocaine 40 MG/ML Topical Cream 04/09/2021 12:00:00 AM EDT [facility] ([facility]) medroxyprogesterone acetate 150 MG/ML Injectable Suspe nsion 04/08/2021 12:00:00 AM EDT [facility] Lidocaine 0.05 MG/MG Topical Ointment 04/08/2021 12:00:00 AM EDT [facility] ([facility]) Acyclovir 400 MG Oral Tablet 04/08/2021 12:00:00 AM EDT [facility] ([facility]) Fluconazole 150 MG Oral Tablet [Diflucan] 04/07/2021 12:00:00 AM ED T eCW1 ([facility]) Fluconazole 150 MG Oral Tablet [Diflucan] 04/07/2021 12:00:00 AM ED T eCW1 ([facility]) Fluconazole 150 MG Oral Tablet [Diflucan] 04/07/2021 12:00:00 AM ED T eCW1 ([facility]) Fluconazole 150 MG Oral Tablet [Diflucan] 04/07/2021 12:00:00 AM ED T eCW1 ([facility]) Fluconazole 150 MG Oral Tablet [Diflucan] 04/07/2021 12:00:00 AM ED T eCW1 ([facility]) Fluconazole 150 MG Oral Tablet [Diflucan] 04/07/2021 12:00:00 AM ED T eCW1 ([facility]) Fluconazole 150 MG Oral Tablet [Diflucan] 04/07/2021 12:00:00 AM ED T eCW1 ([facility]) Fluconazole 150 MG Oral Tablet [Diflucan] 04/07/2021 12:00:00 AM ED T eCW1 ([facility]) Fluconazole 150 MG Oral Tablet [Diflucan] 04/07/2021 12:00:00 AM ED T eCW1 ([facility]) Fluconazole 150 MG Oral Tablet [Diflucan] 04/07/2021 12:00:00 AM ED T eCW1 ([facility]) Ergocalciferol [id number] UNT Oral Capsule 03/02/2021 12:00:00 AM EDT eCW1 ([facility]) Prednisone 10 MG Oral Tablet 03/02/2021 12:00:00 AM EDT eCW1 ([facility]) Prednisone 10 MG Oral Tablet 03/02/2021 12:00:00 AM EDT eCW1 ([facility]) Ergocalciferol 22075 UNT Oral Capsule 03/02/2021 12:00:00 AM EDT eCW1 ([facility]) Prednisone 10 MG Oral Tablet 03/02/2021 12:00:00 AM EDT eCW1 ([facility]) Ergocalciferol [id number] UNT Oral Capsule 03/02/2021 12:00:00 AM EDT eCW1 ([facility]) buspirone hydrochloride 10 MG Oral Tablet 01/26/2021 12:00:00 AM ED T eCW1 ([facility]) buspirone hydrochloride 10 MG Oral Tablet 01/26/2021 12:00:00 AM ED T eCW1 ([facility]) Lisinopril 10 MG Oral Tablet 01/26/2021 12:00:00 AM EDT eCW1 ([facility]) buspirone hydrochloride 10 MG Oral Tablet 01/26/2021 12:00:00 AM ED T eCW1 ([facility]) Lisinopril 10 MG Oral Tablet 01/26/2021 12:00:00 AM EDT eCW1 ([facility]) buspirone hydrochloride 10 MG Oral Tablet 01/26/2021 12:00:00 AM ED T eCW1 ([facility]) Lisinopril 10 MG Oral Tablet 01/26/2021 12:00:00 AM EDT eCW1 ([facility]) 200 ACTUAT Levalbuterol 0.045 MG/ACTUAT Metered Dose I nhaler [Xopenex] 12/01/2020 12:00:00 AM EDT eCW1 ([facility]) 200 ACTUAT Levalbuterol 0.045 MG/ACTUAT Metered Dose I nhaler [Xopenex] 12/01/2020 12:00:00 AM EDT eCW1 ([facility]) 200 ACTUAT Levalbuterol 0.045 MG/ACTUAT Metered Dose I nhaler [Xopenex] 12/01/2020 12:00:00 AM EDT eCW1 ([facility]) 200 ACTUAT Levalbuterol 0.045 MG/ACTUAT Metered Dose I nhaler [Xopenex] 12/01/2020 12:00:00 AM EDT eCW1 ([facility]) 200 ACTUAT Levalbuterol 0.045 MG/ACTUAT Metered Dose I nhaler [Xopenex] 12/01/2020 12:00:00 AM EDT eCW1 ([facility]) 200 ACTUAT Levalbuterol 0.045 MG/ACTUAT Metered Dose I nhaler [Xopenex] 12/01/2020 12:00:00 AM EDT eCW1 ([facility]) medroxyprogesterone acetate 150 MG/ML Injectable Suspe nsion 07/19/2020 12:00:00 AM EST [facility] Acyclovir 400 MG Oral Tablet 06/02/2020 12:00:00 AM EDT [facility] ([facility]) Acyclovir 400 MG Oral Tablet 05/21/2020 12:00:00 AM EDT [facility] ([facility]) GABAPENTIN (unknown strength) [facility] ([facility]) Lorazepam 0.5 MG Oral Tablet [Ativan] [facility] ([facility])
--- NOTE | 2021-07-28 08:14 | REP ---
INDICATION: DYSPNEA/COUGH COMPARISON: 03/19/2017 TECHNIQUE: PA and lateral. FINDINGS: The mediastinum and cardiac silhouette are normal. The lung jesus are clear and without acute consolidation, effusion, or pneumothorax. The skeletal structures are intact and normal. IMPRESSION: No acute cardiopulmonary process. <Electronically signed by Albert Heard > 07/28/21 [id number]
[2021-07-28 08:19] LABS: RSV AMPLIFICATION NEGATIVE (NEGATIVE)
[2021-07-28] MEDS ORDERED: PROV108A INH (08:34)
[2021-07-28 08:46] VITALS: BP 159/96
== END 2021-07-28 08:50 | disposition home or self-care (01) ==
LOC: M ED 22:45
DX: J06.9 Acute upper respiratory infection, unspecified (principal); I10 Essential (primary) hypertension; J45.909 Unspecified asthma, uncomplicated; G40.909 Epilepsy, unspecified, not intractable, without status epilepticus; Z79.899 Other long term (current) drug therapy; Z88.5 Allergy status to narcotic agent; Z88.8 Allergy status to other drugs, medicaments and biological substances; Z91.048 Other nonmedicinal substance allergy status
CPT/HCPCS: 71046; 87631; 94640; 99284; Q0162

== ENCOUNTER → 2022-07-02 | Outpatient (REF) | payer OTHER ==
[~2022-07-02] MED LIST changes: +ALBU6.7H6 INH; +BUSP10TA PO; +FLUO-96 PO; -FLUO20CA20 PO
== END ==
LOC: M LAB REF 20:47
PROVIDERS: ATTEND Physician Assistant
DX: R50.9 Fever, unspecified (principal); R52 Pain, unspecified

== ENCOUNTER → 2022-08-04 | Outpatient (REF) | payer OTHER, MEDICAID ==
[2022-08-04 17:20] LABS: APPEARANCE, URINE MANUAL CLOUDY (CLEAR); COLOR, URINE MANUAL DK YELLOW (YELLOW)
[2022-08-04 17:21] LABS: BILIRUBIN, URINE MANUAL OBSCURED (NEGATIVE); BLOOD URINE MANUAL POSITIVE (NEGATIVE); GLUCOSE, URINE (UA) MANUAL NEGATIVE (NEGATIVE); KETONE, URINE MANUAL OBSCURED mg/dL (NEGATIVE); LEUKOCYTE ESTERASE, URINE MAN POSITIVE (NEGATIVE); NITRITE, URINE MANUAL OBSCURED (NEGATIVE); PROTEIN, URINE MANUAL OBSCURED mg/dL (NEGATIVE); SPECIFIC GRAVITY,URINE MANUAL 1.015 (1.002-1.035); UROBILINOGEN, URINE MANUAL OBSCURED mg/dl (NORMAL)
[2022-08-04 17:43] LABS: SQUAMOUS EPITHELIAL CELL URINE LARGE AMOUNT /hpf (SMALL AMT); WBC, URINE 15-20 /hpf (0-3)
[2022-08-04 17:44] LABS: BACTERIA, URINE SMALL AMOUNT; HYALINE CAST, URINE NONE SEEN /lpf (0-1); MUCUS, URINE LARGE AMOUNT (NEGATIVE)
== END ==
LOC: M LAB REF 16:04
PROVIDERS: ATTEND Physician Assistant
DX: N39.0 Urinary tract infection, site not specified (principal)

== ENCOUNTER → 2023-01-04 | Outpatient (REF) | payer OTHER, MEDICAID | LOC: M SFHCPLAZ 16:40 | PROVIDERS: ATTEND Physician Assistant | DX: J06.9 Acute upper respiratory infection, unspecified (principal) ==

== ENCOUNTER 2023-01-14 23:04 | Emergency (ER) | payer MEDICAID, OTHER ==
[~2023-01-14] VITALS: Ht 157.5 cm; Wt 165.0 kg
[2023-01-15 00:18] LABS: BASO % 0.6 % (0.0-1.0); EOS # 0.2 10^3/uL (0.0-0.5); EOS % 2.4 % (0.0-3.0); HEMATOCRIT 33.9 % (36.0-47.0); HEMOGLOBIN 11.9 g/dl (12.0-15.5); LYMPH # 2.3 10^3/uL (1.5-5.0); LYMPH % 32.1 % (24.0-44.0); MEAN CORPUSCULAR HEMOGLOBIN 30.7 pg (27.0-33.0); MEAN CORPUSCULAR HGB CONC 35.1 g/dl (32.0-36.5); MEAN CORPUSCULAR VOLUME 87.6 fl (80.0-96.0); MONO # 0.5 10^3/uL (0.0-0.8); MONO % 6.5 % (2.0-8.0); NEUTROPHILS # 4.2 10^3/uL (1.5-8.5); PLATELET COUNT, AUTOMATED 295 10^3/uL (150-450); RED BLOOD COUNT 3.87 10^6/uL (4.00-5.40); WHITE BLOOD COUNT 7.2 10^3/uL (4.0-10.0)
[2023-01-15 00:38] LABS: ALBUMIN 3.7 G/DL (3.2-5.2); ALKALINE PHOSPHATASE 82 U/L (46-116); ALT/SGPT 18 U/L (7.0-40); AST/SGOT 15 U/L (<34); BILIRUBIN,DIRECT < 0.1 MG/DL (<0.4); BILIRUBIN,TOTAL 0.2 MG/DL (0.3-1.2); BLOOD UREA NITROGEN 13 MG/DL (9-23); CALCIUM LEVEL 8.5 MG/DL (8.5-10.1); CARBON DIOXIDE LEVEL 24 MMOL/L (20-31); CHLORIDE LEVEL 109 MMOL/L (98-107); CREATININE FOR GFR 0.67 MG/DL (0.55-1.30); GLOMERULAR FILTRATION RATE > 60.0 (>60); GLUCOSE, FASTING 111 MG/DL (60-100); POTASSIUM SERUM 3.6 MMOL/L (3.5-5.1); SODIUM LEVEL 141 MMOL/L (136-145); TOTAL PROTEIN 6.8 G/DL (5.7-8.2)
[2023-01-15 00:40] LABS: THYROID STIMULATING HORMONE 2.509 uIU/ML (0.55-4.78); THYROXINE (T4) 7.9 UG/DL (4.5-10.9)
[2023-01-15 00:45] LABS: RSV AMPLIFICATION NEGATIVE (NEGATIVE)
[2023-01-15 03:05] VITALS: BP 139/82
== END 2023-01-15 04:43 | disposition left against medical advice (07) ==
LOC: M ED 23:04 → EDBD 23:04 → M ED 01-15 04:43
DX: R06.02 Shortness of breath (principal); Z53.21 Procedure and treatment not carried out due to patient leaving prior to being seen by health care provider

== ENCOUNTER 2023-02-08 11:17 | Emergency (ER) | payer OTHER ==
[~2023-02-08] VITALS: Ht 160 cm; Wt 84.3 kg
[2023-02-08 11:33] VITALS: BP 156/80
[2023-02-08] MEDS ORDERED: PROPARACAINE 0.5% OPHTH SOL 15ML OU ONE (12:55)
[2023-02-08] MEDS ORDERED: FLUORESCEIN OPHTH 1MG STRIP OU ONE (12:55)
[2023-02-08] MEDS ORDERED: POLYSOL OP (13:33)
[2023-02-08] MEDS ORDERED: PREDOPD OP (13:33)
[2023-02-08] MEDS ORDERED: SYST1SOL4 OP (13:33)
== END 2023-02-08 13:44 | disposition home or self-care (01) ==
LOC: EDBD 11:17 → M ED 11:17
DX: B30.0 Keratoconjunctivitis due to adenovirus (principal); G40.909 Epilepsy, unspecified, not intractable, without status epilepticus; F41.9 Anxiety disorder, unspecified; J45.909 Unspecified asthma, uncomplicated

== ENCOUNTER → 2023-02-28 | Outpatient (CLI) | payer OTHER ==
[~2023-02-28] MED LIST changes: +POLYSOL OP; +PREDOPD OP; +SYST1SOL4 OP
== END ==
LOC: M SLEEP HO 11:04
PROVIDERS: ATTEND Physician Assistant
DX: R06.83 Snoring (principal); R40.0 Somnolence; R06.00 Dyspnea, unspecified

== ENCOUNTER → 2023-06-01 | Outpatient (CLI) | payer OTHER ==
[2023-06-01 15:53] LABS: HEMATOCRIT 38.1 % (36.0-47.0); HEMOGLOBIN 12.9 g/dl (12.0-15.5); MEAN CORPUSCULAR HEMOGLOBIN 30.6 pg (27.0-33.0); MEAN CORPUSCULAR HGB CONC 33.9 g/dl (32.0-36.5); MEAN CORPUSCULAR VOLUME 90.3 fl (80.0-96.0); PLATELET COUNT, AUTOMATED 307 10^3/uL (150-450); RED BLOOD COUNT 4.22 10^6/uL (4.00-5.40); WHITE BLOOD COUNT 7.5 10^3/uL (4.0-10.0)
[2023-06-01 16:19] LABS: ALBUMIN 3.8 G/DL (3.2-5.2); ALKALINE PHOSPHATASE 78 U/L (46-116); ALT/SGPT 18 U/L (7.0-40); AST/SGOT 15 U/L (<34); BILIRUBIN,TOTAL 0.2 MG/DL (0.3-1.2); BLOOD UREA NITROGEN 13 MG/DL (9-23); CALCIUM LEVEL 8.9 MG/DL (8.5-10.1); CARBON DIOXIDE LEVEL 29 MMOL/L (20-31); CHLORIDE LEVEL 104 MMOL/L (98-107); CHOLESTEROL LEVEL 193 MG/DL (<200); CHOLESTEROL RISK RATIO 5.64 (<5); CREATININE FOR GFR 0.72 MG/DL (0.55-1.30); GLOMERULAR FILTRATION RATE > 60.0 (>60); GLUCOSE, FASTING 91 MG/DL (60-100); HDL CHOLESTEROL 34.2 MG/DL (>40); IRON (FE) 88 UG/DL (50-170); LDL CHOLESTEROL 122.8 MG/DL (<100); NON-HDL-C 158.8 MG/DL; SODIUM LEVEL 139 MMOL/L (136-145); TOTAL IRON BINDING CAPACITY 284 UG/DL (250-425); TOTAL PROTEIN 7.1 G/DL (5.7-8.2); TRIGLYCERIDES LEVEL 180 MG/DL (<150)
[2023-06-01 16:22] LABS: FERRITIN 72.7 NG/ML (7.3-270.7)
[2023-06-01 16:23] LABS: THYROID STIMULATING HORMONE 1.418 uIU/ML (0.55-4.78); TOTAL 25(OH) VITAMIN D 53.1 NG/ML (20.0-100.0)
== END ==
LOC: M PLALAB 11:49
PROVIDERS: ATTEND Nurse Practitioner Adult Health
DX: Z00.00 Encounter for general adult medical examination without abnormal findings (principal); G40.919 Epilepsy, unspecified, intractable, without status epilepticus; Z13.1 Encounter for screening for diabetes mellitus; J02.9 Acute pharyngitis, unspecified; E55.9 Vitamin D deficiency, unspecified; Z13.29 Encounter for screening for other suspected endocrine disorder

== ENCOUNTER → 2023-11-03 | Outpatient (CLI) | payer OTHER ==
[~2023-11-03] MED LIST changes: -KLON0.5T PO; +KLON0.5T8 PO
[2023-11-03 15:59] LABS: ALBUMIN 4.1 G/DL (3.2-5.2); ALKALINE PHOSPHATASE 74 U/L (46-116); ALT/SGPT 40 U/L (7.0-40); AST/SGOT 29 U/L (<34); BILIRUBIN,TOTAL 0.3 MG/DL (0.3-1.2); BLOOD UREA NITROGEN 12 MG/DL (9-23); CALCIUM LEVEL 9.2 MG/DL (8.5-10.1); CARBON DIOXIDE LEVEL 28 MMOL/L (20-31); CHLORIDE LEVEL 106 MMOL/L (98-107); CREATININE FOR GFR 0.75 MG/DL (0.55-1.30); GLOMERULAR FILTRATION RATE > 60.0 (>60); GLUCOSE, FASTING 106 MG/DL (60-100); POTASSIUM SERUM 4.3 MMOL/L (3.5-5.1); SODIUM LEVEL 138 MMOL/L (136-145); TOTAL 25(OH) VITAMIN D 21.9 NG/ML (20.0-100.0); TOTAL PROTEIN 7.5 G/DL (5.7-8.2)
== END ==
LOC: M PLALAB 10:45
PROVIDERS: ATTEND Nurse Practitioner Adult Health
DX: G40.919 Epilepsy, unspecified, intractable, without status epilepticus (principal); J45.20 Mild intermittent asthma, uncomplicated; E55.9 Vitamin D deficiency, unspecified

== ENCOUNTER 2024-01-23 21:04 | Emergency (ER) | payer OTHER ==
[~2024-01-23] VITALS: Ht 157.5 cm; Wt 87.1 kg
[2024-01-23 21:10] VITALS: TEMP 97.8; O2SAT 98
[2024-01-23 21:50] LABS: BASO % 0.5 % (0.0-1.0); EOS # 0.2 10^3/uL (0.0-0.5); EOS % 2.9 % (0.0-3.0); HEMATOCRIT 35.1 % (36.0-47.0); HEMOGLOBIN 12.3 g/dl (12.0-15.5); LYMPH % 36.4 % (24.0-44.0); MEAN CORPUSCULAR HEMOGLOBIN 31.7 pg (27.0-33.0); MEAN CORPUSCULAR VOLUME 90.5 fl (80.0-96.0); MONO # 0.5 10^3/uL (0.0-0.8); MONO % 8.4 % (2.0-8.0); NEUTROPHILS # 2.8 10^3/uL (1.5-8.5); NEUTROPHILS % 51.6 % (36.0-66.0); PLATELET COUNT, AUTOMATED 322 10^3/uL (150-450); RED BLOOD COUNT 3.88 10^6/uL (4.00-5.40); WHITE BLOOD COUNT 5.5 10^3/uL (4.0-10.0)
[2024-01-23 22:12] LABS: ALBUMIN 3.8 G/DL (3.2-5.2); ALKALINE PHOSPHATASE 65 U/L (46-116); ALT/SGPT 22 U/L (7.0-40); AST/SGOT 17 U/L (<34); BILIRUBIN,DIRECT < 0.1 MG/DL (<0.4); BILIRUBIN,TOTAL 0.2 MG/DL (0.3-1.2); BLOOD UREA NITROGEN 16 MG/DL (9-23); CALCIUM LEVEL 9.3 MG/DL (8.5-10.1); CARBON DIOXIDE LEVEL 26 MMOL/L (20-31); CHLORIDE LEVEL 104 MMOL/L (98-107); CREATININE FOR GFR 0.78 MG/DL (0.55-1.30); GLOMERULAR FILTRATION RATE > 60.0 (>60); GLUCOSE, FASTING 98 MG/DL (60-100); POTASSIUM SERUM 4.2 MMOL/L (3.5-5.1); SODIUM LEVEL 138 MMOL/L (136-145); TOTAL PROTEIN 7.1 G/DL (5.7-8.2)
[2024-01-23] MEDS: NS 1,000 ML IV ONE (23:44)
[2024-01-24 00:19] LABS: RSV AMPLIFICATION NEGATIVE (NEGATIVE)
[2024-01-24 00:47] LABS: CK-MB VALUE MASS < 1.0 NG/ML (<3.6); CPK CREATINE PHOSPHOKINASE 100 U/L (34-145)
[2024-01-24 01:01] LABS: CK-MB VALUE MASS < 1.0 NG/ML (<3.6)
[2024-01-24 01:03] LABS: CPK CREATINE PHOSPHOKINASE 82 U/L (34-145); MB/CK RELATIVE INDEX 1.21 (< OR =4)
[2024-01-24] MEDS: NS 1,000 ML IV ONE (01:35)
[2024-01-24 03:58] VITALS: BP 132/69
== END 2024-01-24 04:48 | disposition home or self-care (01) ==
LOC: M ED 21:04 → EDBD 21:04 → M ED 01-24 04:48
DX: E86.0 Dehydration (principal); R00.0 Tachycardia, unspecified; R51.9 Headache, unspecified; G40.909 Epilepsy, unspecified, not intractable, without status epilepticus; Z88.5 Allergy status to narcotic agent; Z88.8 Allergy status to other drugs, medicaments and biological substances; Z91.048 Other nonmedicinal substance allergy status; Z79.52 Long term (current) use of systemic steroids; Z79.899 Other long term (current) drug therapy

== ENCOUNTER → 2024-02-14 | Outpatient (CLI) | payer OTHER ==
[~2024-02-14] MED LIST changes: +ISOVUE-370 76% 100ML VIAL As Ordered ONE; +ONDA-282 PO; -ONDA4TAB6 PO
== END ==
LOC: M RAD 15:51
PROVIDERS: ATTEND Nurse Practitioner Adult Health
DX: R55 Syncope and collapse (principal); G40.919 Epilepsy, unspecified, intractable, without status epilepticus; Z87.898 Personal history of other specified conditions
CPT/HCPCS: 70470; Q9967

== ENCOUNTER → 2024-04-05 | Outpatient (REF) | payer OTHER ==
[~2024-04-05] MED LIST changes: -ISOVUE-370 76% 100ML VIAL As Ordered ONE
== END ==
LOC: M LAB REF 16:13
PROVIDERS: ATTEND Physician Assistant
DX: B34.9 Viral infection, unspecified (principal)

== ENCOUNTER 2024-07-05 08:26 | Observation (INO) | payer OTHER ==
[~2024-07-05] VITALS: Ht 157.5 cm; Wt 92.7 kg
[~2024-07-05 08:26] MED LIST changes: +GABA-1172 PO; -GABA-282 PO
[2024-07-05 09:48] LABS: BASO % 0.2 % (0.0-1.0); EOS # 0.1 10^3/uL (0.0-0.5); EOS % 0.4 % (0.0-3.0); HEMOGLOBIN 13.1 g/dl (12.0-15.5); LYMPH # 1.3 10^3/uL (1.5-5.0); LYMPH % 10.6 % (24.0-44.0); MEAN CORPUSCULAR HEMOGLOBIN 32.2 pg (27.0-33.0); MEAN CORPUSCULAR HGB CONC 35.4 g/dl (32.0-36.5); MEAN CORPUSCULAR VOLUME 90.9 fl (80.0-96.0); MONO # 0.7 10^3/uL (0.0-0.8); MONO % 5.7 % (2.0-8.0); NEUTROPHILS # 10.3 10^3/uL (1.5-8.5); NEUTROPHILS % 82.8 % (36.0-66.0); PLATELET COUNT, AUTOMATED 351 10^3/uL (150-450); RED BLOOD COUNT 4.07 10^6/uL (4.00-5.40); WHITE BLOOD COUNT 12.5 10^3/uL (4.0-10.0)
[2024-07-05 10:10] LABS: LIPASE 36 U/L (12-53)
[2024-07-05 10:12] LABS: ALBUMIN 4.3 G/DL (3.2-5.2); ALKALINE PHOSPHATASE 88 U/L (46-116); ALT/SGPT 18 U/L (7.0-40); AST/SGOT 12 U/L (<34); BILIRUBIN,DIRECT < 0.1 MG/DL (<0.4); BILIRUBIN,TOTAL 0.4 MG/DL (0.3-1.2); BLOOD UREA NITROGEN 15 MG/DL (9-23); CALCIUM LEVEL 9.8 MG/DL (8.5-10.1); CARBON DIOXIDE LEVEL 23 MMOL/L (20-31); CHLORIDE LEVEL 107 MMOL/L (98-107); CREATININE FOR GFR 0.79 MG/DL (0.55-1.30); GLOMERULAR FILTRATION RATE > 60.0 (>60); GLUCOSE, FASTING 168 MG/DL (60-100); POTASSIUM SERUM 4.2 MMOL/L (3.5-5.1); SODIUM LEVEL 137 MMOL/L (136-145); TOTAL PROTEIN 7.8 G/DL (5.7-8.2)
[2024-07-05] MEDS: cefTRIAXone SOD 1 GM in DEXTROSE 5% (D5W) ADV/MINI-BAG 50 ML IV ONE (11:24)
[2024-07-05] MEDS: ONDANSETRON 4MG 2ML VIAL IV ONE (11:24)
[2024-07-05 12:50] LABS: HCG, SERUM QUALITATIVE NEGATIVE (NEGATIVE)
[2024-07-05] MEDS: KETOROLAC 30 MG/ML 1ML VIAL IV ONE (14:43)
[2024-07-05] MEDS: NS 1,000 ML IV SCH (15:17)
[2024-07-05] MEDS ORDERED: ACETAMINOPHEN 325 MG TAB PO PRN (15:30)
[2024-07-05] MEDS ORDERED: METOCLOPRAMIDE INJ 10MG/2ML VIAL IV PRN (15:30)
[2024-07-05 16:00] VITALS: BP 131/91; TEMP 98.1; O2SAT 98
[2024-07-05] MEDS: NS 500 ML IV ONE (16:27)
[2024-07-05] MEDS: PANTOPRAZOLE 40MG TAB (PROTONIX) PO SCH (16:27)
[2024-07-05] MEDS ORDERED: ONDA-282 PO (17:28)
[2024-07-05] MEDS ORDERED: VITA500045 PO (17:28)
[2024-07-05] MEDS ORDERED: LISI10TA22 PO (17:28)
[2024-07-05] MEDS ORDERED: ALBU2.5V10 INH (17:28)
[2024-07-05] MEDS ORDERED: LEVA45AE INH (17:28)
[2024-07-05] MEDS ORDERED: HOME MED LIST COMPLETE! XX SCH (17:30)
[2024-07-05] MEDS ORDERED: ALBUTEROL SULFATE 2.5MG/0.5ML INH NEB SOLN INH PRN (18:15)
[2024-07-05] MEDS ORDERED: LEVALBUTEROL HFA 45MCG/ACT 15GM INHALER INH PRN (18:15)
[2024-07-05 20:01] VITALS: BP 134/91; TEMP 98.2; O2SAT 97
[2024-07-05] MEDS: carBAMazepine XR 200 MG TAB PO SCH (20:09)
[2024-07-05] MEDS: busPIRone 10 MG TAB PO SCH (20:09)
[2024-07-05] MEDS: AMITRIPTYLINE 50 MG TAB PO SCH (20:09)
[2024-07-05] MEDS: GABAPENTIN 300 MG CAP PO SCH (20:09)
[2024-07-05] MEDS: KETOROLAC 30 MG/ML 1ML VIAL IV PRN (23:18)
[2024-07-06 04:18] VITALS: BP 119/72; TEMP 98.1; O2SAT 97
[2024-07-06] MEDS: NS 1,000 ML IV SCH (07:25)
[2024-07-06 08:21] LABS: HEMATOCRIT 34.6 % (36.0-47.0); HEMOGLOBIN 11.6 g/dl (12.0-15.5); MEAN CORPUSCULAR HGB CONC 33.5 g/dl (32.0-36.5); MEAN CORPUSCULAR VOLUME 95.3 fl (80.0-96.0); PLATELET COUNT, AUTOMATED 279 10^3/uL (150-450); RED BLOOD COUNT 3.63 10^6/uL (4.00-5.40); WHITE BLOOD COUNT 6.6 10^3/uL (4.0-10.0)
[2024-07-06] MEDS: SERTRALINE HCL 50 MG TAB PO SCH (08:23)
[2024-07-06 09:05] LABS: BLOOD UREA NITROGEN 14 MG/DL (9-23); CALCIUM LEVEL 8.6 MG/DL (8.5-10.1); CARBON DIOXIDE LEVEL 20 MMOL/L (20-31); CHLORIDE LEVEL 114 MMOL/L (98-107); CREATININE FOR GFR 0.74 MG/DL (0.55-1.30); GLOMERULAR FILTRATION RATE > 60.0 (>60); GLUCOSE, FASTING 109 MG/DL (60-100); POTASSIUM SERUM 4.5 MMOL/L (3.5-5.1); SODIUM LEVEL 140 MMOL/L (136-145)
[2024-07-06] MEDS ORDERED: PHENAZOPYRIDINE 100 MG TAB PO SCH (09:55)
[2024-07-06] MEDS ORDERED: MORPHINE 4 MG/ML 1ML VIAL IV PRN (10:05)
[2024-07-06] MEDS: PHENAZOPYRIDINE 100 MG TAB PO SCH (10:49)
[2024-07-06] MEDS: NS 1,000 ML IV ONE (10:50)
[2024-07-06] MEDS: KETOROLAC 30 MG/ML 1ML VIAL IV PRN (11:29)
[2024-07-06] MEDS: cefTRIAXone SOD 1 GM in DEXTROSE 5% (D5W) ADV/MINI-BAG 50 ML IV SCH (12:39)
[2024-07-06] MEDS ORDERED: CEFD1CAP9 PO (13:10)
[2024-07-06] MEDS ORDERED: PHEN1TAB73 PO (13:10)
[2024-07-06] MEDS ORDERED: PANT40TA29 PO (13:10)
[2024-07-06] MEDS ORDERED: KETO10TAB PO (13:14)
[2024-07-08] MEDS ORDERED: VITAMIN D 50,000 UNITS CAPSULE (ERGOCALCIFEROL 1.25MG) PO SCH (09:00)
== END 2024-07-06 14:55 | disposition home or self-care (01) ==
LOC: M ED 08:26 → EDBD 08:26 → M ED INP 15:29 → M MS5PR 16:20
PROVIDERS: ADMIT Hospitalist; ATTEND Hospitalist
DX: N13.0 Hydronephrosis with ureteropelvic junction obstruction (principal); N20.0 Calculus of kidney; N13.39 Other hydronephrosis; N39.0 Urinary tract infection, site not specified; E66.811 Obesity, class 1; J45.909 Unspecified asthma, uncomplicated; F41.9 Anxiety disorder, unspecified; G40.A09 Absence epileptic syndrome, not intractable, without status epilepticus; R30.0 Dysuria; R50.9 Fever, unspecified; R53.81 Other malaise; Z90.49 Acquired absence of other specified parts of digestive tract; Z80.0 Family history of malignant neoplasm of digestive organs; Z80.8 Family history of malignant neoplasm of other organs or systems; Z82.0 Family history of epilepsy and other diseases of the nervous system; Z91.048 Other nonmedicinal substance allergy status; E73.9 Lactose intolerance, unspecified; Z88.5 Allergy status to narcotic agent; Z88.8 Allergy status to other drugs, medicaments and biological substances; Z79.899 Other long term (current) drug therapy
CPT/HCPCS: 36415; 74176; 80048; 80076; 81001; 83690; 84703; 85025; 85027; 86140; 87040; 87086; 87641; 96361; 96365; 96366; 96375; 96376; 97161; 99285; J0696; J1885; J2405

== ENCOUNTER → 2024-07-19 | Outpatient (REF) | payer OTHER ==
[~2024-07-19] MED LIST changes: +ALBU2.5V10 INH; +CEFD1CAP9 PO; +KETO10TAB PO; +LEVA45AE INH; +LISI10TA22 PO; +PANT40TA29 PO; +PHEN1TAB73 PO; +VITA500045 PO
[2024-07-19 12:33] LABS: APPEARANCE, URINE HAZY (CLEAR); BACTERIA, URINE AUTO 1+ (NEGATIVE); BILIRUBIN, URINE AUTO NEGATIVE (NEGATIVE); BLOOD, URINE BLOOD NEGATIVE (NEGATIVE); COLOR, URINE AMBER (YELLOW); GLUCOSE, URINE (UA) AUTO NEGATIVE (NEGATIVE); KETONE, URINE AUTO NEGATIVE (NEGATIVE); LEUKOCYTE ESTERASE, URINE AUTO 3+ (NEGATIVE); MUCUS, URINE SMALL (NEGATIVE); NITRITE, URINE AUTO POSITIVE (NEGATIVE); PROTEIN, URINE AUTO NEGATIVE (NEGATIVE); RBC, URINE AUTO 17 /HPF (0-3); SPECIFIC GRAVITY URINE AUTO 1.017 (1.002-1.035); SQUAMOUS EPITHELIAL CELL UR AU 8 /HPF (0-6); UROBILINOGEN, URINE AUTO 0.2 mg/dL (0.0-2.0); WBC, URINE AUTO 24 /HPF (0-3)
[2024-07-19 14:46] LABS: BASO % 0.4 % (0.0-1.0); EOS # 0.2 10^3/uL (0.0-0.5); EOS % 2.5 % (0.0-3.0); HEMATOCRIT 36.2 % (36.0-47.0); HEMOGLOBIN 12.2 g/dl (12.0-15.5); LYMPH # 1.9 10^3/uL (1.5-5.0); LYMPH % 26.1 % (24.0-44.0); MEAN CORPUSCULAR HEMOGLOBIN 31.9 pg (27.0-33.0); MEAN CORPUSCULAR HGB CONC 33.7 g/dl (32.0-36.5); MEAN CORPUSCULAR VOLUME 94.8 fl (80.0-96.0); MONO # 0.4 10^3/uL (0.0-0.8); MONO % 5.7 % (2.0-8.0); NEUTROPHILS # 4.7 10^3/uL (1.5-8.5); NEUTROPHILS % 64.9 % (36.0-66.0); PLATELET COUNT, AUTOMATED 387 10^3/uL (150-450); RED BLOOD COUNT 3.82 10^6/uL (4.00-5.40); WHITE BLOOD COUNT 7.2 10^3/uL (4.0-10.0)
[2024-07-19 14:49] LABS: BLOOD UREA NITROGEN 17 MG/DL (9-23); CALCIUM LEVEL 9.4 MG/DL (8.5-10.1); CARBON DIOXIDE LEVEL 27 MMOL/L (20-31); CHLORIDE LEVEL 110 MMOL/L (98-107); GLOMERULAR FILTRATION RATE > 60.0 (>60); GLUCOSE, FASTING 97 MG/DL (60-100); POTASSIUM SERUM 4.6 MMOL/L (3.5-5.1); SODIUM LEVEL 141 MMOL/L (136-145)
== END ==
LOC: M LAB REF 12:08
PROVIDERS: ATTEND Nurse Practitioner Family
DX: N20.2 Calculus of kidney with calculus of ureter (principal)

== ENCOUNTER → 2024-08-14 | Outpatient (CLI) | payer OTHER ==
[~2024-08-14] MED LIST changes: -ADV250INH INH; +ADVA1AER9 INH
== END ==
LOC: M RAD 09:18
PROVIDERS: ATTEND Nurse Practitioner Family
DX: K59.00 Constipation, unspecified (principal)

== ENCOUNTER → 2024-08-14 | Outpatient (CLI) | payer OTHER ==
[2024-08-14 10:07] LABS: APPEARANCE, URINE HAZY (CLEAR); BACTERIA, URINE AUTO 2+ (NEGATIVE); BILIRUBIN, URINE AUTO NEGATIVE (NEGATIVE); BLOOD, URINE BLOOD 1+ (NEGATIVE); COLOR, URINE AMBER (YELLOW); GLUCOSE, URINE (UA) AUTO NEGATIVE (NEGATIVE); KETONE, URINE AUTO NEGATIVE (NEGATIVE); LEUKOCYTE ESTERASE, URINE AUTO 3+ (NEGATIVE); MUCUS, URINE SMALL (NEGATIVE); NITRITE, URINE AUTO POSITIVE (NEGATIVE); PROTEIN, URINE AUTO NEGATIVE (NEGATIVE); RBC, URINE AUTO 16 /HPF (0-3); SPECIFIC GRAVITY URINE AUTO 1.016 (1.002-1.035); SQUAMOUS EPITHELIAL CELL UR AU 8 /HPF (0-6); WBC, URINE AUTO 46 /HPF (0-3)
== END ==
LOC: M RAD 09:16
PROVIDERS: ATTEND Nurse Practitioner Family
DX: Z01.818 Encounter for other preprocedural examination (principal); R94.31 Abnormal electrocardiogram [ECG] [EKG]

== ENCOUNTER 2024-08-22 10:02 | Day surgery (SDC) | payer OTHER ==
[~2024-08-22] VITALS: Ht 157.5 cm; Wt 87.0 kg
[~2024-08-22 10:02] MED LIST changes: +FLOM0.4C39 PO; +NITR-67 PO
[2024-08-22] MEDS ORDERED: LR 500 ML IV SCH (11:25)
[2024-08-22] MEDS ORDERED: ONDANSETRON 4MG 2ML VIAL As Ordered ONE (12:27)
[2024-08-22] MEDS ORDERED: propofoL 200 MG/20 ML VIAL As Ordered ONE (12:27)
[2024-08-22] MEDS ORDERED: GLYCOPYRROLATE INJ 0.2 MG/ML 2 ML VIAL As Ordered ONE (12:27)
[2024-08-22] MEDS ORDERED: LIDOCAINE 2% 100MG/5ML SDV (FOR ANES.) As Ordered ONE (12:27)
[2024-08-22] MEDS ORDERED: fentaNYL 100 MCG/2 ML INJECTION As Ordered ONE (12:28)
[2024-08-22] MEDS ORDERED: MIDAZOLAM INJ 2MG/2ML VIAL As Ordered ONE (12:28)
[2024-08-22] MEDS: ceFAZolin SOD 2 GM in IV 1 EA IV ONE (14:15)
[2024-08-22] MEDS ORDERED: ACETAMINOPHEN 1000MG/100ML IV BAG As Ordered ONE (14:22)
[2024-08-22] MEDS ORDERED: PHENYLephrine 500MCG 5ML (100MCG/ML) SYRINGE As Ordered ONE (14:30)
[2024-08-22] MEDS: ISOVUE-300 61% 100ML VIAL As Ordered ONE (14:34)
[2024-08-22] MEDS ORDERED: ONDANSETRON 4MG 2ML VIAL IV PRN (15:05)
[2024-08-22] MEDS ORDERED: ALBUTEROL SULFATE 2.5MG/0.5ML INH NEB SOLN INH ONE (15:05)
[2024-08-22] MEDS: oxyBUTYnin 5 MG TAB PO STA (15:27)
[2024-08-22] MEDS ORDERED: OXYB5TAB14 PO (15:31)
[2024-08-22] MEDS ORDERED: OXYC1TAB23 PO (15:31)
[2024-08-22] MEDS: fentaNYL 100 MCG/2 ML INJECTION IV PRN (15:34)
[2024-08-22 16:03] VITALS: BP 131/61; TEMP 97.8; O2SAT 95
[2024-08-22] MEDS ORDERED: PERCOCET 5MG/325MG TAB PO PRN (16:25)
[2024-08-22] MEDS ORDERED: oxyBUTYnin 5 MG TAB PO PRN (16:25)
== END 2024-08-22 16:18 | disposition home or self-care (01) ==
LOC: M SDC 10:02
PROVIDERS: ATTEND Urology
DX: N13.2 Hydronephrosis with renal and ureteral calculous obstruction (principal); I10 Essential (primary) hypertension; G40.909 Epilepsy, unspecified, not intractable, without status epilepticus; J45.20 Mild intermittent asthma, uncomplicated; G43.909 Migraine, unspecified, not intractable, without status migrainosus; Z79.899 Other long term (current) drug therapy; K21.9 Gastro-esophageal reflux disease without esophagitis; Z88.5 Allergy status to narcotic agent; Z88.8 Allergy status to other drugs, medicaments and biological substances; Z91.048 Other nonmedicinal substance allergy status
CPT/HCPCS: 52356; 76000; 81025; 82365; C2617; J0131; J0690; J1100; J1596; J2250; J2371; J2405; J3010; Q9967

== ENCOUNTER 2024-08-27 11:02 | Emergency (ER) | payer OTHER ==
[~2024-08-27] VITALS: Ht 157.5 cm; Wt 87.0 kg
[~2024-08-27 11:02] MED LIST changes: +OXYB5TAB14 PO; +OXYC1TAB23 PO
[2024-08-27 12:20] LABS: BASO % 0.7 % (0.0-1.0); EOS # 0.1 10^3/uL (0.0-0.5); EOS % 2.4 % (0.0-3.0); HEMATOCRIT 33.1 % (36.0-47.0); HEMOGLOBIN 11.2 g/dl (12.0-15.5); LYMPH # 1.5 10^3/uL (1.5-5.0); LYMPH % 34.1 % (24.0-44.0); MEAN CORPUSCULAR HGB CONC 33.8 g/dl (32.0-36.5); MEAN CORPUSCULAR VOLUME 94.6 fl (80.0-96.0); MONO # 0.4 10^3/uL (0.0-0.8); MONO % 8.5 % (2.0-8.0); NEUTROPHILS # 2.3 10^3/uL (1.5-8.5); NEUTROPHILS % 54.1 % (36.0-66.0); PLATELET COUNT, AUTOMATED 290 10^3/uL (150-450); WHITE BLOOD COUNT 4.3 10^3/uL (4.0-10.0)
[2024-08-27 12:46] LABS: LIPASE 111 U/L (12-53)
[2024-08-27 12:48] LABS: ALBUMIN 3.8 G/DL (3.2-5.2); ALKALINE PHOSPHATASE 87 U/L (35-104); ALT/SGPT 328 U/L (7.0-40); AST/SGOT 300 U/L (<34); BILIRUBIN,DIRECT < 0.1 MG/DL (<0.4); BILIRUBIN,TOTAL 0.3 MG/DL (0.3-1.2); BLOOD UREA NITROGEN 18 MG/DL (9-23); CALCIUM LEVEL 9.5 MG/DL (8.5-10.1); CARBON DIOXIDE LEVEL 25 MMOL/L (20-31); CHLORIDE LEVEL 106 MMOL/L (98-107); CREATININE FOR GFR 0.76 MG/DL (0.55-1.30); GLOMERULAR FILTRATION RATE > 60.0 (>60); GLUCOSE, FASTING 104 MG/DL (60-100); HCG, SERUM QUALITATIVE NEGATIVE (NEGATIVE); POTASSIUM SERUM 4.5 MMOL/L (3.5-5.1); SODIUM LEVEL 140 MMOL/L (136-145); TOTAL PROTEIN 7.3 G/DL (5.7-8.2)
[2024-08-27] MEDS ORDERED: ONDA-282 PO (13:38)
[2024-08-27 14:03] VITALS: BP 113/54; TEMP 97.4; O2SAT 95
[2024-08-27] MEDS: ONDANSETRON 4MG TAB PO ONE (14:10)
== END 2024-08-27 14:19 | disposition home or self-care (01) ==
LOC: M ED 11:02
DX: R10.9 Unspecified abdominal pain (principal); J30.81 Allergic rhinitis due to animal (cat) (dog) hair and dander; J30.89 Other allergic rhinitis; Z79.899 Other long term (current) drug therapy; Z88.5 Allergy status to narcotic agent; Z88.8 Allergy status to other drugs, medicaments and biological substances; Z91.89 Other specified personal risk factors, not elsewhere classified

== ENCOUNTER → 2025-03-26 | Outpatient (REF) | payer OTHER ==
[~2025-03-26] MED LIST changes: -FLOM0.4C39 PO; +TAMS-18 PO
[2025-03-26 16:25] LABS: ALT/SGPT 23 U/L (7.0-40); AST/SGOT 25 U/L (<34); CHOLESTEROL LEVEL 232 MG/DL (<200); CHOLESTEROL RISK RATIO 5.74 (<5); LDL CHOLESTEROL 143.4 MG/DL (<100); NON-HDL-C 191.6 MG/DL; TRIGLYCERIDES LEVEL 241 MG/DL (<150)
== END ==
LOC: M LAB REF 14:43
PROVIDERS: ATTEND Nurse Practitioner Family
DX: R79.89 Other specified abnormal findings of blood chemistry (principal); Z13.6 Encounter for screening for cardiovascular disorders